=== PATIENT | male | born 1975 | race American Indian/Alaskan Native ===

== ENCOUNTER 2016-09-26 11:31 | Emergency (ER) | payer OTHER, MEDICAID ==
--- NOTE | 2016-09-26 11:40 | EDM.PDOC ---
ED HPI GENERAL MEDICAL PROBLEM - General Chief Complaint: Abdominal Pain Stated Complaint: SICK Time Seen by Provider: 09/26/16 11:40 Source of Information: Reports: Patient History Limitations: Reports: No limitations - History of Present Illness INITIAL COMMENTS - FREE TEXT/NARRATIVE: Pt states that he has had sore throat for the past few weeks and today he woke with dizziness, abdominal pain and vomiting with diarrhea. Onset: today Onset Date: 09/26/16 Duration: Colic Location: Reports: abdomen Quality: Reports: Ache Improves with: Reports: None Worsens with: Reports: None Associated Symptoms: Reports: nausea/vomiting - Related Data Allergies Allergy/AdvReac Type Severity Reaction Status Date / Time ceftriaxone sodium Allergy Vomiting Verified 09/26/16 11:41 [From Rocephin] Home Meds: Home Meds Albuterol [Proventil HFA] 2 puff INH Q4H PRN 06/09/13 [History] Formoterol/Mometasone [Dulera 100-50 MCG] 2 puff IH BID 12/26/14 [History] Past Medical History - Past Health History Medical/Surgical History: Denies Medical/Surgical History HEENT History: Reports: None Cardiovascular History: Reports: None Respiratory History: Reports: Asthma Other Respiratory History: wheezes throughout Gastrointestinal History: Reports: None Genitourinary History: Reports: None Musculoskeletal History: Reports: Arthritis, Fracture Other Musculoskeletal History: R KNEE Neurological History: Reports: None Psychiatric History: Reports: None Endocrine/Metabolic History: Reports: None Hematologic History: Reports: Anemia, Iron deficiency Immunologic History: Reports: None Oncologic (Cancer) History: Reports: None Dermatologic History: Reports: None - Infectious Disease History Infectious Disease History: Reports: None - Past Surgical History Head Surgeries/Procedures: Reports: None HEENT Surgical History: Reports: None Cardiovascular Surgical History: Reports: None Respiratory Surgical History: Reports: None GI Surgical History: Reports: None Musculoskeletal Surgical History: Reports: Arthroscopic knee, Other (see below) Other Musculoskeletal Surgeries/Procedures:: SYNOVECTOMY; MENISCECTOMY Social & Family History - Family History Family Medical History: Noncontributory - Tobacco Use Smoking Status *Q: Never Smoker Second Hand Smoke Exposure: Yes - Caffeine Use Caffeine Use: Reports: Soda - Alcohol Use Days Per Week of Alcohol Use: 0 - Recreational Drug Use Recreational Drug Use: No - Living Situation & Occupation Living situation: Reports: with family [facility] - Review of Systems Review Of Systems: See Below HEENT: Reports: Throat pain GI/Abdominal: Reports: Abdominal pain, Diarrhea, Nausea, Vomiting ED EXAM, GENERAL - Physical Exam Exam: See Below Exam Limited By: No limitations General Appearance: alert, WD/WN, no apparent distress Eye Exam: bilateral eye: PERRL Ears: normal external exam, normal canal, hearing grossly normal, normal TMs Ear Exam: bilateral ear: auricle normal, canal normal, TM normal Nose: normal inspection, normal mucosa, no blood Throat/Mouth: Normal lips, Normal voice, No airway compromise, Other (Enalrged tonsils bilaterally with eythema) Head: atraumatic, normocephalic Respiratory/Chest: no respiratory distress, lungs clear, normal breath sounds, no accessory muscle use, chest non-tender Cardiovascular: normal peripheral pulses, regular rate, rhythm, no edema, no gallop, no JVD, no murmur, no rub GI/Abdominal: normal bowel sounds, soft, no organomegaly, no distention, no abnormal bruit, no mass, guarding Neurological: alert, oriented, CN II-XII intact, normal cognition, normal gait, normal reflexes, no motor/sensory deficits Course - Orders/Labs/Meds Orders: Active Orders 24 hr Category Date Time Status Chest Abdomen Pelvis w Cont [CT] Urgent Exams 09/26/16 11:48 Taken Labs: Laboratory Tests 09/26/16 09/26/16 09/26/16 Range/Units 12:00 12:00 12:00 WBC 18.5 H (5.0-10.0) 10^3/uL RBC 5.75 (4.6-6.2) 10^6/uL Hgb 14.4 (14.0-18.0) g/dL Hct 42.8 (40.0-54.0) % MCV 74.4 L (80-100) fL MCH 25.0 L (27.0-34.0) pg MCHC 33.6 (33.0-35.0) g/dL Plt Count 259 (150-450) 10^3/uL Neut % (Auto) 91.0 H (42.2-75.2) % Lymph % (Auto) 3.2 L (20.5-50.1) % [place] % (Auto) 5.0 (2-8) % Eos % (Auto) 0.7 L (1.0-3.0) % Baso % (Auto) 0.1 (0.0-1.0) % Sodium 134 L (135-145) mmol/L Potassium 3.6 (3.6-5.0) mmol/L Chloride 100 L (101-111) mmol/L Carbon Dioxide 24.0 (21.0-31.0) mmol/L Anion Gap 13.6 BUN 17 (7-18) mg/dL Creatinine 1.0 (0.6-1.3) mg/dL Est Cr Clr Drug Dosing TNP Estimated GFR (MDRD) > 60 BUN/Creatinine Ratio 17.00 Glucose 141 H (74-105) mg/dL Calcium 8.8 (8.4-10.2) mg/dl Total Bilirubin 1.3 H (0.2-1.0) mg/dL AST 33 (10-42) IU/L ALT 45 (10-60) IU/L Alkaline Phosphatase 94 (42-121) IU/L Total Protein 7.5 (6.7-8.2) g/dl Albumin 3.8 (3.2-5.5) g/dl Globulin 3.7 Albumin/Globulin Ratio 1.03 Amylase 38 (28-100) U/L Lipase 18 L (22-51) U/L Urine Color Yellow (YELLOW) Urine Appearance Clear (CLEAR) Urine pH 5.5 (5.0-9.0) Ur Specific [place] 1.020 (1.005-1.030) Urine Protein Negative (NEGATIVE) Urine Glucose (UA) 100 H (NEGATIVE) Urine Ketones Negative (NEGATIVE) Urine Occult Blood Negative (NEGATIVE) Urine Nitrite Negative (NEGATIVE) Urine Bilirubin Negative (NEGATIVE) Urine Urobilinogen 1.0 (0.2-1.0) mg/dL Ur Leukocyte Esterase Negative (NEGATIVE) Urine RBC 0-5 /HPF Urine WBC 0-5 (0-5/HPF) /HPF Ur Epithelial Cells Rare /HPF Urine Opiates Screen (NEGATIVE) Ur Oxycodone Screen (NEGATIVE) Urine Methadone Screen (NEGATIVE) Ur Barbiturates Screen (NEGATIVE) U Tricyclic Antidepress (NEGATIVE) Ur Phencyclidine Scrn (NEGATIVE) Ur Amphetamine Screen (NEGATIVE) U Methamphetamines Scrn (NEGATIVE) Urine MDMA Screen (NEGATIVE) U Benzodiazepines Scrn (NEGATIVE) Urine Cocaine Screen (NEGATIVE) U Marijuana (THC) Screen (NEGATIVE) 09/26/16 Range/Units 12:00 WBC (5.0-10.0) 10^3/uL RBC (4.6-6.2) 10^6/uL Hgb (14.0-18.0) g/dL Hct (40.0-54.0) % MCV (80-100) fL MCH (27.0-34.0) pg MCHC (33.0-35.0) g/dL Plt Count (150-450) 10^3/uL Neut % (Auto) (42.2-75.2) % Lymph % (Auto) (20.5-50.1) % [place] % (Auto) (2-8) % Eos % (Auto) (1.0-3.0) % Baso % (Auto) (0.0-1.0) % Sodium (135-145) mmol/L Potassium (3.6-5.0) mmol/L Chloride (101-111) mmol/L Carbon Dioxide (21.0-31.0) mmol/L Anion Gap BUN (7-18) mg/dL Creatinine (0.6-1.3) mg/dL Est Cr Clr Drug Dosing Estimated GFR (MDRD) BUN/Creatinine Ratio Glucose (74-105) mg/dL Calcium (8.4-10.2) mg/dl Total Bilirubin (0.2-1.0) mg/dL AST (10-42) IU/L ALT (10-60) IU/L Alkaline Phosphatase (42-121) IU/L Total Protein (6.7-8.2) g/dl Albumin (3.2-5.5) g/dl Globulin Albumin/Globulin Ratio Amylase (28-100) U/L Lipase (22-51) U/L Urine Color (YELLOW) Urine Appearance (CLEAR) Urine pH (5.0-9.0) Ur Specific [place] (1.005-1.030) Urine Protein (NEGATIVE) Urine Glucose (UA) (NEGATIVE) Urine Ketones (NEGATIVE) Urine Occult Blood (NEGATIVE) Urine Nitrite (NEGATIVE) Urine Bilirubin (NEGATIVE) Urine Urobilinogen (0.2-1.0) mg/dL Ur Leukocyte Esterase (NEGATIVE) Urine RBC /HPF Urine WBC (0-5/HPF) /HPF Ur Epithelial Cells /HPF Urine Opiates Screen Negative (NEGATIVE) Ur Oxycodone Screen Negative (NEGATIVE) Urine Methadone Screen Negative (NEGATIVE) Ur Barbiturates Screen Negative (NEGATIVE) U Tricyclic Antidepress Negative (NEGATIVE) Ur Phencyclidine Scrn Negative (NEGATIVE) Ur Amphetamine Screen Negative (NEGATIVE) U Methamphetamines Scrn Negative (NEGATIVE) Urine MDMA Screen Negative (NEGATIVE) U Benzodiazepines Scrn Negative (NEGATIVE) Urine Cocaine Screen Negative (NEGATIVE) U Marijuana (THC) Screen Negative (NEGATIVE) Meds: Medications Discontinued Medications Generic Name Dose Route Start Last Admin Trade Name Freq PRN Reason Stop Dose Admin Sodium Chloride 1,000 mls @ 999 mls/hr 09/26/16 12:07 09/26/16 12:30 Normal Saline IV 09/26/16 13:07 999 mls/hr .BOLUS ONE Administration Iopamidol 100 ml 09/26/16 12:22 09/26/16 12:23 Isovue-300 (61%) IVPUSH 09/26/16 12:23 100 ml ONETIME ONE Administration Ketorolac Tromethamine 30 mg 09/26/16 12:30 09/26/16 12:44 Toradol IVPUSH 09/26/16 12:31 30 mg ONETIME ONE Administration Ondansetron HCl 4 mg 09/26/16 12:07 09/26/16 12:18 Zofran IV 09/26/16 12:08 4 mg ONETIME ONE Administration Departure - Departure Time of Disposition: 13:43 Disposition: Home, Self-Care 01 Condition: good Clinical Impression: Strep pharyngitis Pneumonia Qualifiers: Pneumonia type: due to unspecified organism Laterality: left Lung location: lower lobe of lung Qualified Code(s): J18.1 - Lobar pneumonia, unspecified organism Instructions: Strep Throat, Community-Acquired Pneumonia, Adult Forms: ED Department Discharge Additional Instructions: Take the azithromycin 2 times a day for 10 days. you had your first dose here today. take only one more dose tonight. Take Motrin for fever and pain. Follow up in clinic in 5 days for a recheck. Return for any worsening symptoms. - My Orders Last 24 Hours: My Active Orders 09/26/16 11:48 Chest Abdomen Pelvis w Cont [CT] Urgent - Assessment/Plan Last 24 Hours: My Active Orders 09/26/16 11:48 Chest Abdomen Pelvis w Cont [CT] Urgent
[2016-09-26] MEDS ORDERED: Sodium Chloride 0.9% 1,000 ML IV ONE (12:07)
[2016-09-26] MEDS ORDERED: Ondansetron 4 MG/2 ML SDV IV ONE (12:07)
[2016-09-26] MEDS ORDERED: Iopamidol 612 MG/ML 100 ML Bottle IVPUSH ONE (12:22)
[2016-09-26 12:26] LABS: CHLORIDE,CL 100 mmol/L (101-111); SODIUM,NA 134 mmol/L (135-145)
[2016-09-26] MEDS ORDERED: Ketorolac 30 MG/ML SDV IVPUSH ONE (12:30)
--- NOTE | 2016-09-26 13:35 | CT ---
Clinical history: 40-year-old 262 pound male with unexplained abdominal pain, positive strep throat culture, and abnormally elevated white blood cell count (greater than 18,000). Scan technique: Volume acquisition of data chest, abdomen and pelvis obtained without oral contrast but during intravenous ministration 100 cc nonionic Isovue contrast (3 cc/s via injector) while bhupendra ent was lying supine on the Siemens multi slice CT scanner [place], [place]. Note: Patient "uncooperative. Would not stop moving or talking during exam". Interpretation: Abnormal. 1. *Asymmetric large dense focal area of parenchymal lung consolidation involving the left lower lob e, laterally. Pneumonia probable. Pulmonary infarct/mass with infiltrate is a differential considera tion. 2. Normal cardiac silhouette without alveolar edema or dependent effusion. 3. Metallic or medicinal foreign bodies within the stomach/duodenum. Clinical? 4. Normal caliber thoracic and abdominal aorta. Gallbladder, liver, spleen, pancreas and adrenal gla nds anatomically correct. Normal reniform size axis and configuration. No renal cortical mass lesion , nephrolithiasis or signs of obstructive uropathy. Midline prostate gland unremarkable. 5. Bony thorax, dorsal/lumbar spine and pelvis/hips normal. 6. No pelvic or abdominal mass lesion, signs of retroperitoneal lymphadenopathy, inflammatory "dirty " peritoneal fat, mechanical bowel obstruction, ascites or free intraperitoneal air. CONCLUSION: Left lower lobe pneumonia. Foreign bodies stomach (see above).
[2016-09-26] MEDS ORDERED: Azithromycin 250 MG Tab PO ONE (13:36)
[2016-09-26 14:27] VITALS: BP 104/68
== END 2016-09-26 13:53 | disposition home or self-care (01) ==
LOC: DL.ED 11:31
DX: J02.0 Streptococcal pharyngitis (principal); J18.1 Lobar pneumonia, unspecified organism; Z88.8 Allergy status to other drugs, medicaments and biological substances
CPT/HCPCS: 36415; 71260; 74177; 80053; 80305; 81001; 82150; 83690; 85025; 87430; 87804; 96361; 96374; 96375; 99283; A9270; J1885; J2405; J7030; Q9967

== ENCOUNTER 2016-12-03 17:31 | Emergency (ER) | payer MEDICAID, OTHER ==
--- NOTE | 2016-12-03 18:19 | EDM.PDOC ---
<Jose Mary - Last Filed: 12/03/16 18:55> ED HPI GENERAL MEDICAL PROBLEM - General Chief Complaint: Abdominal Pain Stated Complaint: SHARP PAINS IN STOMACH/VOMITING Time Seen by Provider: 12/03/16 19:25 Source of Information: Reports: Patient, RN, RN Notes Reviewed History Limitations: Reports: No Limitations - Related Data Allergies Allergy/AdvReac Type Severity Reaction Status Date / Time ceftriaxone sodium Allergy Vomiting Verified 09/26/16 14:27 [From Rocephin] Home Meds: Home Meds Albuterol [Proventil HFA] 2 puff INH Q4H PRN 06/09/13 [History] Formoterol/Mometasone [Dulera 100-50 MCG] 2 puff IH BID 12/26/14 [History] Past Medical History - Past Health History Medical/Surgical History: Denies Medical/Surgical History HEENT History: Reports: None Cardiovascular History: Reports: None Respiratory History: Reports: Asthma Other Respiratory History: wheezes throughout Gastrointestinal History: Reports: None Genitourinary History: Reports: None Musculoskeletal History: Reports: Arthritis, Fracture Other Musculoskeletal History: R KNEE Neurological History: Reports: None Psychiatric History: Reports: None Endocrine/Metabolic History: Reports: None Hematologic History: Reports: Anemia, Iron Deficiency Immunologic History: Reports: None Oncologic (Cancer) History: Reports: None Dermatologic History: Reports: None - Infectious Disease History Infectious Disease History: Reports: None - Past Surgical History Musculoskeletal Surgical History: Reports: Arthroscopic Knee, Other (See Below) Social & Family History - Family History Family Medical History: Noncontributory - Tobacco Use Smoking Status *Q: Current Status Unknown Second Hand Smoke Exposure: Yes - Caffeine Use Caffeine Use: Reports: Soda - Alcohol Use Days Per Week of Alcohol Use: 0 - Recreational Drug Use Recreational Drug Use: No - Living Situation & Occupation Living situation: Reports: with Family Course - Vital Signs Last Recorded V/S: Last Vital Signs Temp 37.4 C 12/03/16 20:12 Pulse 106 H 12/03/16 20:12 Resp 18 12/03/16 20:12 BP 132/76 12/03/16 20:12 Pulse Ox 92 L 12/03/16 20:12 - Orders/Labs/Meds Orders: Active Orders 24 hr Category Date Time Status Abdomen Pelvis w Cont [CT] Urgent Exams 12/03/16 19:37 Taken CULTURE BLOOD [BC] Stat Lab 12/03/16 19:10 Received CULTURE BLOOD [] Stat Lab 12/03/16 20:06 Received Labs: Laboratory Tests 12/03/16 12/03/16 12/03/16 Range/Units 18:35 18:35 19:10 WBC (5.0-10.0) 10^3/uL RBC (4.6-6.2) 10^6/uL Hgb (14.0-18.0) g/dL Hct (40.0-54.0) % MCV (80-100) fL MCH (27.0-34.0) pg MCHC (33.0-35.0) g/dL Plt Count (150-450) 10^3/uL Neut % (Auto) (42.2-75.2) % Lymph % (Auto) (20.5-50.1) % [place] % (Auto) (2-8) % Eos % (Auto) (1.0-3.0) % Baso % (Auto) (0.0-1.0) % Sodium (135-145) mmol/L Potassium (3.6-5.0) mmol/L Chloride (101-111) mmol/L Carbon Dioxide (21.0-31.0) mmol/L Anion Gap BUN (7-18) mg/dL Creatinine (0.6-1.3) mg/dL Est Cr Clr Drug Dosing Estimated GFR (MDRD) BUN/Creatinine Ratio Glucose (74-105) mg/dL Lactic Acid 0.9 (0.5-2.2) mmol/L Calcium (8.4-10.2) mg/dl Total Bilirubin (0.2-1.0) mg/dL AST (10-42) IU/L ALT (10-60) IU/L Alkaline Phosphatase (42-121) IU/L Total Protein (6.7-8.2) g/dl Albumin (3.2-5.5) g/dl Globulin Albumin/Globulin Ratio Urine Color Dark yellow (YELLOW) Urine Appearance Slightly cloudy (CLEAR) Urine pH 6.0 (5.0-9.0) Ur Specific [place] 1.015 (1.005-1.030) Urine Protein 30 H (NEGATIVE) Urine Glucose (UA) Negative (NEGATIVE) Urine Ketones Negative (NEGATIVE) Urine Occult Blood Negative (NEGATIVE) Urine Nitrite Negative (NEGATIVE) Urine Bilirubin Small H (NEGATIVE) Urine Urobilinogen 1.0 (0.2-1.0) mg/dL Ur Leukocyte Esterase Negative (NEGATIVE) Urine RBC Not seen /HPF Urine WBC 0-5 (0-5/HPF) /HPF Ur Epithelial Cells Rare /HPF Urine Bacteria Not seen (0-FEW/HPF) /HPF Urine Mucus Few H /LPF Urine Opiates Screen Negative (NEGATIVE) Ur Oxycodone Screen Negative (NEGATIVE) Urine Methadone Screen Negative (NEGATIVE) Ur Barbiturates Screen Negative (NEGATIVE) U Tricyclic Antidepress Negative (NEGATIVE) Ur Phencyclidine Scrn Negative (NEGATIVE) Ur Amphetamine Screen Negative (NEGATIVE) U Methamphetamines Scrn Negative (NEGATIVE) Urine MDMA Screen Negative (NEGATIVE) U Benzodiazepines Scrn Negative (NEGATIVE) Urine Cocaine Screen Negative (NEGATIVE) U Marijuana (THC) Screen Negative (NEGATIVE) 12/03/16 12/03/16 Range/Units 19:10 19:10 WBC 14.3 H (5.0-10.0) 10^3/uL RBC 6.01 (4.6-6.2) 10^6/uL Hgb 15.2 (14.0-18.0) g/dL Hct 45.1 (40.0-54.0) % MCV 75.0 L (80-100) fL MCH 25.3 L (27.0-34.0) pg MCHC 33.7 (33.0-35.0) g/dL Plt Count 254 (150-450) 10^3/uL Neut % (Auto) 89.7 H (42.2-75.2) % Lymph % (Auto) 5.1 L (20.5-50.1) % [place] % (Auto) 5.0 (2-8) % Eos % (Auto) 0.1 L (1.0-3.0) % Baso % (Auto) 0.1 (0.0-1.0) % Sodium 134 L (135-145) mmol/L Potassium 3.1 L (3.6-5.0) mmol/L Chloride 101 (101-111) mmol/L Carbon Dioxide 23.0 (21.0-31.0) mmol/L Anion Gap 13.1 BUN 23 H (7-18) mg/dL Creatinine 1.1 (0.6-1.3) mg/dL Est Cr Clr Drug Dosing TNP Estimated GFR (MDRD) > 60 BUN/Creatinine Ratio 20.90 Glucose 114 H (74-105) mg/dL Lactic Acid (0.5-2.2) mmol/L Calcium 8.4 (8.4-10.2) mg/dl Total Bilirubin 1.2 H (0.2-1.0) mg/dL AST 22 (10-42) IU/L ALT 25 (10-60) IU/L Alkaline Phosphatase 86 (42-121) IU/L Total Protein 7.6 (6.7-8.2) g/dl Albumin 3.7 (3.2-5.5) g/dl Globulin 3.9 Albumin/Globulin Ratio 0.95 Urine Color (YELLOW) Urine Appearance (CLEAR) Urine pH (5.0-9.0) Ur Specific [place] (1.005-1.030) Urine Protein (NEGATIVE) Urine Glucose (UA) (NEGATIVE) Urine Ketones (NEGATIVE) Urine Occult Blood (NEGATIVE) Urine Nitrite (NEGATIVE) Urine Bilirubin (NEGATIVE) Urine Urobilinogen (0.2-1.0) mg/dL Ur Leukocyte Esterase (NEGATIVE) Urine RBC /HPF Urine WBC (0-5/HPF) /HPF Ur Epithelial Cells /HPF Urine Bacteria (0-FEW/HPF) /HPF Urine Mucus /LPF Urine Opiates Screen (NEGATIVE) Ur Oxycodone Screen (NEGATIVE) Urine Methadone Screen (NEGATIVE) Ur Barbiturates Screen (NEGATIVE) U Tricyclic Antidepress (NEGATIVE) Ur Phencyclidine Scrn (NEGATIVE) Ur Amphetamine Screen (NEGATIVE) U Methamphetamines Scrn (NEGATIVE) Urine MDMA Screen (NEGATIVE) U Benzodiazepines Scrn (NEGATIVE) Urine Cocaine Screen (NEGATIVE) U Marijuana (THC) Screen (NEGATIVE) Meds: Medications Discontinued Medications Generic Name Dose Route Start Last Admin Trade Name Freq PRN Reason Stop Dose Admin Sodium Chloride 1,000 mls @ 999 mls/hr 12/03/16 18:57 12/03/16 19:17 Normal Saline IV 12/03/16 19:57 999 mls/hr .BOLUS ONE Administration Iopamidol 100 ml 12/03/16 19:37 Isovue-300 (61%) IVPUSH 12/03/16 19:38 ONETIME ONE Ondansetron HCl 4 mg 12/03/16 18:57 12/03/16 19:19 Zofran IV 12/03/16 18:58 4 mg ONETIME ONE Administration Departure - Departure Disposition: Home, Self-Care 01 Clinical Impression: Gastroenteritis - Discharge Information Instructions: Viral Gastroenteritis, Adult, [id number], Nausea and Vomiting, Adult, [id number] Forms: ED Department Discharge Care Plan Goals: The patient was advised of the examination, lab and CT results during the visit in the ED. The patient was given 1 liter of IV fluids and an IV dose of Zofran while in the ED. The patient was discharged with Zofran ODT #2 to take 1 by mouth every 6 hours as needed and a script for Zofran ODT (4 mg) #10 to take 1 by mouth 4 times per day as needed for nausea. If the patient has any additional symptoms or concerns, the patient should follow-up with his primary care facility or return to the emergency department. - My Orders Last 24 Hours: My Active Orders 12/03/16 19:10 CULTURE BLOOD [BC] Stat 12/03/16 19:37 Abdomen Pelvis w Cont [CT] Urgent 12/03/16 20:06 CULTURE BLOOD [BC] Stat - Assessment/Plan Last 24 Hours: My Active Orders 12/03/16 19:10 CULTURE BLOOD [BC] Stat 12/03/16 19:37 Abdomen Pelvis w Cont [CT] Urgent 12/03/16 20:06 CULTURE BLOOD [BC] Stat <Kadeem Mcgovern - Last Filed: 12/03/16 21:09> ED HPI GENERAL MEDICAL PROBLEM - History of Present Illness INITIAL COMMENTS - FREE TEXT/NARRATIVE: This 41 yo male patient reports to the ED with abdominal pain. The patient reports his pain started yesterday after drinking some well water. The patient reports he has been nauseated, vomiting and had diarrhea over the past 24 hours. The patient attempted to get into the Clinic, but there were no appointments available. The patient reports he has been feeling feverish all day. The patient has a previous cardiac surgery for "water on the heart" when he was an . The patient reports no previous abdominal surgeries or issues. Onset: Sudden Onset Date: 12/02/16 Duration: Constant, Getting Worse Location: Reports: Abdomen (diffuse) Quality: Reports: Ache Severity: Severe Improves with: Reports: None Worsens with: Reports: None Associated Symptoms: Reports: Fever/Chills, Loss of Appetite, Nausea/Vomiting, Other (diarrhea) ED ROS GENERAL - Review of Systems Review Of Systems: ROS reveals no pertinent complaints other than HPI. ED EXAM, GI/ABD - Physical Exam Exam: See Below Exam Limited By: No Limitations General Appearance: Alert, WD/WN, Moderate Distress, Obese Eyes: Bilateral: Normal Appearance, EOMI Ears: Normal External Exam, Normal Canal, Hearing Grossly Normal, Normal TMs Nose: Normal Inspection, Normal Mucosa, No Blood Throat/Mouth: Normal Inspection, Normal Lips, Normal Teeth, Normal Gums, Normal Oropharynx, Normal Voice, No Airway Compromise Head: Atraumatic, Normocephalic Neck: Normal Inspection, Supple, Non-Tender, Full Range of Motion Respiratory/Chest: No Respiratory Distress, Lungs Clear, Normal Breath Sounds, No Accessory Muscle Use, Chest Non-Tender Cardiovascular: Normal Peripheral Pulses, Regular Rate, Rhythm, No Edema, No Gallop, No JVD, No Murmur, No Rub GI/Abdominal: Normal Bowel Sounds, No Organomegaly, No Abnormal Bruit, No Mass, Pelvis Stable, Tenderness (diffuse), Distention (Male) Exam: Deferred Rectal (Males) Exam: Deferred Back Exam: Normal Inspection, Full Range of Motion, NT Extremities: Normal Inspection, Normal Range of Motion, Non-Tender, Normal Capillary Refill, No Pedal Edema Neurological: Alert, Oriented, CN II-XII Intact, Normal Cognition, Normal Gait, Normal Reflexes, No Motor/Sensory Deficits Psychiatric: Normal Affect, Normal Mood Skin Exam: Warm, Dry, Intact, Normal Color, No Rash Lymphatic: No Adenopathy Course - Vital Signs Last Recorded V/S: Last Vital Signs Temp 37.4 C 12/03/16 20:12 Pulse 106 H 12/03/16 20:12 Resp 18 12/03/16 20:12 BP 132/76 12/03/16 20:12 Pulse Ox 92 L 12/03/16 20:12 - Orders/Labs/Meds Labs: Laboratory Tests 12/03/16 12/03/16 12/03/16 Range/Units 18:35 18:35 19:10 WBC (5.0-10.0) 10^3/uL RBC (4.6-6.2) 10^6/uL Hgb (14.0-18.0) g/dL Hct (40.0-54.0) % MCV (80-100) fL MCH (27.0-34.0) pg MCHC (33.0-35.0) g/dL Plt Count (150-450) 10^3/uL Neut % (Auto) (42.2-75.2) % Lymph % (Auto) (20.5-50.1) % [place] % (Auto) (2-8) % Eos % (Auto) (1.0-3.0) % Baso % (Auto) (0.0-1.0) % Sodium (135-145) mmol/L Potassium (3.6-5.0) mmol/L Chloride (101-111) mmol/L Carbon Dioxide (21.0-31.0) mmol/L Anion Gap BUN (7-18) mg/dL Creatinine (0.6-1.3) mg/dL Est Cr Clr Drug Dosing Estimated GFR (MDRD) BUN/Creatinine Ratio Glucose (74-105) mg/dL Lactic Acid 0.9 (0.5-2.2) mmol/L Calcium (8.4-10.2) mg/dl Total Bilirubin (0.2-1.0) mg/dL AST (10-42) IU/L ALT (10-60) IU/L Alkaline Phosphatase (42-121) IU/L Total Protein (6.7-8.2) g/dl Albumin (3.2-5.5) g/dl Globulin Albumin/Globulin Ratio Urine Color Dark yellow (YELLOW) Urine Appearance Slightly cloudy (CLEAR) Urine pH 6.0 (5.0-9.0) Ur Specific [place] 1.015 (1.005-1.030) Urine Protein 30 H (NEGATIVE) Urine Glucose (UA) Negative (NEGATIVE) Urine Ketones Negative (NEGATIVE) Urine Occult Blood Negative (NEGATIVE) Urine Nitrite Negative (NEGATIVE) Urine Bilirubin Small H (NEGATIVE) Urine Urobilinogen 1.0 (0.2-1.0) mg/dL Ur Leukocyte Esterase Negative (NEGATIVE) Urine RBC Not seen /HPF Urine WBC 0-5 (0-5/HPF) /HPF Ur Epithelial Cells Rare /HPF Urine Bacteria Not seen (0-FEW/HPF) /HPF Urine Mucus Few H /LPF Urine Opiates Screen Negative (NEGATIVE) Ur Oxycodone Screen Negative (NEGATIVE) Urine Methadone Screen Negative (NEGATIVE) Ur Barbiturates Screen Negative (NEGATIVE) U Tricyclic Antidepress Negative (NEGATIVE) Ur Phencyclidine Scrn Negative (NEGATIVE) Ur Amphetamine Screen Negative (NEGATIVE) U Methamphetamines Scrn Negative (NEGATIVE) Urine MDMA Screen Negative (NEGATIVE) U Benzodiazepines Scrn Negative (NEGATIVE) Urine Cocaine Screen Negative (NEGATIVE) U Marijuana (THC) Screen Negative (NEGATIVE) 12/03/16 12/03/16 Range/Units 19:10 19:10 WBC 14.3 H (5.0-10.0) 10^3/uL RBC 6.01 (4.6-6.2) 10^6/uL Hgb 15.2 (14.0-18.0) g/dL Hct 45.1 (40.0-54.0) % MCV 75.0 L (80-100) fL MCH 25.3 L (27.0-34.0) pg MCHC 33.7 (33.0-35.0) g/dL Plt Count 254 (150-450) 10^3/uL Neut % (Auto) 89.7 H (42.2-75.2) % Lymph % (Auto) 5.1 L (20.5-50.1) % [place] % (Auto) 5.0 (2-8) % Eos % (Auto) 0.1 L (1.0-3.0) % Baso % (Auto) 0.1 (0.0-1.0) % Sodium 134 L (135-145) mmol/L Potassium 3.1 L (3.6-5.0) mmol/L Chloride 101 (101-111) mmol/L Carbon Dioxide 23.0 (21.0-31.0) mmol/L Anion Gap 13.1 BUN 23 H (7-18) mg/dL Creatinine 1.1 (0.6-1.3) mg/dL Est Cr Clr Drug Dosing TNP Estimated GFR (MDRD) > 60 BUN/Creatinine Ratio 20.90 Glucose 114 H (74-105) mg/dL Lactic Acid (0.5-2.2) mmol/L Calcium 8.4 (8.4-10.2) mg/dl Total Bilirubin 1.2 H (0.2-1.0) mg/dL AST 22 (10-42) IU/L ALT 25 (10-60) IU/L Alkaline Phosphatase 86 (42-121) IU/L Total Protein 7.6 (6.7-8.2) g/dl Albumin 3.7 (3.2-5.5) g/dl Globulin 3.9 Albumin/Globulin Ratio 0.95 Urine Color (YELLOW) Urine Appearance (CLEAR) Urine pH (5.0-9.0) Ur Specific [place] (1.005-1.030) Urine Protein (NEGATIVE) Urine Glucose (UA) (NEGATIVE) Urine Ketones (NEGATIVE) Urine Occult Blood (NEGATIVE) Urine Nitrite (NEGATIVE) Urine Bilirubin (NEGATIVE) Urine Urobilinogen (0.2-1.0) mg/dL Ur Leukocyte Esterase (NEGATIVE) Urine RBC /HPF Urine WBC (0-5/HPF) /HPF Ur Epithelial Cells /HPF Urine Bacteria (0-FEW/HPF) /HPF Urine Mucus /LPF Urine Opiates Screen (NEGATIVE) Ur Oxycodone Screen (NEGATIVE) Urine Methadone Screen (NEGATIVE) Ur Barbiturates Screen (NEGATIVE) U Tricyclic Antidepress (NEGATIVE) Ur Phencyclidine Scrn (NEGATIVE) Ur Amphetamine Screen (NEGATIVE) U Methamphetamines Scrn (NEGATIVE) Urine MDMA Screen (NEGATIVE) U Benzodiazepines Scrn (NEGATIVE) Urine Cocaine Screen (NEGATIVE) U Marijuana (THC) Screen (NEGATIVE) Departure - Departure Time of Disposition: 21:06 Condition: fair
[2016-12-03] MEDS ORDERED: Sodium Chloride 0.9% 1,000 ML IV ONE (18:57)
[2016-12-03] MEDS ORDERED: Ondansetron 4 MG/2 ML SDV IV ONE (18:57)
[2016-12-03] MEDS ORDERED: Iopamidol 612 MG/ML 100 ML Bottle IVPUSH ONE (19:37)
[2016-12-03 19:44] LABS: CHLORIDE,CL 101 mmol/L (101-111); SODIUM,NA 134 mmol/L (135-145)
[2016-12-03 20:12] VITALS: BP 132/76
[2016-12-03] MEDS ORDERED: Ondansetron 4 MG Tab.DIS ONE (21:22)
[2016-12-03] MEDS ORDERED: Ondansetron 4 MG Tab.DIS PO ONE (21:22)
== END 2016-12-03 21:28 | disposition home or self-care (01) ==
LOC: DL.ED 17:31
DX: K52.9 Noninfective gastroenteritis and colitis, unspecified (principal); J45.909 Unspecified asthma, uncomplicated; Z88.1 Allergy status to other antibiotic agents; Z98.890 Other specified postprocedural states
CPT/HCPCS: 36415; 74177; 80053; 80305; 81001; 83605; 85025; 87040; 96361; 96374; 99284; A9270; J2405; J7030; Q9967

== ENCOUNTER 2017-06-26 13:12 | Emergency (ER) | payer MEDICAID | END 2017-06-26 14:48 | disposition left against medical advice (07) | LOC: DL.ED 13:12 | DX: Z53.21 Procedure and treatment not carried out due to patient leaving prior to being seen by health care provider (principal) ==

== ENCOUNTER 2017-07-31 10:13 | Emergency (ER) | payer MEDICAID ==
[2017-07-31 10:37] VITALS: BP 153/99
--- NOTE | 2017-07-31 10:45 | EDM.PDOC ---
ED HPI GENERAL MEDICAL PROBLEM - General Chief Complaint: Respiratory Problem Stated Complaint: ASTHMA, STOMACH Time Seen by Provider: 07/31/17 10:44 Source of Information: Reports: Patient, Old Records, RN, RN Notes Reviewed History Limitations: Reports: No Limitations - History of Present Illness INITIAL COMMENTS - FREE TEXT/NARRATIVE: Arrives from home by POV with c/o asthma flare up with wheezing x2 days, getting worse. Denies shortness of breath. Also c/o onset of left sided abdominal pain yesterday with nausea and loose stool. Denies blood or mucus in stool, or any black or melanotic stool. Denies fever, chills, sore throat, myalgias, or radiating abdominal pain. 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: Reports: Breathing Treatments Left Upper Abdomen Pain Score (Numeric/FACES): 8 - Related Data Allergies Allergy/AdvReac Type Severity Reaction Status Date / Time ceftriaxone sodium Allergy Vomiting Verified 07/31/17 10:32 [From Rocephin] Home Meds: Home Meds Albuterol [Proventil HFA] 2 puff INH Q4H PRN 06/09/13 [History] Formoterol/Mometasone [Dulera 100-50 MCG] 2 puff IH BID 12/26/14 [History] Past Medical History HEENT History: Reports: None Cardiovascular History: Reports: None Respiratory History: Reports: Asthma Other Respiratory History: wheezes throughout Gastrointestinal History: Reports: None Genitourinary History: Reports: None Musculoskeletal History: Reports: Arthritis, Fracture Other Musculoskeletal History: R KNEE Neurological History: Reports: None Psychiatric History: Reports: None Endocrine/Metabolic History: Reports: None Hematologic History: Reports: Anemia, Iron Deficiency Immunologic History: Reports: None Oncologic (Cancer) History: Reports: None Dermatologic History: Reports: None - Infectious Disease History Infectious Disease History: Reports: None - Past Surgical History Head Surgeries/Procedures: Reports: None Musculoskeletal Surgical History: Reports: Arthroscopic Knee, Other (See Below) Social & Family History - Family History Family Medical History: Noncontributory - Tobacco Use Smoking Status *Q: Never Smoker Second Hand Smoke Exposure: No - Caffeine Use Caffeine Use: Reports: Soda - Alcohol Use Days Per Week of Alcohol Use: 0 - Recreational Drug Use Recreational Drug Use: No - Living Situation & Occupation Living situation: Reports: with Family Occupation: Employed ED ROS GENERAL - Review of Systems Review Of Systems: ROS reveals no pertinent complaints other than HPI. ED EXAM, GENERAL - Physical Exam Exam: See Below Exam Limited By: No Limitations General Appearance: Alert, WD/WN, No Apparent Distress, Obese Ears: Hearing Grossly Normal Nose: Normal Inspection Throat/Mouth: Normal Inspection, Normal Lips, Normal Teeth, Normal Gums, Normal Oropharynx, Normal Voice, No Airway Compromise Head: Atraumatic, Normocephalic Neck: Normal Inspection, Supple, Non-Tender, Full Range of Motion Respiratory/Chest: No Respiratory Distress, No Accessory Muscle Use, Chest Non- Tender, Wheezing. No: Crackles, Rales, Rhonchi, Stridor, Retractions Cardiovascular: Normal Peripheral Pulses, Regular Rate, Rhythm, No Edema, No Gallop, No JVD, No Murmur, No Rub GI/Abdominal: Normal Bowel Sounds, Soft, No Distention, No Abnormal Bruit, Tender (LUQ, LLQ, no peritoneal signs). No: Guarding, Rigid, Rebound (Male) Exam: Deferred Rectal (Males) Exam: Deferred Back Exam: Normal Inspection, Full Range of Motion. No: CVA Tenderness (L), CVA Tenderness (R) Extremities: Normal Inspection Neurological: Alert, Oriented, CN II-XII Intact, Normal Cognition, Normal Gait, No Motor/Sensory Deficits Psychiatric: Normal Affect, Normal Mood Skin Exam: Warm, Dry, Intact, Normal Color, No Rash Course - Vital Signs Last Recorded V/S: Last Vital Signs Temp 37.2 C 07/31/17 10:34 Pulse 80 07/31/17 10:34 Resp 14 07/31/17 10:34 BP 153/99 H 07/31/17 10:34 Pulse Ox 96 07/31/17 10:34 - Orders/Labs/Meds Orders: Active Orders 24 hr Category Date Time Status Peripheral IV Care [RC] . DIRECTED Care 07/31/17 10:58 Active Sodium Chloride 0.9% [Saline Flush] Med 07/31/17 10:58 Active 10 ml FLUSH ASDIRECTED PRN Peripheral IV Insertion Adult [OM.PC] Stat Oth 07/31/17 10:58 Ordered Medication Orders Sodium Chloride (Saline Flush) 10 ml FLUSH ASDIRECTED PRN PRN Reason: Keep Vein Open Last Admin: 07/31/17 11:10 Dose: 10 ml Labs: Laboratory Tests 07/31/17 07/31/17 07/31/17 Range/Units 11:06 11:06 11:06 WBC 6.4 (5.0-10.0) 10^3/uL RBC 5.58 (4.6-6.2) 10^6/uL Hgb 13.6 L D (14.0-18.0) g/dL Hct 42.2 (40.0-54.0) % MCV 75.6 L (80-100) fL MCH 24.4 L (27.0-34.0) pg MCHC 32.2 L (33.0-35.0) g/dL Plt Count 223 (150-450) 10^3/uL Neut % (Auto) 76.2 H (42.2-75.2) % Lymph % (Auto) 10.4 L (20.5-50.1) % [place] % (Auto) 9.8 H (2-8) % Eos % (Auto) 3.3 H (1.0-3.0) % Baso % (Auto) 0.3 (0.0-1.0) % Sodium 134 L (135-145) mmol/L Potassium 3.4 L (3.6-5.0) mmol/L Chloride 102 (101-111) mmol/L Carbon Dioxide 25.0 (21.0-31.0) mmol/L Anion Gap 10.4 BUN 19 H (7-18) mg/dL Creatinine 0.9 (0.6-1.3) mg/dL Est Cr Clr Drug Dosing 128.12 mL/min Estimated GFR (MDRD) > 60 BUN/Creatinine Ratio 21.11 Glucose 115 H (74-105) mg/dL Calcium 8.5 (8.4-10.2) mg/dl Total Bilirubin 1.3 H (0.2-1.0) mg/dL AST 41 (10-42) IU/L ALT 51 (10-60) IU/L Alkaline Phosphatase 85 (42-121) IU/L C-Reactive Protein 3.0 H (0.0-1.3) mg/dL Total Protein 7.0 (6.7-8.2) g/dl Albumin 3.7 (3.2-5.5) g/dl Globulin 3.3 Albumin/Globulin Ratio 1.12 Amylase 36 (28-100) U/L Lipase 26 (22-51) U/L Urine Color (YELLOW) Urine Appearance (CLEAR) Urine pH (5.0-9.0) Ur Specific [place] (1.005-1.030) Urine Protein (NEGATIVE) Urine Glucose (UA) (NEGATIVE) Urine Ketones (NEGATIVE) Urine Occult Blood (NEGATIVE) Urine Nitrite (NEGATIVE) Urine Bilirubin (NEGATIVE) Urine Urobilinogen (0.2-1.0) mg/dL Ur Leukocyte Esterase (NEGATIVE) Urine RBC /HPF Urine WBC (0-5/HPF) /HPF Ur Epithelial Cells /HPF Urine Bacteria (0-FEW/HPF) /HPF Urine Mucus /LPF Urinalysis Comment 07/31/17 Range/Units 11:07 WBC (5.0-10.0) 10^3/uL RBC (4.6-6.2) 10^6/uL Hgb (14.0-18.0) g/dL Hct (40.0-54.0) % MCV (80-100) fL MCH (27.0-34.0) pg MCHC (33.0-35.0) g/dL Plt Count (150-450) 10^3/uL Neut % (Auto) (42.2-75.2) % Lymph % (Auto) (20.5-50.1) % [place] % (Auto) (2-8) % Eos % (Auto) (1.0-3.0) % Baso % (Auto) (0.0-1.0) % Sodium (135-145) mmol/L Potassium (3.6-5.0) mmol/L Chloride (101-111) mmol/L Carbon Dioxide (21.0-31.0) mmol/L Anion Gap BUN (7-18) mg/dL Creatinine (0.6-1.3) mg/dL Est Cr Clr Drug Dosing mL/min Estimated GFR (MDRD) BUN/Creatinine Ratio Glucose (74-105) mg/dL Calcium (8.4-10.2) mg/dl Total Bilirubin (0.2-1.0) mg/dL AST (10-42) IU/L ALT (10-60) IU/L Alkaline Phosphatase (42-121) IU/L C-Reactive Protein (0.0-1.3) mg/dL Total Protein (6.7-8.2) g/dl Albumin (3.2-5.5) g/dl Globulin Albumin/Globulin Ratio Amylase (28-100) U/L Lipase (22-51) U/L Urine Color Yellow (YELLOW) Urine Appearance Clear (CLEAR) Urine pH 6.5 (5.0-9.0) Ur Specific [place] 1.020 (1.005-1.030) Urine Protein Trace H (NEGATIVE) Urine Glucose (UA) 100 H (NEGATIVE) Urine Ketones Negative (NEGATIVE) Urine Occult Blood Negative (NEGATIVE) Urine Nitrite Negative (NEGATIVE) Urine Bilirubin Negative (NEGATIVE) Urine Urobilinogen >=8.0 H (0.2-1.0) mg/dL Ur Leukocyte Esterase Negative (NEGATIVE) Urine RBC 0-5 /HPF Urine WBC 0-5 (0-5/HPF) /HPF Ur Epithelial Cells Moderate H /HPF Urine Bacteria Moderate H (0-FEW/HPF) /HPF Urine Mucus Many H /LPF Urinalysis Comment Meds: Medications Generic Name Dose Route Start Last Admin Trade Name Freq PRN Reason Stop Dose Admin Sodium Chloride 10 ml 07/31/17 10:58 07/31/17 11:10 Saline Flush FLUSH 10 ml ASDIRECTED PRN Administration Keep Vein Open Discontinued Medications Generic Name Dose Route Start Last Admin Trade Name Freq PRN Reason Stop Dose Admin Methylprednisolone Sodium Succinate 125 mg 07/31/17 10:59 07/31/17 11:10 Solu-Medrol IVPUSH 07/31/17 11:00 125 mg ONETIME ONE Administration Ondansetron HCl 4 mg 07/31/17 10:59 07/31/17 11:10 Zofran IV 07/31/17 11:00 4 mg ONETIME ONE Administration Departure - Departure Time of Disposition: 12:00 Disposition: Home, Self-Care 01 Condition: Good Clinical Impression: Colitis Exacerbation of asthma Qualifiers: Asthma severity: moderate Asthma persistence: unspecified Qualified Code(s): J45.901 - Unspecified asthma with (acute) exacerbation - Discharge Information Instructions: Asthma, Adult Forms: ED Department Discharge Additional Instructions: Rx: Prednisone 20mg *Take with a meal. Rx: Zofran 4mg Rx: Hydrocodone APAP 5mg/325mg *Do not drive or work while under the influence of this medication. Follow up in clinic in the next 1 week for recheck of asthma and abdominal pain. Ask your doctor about a referral for colonoscopy due to multiple episodes of colitis. - My Orders Last 24 Hours: My Active Orders 07/31/17 10:58 Peripheral IV Care [RC] . DIRECTED Sodium Chloride 0.9% [Saline Flush] 10 ml FLUSH ASDIRECTED PRN Peripheral IV Insertion Adult [OM.PC] Stat - Assessment/Plan Last 24 Hours: My Active Orders 07/31/17 10:58 Peripheral IV Care [RC] . DIRECTED Sodium Chloride 0.9% [Saline Flush] 10 ml FLUSH ASDIRECTED PRN Peripheral IV Insertion Adult [OM.PC] Stat
[2017-07-31] MEDS ORDERED: Sodium Chloride 0.9% 10 ML Syringe FLUSH PRN (10:58)
[2017-07-31] MEDS ORDERED: methylPREDNISolone Sodium Succinate 125 MG/2 ML SDV IVPUSH ONE (10:59)
[2017-07-31] MEDS ORDERED: Ondansetron 4 MG/2 ML SDV IV ONE (10:59)
[2017-07-31 11:33] LABS: CHLORIDE,CL 102 mmol/L (101-111); SODIUM,NA 134 mmol/L (135-145)
== END 2017-07-31 12:28 | disposition home or self-care (01) ==
LOC: DL.ED 10:13
DX: J45.901 Unspecified asthma with (acute) exacerbation (principal); K52.9 Noninfective gastroenteritis and colitis, unspecified; Z88.1 Allergy status to other antibiotic agents
CPT/HCPCS: 36415; 80053; 81001; 82150; 83690; 85025; 86140; 96374; 96375; 99284; J2405; J2930; J7050

== ENCOUNTER 2017-08-12 06:30 | Day surgery (SDC) | payer MEDICAID, OTHER ==
[~2017-08-12 06:30] MED LIST: Dextrose 5%-0.45% NaCl 1,000 ML IV SCH; Midazolam 1 MG/ML 2 ML SDV ONE; Sodium Chloride 0.9% 10 ML Syringe FLUSH PRN; fentaNYL 100 MCG/2 ML SDV ONE
[2017-08-12] MEDS ORDERED: Midazolam 1 MG/ML 2 ML SDV IV ONE ×4 (06:31→07:42)
[2017-08-12] MEDS ORDERED: fentaNYL 100 MCG/2 ML SDV IV ONE ×2 (06:31→07:35)
[2017-08-12] MEDS ORDERED: Midazolam 1 MG/ML 2 ML SDV ONE (07:41)
--- NOTE | 2017-08-12 08:33 | OR ---
DATE: 08/12/2017 PROCEDURE: Esophagogastroduodenoscopy and multiple pinch biopsies. INSTRUMENT USED: GIF-H180 Olympus video panendoscope. PREMEDICATIONS: No oral topical anesthesia used. Fentanyl 100 mcg intravenous, Versed 3 mg intravenous. The procedure was done under pulse oximetry, BP recording, and electronic device monitor. INDICATION: The patient with persistent upper abdominal pain, dyspepsia, as well as vomiting unexplained and not responsive to medical measures. Esophagogastroduodenoscopy is performed for detection of any active erosive lesions, Avelar's esophagus and/or malignancy also under consideration, H. pylori status to be determined. Small bowel biopsies to be obtained for any evidence of celiac disease, the patient having iron-deficiency anemia, endoscopic hemostasis therapy if needed. DESCRIPTION OF PROCEDURE: The scope was passed with ease. Adequate visualization of the esophagus was made from proximal to distal areas. No upper esophageal lesions identified. No distal esophageal stricture. No uphill or downhill esophageal varices. No Melba-Linda tear. No evidence of erosive esophagitis by [place] criteria. No esophageal polyp or tumor mass identified. Z-line was seen at around 40 cm distal to the oral verge, configuration consistent with grade 1 by ZAP classification. No proximal gastric varices noted. Gastric fundus examination by retroflexion showed no polypoid lesions. No gastric ulcer, malignant mass noted. Multiple benign- appearing, 5-mm sized polyps were noted in the gastric antrum with erosions. Duodenal bulb showed no ulcer. Visualized second part of the duodenum was unremarkable. Multiple pinch biopsies, 4 in number were taken from different areas of the second part of the duodenum and also tissues were obtained from the duodenal bulb at 9 and 12 o'clock positions and sent for any histopathologic evidence of celiac disease. Multiple pinch biopsies were obtained from the gastric antrum polyps and sent for histopathology. Multiple pinch biopsies were also taken from the gastric antrum and proximal body and sent for PyloriTek test for H. pylori and histopathology. No bleeding was noted from any of the visualized areas at the completion of examination. Photographs were taken of the duodenal bulb, gastric antrum, fundus, and distal esophagus. IMPRESSION: 1. Gastric antral polyps. 2. Gastric antral erosions. The patient tolerated the procedure well. [facility] /[id number]
--- NOTE | 2017-08-12 09:18 | LETTER ---
08/12/2017 Annmarie Gomes NP [facility] [address] [place] [address] RE: MICHAEL SEXTON : 1975 Dear Ms. Gomes: Mr. Michael Sexton had esophagogastroduodenoscopy done this morning and he tolerated the procedure well. I herewith send a copy of the endoscopy note and photographs for your review. He has been recommended to avoid esophageal and gastric irritants, and he is put on omeprazole 20 mg p.o. daily, response to be noted. Thank you Sincerely, [facility] /[id number]
[2017-08-12 09:54] VITALS: BP 125/74
== END 2017-08-12 09:45 | disposition home or self-care (01) ==
LOC: DL.ENDO 06:30
PROVIDERS: ATTEND Internal Medicine Gastroenterology
DX: K29.50 Unspecified chronic gastritis without bleeding (principal); K31.7 Polyp of stomach and duodenum; K31.819 Angiodysplasia of stomach and duodenum without bleeding; I10 Essential (primary) hypertension; E66.9 Obesity, unspecified; Z88.1 Allergy status to other antibiotic agents
CPT/HCPCS: 43239; 87077; J2250; J3010; J7042

== ENCOUNTER 2017-08-18 07:00 | Day surgery (SDC) | payer MEDICAID, OTHER ==
[~2017-08-18 07:00] MED LIST changes: -Sodium Chloride 0.9% 10 ML Syringe FLUSH PRN
[2017-08-18] MEDS ORDERED: fentaNYL 100 MCG/2 ML SDV IV ONE ×5 (07:01→07:51)
[2017-08-18] MEDS ORDERED: Midazolam 1 MG/ML 2 ML SDV IV ONE ×8 (07:01→07:42)
[2017-08-18 09:49] VITALS: BP 137/84
--- NOTE | 2017-08-18 11:23 | OR ---
DATE: 08/18/2017 PROCEDURE: Total colonoscopy. INSTRUMENT USED: CF-H180AL Olympus video colonoscope. PREMEDICATIONS: Fentanyl 150 mcg, Versed 4 mg intravenous. Nasal O2 cannula. The procedure was done under pulse oximetry, BP recording, and cardiac rn. INDICATION: The patient with persistent lower abdominal pain, and microcytosis. Colonoscopic examination is done for detection of any polypoid lesions and removal, endoscopic hemostasis therapy if needed. DESCRIPTION OF PROCEDURE: Initial rectal exam showed marked anal sphincter spasm. Limited rigid anoscopy was normal. The colonoscope was passed with ease up to the ileocecal area, photographs were taken of the cecum. No bleeding was noted from any of the visualized areas at the commencement of the examination. No stricture. No vascular ectasia. No large isolated ulcerations seen. No evidence of diffuse inflammatory bowel disease in the form of friability, contact bleeding, or ulcerations. No polyp or tumor mass identified. Probing the proximal sides of folds and flexures, using adequate distention and clearing up the stool material, withdrawal of the scope was made, cecum to rectum time over 6 minutes. The examination was extremely compromised in all the areas due to the presence of large amount of solid fecal material adherent to the bowel wall that could not be cleared. No bleeding was noted from any of the visualized areas at the completion of examination. IMPRESSION: Normal study. The patient tolerated the procedure well. [facility] /[id number]
--- NOTE | 2017-08-18 14:32 | LETTER ---
08/18/2017 BHANU Beauchamp [facility] [address] [place] [address] RE: MICHAEL SEXTON : 1975 Dear Ms. Gomes: Mr. Michael Sexton had colonoscopic examination done this morning and he tolerated the procedure well. The examination was extremely compromised due to the presence of large amount of solid fecal material that could not be aspirated clear. He has to be rescheduled for repeat colonoscopic examination with 2-day bowel preparation. Thank you. Sincerely, [facility] /[id number]
== END 2017-08-18 10:03 | disposition home or self-care (01) ==
LOC: DL.ENDO 07:00
PROVIDERS: ATTEND Internal Medicine Gastroenterology
DX: R10.30 Lower abdominal pain, unspecified (principal); I10 Essential (primary) hypertension; E66.9 Obesity, unspecified; Z88.1 Allergy status to other antibiotic agents
CPT/HCPCS: 45378; J2250; J3010; J7042

== ENCOUNTER 2017-09-08 07:41 | Day surgery (SDC) | payer MEDICAID ==
[~2017-09-08 07:41] MED LIST changes: +Sodium Chloride 0.9% 10 ML Syringe FLUSH PRN
[2017-09-08] MEDS ORDERED: fentaNYL 100 MCG/2 ML SDV IV ONE ×5 (07:42→08:22)
[2017-09-08] MEDS ORDERED: Midazolam 1 MG/ML 2 ML SDV IV ONE ×7 (07:42→08:18)
[2017-09-08 12:07] VITALS: BP 142/81
--- NOTE | 2017-09-08 12:41 | OR ---
DATE: 09/08/2017 PROCEDURE: Total colonoscopy. INSTRUMENT USED: PCF-H180 AL Olympus video colonoscope. PREMEDICATIONS: Fentanyl 150 mcg intravenous, Versed 4 mg intravenous. Nasal O2 cannula. The procedure was done under pulse oximetry, BP recording, and potline monitor. INDICATION: The patient with persistent lower abdominal pain, unexplained, also found to have microcytosis. Colonoscopic examination is done for detection of any polypoid lesions and removal, endoscopic hemostasis therapy if needed. DESCRIPTION OF PROCEDURE: Initial rectal exam showed anal sphincter spasm. Rigid anoscopy was normal. The colonoscope was passed with ease up to the ileocecal area. Photographs were taken of the normal-appearing cecum, identified by double-bulged ileocecal folds. No bleeding was noted from any of the visualized areas at the commencement of the examination. There was a greenish staining of the fecal material in the entire colon, limiting the visualization. No stricture. No vascular ectasia. No large isolated ulcerations seen. No evidence of diffuse inflammatory bowel disease in the form of friability, contact bleeding, or ulcerations. No polyp or tumor mass identified. Probing the proximal sides of folds and flexures, using adequate distention and clearing up the stool material, withdrawal of the scope was made. [id number] time over 6 minutes. No bleeding was noted from any of the visualized areas at the completion of examination. IMPRESSION: Normal study. The patient tolerated the procedure well. [facility] /[id number]
--- NOTE | 2017-09-08 14:13 | LETTER ---
09/08/2017 Annmarie Gomes NP [facility] [address] [place] [address] RE: MICHAEL SEXTON : 1975 Dear Ms. Gomes: Mr. Michael Sexton had colonoscopic examination done this morning and he tolerated the procedure well. I herewith send a copy of the endoscopy note and photographs for your review. Thank you. Sincerely, [facility] /[id number]
== END 2017-09-08 11:10 | disposition home or self-care (01) ==
LOC: DL.ENDO 07:41
PROVIDERS: ATTEND Internal Medicine Gastroenterology
DX: R10.30 Lower abdominal pain, unspecified (principal); I10 Essential (primary) hypertension; E66.9 Obesity, unspecified; Z88.1 Allergy status to other antibiotic agents
CPT/HCPCS: 45378; J7042; J7050; J2250; J3010

== ENCOUNTER 2017-10-04 11:39 | Emergency (ER) | payer MEDICAID ==
[2017-10-04 12:13] VITALS: BP 157/101
--- NOTE | 2017-10-04 12:54 | CR ---
Clinical history: 41-year-old male complaining of injury right foot, laterally. Interpretation: 1. Atavistic first cuneiform, hallux valgus and bunion with underlying chronic arthritic changes firs t metatarsophalangeal joint. 2. No sign of foreign body or inflammatory periostitis. 3. *Slight pes cavus/hammertoe deformity but... no fracture or dislocation right foot. 4. No heel spurs.
--- NOTE | 2017-10-04 13:18 | EDM.PDOC ---
Scribed by Kaycee Uribe 10/04/17 0658 for Jose Mary MD ED HPI GENERAL MEDICAL PROBLEM - General Chief Complaint: Lower Extremity Injury/Pain Stated Complaint: RT FOOT Time Seen by Provider: 10/04/17 12:15 Source of Information: Reports: Patient, RN, RN Notes Reviewed History Limitations: Reports: No Limitations - History of Present Illness INITIAL COMMENTS - FREE TEXT/NARRATIVE: Patient presents with complaint of right foot pain x3 days sustained when he stepped on a hard toy. Denies any other injury. Patient injured the foot last summer and it has not improved despite ongoing management from [facility]. Onset: Gradual Duration: Getting Worse Location: Reports: Lower Extremity, Right Quality: Reports: Ache Severity: Severe Improves with: Reports: None Worsens with: Reports: None Associated Symptoms: Reports: No Other Symptoms Right Feet Pain Score (Numeric/FACES): 9 - Related Data Allergies Allergy/AdvReac Type Severity Reaction Status Date / Time ceftriaxone sodium Allergy Vomiting Verified 10/04/17 12:09 [From Maury] Home Meds: Home Meds Albuterol [Proventil HFA] 2 puff INH Q4H PRN 06/09/13 [History] Lisinopril 20 mg PO DAILY 08/11/17 [History] Montelukast [Singulair] 10 mg PO DAILY 08/11/17 [History] Ondansetron HCl [Ondansetron] 8 mg PO Q6H PRN 08/11/17 [History] Albuterol/Ipratropium [DuoNeb 3.0-0.5 MG/3 ML] 3 ml .XX Q6H PRN 08/18/17 [ History] Past Medical History - Past Health History Medical/Surgical History: Denies Medical/Surgical History HEENT History: Reports: None Cardiovascular History: Reports: Hypertension Other Cardiovascular History: abnormal LFTs Respiratory History: Reports: Asthma, SOB Gastrointestinal History: Reports: None Genitourinary History: Reports: None Musculoskeletal History: Reports: Arthritis, Fracture, Other (See Below) Other Musculoskeletal History: R KNEE. METACARPAL BONE FX Neurological History: Reports: None Psychiatric History: Reports: None Endocrine/Metabolic History: Reports: Obesity/BMI 30+ Hematologic History: Reports: Anemia, Iron Deficiency Other Hematologic History: microcytosis Immunologic History: Reports: None Oncologic (Cancer) History: Reports: None Dermatologic History: Reports: None - Infectious Disease History Infectious Disease History: Reports: None - Past Surgical History Head Surgeries/Procedures: Reports: None HEENT Surgical History: Reports: None Cardiovascular Surgical History: Reports: Other (See Below) Other Cardiovascular Surgeries/Procedures: midsternal healed incision from when he was an infant but pt. doesn't know what he had done. - PATIENT REPORTS HE HAD FLUID AROUND HIS HEART PER HIS MOTHER Respiratory Surgical History: Reports: None GI Surgical History: Reports: None Male Surgical History: Reports: None Endocrine Surgical History: Reports: None Neurological Surgical History: Reports: None Musculoskeletal Surgical History: Reports: Arthroscopic Knee, Other (See Below) Other Musculoskeletal Surgeries/Procedures:: SYNOVECTOMY; MENISCECTOMY RIGHT Oncologic Surgical History: Reports: None Dermatological Surgical History: Reports: None Social & Family History - Family History Family Medical History: Noncontributory - Tobacco Use Smoking Status *Q: Never Smoker Second Hand Smoke Exposure: No - Caffeine Use Caffeine Use: Reports: Soda Other Caffeine Use: AVERAGE OF 2 12 OZ CANS OF SODA POP DAILY - Alcohol Use Days Per Week of Alcohol Use: 0 - Recreational Drug Use Recreational Drug Use: No Drug Use in Last 12 Months: No - Living Situation & Occupation Living situation: Reports: with Family Occupation: Employed Review of Systems - Review of Systems Review Of Systems: ROS reveals no pertinent complaints other than HPI. ED EXAM, GENERAL - Physical Exam Exam: See Below Exam Limited By: No Limitations General Appearance: Obese Head: Atraumatic, Normocephalic Respiratory/Chest: No Respiratory Distress Back Exam: Normal Inspection, Full Range of Motion, NT Extremities: Other (Right foot with no visible swelling, bruising or deformity. Tender to palpation overlying right 5th M.T.) Neurological: Alert, Oriented, CN II-XII Intact, Normal Cognition, Normal Gait, Normal Reflexes, No Motor/Sensory Deficits Psychiatric: Normal Affect, Normal Mood Skin Exam: Warm, Dry, Intact, Normal Color, No Rash Course - Vital Signs Last Recorded V/S: Last Vital Signs Temp 36.6 C 10/04/17 12:10 Pulse 70 10/04/17 12:10 Resp 18 10/04/17 12:10 BP 157/101 H 10/04/17 12:10 Pulse Ox 99 10/04/17 12:10 - Radiology Interpretation Free Text/Narrative:: Right foot x-ray: Atavistic first cuneiform, hallux valgus and bunion with underlying chronic arthritis changes first metatarophalangeal joint. No sign of foreign body or inflammatory periostitis. Slight pes cavus/heammertoe deformity but no fracture or dislocation right foot. No heel spurs. No rad report. Departure - Departure Time of Disposition: 13:14 Disposition: Home, Self-Care 01 Condition: Good Clinical Impression: Contusion of right foot Qualifiers: Encounter type: initial encounter Qualified Code(s): S90.31XA - Contusion of right foot, initial encounter Osteoarthritis of right foot Qualifiers: Osteoarthritis type: unspecified Qualified Code(s): M19.071 - Primary osteoarthritis, right ankle and foot - Discharge Information Instructions: Foot Contusion, Sxaa-mp-[id number], Joint Pain, [id number]-ih-[id number] Forms: ED Department Discharge Additional Instructions: RX: Naprosyn 500mg. Wear rigid sole splint shoe as needed for comfort. Use crutches for partial weight bearing as needed for comfort. Minimize weight bearing as much as possible by resting and elevating your foot. Follow up in clinic for referal to [facility]. I have read and agree with the documentation that has been completed regarding this visit. By signing this record, I attest that the documentation was completed in my physical presence and is an accurate record of the encounter.
== END 2017-10-04 13:20 | disposition home or self-care (01) ==
LOC: DL.ED 11:39
DX: S90.31XA Contusion of right foot, initial encounter (principal); M19.071 Primary osteoarthritis, right ankle and foot; I10 Essential (primary) hypertension; J45.909 Unspecified asthma, uncomplicated; Z88.1 Allergy status to other antibiotic agents; Z79.899 Other long term (current) drug therapy; W22.8XXA Striking against or struck by other objects, initial encounter
CPT/HCPCS: 73630-RT; 99284

== ENCOUNTER 2018-02-18 18:01 | Emergency (ER) | payer MEDICAID ==
[2018-02-18 18:12] VITALS: BP 164/104
--- NOTE | 2018-02-18 18:31 | EDM.PDOC ---
ED HPI GENERAL MEDICAL PROBLEM - General Chief Complaint: Upper Extremity Injury/Pain Stated Complaint: FINGERS, BACK [id number] Time Seen by Provider: 02/18/18 18:20 Source of Information: Reports: Patient History Limitations: Reports: No Limitations - History of Present Illness INITIAL COMMENTS - FREE TEXT/NARRATIVE: This 42 yo male patient reports to the ED with left 2nd finger pain and swelling. The patient reports he dropped a crate on his hand yesterday and has noticed increased pain and swelling in the area. The patient also reports that he has had intermittent back spasms for the past week. The patient reports most of his back spasms are in the right lower back. The patient reports his pain started when he was moving a tire last week. The patient reports he has been taking ibuprofen for temporary symptom relief. Onset: Other Duration: Day(s): (left hand (2 days)), Week(s): (right lower back (1 week)), Intermittent Location: Reports: Back, Upper Extremity, Left Quality: Reports: Ache, Dull Severity: Moderate Improves with: Reports: None Worsens with: Reports: None Associated Symptoms: Reports: No Other Symptoms Treatments [facility]: Reports: NSAIDS Left Hand Pain Score (Numeric/FACES): 8 - Related Data Allergies Allergy/AdvReac Type Severity Reaction Status Date / Time ceftriaxone sodium Allergy Vomiting Verified 02/18/18 18:10 [From Rocephin] Home Meds: Home Meds Mometasone/Formoterol [Dulera 200-5 MCG] 1 puff INH BID 02/18/18 [History] Past Medical History - Past Health History Medical/Surgical History: Denies Medical/Surgical History HEENT History: Reports: None Cardiovascular History: Reports: Hypertension Other Cardiovascular History: abnormal LFTs Respiratory History: Reports: Asthma, SOB Gastrointestinal History: Reports: None Genitourinary History: Reports: None Musculoskeletal History: Reports: Arthritis, Fracture, Other (See Below) Other Musculoskeletal History: R KNEE. METACARPAL BONE FX Neurological History: Reports: None Psychiatric History: Reports: None Endocrine/Metabolic History: Reports: Obesity/BMI 30+ Hematologic History: Reports: Anemia, Iron Deficiency Other Hematologic History: microcytosis Immunologic History: Reports: None Oncologic (Cancer) History: Reports: None Dermatologic History: Reports: None - Infectious Disease History Infectious Disease History: Reports: None - Past Surgical History Head Surgeries/Procedures: Reports: None HEENT Surgical History: Reports: None Cardiovascular Surgical History: Reports: Other (See Below) Other Cardiovascular Surgeries/Procedures: midsternal healed incision from when he was an but pt. doesn't know what he had done. - PATIENT REPORTS HE HAD FLUID AROUND HIS HEART PER HIS MOTHER Respiratory Surgical History: Reports: None GI Surgical History: Reports: None Male Surgical History: Reports: None Endocrine Surgical History: Reports: None Neurological Surgical History: Reports: None Musculoskeletal Surgical History: Reports: Arthroscopic Knee, Other (See Below) Other Musculoskeletal Surgeries/Procedures:: SYNOVECTOMY; MENISCECTOMY RIGHT Oncologic Surgical History: Reports: None Dermatological Surgical History: Reports: None Social & Family History - Family History Family Medical History: Noncontributory - Tobacco Use Smoking Status *Q: Never Smoker Second Hand Smoke Exposure: No - Caffeine Use Caffeine Use: Reports: Soda Other Caffeine Use: AVERAGE OF 2 12 OZ CANS OF SODA POP DAILY - Recreational Drug Use Recreational Drug Use: No - Living Situation & Occupation Living situation: Reports: with Family Occupation: Employed Review of Systems - Review of Systems Review Of Systems: ROS reveals no pertinent complaints other than HPI. ED EXAM, GENERAL - Physical Exam Exam: See Below Exam Limited By: No Limitations General Appearance: Alert, WD/WN, Moderate Distress Eye Exam: Bilateral Eye: EOMI, Normal Inspection, PERRL Ears: Normal External Exam, Normal Canal, Hearing Grossly Normal, Normal TMs Nose: Normal Inspection, Normal Mucosa, No Blood Throat/Mouth: Normal Inspection, Normal Lips, Normal Teeth, Normal Gums, Normal Oropharynx, Normal Voice, No Airway Compromise Head: Atraumatic, Normocephalic Neck: Normal Inspection, Supple, Non-Tender, Full Range of Motion Respiratory/Chest: No Respiratory Distress, Lungs Clear, Normal Breath Sounds, No Accessory Muscle Use, Chest Non-Tender Cardiovascular: Normal Peripheral Pulses, Regular Rate, Rhythm, No Edema, No Gallop, No JVD, No Murmur, No Rub GI/Abdominal: Normal Bowel Sounds, Soft, Non-Tender, No Organomegaly, No Distention, No Abnormal Bruit, No Mass (Male) Exam: Deferred Rectal (Males) Exam: Deferred Back Exam: Paraspinal Tenderness (right lower back ) Extremities: Other (swelling of the right flexor surface of his 2nd MCP joint. The patient reports he has a BB from a previous injury in that area. ) Neurological: Alert, Oriented, CN II-XII Intact, Normal Cognition, Normal Gait, Normal Reflexes, No Motor/Sensory Deficits Psychiatric: Normal Affect, Normal Mood Skin Exam: Warm, Dry, Intact, Normal Color, No Rash Lymphatic: No Adenopathy Course - Vital Signs Last Recorded V/S: Last Vital Signs Temp 37.2 C 02/18/18 18:10 Pulse 94 02/18/18 18:10 Resp 15 02/18/18 18:10 BP 164/104 H 02/18/18 18:10 Pulse Ox 98 02/18/18 18:10 Departure - Departure Time of Disposition: 19:00 Disposition: Home, Self-Care 01 Condition: Fair Clinical Impression: Low back strain Qualifiers: Encounter type: initial encounter Qualified Code(s): S39.012A - Strain of muscle, fascia and tendon of lower back, initial encounter Contusion of left hand Qualifiers: Encounter type: initial encounter Qualified Code(s): S60.222A - Contusion of left hand, initial encounter - Discharge Information *PRESCRIPTION DRUG MONITORING PROGRAM REVIEWED*: Not Applicable *COPY OF PRESCRIPTION DRUG MONITORING REPORT IN PATIENT JORGE LUIS: Not Applicable Instructions: Hand Contusion, [id number], Low Back Strain Forms: ED Department Discharge Care Plan Goals: The patient was advised of the examination and x-ray results during the visit. The patient was advised to rest, ice and elevate his left hand. The patient was encouraged to continue to take ibuprofen for swelling control. The patient was given a script for Flexeril (10 mg) #20 to take 1 by mouth at bedtime as needed. If the patient has any additional symptoms or concerns, the patient should follow-up with his primary care facility or return to the emergency department.
== END 2018-02-18 19:09 | disposition home or self-care (01) ==
LOC: DL.ED 18:01
DX: S39.012A Strain of muscle, fascia and tendon of lower back, initial encounter (principal); S60.222A Contusion of left hand, initial encounter; I10 Essential (primary) hypertension; E66.9 Obesity, unspecified; Z88.1 Allergy status to other antibiotic agents; W20.8XXA Other cause of strike by thrown, projected or falling object, initial encounter
CPT/HCPCS: 73130-LT; 99283

== ENCOUNTER 2018-07-06 22:17 | Emergency (ER) | payer MEDICAID ==
[2018-07-06 22:24] VITALS: BP 173/103
[2018-07-06] MEDS ORDERED: Sodium Chloride 0.9% 1,000 ML IV ONE (22:38)
[2018-07-06] MEDS ORDERED: Sodium Chloride 0.9% 10 ML Syringe FLUSH PRN (22:38)
[2018-07-06] MEDS ORDERED: methylPREDNISolone Sodium Succinate 125 MG/2 ML SDV IVPUSH ONE (22:38)
--- NOTE | 2018-07-06 22:51 | EDM.PDOC ---
ED HPI GENERAL MEDICAL PROBLEM - General Chief Complaint: Respiratory Problem Stated Complaint: ASTHMA [id number] Time Seen by Provider: 07/06/18 22:50 Source of Information: Reports: Patient, RN, RN Notes Reviewed History Limitations: Reports: No Limitations - History of Present Illness INITIAL COMMENTS - FREE TEXT/NARRATIVE: Pt to ER with c/o exacerbation of asthma. He states he has had a head and chest cold for the past 4 days. Last night he states his breathing became more labored. He states he has increased SOB with any kind of activity today, has had 6 nebulizer treatments today, and has been using his ProAir inhaler frequently. He states he has been having some chest pain when it becomes more difficult to breathe. He denies fever or chills, N/V/D. Onset: Gradual Left Chest Pain Score (Numeric/FACES): 3 - Related Data Allergies Allergy/AdvReac Type Severity Reaction Status Date / Time ceftriaxone sodium Allergy Vomiting Verified 07/06/18 22:30 [From Rocephin] Home Meds: Home Meds Albuterol Sulfate [Proventil Hfa] 2 puff IH BID 03/07/18 [History] Ibuprofen 400 mg PO ASDIRECTED PRN 03/07/18 [History] Past Medical History - Past Health History Medical/Surgical History: Denies Medical/Surgical History HEENT History: Reports: None Cardiovascular History: Reports: Hypertension Other Cardiovascular History: abnormal LFTs Respiratory History: Reports: Asthma, SOB Gastrointestinal History: Reports: None Genitourinary History: Reports: None Musculoskeletal History: Reports: Arthritis, Fracture, Other (See Below) Other Musculoskeletal History: R KNEE. METACARPAL BONE FX Neurological History: Reports: None Psychiatric History: Reports: None Endocrine/Metabolic History: Reports: Obesity/BMI 30+ Hematologic History: Reports: Anemia, Iron Deficiency Other Hematologic History: microcytosis Immunologic History: Reports: None Oncologic (Cancer) History: Reports: None Dermatologic History: Reports: None - Infectious Disease History Infectious Disease History: Reports: None - Past Surgical History Head Surgeries/Procedures: Reports: None HEENT Surgical History: Reports: None Cardiovascular Surgical History: Reports: Other (See Below) Other Cardiovascular Surgeries/Procedures: midsternal healed incision from when he was an infant but pt. doesn't know what he had done. - PATIENT REPORTS HE HAD FLUID AROUND HIS HEART PER HIS MOTHER Respiratory Surgical History: Reports: None GI Surgical History: Reports: None Male Surgical History: Reports: None Endocrine Surgical History: Reports: None Neurological Surgical History: Reports: None Musculoskeletal Surgical History: Reports: Arthroscopic Knee, Other (See Below) Other Musculoskeletal Surgeries/Procedures:: SYNOVECTOMY; MENISCECTOMY RIGHT Oncologic Surgical History: Reports: None Dermatological Surgical History: Reports: None Social & Family History - Family History Family Medical History: Noncontributory - Tobacco Use Smoking Status *Q: Never Smoker - Caffeine Use Caffeine Use: Reports: Soda Other Caffeine Use: AVERAGE OF 2 12 OZ CANS OF SODA POP DAILY - Recreational Drug Use Recreational Drug Use: No - Living Situation & Occupation Living situation: Reports: with Family Occupation: Employed ED ROS GENERAL - Review of Systems Review Of Systems: ROS reveals no pertinent complaints other than HPI. ED EXAM, GENERAL - Physical Exam Exam: See Below Exam Limited By: No Limitations General Appearance: Alert, WD/WN, Mild Distress Eye Exam: Bilateral Eye: EOMI, Normal Inspection Ears: Normal External Exam, Hearing Grossly Normal Nose: Normal Inspection Throat/Mouth: Normal Inspection, Normal Voice, No Airway Compromise Head: Atraumatic, Normocephalic Neck: Normal Inspection, Supple, Non-Tender, Full Range of Motion Respiratory/Chest: Decreased Breath Sounds, Wheezing (Exp), Prolonged Expiration. No: Accessory Muscle Use, Retractions Cardiovascular: Normal Peripheral Pulses, Regular Rate, Rhythm, No Edema, No Gallop, No JVD, No Murmur, No Rub Peripheral Pulses: 2+: Radial (L), Radial (R) GI/Abdominal: Normal Bowel Sounds, Soft, Non-Tender (Male) Exam: Deferred Rectal (Males) Exam: Deferred Back Exam: Normal Inspection, Full Range of Motion Extremities: Normal Inspection, Normal Range of Motion, Non-Tender, Normal Capillary Refill, No Pedal Edema Neurological: Alert, Oriented, CN II-XII Intact, Normal Cognition, Normal Gait, Normal Reflexes, No Motor/Sensory Deficits Psychiatric: Normal Affect, Normal Mood Skin Exam: Warm, Dry, Intact, Normal Color, No Rash Lymphatic: No Adenopathy Course - Vital Signs Last Recorded V/S: Last Vital Signs Temp 96.2 F 07/06/18 22:23 Pulse 85 07/06/18 22:23 Resp 18 07/06/18 22:23 BP 173/103 H 07/06/18 22:23 Pulse Ox 96 07/06/18 22:23 - Orders/Labs/Meds Orders: Active Orders 24 hr Category Date Time Status Peripheral IV Care [RC] . DIRECTED Care 07/06/18 22:38 Active RT Aerosol Therapy [RC] ASDIRECTED Care 07/06/18 23:03 Active Sodium Chloride 0.9% [Normal Saline] 1,000 ml Med 07/06/18 22:38 Active IV .BOLUS Sodium Chloride 0.9% [Saline Flush] Med 07/06/18 22:38 Active 10 ml FLUSH ASDIRECTED PRN Peripheral IV Insertion Adult [OM.PC] Stat Oth 07/06/18 22:38 Ordered Medication Orders Sodium Chloride (Normal Saline) 1,000 mls @ 999 mls/hr IV .BOLUS ONE Stop: 07/06/18 23:38 Last Admin: 07/06/18 22:46 Dose: 999 mls/hr Sodium Chloride (Saline Flush) 10 ml FLUSH ASDIRECTED PRN PRN Reason: Keep Vein Open Last Admin: 07/06/18 22:40 Dose: 10 ml Labs: Laboratory Tests 07/06/18 07/06/18 Range/Units 22:43 22:43 WBC 8.9 (5.0-10.0) 10^3/uL RBC 5.78 (4.6-6.2) 10^6/uL Hgb 14.6 (14.0-18.0) g/dL Hct 44.0 (40.0-54.0) % MCV 76.1 L (80-100) fL MCH 25.3 L (27.0-34.0) pg MCHC 33.2 (33.0-35.0) g/dL Plt Count 252 (150-450) 10^3/uL Neut % (Auto) 66.0 (42.2-75.2) % Lymph % (Auto) 17.0 L (20.5-50.1) % Zavala % (Auto) 8.5 H (2-8) % Eos % (Auto) 8.2 H (1.0-3.0) % Baso % (Auto) 0.3 (0.0-1.0) % Sodium 137 (135-145) mmol/L Potassium 3.7 (3.6-5.0) mmol/L Chloride 100 L (101-111) mmol/L Carbon Dioxide 26.0 (21.0-31.0) mmol/L Anion Gap 14.7 BUN 13 (7-18) mg/dL Creatinine 0.8 (0.6-1.3) mg/dL Est Cr Clr Drug Dosing 142.71 mL/min Estimated GFR (MDRD) > 60 BUN/Creatinine Ratio 16.25 Glucose 185 H (74-105) mg/dL Calcium 8.8 (8.4-10.2) mg/dl Magnesium 1.6 L (1.8-2.5) mg/dL Total Bilirubin 0.8 (0.2-1.0) mg/dL AST 54 H (10-42) IU/L ALT 87 H (10-60) IU/L Alkaline Phosphatase 158 H (42-121) IU/L Total Protein 7.5 (6.7-8.2) g/dl Albumin 3.9 (3.2-5.5) g/dl Globulin 3.6 Albumin/Globulin Ratio 1.08 Meds: Medications Generic Name Dose Route Start Last Admin Trade Name Freq PRN Reason Stop Dose Admin Sodium Chloride 1,000 mls @ 999 mls/hr 07/06/18 22:38 07/06/18 22:46 Normal Saline IV 07/06/18 23:38 999 mls/hr .BOLUS ONE Administration Sodium Chloride 10 ml 07/06/18 22:38 07/06/18 22:40 Saline Flush FLUSH 10 ml ASDIRECTED PRN Administration Keep Vein Open Discontinued Medications Generic Name Dose Route Start Last Admin Trade Name Freq PRN Reason Stop Dose Admin Albuterol 2.5 mg 07/06/18 23:03 07/06/18 23:08 Proventil Neb Soln NEB 07/06/18 23:04 2.5 mg ONETIME ONE Administration Methylprednisolone Sodium Succinate 125 mg 07/06/18 22:38 07/06/18 22:49 Solu-Medrol IVPUSH 07/06/18 22:39 125 mg ONETIME ONE Administration - Radiology Interpretation Free Text/Narrative:: chest xray: FINDINGS: Lungs: Unremarkable. No consolidation. Pleural space: Unremarkable. No pleural effusion. No pneumothorax. Heart/Mediastinum: Stable mildly enlarged cardiac silhouette. Bones/joints: Unremarkable. IMPRESSION: 1. No acute findings. 2. Stable mildly enlarged cardiac silhouette. Thank you for allowing us to participate in the care of your patient. Dictated and Authenticated by: Kai Bliss MD 07/06/2018 11:27 PM Central Time ([place] & [place]) See rad report Departure - Departure Time of Disposition: 23:37 Disposition: Home, Self-Care 01 Condition: Fair Clinical Impression: Exacerbation of asthma Qualifiers: Asthma severity: mild Asthma persistence: intermittent Qualified Code(s): J45.21 - Mild intermittent asthma with (acute) exacerbation - Discharge Information *PRESCRIPTION DRUG MONITORING PROGRAM REVIEWED*: No *COPY OF PRESCRIPTION DRUG MONITORING REPORT IN PATIENT JORGE LUIS: No Instructions: Shortness of Breath, Adult, [id number], Upper Respiratory Infection, Adult, Moqa-ej-[id number], Asthma, Adult, [id number] Forms: ED Department Discharge Additional Instructions: RX: Prednisone Continue using the ProAir inhaler and Duobeb nebulizers as directed Return to the ER if needing to use these things more frequently, or SOB with activity or at rest Follow up with your primary care facility - My Orders Last 24 Hours: My Active Orders 07/06/18 22:38 Peripheral IV Care [RC] . DIRECTED Sodium Chloride 0.9% [Normal Saline] 1,000 ml IV .BOLUS Sodium Chloride 0.9% [Saline Flush] 10 ml FLUSH ASDIRECTED PRN Peripheral IV Insertion Adult [OM.PC] Stat 07/06/18 23:03 RT Aerosol Therapy [RC] ASDIRECTED - Assessment/Plan Last 24 Hours: My Active Orders 07/06/18 22:38 Peripheral IV Care [RC] . DIRECTED Sodium Chloride 0.9% [Normal Saline] 1,000 ml IV .BOLUS Sodium Chloride 0.9% [Saline Flush] 10 ml FLUSH ASDIRECTED PRN Peripheral IV Insertion Adult [OM.PC] Stat 07/06/18 23:03 RT Aerosol Therapy [RC] ASDIRECTED
[2018-07-06] MEDS ORDERED: Albuterol 0.083% 2.5 MG/3 ML Neb Soln NEB ONE (23:03)
[2018-07-06 23:09] LABS: ANION GAP 14.7; CHLORIDE,CL 100 mmol/L (101-111); SODIUM,NA 137 mmol/L (135-145)
== END 2018-07-06 23:45 | disposition home or self-care (01) ==
LOC: DL.ED 22:17
DX: J45.21 Mild intermittent asthma with (acute) exacerbation (principal); I10 Essential (primary) hypertension; E66.9 Obesity, unspecified; Z88.1 Allergy status to other antibiotic agents
CPT/HCPCS: 36415; 71045; 80053; 83735; 85025; 96361; 96374; 99285; J2930; J7030; J7613-GY

== ENCOUNTER 2018-09-23 12:44 | Emergency (ER) | payer MEDICAID ==
[2018-09-23 12:56] VITALS: BP 176/98
--- NOTE | 2018-09-23 13:37 | EDM.PDOC ---
ED HPI GENERAL MEDICAL PROBLEM - General Chief Complaint: Upper Extremity Injury/Pain Stated Complaint: BROKE FINGER [id number] Time Seen by Provider: 09/23/18 13:28 Source of Information: Reports: Patient, RN, RN Notes Reviewed History Limitations: Reports: No Limitations - History of Present Illness INITIAL COMMENTS - FREE TEXT/NARRATIVE: Pt to ER with c/o left hand pain. He states he was helping family move chairs when he got his left hand pinned between heavy chairs. He states the pain is in the 2nd finger, into the hand. Shooting pains radiate up the left arm. Denies numbness or tingling. Onset: Today, Sudden Left Finger-Index Pain Score (Numeric/FACES): 8 - Related Data Allergies Allergy/AdvReac Type Severity Reaction Status Date / Time ceftriaxone sodium Allergy Vomiting Verified 09/23/18 12:53 [From Rocephin] Home Meds: Home Meds Albuterol Sulfate [Proventil Hfa] 2 puff IH BID 03/07/18 [History] Ibuprofen 400 mg PO ASDIRECTED PRN 03/07/18 [History] Lisinopril [Prinivil] 20 mg PO DAILY 07/20/18 [History] Mometasone/Formoterol [Dulera 200 Mcg/5 Mcg Inhaler] 8.8 gm IH BID 07/20/18 [ History] Omeprazole 20 mg PO DAILY 07/20/18 [History] predniSONE [Prednisone] 40 mg PO DAILY 07/20/18 [History] Past Medical History - Past Health History Medical/Surgical History: Denies Medical/Surgical History HEENT History: Reports: None Cardiovascular History: Reports: Hypertension Other Cardiovascular History: abnormal LFTs Respiratory History: Reports: Asthma, SOB Gastrointestinal History: Reports: GERD Genitourinary History: Reports: None Musculoskeletal History: Reports: Arthritis, Fracture, Other (See Below) Other Musculoskeletal History: R KNEE. METACARPAL BONE FX Neurological History: Reports: None Psychiatric History: Reports: None Endocrine/Metabolic History: Reports: Obesity/BMI 30+ Hematologic History: Reports: Anemia, Iron Deficiency Other Hematologic History: microcytosis Immunologic History: Reports: None Oncologic (Cancer) History: Reports: None Dermatologic History: Reports: None - Infectious Disease History Infectious Disease History: Reports: None - Past Surgical History Head Surgeries/Procedures: Reports: None HEENT Surgical History: Reports: None Cardiovascular Surgical History: Reports: Other (See Below) Other Cardiovascular Surgeries/Procedures: midsternal healed incision from when he was an but pt. doesn't know what he had done. - PATIENT REPORTS HE HAD FLUID AROUND HIS HEART PER HIS MOTHER Respiratory Surgical History: Reports: None GI Surgical History: Reports: None Male Surgical History: Reports: None Endocrine Surgical History: Reports: None Neurological Surgical History: Reports: None Musculoskeletal Surgical History: Reports: Arthroscopic Knee, Other (See Below) Other Musculoskeletal Surgeries/Procedures:: SYNOVECTOMY; MENISCECTOMY RIGHT Oncologic Surgical History: Reports: None Dermatological Surgical History: Reports: None Social & Family History - Family History Family Medical History: Noncontributory - Tobacco Use Smoking Status *Q: Never Smoker - Caffeine Use Caffeine Use: Reports: None Other Caffeine Use: AVERAGE OF 2 12 OZ CANS OF SODA POP DAILY - Recreational Drug Use Recreational Drug Use: No - Living Situation & Occupation Living situation: Reports: with Family Occupation: Employed Review of Systems - Review of Systems Review Of Systems: ROS reveals no pertinent complaints other than HPI. ED EXAM, GENERAL - Physical Exam Exam: See Below Exam Limited By: No Limitations General Appearance: Alert, WD/WN, No Apparent Distress Eye Exam: Bilateral Eye: EOMI, Normal Inspection Ears: Normal External Exam, Hearing Grossly Normal Nose: Normal Inspection Throat/Mouth: Normal Inspection, Normal Voice, No Airway Compromise Head: Atraumatic, Normocephalic Neck: Normal Inspection, Supple, Non-Tender, Full Range of Motion Respiratory/Chest: No Respiratory Distress, Lungs Clear, Normal Breath Sounds, No Accessory Muscle Use, Chest Non-Tender Cardiovascular: Normal Peripheral Pulses, Regular Rate, Rhythm, No Edema, No Gallop, No JVD, No Murmur, No Rub Peripheral Pulses: 2+: Radial (L), Radial (R) GI/Abdominal: Normal Bowel Sounds, Soft, Non-Tender (Male) Exam: Deferred Rectal (Males) Exam: Deferred Back Exam: Normal Inspection, Full Range of Motion, NT Extremities: Joint Swelling (left 2nd finger), Arm Pain, Limited Range of Motion (left hand) Neurological: Alert, Oriented, CN II-XII Intact, Normal Cognition, Normal Gait, Normal Reflexes, No Motor/Sensory Deficits Psychiatric: Normal Affect, Normal Mood Skin Exam: Warm, Dry, Intact, Normal Color, No Rash Lymphatic: No Adenopathy ED TRAUMA EXTREMITY PROCEDURES - Splinting Left 2nd Digit Splint Site: left index finger Pre-Procedure NV Status: Normal Post-Procedure NV Status: Normal Splint Material: Aluminum-Foam Splint Design: Volar Applied & Form Fitted By: Nurse Provider Post-Splint Application NV Check: NV Status Normal, Good Position Complications: No Course - Vital Signs Last Recorded V/S: Last Vital Signs Temp 98.0 F 09/23/18 12:53 Pulse 84 09/23/18 12:53 Resp 18 09/23/18 12:53 BP 176/98 H 09/23/18 12:53 Pulse Ox 98 09/23/18 12:53 - Radiology Interpretation Free Text/Narrative:: Left hand xray: Radiopaque BB foreign body in the soft tissues, volar aspect, base of the left index finger unchanged since 18 February 2018 No sign of acute new fracture or dislocation left hand or wrist No other foreign bodies Early arthritic changes involving the interphalangeal/DIP joints See rad report Departure - Departure Time of Disposition: 14:10 Disposition: Home, Self-Care 01 Condition: Good Clinical Impression: Sprain of finger Qualifiers: Encounter type: initial encounter Finger: index finger Sprain of finger site: interphalangeal joint Laterality: left Qualified Code(s): S63.631A - Sprain of interphalangeal joint of left index finger, initial encounter - Discharge Information *PRESCRIPTION DRUG MONITORING PROGRAM REVIEWED*: No *COPY OF PRESCRIPTION DRUG MONITORING REPORT IN PATIENT JORGE LUIS: No Instructions: Finger Sprain, Adult, [id number] Forms: ED Department Discharge Additional Instructions: Keep finger splinted until pain is less Elevate and ice the finger as tolerated May use Tylenol and/or ibuprofen as directed for pain Follow up with your primary care facility if no improvement
--- NOTE | 2018-09-23 13:52 | CR ---
Clinical history: 42-year-old male complaining of pain after trauma of the second (index) finger that "radiates up arm". Interpretation: 1. Radiopaque BB foreign body in the soft tissues, volar aspect, base of the left index finger unchanged since 18 February 2018. 2. *No sign of acute new fracture or dislocation left hand or wrist. 3. No other foreign bodies. 4. Early arthritic changes involving the interphalangeal/DIP joints. CONCLUSION: No new fracture or dislocation left hand.
== END 2018-09-23 14:21 | disposition home or self-care (01) ==
LOC: DL.ED 12:44
DX: S63.631A Sprain of interphalangeal joint of left index finger, initial encounter (principal); I10 Essential (primary) hypertension; K21.9 Gastro-esophageal reflux disease without esophagitis; J45.909 Unspecified asthma, uncomplicated; Z79.899 Other long term (current) drug therapy; Z88.1 Allergy status to other antibiotic agents; W22.8XXA Striking against or struck by other objects, initial encounter
CPT/HCPCS: 29130; 73130-LT; 99283-25

== ENCOUNTER 2018-12-09 18:53 | Emergency (ER) | payer MEDICAID ==
[2018-12-09 19:11] VITALS: BP 163/94; PULSE 97
--- NOTE | 2018-12-09 19:31 | EDM.PDOC ---
"ED HPI GENERAL MEDICAL PROBLEM - General Chief Complaint: Lower Extremity Injury/Pain Stated Complaint: RT KNEE PAIN [id number] Time Seen by Provider: 12/09/18 19:21 Source of Information: Reports: Patient History Limitations: Reports: No Limitations - History of Present Illness INITIAL COMMENTS - FREE TEXT/NARRATIVE: C/O pain to left knee after getting off horse, knee bent backwards, felt popping sensation to outside and back of knee, immediate swelling. Has taken ibuprofen 800mg and iced knee. Denies prior injury to knee. Right Knee Pain Score (Numeric/FACES): 10 - Related Data Allergies Allergy/AdvReac Type Severity Reaction Status Date / Time ceftriaxone sodium Allergy Vomiting Verified 12/09/18 19:40 [From Rocephin] Home Meds: Home Meds Albuterol Sulfate [Proventil Hfa] 2 puff IH BID 03/07/18 [History] Ibuprofen 800 mg PO ASDIRECTED PRN 03/07/18 [History] Lisinopril [Prinivil] 20 mg PO DAILY 07/20/18 [History] Mometasone/Formoterol [Dulera 200 Mcg/5 Mcg Inhaler] 8.8 gm IH BID 07/20/18 [ History] Past Medical History - Past Health History Medical/Surgical History: Denies Medical/Surgical History HEENT History: Reports: None Cardiovascular History: Reports: Hypertension Other Cardiovascular History: abnormal LFTs Respiratory History: Reports: Asthma, SOB Gastrointestinal History: Reports: GERD Genitourinary History: Reports: None Musculoskeletal History: Reports: Arthritis, Fracture, Other (See Below) Other Musculoskeletal History: R KNEE. METACARPAL BONE FX Neurological History: Reports: None Psychiatric History: Reports: None Endocrine/Metabolic History: Reports: Obesity/BMI 30+ Hematologic History: Reports: Anemia, Iron Deficiency Other Hematologic History: microcytosis Immunologic History: Reports: None Oncologic (Cancer) History: Reports: None Dermatologic History: Reports: None - Infectious Disease History Infectious Disease History: Reports: None - Past Surgical History Head Surgeries/Procedures: Reports: None HEENT Surgical History: Reports: None Cardiovascular Surgical History: Reports: Other (See Below) Other Cardiovascular Surgeries/Procedures: midsternal healed incision from when he was an infant but pt. doesn't know what he had done. - PATIENT REPORTS HE HAD FLUID AROUND HIS HEART PER HIS MOTHER Respiratory Surgical History: Reports: None GI Surgical History: Reports: None Male Surgical History: Reports: None Endocrine Surgical History: Reports: None Neurological Surgical History: Reports: None Musculoskeletal Surgical History: Reports: Arthroscopic Knee, Other (See Below) Other Musculoskeletal Surgeries/Procedures:: SYNOVECTOMY; MENISCECTOMY RIGHT Oncologic Surgical History: Reports: None Dermatological Surgical History: Reports: None Social & Family History - Family History Family Medical History: Noncontributory - Tobacco Use Smoking Status *Q: Never Smoker - Caffeine Use Caffeine Use: Reports: None Other Caffeine Use: AVERAGE OF 2 12 OZ CANS OF SODA POP DAILY - Recreational Drug Use Recreational Drug Use: No - Living Situation & Occupation Living situation: Reports: with Family Occupation: Employed Review of Systems - Review of Systems Review Of Systems: ROS reveals no pertinent complaints other than HPI. ED EXAM, GENERAL - Physical Exam Exam: See Below Exam Limited By: No Limitations General Appearance: Alert, Mild Distress Ears: Normal External Exam Nose: Normal Inspection Throat/Mouth: Normal Inspection Head: Atraumatic, Normocephalic Neck: Normal Inspection Respiratory/Chest: No Respiratory Distress, Lungs Clear Cardiovascular: Normal Peripheral Pulses, Regular Rate, Rhythm Extremities: Joint Swelling (left lateral knee), Limited Range of Motion. No: Normal Inspection, Normal Range of Motion, Increased Warmth, Redness Neurological: Alert, Oriented, Normal Cognition Psychiatric: Normal Affect Skin Exam: Warm, Dry, Intact, Normal Color Course - Vital Signs Last Recorded V/S: Last Vital Signs Temp 98.4 F 12/09/18 19:08 Pulse 97 12/09/18 19:08 Resp 18 12/09/18 19:08 BP 163/94 H 12/09/18 19:08 Pulse Ox 99 12/09/18 19:08 - Radiology Interpretation Free Text/Narrative:: [facility] Final Radiology Report Call: [phone] assistance Online chat: [email or web address] Name: HUSSAIN RODRIGUEZ Age: 43Years M Date: 12/09/2018 SSN: -- : [id number] Study: XR KNEE 3 VIEWS RIGHT Requesting Physician: LAURA CHOE Images: 3 Addl Studies: Provided Clinical History: Contrast: Contrast Medium: Contrast Amount: Contrast Method: Page 1 of 2 EXAM: XR Right Knee EXAM DATE/TIME: 12/09/2018 7:13 PM CLINICAL HISTORY: 43 years old, male; Signs and symptoms; Other: Getting off horse, stepped on rock, bent leg back/pain TECHNIQUE: Imaging protocol: XR Right knee. Views: 3 views. COMPARISON: MR Knee wo Cont Rt 01/16/2015 1:15 PM FINDINGS: Bones/joints: Small joint effusion. There are mild degenerative changes of the knee joint, predominantly involving the medial joint compartment. There is no evidence of acute fracture. There is no evidence of joint malalignment or dislocation. Soft tissues: Normal. IMPRESSION: 1. Small joint effusion. 2. There are mild degenerative changes of the knee joint, predominantly involving the medial joint compartment. 3. There is no evidence of acute fracture. Thank you for allowing us to participate in the care of your patient. HUSSAIN RODRIGUEZ | Final Radiology Report Departure - Departure Time of Disposition: 19:31 Disposition: Home, Self-Care 01 Condition: Good Clinical Impression: Left lateral knee pain - Discharge Information *PRESCRIPTION DRUG MONITORING PROGRAM REVIEWED*: Yes *COPY OF PRESCRIPTION DRUG MONITORING REPORT IN PATIENT JORGE LUIS: No Instructions: Knee Sprain, Adult, [id number], Pain Medicine Instructions, [id number] Forms: ED Department Discharge Additional Instructions: ibuprofen 800mg every 8 hours as needed for pain hydrocodone 5/325 one every 6 hours as needded for severe pain #10 non weight bearing left crutches ice to miguelina knee immobilizer on when up except during shower x 48 hours follow up in clinic next week"
== END 2018-12-09 19:38 | disposition home or self-care (01) ==
LOC: DL.ED 18:53
DX: M25.562 Pain in left knee (principal); I10 Essential (primary) hypertension; K21.9 Gastro-esophageal reflux disease without esophagitis; J45.909 Unspecified asthma, uncomplicated; Z79.899 Other long term (current) drug therapy; Z88.1 Allergy status to other antibiotic agents
CPT/HCPCS: 73562-RT; 99283-25

== ENCOUNTER 2019-07-05 13:49 | Emergency (ER) | payer MEDICAID ==
[2019-07-05 14:38] LABS: ANION GAP 11.9; CHLORIDE,CL 105 mmol/L (101-111); SODIUM,NA 138 mmol/L (135-145)
--- NOTE | 2019-07-05 15:02 | CR ---
EXAMINATION: Chest 1V Frontal SEX: Male AGE: 43 years CLINICAL HISTORY: 43-year-old obese male complaining of chest and left arm PAIN. INTERPRETATION: Upright AP portable chest. External classroom monitor leads. 1. Prominence of the cardiac silhouette with a left ventricular configuration unchanged since 06 July 2018 exam. 2. No new evidence pulmonary vascular congestion, cephalization of flow, alveolar edema or dependent pleural effusion. 3. No new lung mass, hilar lymphadenopathy or focal lobar pneumonia. 4. No atelectasis/collapse. 5. No pneumothorax or pneumomediastinum. CONCLUSION: No new evidence heart failure lung mass or lobar pneumonia i.e. unchanged since a June 2018 exam.
[2019-07-05] MEDS ORDERED: Aspirin 81 MG Tab.Chew PO ONE (15:07)
[2019-07-05] MEDS: Nitroglycerin 0.4 MG Tab.SL SL ONE ×2 (15:14→16:10)
[2019-07-05 15:30] VITALS: PULSE 84
[2019-07-05 16:11] VITALS: BP 150/93
--- NOTE | 2019-07-07 11:49 | EDM.PDOC ---
Scribed by Kaycee Uribe 07/05/19 1017 for Nancy Lawrence PA-C ED HPI GENERAL MEDICAL PROBLEM - General Chief Complaint: Chest Pain Stated Complaint: CHEST PAINS/HIGH BLOOD PRESSURE Time Seen by Provider: 07/05/19 14:10 Source of Information: Reports: Patient, RN, RN Notes Reviewed History Limitations: Reports: No Limitations - History of Present Illness INITIAL COMMENTS - FREE TEXT/NARRATIVE: Patient presents to the ER from the clinic. He has chest pain across and down his arms. HE also has right knee pain. No nausea or sweating at times. Blood pressure is high. Pain constant, present since last ginna Onset: Today Duration: Getting Worse Location: Reports: Chest, Lower Extremity, Right Quality: Reports: Ache Severity: Moderate Improves with: Reports: None Worsens with: Reports: None Associated Symptoms: Reports: No Other Symptoms Mid-Sternal Chest Pain Score (Numeric/FACES): 8 Right Knee Pain Score (Numeric/FACES): 8 - Related Data Allergies Allergy/AdvReac Type Severity Reaction Status Date / Time ceftriaxone sodium Allergy Vomiting Verified 07/05/19 15:05 [From Rocephin] Home Meds: Home Meds Albuterol Sulfate [Proventil Hfa] 2 puff IH BID 03/07/18 [History] Ibuprofen 800 mg PO ASDIRECTED PRN 03/07/18 [History] Mometasone/Formoterol [Dulera 200 Mcg/5 Mcg Inhaler] 8.8 gm IH BID 07/20/18 [ History] lisinopriL [Prinivil] 20 mg PO DAILY 07/20/18 [History] Past Medical History - Past Health History Medical/Surgical History: Denies Medical/Surgical History HEENT History: Reports: None Cardiovascular History: Reports: Hypertension Other Cardiovascular History: abnormal LFTs Respiratory History: Reports: Asthma, SOB Gastrointestinal History: Reports: GERD Genitourinary History: Reports: None Musculoskeletal History: Reports: Arthritis, Fracture, Other (See Below) Other Musculoskeletal History: R KNEE. METACARPAL BONE FX Neurological History: Reports: None Psychiatric History: Reports: None Endocrine/Metabolic History: Reports: Obesity/BMI 30+ Hematologic History: Reports: Anemia, Iron Deficiency Other Hematologic History: microcytosis Immunologic History: Reports: None Oncologic (Cancer) History: Reports: None Dermatologic History: Reports: None - Infectious Disease History Infectious Disease History: Reports: None - Past Surgical History Head Surgeries/Procedures: Reports: None HEENT Surgical History: Reports: None Cardiovascular Surgical History: Reports: Other (See Below) Other Cardiovascular Surgeries/Procedures: midsternal healed incision from when he was an but pt. doesn't know what he had done. - PATIENT REPORTS HE HAD FLUID AROUND HIS HEART PER HIS MOTHER Respiratory Surgical History: Reports: None GI Surgical History: Reports: None Male Surgical History: Reports: None Endocrine Surgical History: Reports: None Neurological Surgical History: Reports: None Musculoskeletal Surgical History: Reports: Arthroscopic Knee, Other (See Below) Other Musculoskeletal Surgeries/Procedures:: SYNOVECTOMY; MENISCECTOMY RIGHT Oncologic Surgical History: Reports: None Dermatological Surgical History: Reports: None Social & Family History - Family History Family Medical History: Noncontributory - Tobacco Use Smoking Status *Q: Never Smoker - Caffeine Use Caffeine Use: Reports: Tea Other Caffeine Use: AVERAGE OF 2 12 OZ CANS OF SODA POP DAILY - Recreational Drug Use Recreational Drug Use: No - Living Situation & Occupation Living situation: Reports: with Family Occupation: Employed ED ROS GENERAL - Review of Systems Review Of Systems: Comprehensive ROS is negative, except as noted in HPI. ED EXAM, GENERAL - Physical Exam Exam: See Below Exam Limited By: No Limitations General Appearance: Anxious Eye Exam: Bilateral Eye: EOMI, Normal Inspection, PERRL Ears: Normal External Exam, Normal Canal, Hearing Grossly Normal, Normal TMs Nose: Normal Inspection, Normal Mucosa, No Blood Throat/Mouth: Normal Inspection, Normal Lips, Normal Teeth, Normal Gums, Normal Oropharynx, Normal Voice, No Airway Compromise Head: Atraumatic, Normocephalic Neck: Normal Inspection, Supple, Non-Tender, Full Range of Motion Respiratory/Chest: No Respiratory Distress, Other (chest clear bilaterally,). No: Rales, Rhonchi Cardiovascular: Regular Rate, Rhythm GI/Abdominal: Soft, Non-Tender, Other (mild epigastric tender') (Male) Exam: Deferred Rectal (Males) Exam: Deferred Back Exam: Normal Inspection, Full Range of Motion, NT Extremities: Normal Inspection, Normal Range of Motion, Non-Tender, Normal Capillary Refill, No Pedal Edema Neurological: Alert, Oriented, CN II-XII Intact, Normal Cognition, Normal Gait, Normal Reflexes, No Motor/Sensory Deficits Psychiatric: Normal Affect, Normal Mood Skin Exam: Warm, Dry, Intact, Normal Color, No Rash Lymphatic: No Adenopathy Course - Vital Signs Last Recorded V/S: Last Vital Signs Temp 98.7 F 07/05/19 14:18 Pulse 84 07/05/19 15:29 Resp 17 07/05/19 15:07 BP 150/93 H 07/05/19 16:10 Pulse Ox 100 07/05/19 15:07 - Orders/Labs/Meds Labs: Laboratory Tests 07/05/19 07/05/19 07/05/19 Range/Units 14:12 14:12 17:11 WBC 8.8 (5.0-10.0) 10^3/uL RBC 5.63 (4.6-6.2) 10^6/uL Hgb 14.5 (14.0-18.0) g/dL Hct 43.3 (40.0-54.0) % MCV 76.9 L (80-100) fL MCH 25.8 L (27.0-34.0) pg MCHC 33.5 (33.0-35.0) g/dL Plt Count 256 (150-450) 10^3/uL Sodium 138 (135-145) mmol/L Potassium 3.9 (3.6-5.0) mmol/L Chloride 105 (101-111) mmol/L Carbon Dioxide 25.0 (21.0-31.0) mmol/L Anion Gap 11.9 BUN 16 (7-18) mg/dL Creatinine 0.8 (0.6-1.3) mg/dL Est Cr Clr Drug Dosing 141.28 mL/min Estimated GFR (MDRD) > 60 BUN/Creatinine Ratio 20.00 Glucose 129 H (74-105) mg/dL Calcium 8.6 (8.4-10.2) mg/dl Total Bilirubin 0.8 (0.2-1.0) mg/dL AST 36 (10-42) IU/L ALT 45 (10-60) IU/L Alkaline Phosphatase 95 (42-121) IU/L Troponin I < 0.02 < 0.02 (0.00-0.02) ng/ml Total Protein 7.3 (6.7-8.2) g/dl Albumin 3.7 (3.2-5.5) g/dl Globulin 3.6 Albumin/Globulin Ratio 1.03 Meds: Medications Discontinued Medications Generic Name Dose Route Start Last Admin Trade Name Hazel PRN Reason Stop Dose Admin Aspirin 324 mg 07/05/19 15:07 07/05/19 15:12 Aspirin PO 07/05/19 15:08 324 mg ONETIME ONE Administration Nitroglycerin 0.4 mg 07/05/19 15:08 07/05/19 16:10 Nitrostat SL 07/05/19 15:09 0.4 mg ONETIME ONE Administration Departure - Departure Time of Disposition: 17:29 Disposition: Home, Self-Care 01 Condition: Good Clinical Impression: Indigestion Chest pain Qualifiers: Chest pain type: unspecified Qualified Code(s): R07.9 - Chest pain, unspecified Instructions: Nonspecific Chest Pain Forms: ED Department Discharge Additional Instructions: light activity bland diet, limit spicy foods, alcohol and ibuprofen Urgent follow up worsening chest pain radiation sweating, dizziness take blood pressure medication as prescribed Sepsis Event Note - Evaluation Sepsis Screening Result: No Definite Risk - Focused Exam Date Exam was Performed: 07/07/19 Time Exam was Performed: 11:47 I have read and agree with the documentation that has been completed regarding this visit. By signing this record, I attest that the documentation was completed in my physical presence and is an accurate record of the encounter.
== END 2019-07-05 17:52 | disposition home or self-care (01) ==
LOC: DL.ED 13:49
DX: R07.2 Precordial pain (principal); K30 Functional dyspepsia; M25.561 Pain in right knee; I10 Essential (primary) hypertension; E66.9 Obesity, unspecified; J45.909 Unspecified asthma, uncomplicated; Z79.899 Other long term (current) drug therapy; Z88.1 Allergy status to other antibiotic agents
CPT/HCPCS: 36415; 71045; 80053; 84484; 85027; 93005; 99285; A9270

== ENCOUNTER 2019-09-19 20:49 | Emergency (ER) | payer MEDICAID ==
[2019-09-19 20:58] VITALS: BP 183/108; PULSE 96
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
== END 2019-09-19 22:30 | disposition home or self-care (01) ==
LOC: DL.ED 20:49
DX: S59.911A Unspecified injury of right forearm, initial encounter (principal); S29.9XXA Unspecified injury of thorax, initial encounter; I10 Essential (primary) hypertension; K21.9 Gastro-esophageal reflux disease without esophagitis; E66.9 Obesity, unspecified; Z68.36 Body mass index [BMI] 36.0-36.9, adult; Z79.899 Other long term (current) drug therapy; Z88.1 Allergy status to other antibiotic agents; W20.8XXA Other cause of strike by thrown, projected or falling object, initial encounter
CPT/HCPCS: 73000-RT; 73030-RT; 73060-RT; 73090-RT; 99283-25

== ENCOUNTER 2019-12-29 15:45 | Emergency (ER) | payer MEDICAID ==
[2019-12-29] MEDS ORDERED: Sodium Chloride 0.9% 10 ML Syringe FLUSH PRN (15:50)
[2019-12-29] MEDS ORDERED: Nitroglycerin 0.4 MG Tab.SL SL PRN (15:54)
[2019-12-29] MEDS ORDERED: Aspirin 81 MG Tab.Chew PO ONE (15:54)
[2019-12-29 16:00] VITALS: BP 158/89; PULSE 94
[2019-12-29] MEDS ORDERED: Ondansetron 4 MG/2 ML SDV IV ONE (16:03)
[2019-12-29 16:31] LABS: ANION GAP 12.7 mEq/L (7-13); CHLORIDE,CL 104 mmol/L (98-107); SODIUM,NA 139 mmol/L (136-145)
--- NOTE | 2019-12-29 16:34 | CR ---
PROCEDURE INFORMATION: Exam: XR Chest, 1 View Exam date and time: 12/29/2019 4:13 PM Age: 44 years old Clinical indication: Other: Pain; Additional info: Chest pain TECHNIQUE: Imaging protocol: XR of the chest Views: 1 view. COMPARISON: CR Chest 1V Frontal 07/05/2019 2:31 PM FINDINGS: Lungs: The lungs are normal. Pleural space: There are no pleural effusions present. Heart/Mediastinum: The heart demonstrates moderate diffuse enlargement. The pulmonary arteries are not enlarged. Bones/joints: Unremarkable IMPRESSION: Moderate cardiomegaly.
[2019-12-29] MEDS ORDERED: GI Cocktail Oral Solution 30 ML PO ONE (16:44)
--- NOTE | 2019-12-29 16:45 | EDM.PDOC ---
Scribed by Kaycee Uribe 12/29/19 9859 for Jose Mary MD ED HPI GENERAL MEDICAL PROBLEM - General Chief Complaint: Chest Pain Stated Complaint: CHEST PAINS SINCE 10 A.M. PER PT Time Seen by Provider: 12/29/19 15:51 Source of Information: Reports: Patient, RN, RN Notes Reviewed History Limitations: Reports: No Limitations - History of Present Illness INITIAL COMMENTS - FREE TEXT/NARRATIVE: Patient presents to ED by POV with chest pain that began at 10:00 hours. The pain is constant but waxes and weans. He describes a squeezing sharp sensation in the midline of the lower chest. Denies any cough, wheezing or asthma problems. He has not taken aspirin or nitro. Denies any recent travel or COVID exposure. Onset: Today Duration: Waxing/Waning Location: Reports: Chest Quality: Reports: Ache Severity: Mild Improves with: Reports: None Worsens with: Reports: None Associated Symptoms: Reports: No Other Symptoms Upper Anterior Chest Pain Score (Numeric/FACES): 5 - Related Data Allergies Allergy/AdvReac Type Severity Reaction Status Date / Time ceftriaxone sodium AdvReac Vomiting Verified 12/29/19 15:55 [From Rocephin] Home Meds: Home Meds Albuterol Sulfate [Proventil Hfa] 2 puff IH BID 03/07/18 [History] Ibuprofen 800 mg PO ASDIRECTED PRN 03/07/18 [History] Mometasone/Formoterol [Dulera 200 Mcg/5 Mcg Inhaler] 2 puff IH BID 07/20/18 [History] lisinopriL [Prinivil] 40 mg PO DAILY 07/20/18 [History] Past Medical History - Past Health History Medical/Surgical History: Denies Medical/Surgical History HEENT History: Reports: None Cardiovascular History: Reports: Hypertension Other Cardiovascular History: abnormal LFTs Respiratory History: Reports: Asthma, SOB Gastrointestinal History: Reports: GERD Genitourinary History: Reports: None Musculoskeletal History: Reports: Arthritis, Fracture, Other (See Below) Other Musculoskeletal History: R KNEE. METACARPAL BONE FX Neurological History: Reports: None Psychiatric History: Reports: None Endocrine/Metabolic History: Reports: Obesity/BMI 30+ Hematologic History: Reports: Anemia, Iron Deficiency Other Hematologic History: microcytosis Immunologic History: Reports: None Oncologic (Cancer) History: Reports: None Dermatologic History: Reports: None - Infectious Disease History Infectious Disease History: Reports: None - Past Surgical History Head Surgeries/Procedures: Reports: None HEENT Surgical History: Reports: None Cardiovascular Surgical History: Reports: Other (See Below) Other Cardiovascular Surgeries/Procedures: midsternal healed incision from when he was an infant but pt. doesn't know what he had done. - PATIENT REPORTS HE HAD FLUID AROUND HIS HEART PER HIS MOTHER Respiratory Surgical History: Reports: None GI Surgical History: Reports: None Male Surgical History: Reports: None Endocrine Surgical History: Reports: None Neurological Surgical History: Reports: None Musculoskeletal Surgical History: Reports: Arthroscopic Knee, Other (See Below) Other Musculoskeletal Surgeries/Procedures:: SYNOVECTOMY; MENISCECTOMY RIGHT Oncologic Surgical History: Reports: None Dermatological Surgical History: Reports: None Social & Family History - Family History Family Medical History: Noncontributory - Caffeine Use Caffeine Use: Reports: Tea Other Caffeine Use: AVERAGE OF 2 12 OZ CANS OF SODA POP DAILY - Living Situation & Occupation Living situation: Reports: with Family Occupation: Employed ED ROS GENERAL - Review of Systems Review Of Systems: Comprehensive ROS is negative, except as noted in HPI. ED EXAM, GENERAL - Physical Exam Exam: See Below Exam Limited By: No Limitations General Appearance: Obese Eye Exam: Bilateral Eye: EOMI, Normal Inspection, PERRL Ears: Normal External Exam, Normal Canal, Hearing Grossly Normal, Normal TMs Throat/Mouth: Normal Inspection, Normal Lips, Normal Teeth, Normal Gums, Normal Oropharynx, Normal Voice, No Airway Compromise Head: Atraumatic, Normocephalic Neck: Normal Inspection, Supple, Non-Tender, Full Range of Motion Respiratory/Chest: No Respiratory Distress, Lungs Clear, Normal Breath Sounds, No Accessory Muscle Use, Chest Non-Tender Cardiovascular: Normal Peripheral Pulses, Regular Rate, Rhythm, No Edema, No Gallop, No JVD, No Murmur, No Rub GI/Abdominal: Normal Bowel Sounds, Soft, Non-Tender, No Organomegaly, No Distention, No Abnormal Bruit, No Mass (Male) Exam: Deferred Rectal (Males) Exam: Deferred Back Exam: Normal Inspection, Full Range of Motion, NT Extremities: Normal Inspection, Normal Range of Motion, Non-Tender, Normal Capillary Refill, No Pedal Edema Neurological: Alert, Oriented, CN II-XII Intact, Normal Cognition, Normal Gait, Normal Reflexes, No Motor/Sensory Deficits Psychiatric: Normal Affect, Normal Mood Skin Exam: Warm, Dry, Intact, Normal Color, No Rash EKG INTERPRETATION EKG Date: 12/29/19 Time: 15:56 Rhythm: Other (sinus rhythm) Rate (Beats/Min): 95 [place]: Normal P-Wave: Present QRS: Wide (borderline nonspecific IVCD. LPFB, inferior Q waves) ST-T: Normal QT: Normal Course - Vital Signs Last Recorded V/S: Last Vital Signs Temp 98.3 F 12/29/19 15:58 Pulse 94 12/29/19 15:58 Resp 22 H 12/29/19 15:58 BP 158/89 H 12/29/19 15:58 Pulse Ox 98 12/29/19 15:58 - Orders/Labs/Meds Orders: Active Orders 24 hr Category Date Time Status EKG 12 Lead [EKG Documentation Completion] [] STAT Care 12/29/19 15:50 Active Peripheral IV Care [RC] . DIRECTED Care 12/29/19 15:50 Active GI Cocktail Med 12/29/19 16:44 Once 30 ml PO ONETIME ONE Nitroglycerin [Nitrostat] Med 12/29/19 15:54 Active 0.4 mg SL Q5M PRN Sodium Chloride 0.9% [Saline Flush] Med 12/29/19 15:50 Active 10 ml FLUSH ASDIRECTED PRN Peripheral IV Insertion Adult [OM.PC] Stat Oth 12/29/19 15:50 Ordered Medication Orders Nitroglycerin (Nitrostat) 0.4 mg SL Q5M PRN PRN Reason: Chest Pain Sodium Chloride (Saline Flush) 10 ml FLUSH ASDIRECTED PRN PRN Reason: Keep Vein Open Last Admin: 12/29/19 16:04 Dose: 10 ml Documented by: JACQUELINE Labs: Laboratory Tests 12/29/19 12/29/19 Range/Units 16:00 16:00 WBC 10.7 H (5.0-10.0) 10^3/uL RBC 5.28 (4.6-6.2) 10^6/uL Hgb 13.9 L (14.0-18.0) g/dL Hct 41.8 (40.0-54.0) % MCV 79.2 L (80-100) fL MCH 26.3 L (27.0-34.0) pg MCHC 33.3 (33.0-35.0) g/dL Plt Count 225 (150-450) 10^3/uL Neut % (Auto) 77.0 H (42.2-75.2) % Lymph % (Auto) 11.6 L (20.5-50.1) % [place] % (Auto) 7.7 (2-8) % Eos % (Auto) 3.5 H (1.0-3.0) % Baso % (Auto) 0.2 (0.0-1.0) % Sodium 139 (136-145) mmol/L Potassium 3.7 (3.5-5.1) mmol/L Chloride 104 (98-107) mmol/L Carbon Dioxide 26 (21-32) mmol/L Anion Gap 12.7 (7-13) mEq/L BUN 13 (7-18) mg/dL Creatinine 0.82 (0.70-1.30) mg/dL Est Cr Clr Drug Dosing 136.44 mL/min Estimated GFR (MDRD) > 60 BUN/Creatinine Ratio 15.9 (No establ ref range) Glucose 198 H (74-99) mg/dL Calcium 8.3 L (8.5-10.1) mg/dL Total Bilirubin 0.5 (0.2-1.0) mg/dL AST 68 H (15-37) U/L ALT 112 H (16-63) U/L Alkaline Phosphatase 130 H (46-116) U/L Troponin I < 0.017 (0.000-0.056) ng/mL Total Protein 6.8 (6.4-8.2) g/dL Albumin 3.1 L (3.4-5.0) g/dL Globulin 3.7 Albumin/Globulin Ratio 0.84 Amylase 37 (25-115) U/L Lipase 123 (73-393) U/L Meds: Medications Generic Name Dose Route Start Last Admin Trade Name Freq PRN Reason Stop Dose Admin Nitroglycerin 0.4 mg 12/29/19 15:54 Nitrostat SL Q5M PRN Chest Pain Sodium Chloride 10 ml 12/29/19 15:50 12/29/19 16:04 Saline Flush FLUSH 10 ml ASDIRECTED PRN Administration Keep Vein Open Discontinued Medications Generic Name Dose Route Start Last Admin Trade Name Hazel PRN Reason Stop Dose Admin Aspirin 324 mg 12/29/19 15:54 12/29/19 16:03 Aspirin PO 12/29/19 15:55 324 mg ONETIME ONE Administration Ondansetron HCl 4 mg 12/29/19 16:03 12/29/19 16:10 Zofran IV 12/29/19 16:04 4 mg ONETIME ONE Administration - Radiology Interpretation Free Text/Narrative:: Chest X-ray: moderate cardiomegaly, normal lungs per Rad. report. Departure - Departure Time of Disposition: 16:44 Disposition: Home, Self-Care 01 Condition: Good Clinical Impression: Atypical chest pain Instructions: Nonspecific Chest Pain, Adult Forms: ED Department Discharge Additional Instructions: Rx: Omeprazole 20mg Follow up in clinic next week for recheck. Sepsis Event Note (ED) - Focused Exam Vital Signs: Vital Signs Temp Pulse Resp BP Pulse Ox 12/29/19 15:58 98.3 F 94 22 H 158/89 H 98 - My Orders Last 24 Hours: My Active Orders 12/29/19 15:50 EKG 12 Lead [EKG Documentation Completion] [RC] STAT Peripheral IV Care [RC] . DIRECTED Sodium Chloride 0.9% [Saline Flush] 10 ml FLUSH ASDIRECTED PRN Peripheral IV Insertion Adult [OM.PC] Stat 12/29/19 15:54 Nitroglycerin [Nitrostat] 0.4 mg SL Q5M PRN 12/29/19 16:44 GI Cocktail 30 ml PO ONETIME ONE - Assessment/Plan Last 24 Hours: My Active Orders 12/29/19 15:50 EKG 12 Lead [EKG Documentation Completion] [RC] STAT Peripheral IV Care [RC] . DIRECTED Sodium Chloride 0.9% [Saline Flush] 10 ml FLUSH ASDIRECTED PRN Peripheral IV Insertion Adult [OM.PC] Stat 12/29/19 15:54 Nitroglycerin [Nitrostat] 0.4 mg SL Q5M PRN 12/29/19 16:44 GI Cocktail 30 ml PO ONETIME ONE I have read and agree with the documentation that has been completed regarding this visit. By signing this record, I attest that the documentation was completed in my physical presence and is an accurate record of the encounter.
== END 2019-12-29 16:56 | disposition home or self-care (01) ==
LOC: DL.ED 15:45
DX: R07.89 Other chest pain (principal); I10 Essential (primary) hypertension; J45.909 Unspecified asthma, uncomplicated; E66.9 Obesity, unspecified; Z68.35 Body mass index [BMI] 35.0-35.9, adult; Z88.1 Allergy status to other antibiotic agents
CPT/HCPCS: 36415; 71045; 80053; 82150; 83690; 84484; 85025; 93005; 96374; 99285; A9270; J2405; 93010; 99284

== ENCOUNTER 2020-01-31 15:20 | Inpatient (IN) | payer MEDICAID ==
--- NOTE | 2020-01-31 15:31 | EDM.PDOC ---
ED HPI GENERAL MEDICAL PROBLEM - General Chief Complaint: Cardiovascular Problem Stated Complaint: DIZZY Time Seen by Provider: 01/31/20 15:30 Source of Information: Reports: Patient, Old Records, RN, RN Notes Reviewed History Limitations: Reports: No Limitations - History of Present Illness INITIAL COMMENTS - FREE TEXT/NARRATIVE: Pt presents to ER from home by POV states that he was seen in clinic this morning for dizziness and had a lab test, then later was called by Elizabeth Huertas [employer] and told to go immediately to the ER because something on his lab test was too high. I attempted to contact Antoinette Huertas via phone, but she was not available. The ER nurse was able to find that the only lab the pt had drawn today was a HgbA1c which was 9.7. Pt admits to polydipsia and polyuria during the past several days. The pt goes on to say that he has had recurring dizziness for about 3 to 4 days. He states he gets lightheaded when he first gets up to walk, and also has "room spin" dizziness. Admits to occasional nausea and vomiting in association with the dizzy episodes. Admits to recurring chest pains that happen randomly without any exertion or known triggers. Pt states he just tested negative for COVID yesterday. He denies CAD, OH, angina, diabetes, CVA, cough, shortness of breath, fevers, or chills. Duration: Day(s): (3-4), Intermittent, Recurring Location: Reports: Chest, Generalized Quality: Reports: Pressure Severity: Moderate Improves with: Reports: None Worsens with: Reports: None Associated Symptoms: Reports: No Other Symptoms - Related Data Allergies Allergy/AdvReac Type Severity Reaction Status Date / Time ceftriaxone sodium AdvReac Vomiting Verified 01/31/20 15:36 [From Rocephin] Home Meds: Home Meds Albuterol Sulfate [Proventil Hfa] 2 puff IH BID 03/07/18 [History] Ibuprofen 800 mg PO ASDIRECTED PRN 03/07/18 [History] Mometasone/Formoterol [Dulera 200 Mcg/5 Mcg Inhaler] 2 puff IH BID 07/20/18 [History] lisinopriL [Prinivil] 40 mg PO DAILY 07/20/18 [History] Past Medical History - Past Health History Medical/Surgical History: Denies Medical/Surgical History HEENT History: Reports: None Cardiovascular History: Reports: Hypertension Other Cardiovascular History: abnormal LFTs Respiratory History: Reports: Asthma, SOB Gastrointestinal History: Reports: GERD Genitourinary History: Reports: None Musculoskeletal History: Reports: Arthritis, Fracture, Other (See Below) Other Musculoskeletal History: R KNEE. METACARPAL BONE FX Neurological History: Reports: None Psychiatric History: Reports: None Endocrine/Metabolic History: Reports: Obesity/BMI 30+ Hematologic History: Reports: Anemia, Iron Deficiency Other Hematologic History: microcytosis Immunologic History: Reports: None Oncologic (Cancer) History: Reports: None Dermatologic History: Reports: None - Infectious Disease History Infectious Disease History: Reports: None Other Infectious Disease History: patient states "i'm not sure" - Past Surgical History Head Surgeries/Procedures: Reports: None HEENT Surgical History: Reports: None Cardiovascular Surgical History: Reports: Other (See Below) Other Cardiovascular Surgeries/Procedures: midsternal healed incision from when he was an infant but pt. doesn't know what he had done. - PATIENT REPORTS HE HAD FLUID AROUND HIS HEART PER HIS MOTHER Respiratory Surgical History: Reports: None GI Surgical History: Reports: None Male Surgical History: Reports: None Endocrine Surgical History: Reports: None Neurological Surgical History: Reports: None Musculoskeletal Surgical History: Reports: Arthroscopic Knee, Other (See Below) Other Musculoskeletal Surgeries/Procedures:: SYNOVECTOMY; MENISCECTOMY RIGHT Oncologic Surgical History: Reports: None Dermatological Surgical History: Reports: None Social & Family History - Family History Family Medical History: Noncontributory - Caffeine Use Caffeine Use: Reports: Tea Other Caffeine Use: AVERAGE OF 2 12 OZ CANS OF SODA POP DAILY - Living Situation & Occupation Living situation: Reports: with Family Occupation: Employed ED ROS GENERAL - Review of Systems Review Of Systems: Comprehensive ROS is negative, except as noted in HPI. ED EXAM, GENERAL - Physical Exam Exam: See Below Exam Limited By: No Limitations General Appearance: Alert, WD/WN, No Apparent Distress Eye Exam: Bilateral Eye: EOMI, Nystagmus (lateral gaze L>R), PERRL Ears: Normal External Exam, Normal Canal, Hearing Grossly Normal, Normal TMs Nose: Normal Inspection, Normal Mucosa, No Blood Throat/Mouth: Normal Lips, Normal Voice, No Airway Compromise, Other (Very dry oral membranes.) Head: Atraumatic, Normocephalic Neck: Normal Inspection, Supple, Non-Tender, Full Range of Motion. No: Lymphadenopathy (L), Lymphadenopathy (R) Respiratory/Chest: No Respiratory Distress, Lungs Clear, Normal Breath Sounds, No Accessory Muscle Use, Chest Non-Tender Cardiovascular: Regular Rate, Rhythm, No Edema, Tachycardia, Other (midline sternal scar from heart surgery as an infant) GI/Abdominal: Normal Bowel Sounds, Soft, Non-Tender, No Distention, No Abnormal Bruit. No: Guarding, Rigid, Rebound Back Exam: Normal Inspection Extremities: Normal Range of Motion, Non-Tender, No Pedal Edema, Normal Capillary Refill. No: Joint Swelling Neurological: Alert, Oriented, No Motor/Sensory Deficits Psychiatric: Anxious, Flat Affect Skin Exam: Warm, Dry, Intact, Normal Color, No Rash EKG INTERPRETATION EKG Date: 01/31/20 Time: 15:34 Rhythm: Other (Sinus tach) Rate (Beats/Min): 103 [place]: Normal P-Wave: Present QRS: Other (LPFB, Q waves in lead III, aVF, V1, V3-5) ST-T: Normal QT: Normal Comparison: NA - No Prior EKG Course - Vital Signs Last Recorded V/S: Last Vital Signs Temp 97 F 01/31/20 15:33 Pulse 109 H 01/31/20 16:32 Resp 26 H 01/31/20 16:32 BP 124/61 01/31/20 16:32 Pulse Ox 96 01/31/20 16:32 Orthostatic Blood Pressure [ 102/62 Standing] Orthostatic Blood Pressure [ 113/57 Sitting] Orthostatic Blood Pressure [ 101/58 Supine] - Orders/Labs/Meds Orders: Active Orders 24 hr Category Date Time Status EKG 12 Lead [EKG Documentation Completion] [RC] STAT Care 01/31/20 15:29 Active Orthostatic Vital Signs [RC] ASDIRECTED Care 01/31/20 15:34 Active Peripheral IV Care [RC] . DIRECTED Care 01/31/20 15:36 Active ABG [BLOOD GAS ARTERIAL] [BG] Stat Lab 01/31/20 16:23 Ordered DRUG SCREEN URINE BIORAD [URCHEM] Stat Lab 01/31/20 16:32 Ordered MAGNESIUM [CHEM] Stat Lab 01/31/20 16:30 Ordered TSH ULTRASENSITIVE [CHEM] Stat Lab 01/31/20 16:30 Ordered UA RFX JORGE AND CULT IF INDIC [URIN] Stat Lab 01/31/20 16:32 Ordered Insulin Regular, Human [HumuLIN R] 100 unit Med 01/31/20 16:30 Active Sodium Chloride 0.9% [Normal Saline] 99 ml IV TITRATE Sodium Chloride 0.9% [Normal Saline] 1,000 ml Med 01/31/20 15:47 Active IV .BOLUS Sodium Chloride 0.9% [Normal Saline] 1,000 ml Med 01/31/20 16:30 Active IV .BOLUS Sodium Chloride 0.9% [Saline Flush] Med 01/31/20 15:35 Active 10 ml FLUSH ASDIRECTED PRN Peripheral IV Insertion Adult [OM.PC] Stat Oth 01/31/20 15:35 Ordered Medication Orders Sodium Chloride (Normal Saline) 1,000 mls @ 999 mls/hr IV .BOLUS ONE Stop: 01/31/20 16:47 Last Admin: 01/31/20 15:55 Dose: 999 mls/hr Documented by: ELOY Insulin Human Regular 100 unit (/ Sodium Chloride) 100 mls @ 12.084 mls/hr IV TITRATE ALFRED; Protocol Last Admin: 01/31/20 16:37 Dose: 0.1 units/kg/hr, 12.084 mls/hr Documented by: ELOY Cosigned by: SELAM Sodium Chloride (Normal Saline) 1,000 mls @ 999 mls/hr IV .BOLUS ONE Stop: 01/31/20 17:30 Sodium Chloride (Saline Flush) 10 ml FLUSH ASDIRECTED PRN PRN Reason: Keep Vein Open Last Admin: 01/31/20 15:55 Dose: 10 ml Documented by: ELOY Labs: Laboratory Tests 01/31/20 01/31/20 01/31/20 Range/Units 15:46 15:46 15:46 WBC 10.1 H (5.0-10.0) 10^3/uL RBC 5.88 (4.6-6.2) 10^6/uL Hgb 15.2 (14.0-18.0) g/dL Hct 43.5 (40.0-54.0) % MCV 74.0 L D (80-100) fL MCH 25.9 L (27.0-34.0) pg MCHC 34.9 (33.0-35.0) g/dL Plt Count 269 (150-450) 10^3/uL Neut % (Auto) 78.3 H (42.2-75.2) % Lymph % (Auto) 13.0 L (20.5-50.1) % [place] % (Auto) 6.8 (2-8) % Eos % (Auto) 1.6 (1.0-3.0) % Baso % (Auto) 0.3 (0.0-1.0) % Sodium 123 L D (136-145) mmol/L Potassium 4.9 (3.5-5.1) mmol/L Chloride 87 L D (98-107) mmol/L Carbon Dioxide 25 (21-32) mmol/L Anion Gap 15.9 H (7-13) mEq/L BUN 29 H (7-18) mg/dL Creatinine 2.08 H D (0.70-1.30) mg/dL Est Cr Clr Drug Dosing 50.78 mL/min Estimated GFR (MDRD) 35 BUN/Creatinine Ratio 13.9 (No establ ref range) Glucose 705 H* (74-99) mg/dL Calcium 8.5 (8.5-10.1) mg/dL Total Bilirubin 0.9 (0.2-1.0) mg/dL AST 44 H (15-37) U/L ALT 84 H (16-63) U/L Alkaline Phosphatase 189 H (46-116) U/L Troponin I < 0.017 (0.000-0.056) ng/mL Total Protein 7.5 (6.4-8.2) g/dL Albumin 3.3 L (3.4-5.0) g/dL Globulin 4.2 Albumin/Globulin Ratio 0.79 Lipase 286 (73-393) U/L Ketones Negative Meds: Medications Generic Name Dose Route Start Last Admin Trade Name Freq PRN Reason Stop Dose Admin Sodium Chloride 1,000 mls @ 999 mls/hr 01/31/20 15:47 01/31/20 15:55 Normal Saline IV 01/31/20 16:47 999 mls/hr .BOLUS ONE Administration Insulin Human Regular 100 unit 100 mls @ 12.084 mls/hr 01/31/20 16:30 01/31/20 16:37 / Sodium Chloride IV 0.1 units/kg/hr TITRATE ALFRED 12.084 mls/hr Administration Protocol 0.1 UNITS/KG/HR Sodium Chloride 1,000 mls @ 999 mls/hr 01/31/20 16:30 Normal Saline IV 01/31/20 17:30 .BOLUS ONE Sodium Chloride 10 ml 01/31/20 15:35 01/31/20 15:55 Saline Flush FLUSH 10 ml ASDIRECTED PRN Administration Keep Vein Open Discontinued Medications Generic Name Dose Route Start Last Admin Trade Name Freq PRN Reason Stop Dose Admin Insulin Human Regular 10 unit 01/31/20 16:22 01/31/20 16:36 Humulin R IV 01/31/20 16:23 10 units ONETIME ONE Administration Meclizine HCl 25 mg 01/31/20 15:46 01/31/20 15:55 Antivert PO 01/31/20 15:47 25 mg ONETIME ONE Administration Ondansetron HCl 4 mg 01/31/20 15:46 01/31/20 15:55 Zofran IV 01/31/20 15:47 4 mg ONETIME ONE Administration - Radiology Interpretation Free Text/Narrative:: XR Chest: no acute process, see Rad. report. Departure - Departure Time of Disposition: 16:45 (admitted to Dr. Schultz) Disposition: Admitted As Inpatient 68 Condition: Serious Clinical Impression: Diabetes mellitus, new onset, Hyperglycemia without ketosis, Dizziness - Discharge Information *PRESCRIPTION DRUG MONITORING PROGRAM REVIEWED*: No *COPY OF PRESCRIPTION DRUG MONITORING REPORT IN PATIENT JORGE LUIS: No Forms: ED Department Discharge Sepsis Event Note (ED) - Focused Exam Vital Signs: Vital Signs Temp Pulse Resp BP Pulse Ox 01/31/20 16:32 109 H 26 H 124/61 96 01/31/20 15:33 97 F 106 H 16 102/60 94 L - My Orders Last 24 Hours: My Active Orders 01/31/20 15:29 EKG 12 Lead [EKG Documentation Completion] [RC] STAT 01/31/20 15:34 Orthostatic Vital Signs [RC] ASDIRECTED 01/31/20 15:35 Sodium Chloride 0.9% [Saline Flush] 10 ml FLUSH ASDIRECTED PRN Peripheral IV Insertion Adult [OM.PC] Stat 01/31/20 15:36 Peripheral IV Care [RC] . DIRECTED 01/31/20 15:47 Sodium Chloride 0.9% [Normal Saline] 1,000 ml IV .BOLUS 01/31/20 16:23 ABG [BLOOD GAS ARTERIAL] [BG] Stat 01/31/20 16:30 MAGNESIUM [CHEM] Stat TSH ULTRASENSITIVE [CHEM] Stat Insulin Regular, Human [HumuLIN R] 100 unit Sodium Chloride 0.9% [Normal Saline] 99 ml IV TITRATE Sodium Chloride 0.9% [Normal Saline] 1,000 ml IV .BOLUS 01/31/20 16:32 DRUG SCREEN URINE BIORAD [URCHEM] Stat UA RFX JORGE AND CULT IF INDIC [URIN] Stat - Assessment/Plan Last 24 Hours: My Active Orders 01/31/20 15:29 EKG 12 Lead [EKG Documentation Completion] [RC] STAT 01/31/20 15:34 Orthostatic Vital Signs [RC] ASDIRECTED 01/31/20 15:35 Sodium Chloride 0.9% [Saline Flush] 10 ml FLUSH ASDIRECTED PRN Peripheral IV Insertion Adult [OM.PC] Stat 01/31/20 15:36 Peripheral IV Care [RC] . DIRECTED 01/31/20 15:47 Sodium Chloride 0.9% [Normal Saline] 1,000 ml IV .BOLUS 01/31/20 16:23 ABG [BLOOD GAS ARTERIAL] [BG] Stat 01/31/20 16:30 MAGNESIUM [CHEM] Stat TSH ULTRASENSITIVE [CHEM] Stat Insulin Regular, Human [HumuLIN R] 100 unit Sodium Chloride 0.9% [Normal Saline] 99 ml IV TITRATE Sodium Chloride 0.9% [Normal Saline] 1,000 ml IV .BOLUS 01/31/20 16:32 DRUG SCREEN URINE BIORAD [URCHEM] Stat UA RFX JORGE AND CULT IF INDIC [URIN] Stat
[2020-01-31] MEDS ORDERED: Ondansetron 4 MG/2 ML SDV IV ONE (15:46)
[2020-01-31] MEDS ORDERED: Meclizine 12.5 MG Tab PO ONE (15:46)
[2020-01-31] MEDS ORDERED: Sodium Chloride 0.9% 1,000 ML IV ONE ×2 (15:47→16:30)
[2020-01-31] MEDS: Sodium Chloride 0.9% 10 ML Syringe FLUSH PRN (15:55)
--- NOTE | 2020-01-31 15:59 | CR ---
PROCEDURE INFORMATION: Exam: XR Chest, 1 View Exam date and time: 01/31/2020 3:52 PM Age: 44 years old Clinical indication: Chest pain; Type not specified TECHNIQUE: Imaging protocol: XR of the chest Views: 1 view. COMPARISON: CR Chest 1V Frontal 12/29/2019 4:13 PM FINDINGS: Lungs: Low lung volumes causes crowding of the bronchovascular structures. No acute interstitial or airspace disease is appreciated. Pleural space: Unremarkable. No pleural effusion. No pneumothorax. Heart/Mediastinum: Unremarkable. No cardiomegaly. Bones/joints: No acute abnormality or aggressive osseous lesion. IMPRESSION: Negative for acute thoracic pathology.
[2020-01-31 16:14] LABS: ANION GAP 15.9 mEq/L (7-13); CHLORIDE,CL 87 mmol/L (98-107); SODIUM,NA 123 mmol/L (136-145)
[2020-01-31] MEDS ORDERED: Insulin Regular, Human 100 Units/ML 3 ML Vial IV ONE (16:22)
[2020-01-31 16:56] LABS: BASE EXCESS ARTERIAL -1 mmol/L ((-2)-(+3)); BICARBONATE,ARTERIAL 23.6 mmol/L (22-26); O2 DELIVERY DEVICE ROOM AIR; O2 SATURATION ARTERIAL 93 % (95-100); PCO2 ARTERIAL 43 mmHg (35-45); PO2 ARTERIAL 83 mmHg (70-100)
[2020-01-31 16:59] LABS: ALLEN TEST PERFORMED
[2020-01-31] MEDS ORDERED: NS + KCl 20mEq/L 1,000 ML IV SCH (17:30)
[2020-01-31] MEDS ORDERED: Ondansetron 4 MG Tab.DIS PO PRN (17:34)
[2020-01-31] MEDS ORDERED: Ondansetron 4 MG/2 ML SDV IVPUSH PRN (17:34)
[2020-01-31] MEDS ORDERED: Docusate Sodium 100 MG Cap PO PRN (17:34)
[2020-01-31] MEDS ORDERED: Zolpidem 5 MG Tab PO PRN (17:34)
[2020-01-31] MEDS ORDERED: Albuterol 6.7 GM Inhaler INH PRN (17:39)
--- NOTE | 2020-01-31 18:07 | PCM.HP ---
H&P History of Present Illness - General Date of Service: 01/31/20 Admit Problem/Dx: Admission Diagnosis/Problem Admission Diagnosis/Problem Diabetes mellitus Source of Information: Patient - History of Present Illness Initial Comments - Free Text/Narative: 44-year-old with a history of hypertension, asthma. The patient presented with a few days history of dizziness, lightheadedness, vertigo. He went to the clinic and was noted to have elevated hemoglobin A1c. The patient came to the emergency room Blood sugar was above 700. - Related Data Allergies/Adverse Reactions: Allergies Allergy/AdvReac Type Severity Reaction Status Date / Time ceftriaxone sodium AdvReac Vomiting Verified 01/31/20 15:36 [From Rocephin] Home Medications: Home Meds Albuterol Sulfate [Proventil Hfa] 2 puff IH BID 03/07/18 [History] Ibuprofen 800 mg PO ASDIRECTED PRN 03/07/18 [History] Mometasone/Formoterol [Dulera 200 Mcg/5 Mcg Inhaler] 2 puff IH BID 07/20/18 [History] lisinopriL [Prinivil] 40 mg PO DAILY 07/20/18 [History] Past Medical History - Past Health History Medical/Surgical History: Denies Medical/Surgical History HEENT History: Reports: None Cardiovascular History: Reports: Hypertension Other Cardiovascular History: abnormal LFTs Respiratory History: Reports: Asthma, SOB Gastrointestinal History: Reports: GERD Genitourinary History: Reports: None Musculoskeletal History: Reports: Arthritis, Fracture, Other (See Below) Other Musculoskeletal History: R KNEE. METACARPAL BONE FX Neurological History: Reports: None Psychiatric History: Reports: None Endocrine/Metabolic History: Reports: Obesity/BMI 30+ Hematologic History: Reports: Anemia, Iron Deficiency Other Hematologic History: microcytosis Immunologic History: Reports: None Oncologic (Cancer) History: Reports: None Dermatologic History: Reports: None - Infectious Disease History Infectious Disease History: Reports: None Other Infectious Disease History: patient states "i'm not sure" - Past Surgical History Head Surgeries/Procedures: Reports: None HEENT Surgical History: Reports: None Cardiovascular Surgical History: Reports: Other (See Below) Other Cardiovascular Surgeries/Procedures: midsternal healed incision from when he was an but pt. doesn't know what he had done. - PATIENT REPORTS HE HAD FLUID AROUND HIS HEART PER HIS MOTHER Respiratory Surgical History: Reports: None GI Surgical History: Reports: None Male Surgical History: Reports: None Endocrine Surgical History: Reports: None Neurological Surgical History: Reports: None Musculoskeletal Surgical History: Reports: Arthroscopic Knee, Other (See Below) Other Musculoskeletal Surgeries/Procedures:: SYNOVECTOMY; MENISCECTOMY RIGHT Oncologic Surgical History: Reports: None Dermatological Surgical History: Reports: None Social & Family History - Family History Family Medical History: Noncontributory - Tobacco Use Smoking Status *Q: Never Smoker - Caffeine Use Caffeine Use: Reports: Tea Other Caffeine Use: AVERAGE OF 2 12 OZ CANS OF SODA POP DAILY - Recreational Drug Use Recreational Drug Use: No - Living Situation & Occupation Living situation: Reports: with Family Occupation: Employed H&P Review of Systems - Review of Systems: Review Of Systems: See Below General: Reports: Malaise, Weakness. Denies: Fever HEENT: Reports: Vertigo Pulmonary: Denies: Shortness of Breath Cardiovascular: Denies: Edema Gastrointestinal: Reports: Nausea. Denies: Abdominal Pain Psychiatric: Denies: Confusion Exam - Exam Exam: See Below - Vital Signs Vital Signs: Last Vital Signs Temp 97 F 01/31/20 15:33 Pulse 109 H 01/31/20 16:32 Resp 26 H 01/31/20 16:32 BP 124/61 01/31/20 16:32 Pulse Ox 96 01/31/20 16:32 Orthostatic Blood Pressure [ 102/62 Standing] Orthostatic Blood Pressure [ 113/57 Sitting] Orthostatic Blood Pressure [ 101/58 Supine] Weight: 266 lb 6.4 oz - Exam General: Alert, Oriented Neck: Supple Lungs: Clear to Auscultation, Normal Respiratory Effort Cardiovascular: Regular Rate, Regular Rhythm GI/Abdominal Exam: Normal Bowel Sounds, Soft, Non-Tender Extremities: No Pedal Edema - Patient Data Lab Results Last 24 hrs: Laboratory Results - last 24 hr 01/31/20 01/31/20 01/31/20 Range/Units 15:46 15:46 15:46 WBC 10.1 H (5.0-10.0) 10^3/uL RBC 5.88 (4.6-6.2) 10^6/uL Hgb 15.2 (14.0-18.0) g/dL Hct 43.5 (40.0-54.0) % MCV 74.0 L D (80-100) fL MCH 25.9 L (27.0-34.0) pg MCHC 34.9 (33.0-35.0) g/dL Plt Count 269 (150-450) 10^3/uL Neut % (Auto) 78.3 H (42.2-75.2) % Lymph % (Auto) 13.0 L (20.5-50.1) % Park % (Auto) 6.8 (2-8) % Eos % (Auto) 1.6 (1.0-3.0) % Baso % (Auto) 0.3 (0.0-1.0) % ABG pH (7.35-7.45) ABG pCO2 (35-45) mmHg ABG pO2 (70-100) mmHg ABG HCO3 (22-26) mmol/L ABG O2 Saturation (95-100) % ABG Base Excess ((-2)-(+3)) mmol/L Maxime Test O2 Delivery Device Sodium 123 L D (136-145) mmol/L Potassium 4.9 (3.5-5.1) mmol/L Chloride 87 L D (98-107) mmol/L Carbon Dioxide 25 (21-32) mmol/L Anion Gap 15.9 H (7-13) mEq/L BUN 29 H (7-18) mg/dL Creatinine 2.08 H D (0.70-1.30) mg/dL Est Cr Clr Drug Dosing 50.78 mL/min Estimated GFR (MDRD) 35 BUN/Creatinine Ratio 13.9 (No establ ref range) Glucose 705 H* (74-99) mg/dL POC Glucose (70-105) mg/dl Calcium 8.5 (8.5-10.1) mg/dL Magnesium (1.8-2.4) mg/dL Total Bilirubin 0.9 (0.2-1.0) mg/dL AST 44 H (15-37) U/L ALT 84 H (16-63) U/L Alkaline Phosphatase 189 H (46-116) U/L Troponin I < 0.017 (0.000-0.056) ng/mL Total Protein 7.5 (6.4-8.2) g/dL Albumin 3.3 L (3.4-5.0) g/dL Globulin 4.2 Albumin/Globulin Ratio 0.79 Lipase 286 (73-393) U/L TSH, Ultra Sensitive (0.36-3.74) uIU/mL Urine Color (YELLOW) Urine Appearance (CLEAR) Urine pH (5.0-9.0) Ur Specific [place] (1.005-1.030) Urine Protein (NEGATIVE) Urine Glucose (UA) (NEGATIVE) Urine Ketones (NEGATIVE) Urine Occult Blood (NEGATIVE) Urine Nitrite (NEGATIVE) Urine Bilirubin (NEGATIVE) Urine Urobilinogen (0.2-1.0) mg/dL Ur Leukocyte Esterase (NEGATIVE) Urine Opiates Screen (NEGATIVE) Ur Oxycodone Screen (NEGATIVE) Urine Methadone Screen (NEGATIVE) Ur Barbiturates Screen (NEGATIVE) U Tricyclic Antidepress (NEGATIVE) Ur Phencyclidine Scrn (NEGATIVE) Ur Amphetamine Screen (NEGATIVE) U Methamphetamines Scrn (NEGATIVE) Urine MDMA Screen (NEGATIVE) U Benzodiazepines Scrn (NEGATIVE) Urine Cocaine Screen (NEGATIVE) U Marijuana (THC) Screen (NEGATIVE) Ketones Negative 01/31/20 01/31/20 01/31/20 Range/Units 15:46 16:30 16:50 WBC (5.0-10.0) 10^3/uL RBC (4.6-6.2) 10^6/uL Hgb (14.0-18.0) g/dL Hct (40.0-54.0) % MCV (80-100) fL MCH (27.0-34.0) pg MCHC (33.0-35.0) g/dL Plt Count (150-450) 10^3/uL Neut % (Auto) (42.2-75.2) % Lymph % (Auto) (20.5-50.1) % Park % (Auto) (2-8) % Eos % (Auto) (1.0-3.0) % Baso % (Auto) (0.0-1.0) % ABG pH 7.36 (7.35-7.45) ABG pCO2 43 (35-45) mmHg ABG pO2 83 (70-100) mmHg ABG HCO3 23.6 (22-26) mmol/L ABG O2 Saturation 93 L (95-100) % ABG Base Excess -1 ((-2)-(+3)) mmol/L Maxime Test Performed O2 Delivery Device Room air Sodium (136-145) mmol/L Potassium (3.5-5.1) mmol/L Chloride (98-107) mmol/L Carbon Dioxide (21-32) mmol/L Anion Gap (7-13) mEq/L BUN (7-18) mg/dL Creatinine (0.70-1.30) mg/dL Est Cr Clr Drug Dosing mL/min Estimated GFR (MDRD) BUN/Creatinine Ratio (No establ ref range) Glucose (74-99) mg/dL POC Glucose (70-105) mg/dl Calcium (8.5-10.1) mg/dL Magnesium 2.0 (1.8-2.4) mg/dL Total Bilirubin (0.2-1.0) mg/dL AST (15-37) U/L ALT (16-63) U/L Alkaline Phosphatase (46-116) U/L Troponin I (0.000-0.056) ng/mL Total Protein (6.4-8.2) g/dL Albumin (3.4-5.0) g/dL Globulin Albumin/Globulin Ratio Lipase (73-393) U/L TSH, Ultra Sensitive 1.47 (0.36-3.74) uIU/mL Urine Color Yellow (YELLOW) Urine Appearance Clear (CLEAR) Urine pH 5.5 (5.0-9.0) Ur Specific [place] 1.010 (1.005-1.030) Urine Protein Negative (NEGATIVE) Urine Glucose (UA) 500 H (NEGATIVE) Urine Ketones Negative (NEGATIVE) Urine Occult Blood Negative (NEGATIVE) Urine Nitrite Negative (NEGATIVE) Urine Bilirubin Negative (NEGATIVE) Urine Urobilinogen 1.0 (0.2-1.0) mg/dL Ur Leukocyte Esterase Negative (NEGATIVE) Urine Opiates Screen (NEGATIVE) Ur Oxycodone Screen (NEGATIVE) Urine Methadone Screen (NEGATIVE) Ur Barbiturates Screen (NEGATIVE) U Tricyclic Antidepress (NEGATIVE) Ur Phencyclidine Scrn (NEGATIVE) Ur Amphetamine Screen (NEGATIVE) U Methamphetamines Scrn (NEGATIVE) Urine MDMA Screen (NEGATIVE) U Benzodiazepines Scrn (NEGATIVE) Urine Cocaine Screen (NEGATIVE) U Marijuana (THC) Screen (NEGATIVE) Ketones 01/31/20 01/31/20 Range/Units 16:50 17:36 WBC (5.0-10.0) 10^3/uL RBC (4.6-6.2) 10^6/uL Hgb (14.0-18.0) g/dL Hct (40.0-54.0) % MCV (80-100) fL MCH (27.0-34.0) pg MCHC (33.0-35.0) g/dL Plt Count (150-450) 10^3/uL Neut % (Auto) (42.2-75.2) % Lymph % (Auto) (20.5-50.1) % Park % (Auto) (2-8) % Eos % (Auto) (1.0-3.0) % Baso % (Auto) (0.0-1.0) % ABG pH (7.35-7.45) ABG pCO2 (35-45) mmHg ABG pO2 (70-100) mmHg ABG HCO3 (22-26) mmol/L ABG O2 Saturation (95-100) % ABG Base Excess ((-2)-(+3)) mmol/L Maxime Test O2 Delivery Device Sodium (136-145) mmol/L Potassium (3.5-5.1) mmol/L Chloride (98-107) mmol/L Carbon Dioxide (21-32) mmol/L Anion Gap (7-13) mEq/L BUN (7-18) mg/dL Creatinine (0.70-1.30) mg/dL Est Cr Clr Drug Dosing mL/min Estimated GFR (MDRD) BUN/Creatinine Ratio (No establ ref range) Glucose (74-99) mg/dL POC Glucose 500 H* (70-105) mg/dl Calcium (8.5-10.1) mg/dL Magnesium (1.8-2.4) mg/dL Total Bilirubin (0.2-1.0) mg/dL AST (15-37) U/L ALT (16-63) U/L Alkaline Phosphatase (46-116) U/L Troponin I (0.000-0.056) ng/mL Total Protein (6.4-8.2) g/dL Albumin (3.4-5.0) g/dL Globulin Albumin/Globulin Ratio Lipase (73-393) U/L TSH, Ultra Sensitive (0.36-3.74) uIU/mL Urine Color (YELLOW) Urine Appearance (CLEAR) Urine pH (5.0-9.0) Ur Specific [place] (1.005-1.030) Urine Protein (NEGATIVE) Urine Glucose (UA) (NEGATIVE) Urine Ketones (NEGATIVE) Urine Occult Blood (NEGATIVE) Urine Nitrite (NEGATIVE) Urine Bilirubin (NEGATIVE) Urine Urobilinogen (0.2-1.0) mg/dL Ur Leukocyte Esterase (NEGATIVE) Urine Opiates Screen Negative (NEGATIVE) Ur Oxycodone Screen Negative (NEGATIVE) Urine Methadone Screen Negative (NEGATIVE) Ur Barbiturates Screen Negative (NEGATIVE) U Tricyclic Antidepress Negative (NEGATIVE) Ur Phencyclidine Scrn Negative (NEGATIVE) Ur Amphetamine Screen Negative (NEGATIVE) U Methamphetamines Scrn Negative (NEGATIVE) Urine MDMA Screen Negative (NEGATIVE) U Benzodiazepines Scrn Negative (NEGATIVE) Urine Cocaine Screen Negative (NEGATIVE) U Marijuana (THC) Screen Negative (NEGATIVE) Ketones Result Diagrams: 01/31/20 15:46 01/31/20 15:46 - Problem List (1) HTN (hypertension) SNOMED Code(s): 00904029 ICD Code: I10 - ESSENTIAL (PRIMARY) HYPERTENSION Status: Acute Current Visit: Yes (2) Diabetes SNOMED Code(s): 47513347 ICD Code: E11.9 - TYPE 2 DIABETES MELLITUS WITHOUT COMPLICATIONS Status: Acute Current Visit: Yes (3) Asthma SNOMED Code(s): 470184012 ICD Code: J45.909 - UNSPECIFIED ASTHMA, UNCOMPLICATED Status: Acute Current Visit: No Qualifiers: Asthma severity: moderate persistent Asthma complication type: with acute exacerbation Qualified Code(s): J45.41 - Moderate persistent asthma with (acute) exacerbation Problem List Initiated/Reviewed/Updated: Yes Orders Last 24hrs: Active Orders 24 hr Category Date Time Status Admission Diagnosis [ADT] Routine ADT 01/31/20 16:50 Ordered Admission Status [Patient Status] [ADT] Routine ADT 01/31/20 16:50 Active Antiembolic Devices [RC] PER UNIT ROUTINE Care 01/31/20 17:36 Ordered Communication Order [RC] ROUTINE Care 01/31/20 17:54 Ordered EKG 12 Lead [EKG Documentation Completion] [RC] STAT Care 01/31/20 15:29 Active Orthostatic Vital Signs [RC] ASDIRECTED Care 01/31/20 15:34 Active Oxygen Therapy [RC] PRN Care 01/31/20 17:34 Ordered Peripheral IV Care [RC] . DIRECTED Care 01/31/20 15:36 Active RT Post Treatment Assessment [RC] Click to Edit Care 01/31/20 17:39 Ordered RT Pre-Treatment Assessment [RC] Click to Edit Care 01/31/20 17:39 Ordered Up With Assistance [RC] ASDIRECTED Care 01/31/20 17:34 Ordered VTE/DVT Education [RC] PER UNIT ROUTINE Care 01/31/20 17:34 Ordered Vital Signs [RC] Q4H Care 01/31/20 17:34 Ordered Consistent Carbohydrate Diet [DIET] Diet 01/31/20 Breakfast Ordered BASIC METABOLIC PANEL,BMP [CHEM] AM Lab 02/01/20 05:11 Ordered CBC WITH AUTO DIFF [HEME] AM Lab 02/01/20 05:11 Ordered MAGNESIUM [CHEM] AM Lab 02/01/20 05:11 Ordered PHOSPHORUS [CHEM] AM Lab 02/01/20 05:11 Ordered Acetaminophen [Tylenol] Med 01/31/20 17:34 Ordered 650 mg PO Q4H PRN Albuterol [Proventil HFA] Med 01/31/20 17:39 Ordered 2 puff INH Q4H PRN Docusate Sodium [Colace] Med 01/31/20 17:34 Ordered 100 mg PO BID PRN Heparin Sodium Med 01/31/20 22:00 Ordered 5,000 units SUBCUT Q8HR Insulin Regular, Human [HumuLIN R] 100 unit Med 01/31/20 17:30 Active Sodium Chloride 0.9% [Normal Saline] 99 ml IV TITRATE Mometasone/Formoterol [Dulera 200-5 MCG] Med 01/31/20 21:00 Ordered 2 puff IH BID Ondansetron [Zofran ODT] Med 01/31/20 17:34 Ordered 4 mg PO Q6H PRN Ondansetron [Zofran] Med 01/31/20 17:34 Ordered 4 mg IVPUSH Q4H PRN Sodium Chloride 0.9% [Saline Flush] Med 01/31/20 15:35 Active 10 ml FLUSH ASDIRECTED PRN Sodium Chloride 0.9% with KCl 20 mEq @ 150 mL/Hr (1000 Med 01/31/20 17:30 Ordered mL) NS + KCl 20mEq/L [Normal Saline with 20 mEq KCl] 1,000 ml IV ASDIRECTED Zolpidem [Ambien] Med 01/31/20 17:34 Ordered 5 mg PO BEDTIME PRN lisinopriL [Prinivil] Med 02/01/20 09:00 Ordered 40 mg PO DAILY Antiembolic Hose [OM.PC] Per Unit Routine Oth 01/31/20 17:35 Ordered Peripheral IV Insertion Adult [OM.PC] Stat Oth 01/31/20 15:35 Ordered Resuscitation Status Routine Resus Stat 01/31/20 17:34 Ordered Medication Orders Acetaminophen (Tylenol) 650 mg PO Q4H PRN PRN Reason: Pain (Mild 1-3)/fever Albuterol (Proventil Hfa) 0 gm INH Q4H PRN PRN Reason: sob Docusate Sodium (Colace) 100 mg PO BID PRN PRN Reason: Constipation Heparin Sodium (Porcine) (Heparin Sodium) 5,000 units SUBCUT Q8HR ALFRED Potassium Chloride/Sodium Chloride (Normal Saline With 20 Meq Kcl) 1,000 mls @ 150 mls/hr IV ASDIRECTED ALFRED Insulin Human Regular 100 unit (/ Sodium Chloride) 100 mls @ 5 mls/hr IV TITRATE ALFRED; Protocol Lisinopril (Prinivil) 40 mg PO DAILY ALFRED Mometasone Furoate/Formoterol Fumar (Dulera 200-5 Mcg) 2 puff IH BID ALFRED Ondansetron HCl (Zofran Odt) 4 mg PO Q6H PRN PRN Reason: nausea, able to take PO Ondansetron HCl (Zofran) 4 mg IVPUSH Q4H PRN PRN Reason: Nausea/Vomiting Sodium Chloride (Saline Flush) 10 ml FLUSH ASDIRECTED PRN PRN Reason: Keep Vein Open Last Admin: 01/31/20 15:55 Dose: 10 ml Documented by: ELOY Zolpidem Tartrate (Ambien) 5 mg PO BEDTIME PRN PRN Reason: Sleep Assessment/Plan Comment:: 44-year-old with a history of hypertension, asthma. Presented with the high blood sugars New diagnosis of diabetes Will hydrate the patient Follow electrolytes and replace them as needed Give IV potassium supplement while on significant insulin dose Check magnesium, phosphorus in the morning Start insulin drip Target blood sugar for the next 12 hours will be somewhere between 2-300 Hyponatremia Corrected sodium is normal Will hydrate well Hypertension Resume lisinopril History of asthma No apparent exacerbation DVT prophylaxis with subcutaneous heparin
[2020-01-31] MEDS: Acetaminophen 325 MG Tab PO PRN (18:11)
[2020-01-31] MEDS ORDERED: Insulin Glarg,Human.Rec.Analog 100 Unit/ML SUBCUT ONE (19:29)
[2020-01-31] MEDS ORDERED: Dextrose 5%-0.45% NaCl 1,000 ML IV SCH (19:30)
[2020-01-31] MEDS ORDERED: Formoterol/Mometasone 200-5 MCG 8.8 GM Inhaler IH SCH (21:00)
[2020-01-31] MEDS: Heparin Sodium 5,000 Units/ML Vial SUBCUT SCH (21:36)
[2020-01-31] MEDS ORDERED: FORMOTEROL IH ONE (23:00)
[2020-01-31] MEDS ORDERED: MOMETASONE IH ONE (23:00)
[2020-02-01 00:44] LABS: ANION GAP 10.3 mEq/L (7-13); CHLORIDE,CL 100 mmol/L (98-107); SODIUM,NA 136 mmol/L (136-145)
[2020-02-01] MEDS ORDERED: Insulin Glarg,Human.Rec.Analog 100 Unit/ML SUBCUT ONE (01:08)
[2020-02-01] MEDS ORDERED: Sodium Chloride 0.9% 10 ML Syringe FLUSH PRN (01:16)
[2020-02-01] MEDS: Sodium Chloride 0.9% 10 ML Syringe FLUSH PRN (01:23)
[2020-02-01] MEDS: Heparin Sodium 5,000 Units/ML Vial SUBCUT SCH ×3 (05:59→21:26)
[2020-02-01 07:05] LABS: ANION GAP 12.2 mEq/L (7-13); CHLORIDE,CL 96 mmol/L (98-107); SODIUM,NA 131 mmol/L (136-145)
[2020-02-01] MEDS: Lisinopril 20 MG Tab PO SCH (08:34)
[2020-02-01] MEDS: Insulin Lispro 100 Units/ML 3 ML Vial SUBCUT SCH ×5 (08:34→21:27)
[2020-02-01] MEDS: FORMOTEROL IH SCH ×2 (08:38→21:25)
[2020-02-01] MEDS: MOMETASONE IH SCH ×2 (08:38→21:25)
--- NOTE | 2020-02-01 10:34 | PCM.PN ---
- General Info Date of Service: 02/01/20 Admission Dx/Problem (Free Text): Admission Diagnosis/Problem Admission Diagnosis/Problem Diabetes mellitus Subjective Update: No acute events overnight. Reports that he has been having blurry vision for the past few weeks. Denies chest pain, shortness of breath, fevers, chills, nausea, vomiting, diarrhea, constipation, dysuria, hematuria, edema, or any new symptoms. - Patient Data Vitals - Most Recent: Last Vital Signs Temp 98.0 F 02/01/20 07:54 Pulse 87 02/01/20 07:54 Resp 20 02/01/20 07:54 BP 106/59 L 02/01/20 08:34 Pulse Ox 97 02/01/20 07:54 Orthostatic Blood Pressure [ 102/62 Standing] Orthostatic Blood Pressure [ 113/57 Sitting] Orthostatic Blood Pressure [ 101/58 Supine] Weight - Most Recent: 266 lb 6.4 oz I&O - Last 24 Hours: Intake & Output 01/31/20 02/01/20 02/01/20 22:59 06:59 14:59 Intake Total 374 737 500 Balance 374 737 500 Lab Results Last 24 Hours: Laboratory Results - last 24 hr 01/31/20 01/31/20 01/31/20 Range/Units 15:46 15:46 15:46 WBC 10.1 H (5.0-10.0) 10^3/uL RBC 5.88 (4.6-6.2) 10^6/uL Hgb 15.2 (14.0-18.0) g/dL Hct 43.5 (40.0-54.0) % MCV 74.0 L D (80-100) fL MCH 25.9 L (27.0-34.0) pg MCHC 34.9 (33.0-35.0) g/dL Plt Count 269 (150-450) 10^3/uL Neut % (Auto) 78.3 H (42.2-75.2) % Lymph % (Auto) 13.0 L (20.5-50.1) % [place] % (Auto) 6.8 (2-8) % Eos % (Auto) 1.6 (1.0-3.0) % Baso % (Auto) 0.3 (0.0-1.0) % ABG pH (7.35-7.45) ABG pCO2 (35-45) mmHg ABG pO2 (70-100) mmHg ABG HCO3 (22-26) mmol/L ABG O2 Saturation (95-100) % ABG Base Excess ((-2)-(+3)) mmol/L Maxime Test O2 Delivery Device Sodium 123 L D (136-145) mmol/L Potassium 4.9 (3.5-5.1) mmol/L Chloride 87 L D (98-107) mmol/L Carbon Dioxide 25 (21-32) mmol/L Anion Gap 15.9 H (7-13) mEq/L BUN 29 H (7-18) mg/dL Creatinine 2.08 H D (0.70-1.30) mg/dL Est Cr Clr Drug Dosing 50.78 mL/min Estimated GFR (MDRD) 35 BUN/Creatinine Ratio 13.9 (No establ ref range) Glucose 705 H* (74-99) mg/dL POC Glucose (70-105) mg/dl Calcium 8.5 (8.5-10.1) mg/dL Phosphorus (2.6-4.7) mg/dL Magnesium (1.8-2.4) mg/dL Total Bilirubin 0.9 (0.2-1.0) mg/dL AST 44 H (15-37) U/L ALT 84 H (16-63) U/L Alkaline Phosphatase 189 H (46-116) U/L Troponin I < 0.017 (0.000-0.056) ng/mL Total Protein 7.5 (6.4-8.2) g/dL Albumin 3.3 L (3.4-5.0) g/dL Globulin 4.2 Albumin/Globulin Ratio 0.79 Lipase 286 (73-393) U/L TSH, Ultra Sensitive (0.36-3.74) uIU/mL Urine Color (YELLOW) Urine Appearance (CLEAR) Urine pH (5.0-9.0) Ur Specific [place] (1.005-1.030) Urine Protein (NEGATIVE) Urine Glucose (UA) (NEGATIVE) Urine Ketones (NEGATIVE) Urine Occult Blood (NEGATIVE) Urine Nitrite (NEGATIVE) Urine Bilirubin (NEGATIVE) Urine Urobilinogen (0.2-1.0) mg/dL Ur Leukocyte Esterase (NEGATIVE) Urine Opiates Screen (NEGATIVE) Ur Oxycodone Screen (NEGATIVE) Urine Methadone Screen (NEGATIVE) Ur Barbiturates Screen (NEGATIVE) U Tricyclic Antidepress (NEGATIVE) Ur Phencyclidine Scrn (NEGATIVE) Ur Amphetamine Screen (NEGATIVE) U Methamphetamines Scrn (NEGATIVE) Urine MDMA Screen (NEGATIVE) U Benzodiazepines Scrn (NEGATIVE) Urine Cocaine Screen (NEGATIVE) U Marijuana (THC) Screen (NEGATIVE) Ketones Negative 01/31/20 01/31/20 01/31/20 Range/Units 15:46 16:30 16:50 WBC (5.0-10.0) 10^3/uL RBC (4.6-6.2) 10^6/uL Hgb (14.0-18.0) g/dL Hct (40.0-54.0) % MCV (80-100) fL MCH (27.0-34.0) pg MCHC (33.0-35.0) g/dL Plt Count (150-450) 10^3/uL Neut % (Auto) (42.2-75.2) % Lymph % (Auto) (20.5-50.1) % [place] % (Auto) (2-8) % Eos % (Auto) (1.0-3.0) % Baso % (Auto) (0.0-1.0) % ABG pH 7.36 (7.35-7.45) ABG pCO2 43 (35-45) mmHg ABG pO2 83 (70-100) mmHg ABG HCO3 23.6 (22-26) mmol/L ABG O2 Saturation 93 L (95-100) % ABG Base Excess -1 ((-2)-(+3)) mmol/L Maxime Test Performed O2 Delivery Device Room air Sodium (136-145) mmol/L Potassium (3.5-5.1) mmol/L Chloride (98-107) mmol/L Carbon Dioxide (21-32) mmol/L Anion Gap (7-13) mEq/L BUN (7-18) mg/dL Creatinine (0.70-1.30) mg/dL Est Cr Clr Drug Dosing mL/min Estimated GFR (MDRD) BUN/Creatinine Ratio (No establ ref range) Glucose (74-99) mg/dL POC Glucose (70-105) mg/dl Calcium (8.5-10.1) mg/dL Phosphorus (2.6-4.7) mg/dL Magnesium 2.0 (1.8-2.4) mg/dL Total Bilirubin (0.2-1.0) mg/dL AST (15-37) U/L ALT (16-63) U/L Alkaline Phosphatase (46-116) U/L Troponin I (0.000-0.056) ng/mL Total Protein (6.4-8.2) g/dL Albumin (3.4-5.0) g/dL Globulin Albumin/Globulin Ratio Lipase (73-393) U/L TSH, Ultra Sensitive 1.47 (0.36-3.74) uIU/mL Urine Color Yellow (YELLOW) Urine Appearance Clear (CLEAR) Urine pH 5.5 (5.0-9.0) Ur Specific [place] 1.010 (1.005-1.030) Urine Protein Negative (NEGATIVE) Urine Glucose (UA) 500 H (NEGATIVE) Urine Ketones Negative (NEGATIVE) Urine Occult Blood Negative (NEGATIVE) Urine Nitrite Negative (NEGATIVE) Urine Bilirubin Negative (NEGATIVE) Urine Urobilinogen 1.0 (0.2-1.0) mg/dL Ur Leukocyte Esterase Negative (NEGATIVE) Urine Opiates Screen (NEGATIVE) Ur Oxycodone Screen (NEGATIVE) Urine Methadone Screen (NEGATIVE) Ur Barbiturates Screen (NEGATIVE) U Tricyclic Antidepress (NEGATIVE) Ur Phencyclidine Scrn (NEGATIVE) Ur Amphetamine Screen (NEGATIVE) U Methamphetamines Scrn (NEGATIVE) Urine MDMA Screen (NEGATIVE) U Benzodiazepines Scrn (NEGATIVE) Urine Cocaine Screen (NEGATIVE) U Marijuana (THC) Screen (NEGATIVE) Ketones 01/31/20 01/31/20 01/31/20 Range/Units 16:50 17:36 18:52 WBC (5.0-10.0) 10^3/uL RBC (4.6-6.2) 10^6/uL Hgb (14.0-18.0) g/dL Hct (40.0-54.0) % MCV (80-100) fL MCH (27.0-34.0) pg MCHC (33.0-35.0) g/dL Plt Count (150-450) 10^3/uL Neut % (Auto) (42.2-75.2) % Lymph % (Auto) (20.5-50.1) % [place] % (Auto) (2-8) % Eos % (Auto) (1.0-3.0) % Baso % (Auto) (0.0-1.0) % ABG pH (7.35-7.45) ABG pCO2 (35-45) mmHg ABG pO2 (70-100) mmHg ABG HCO3 (22-26) mmol/L ABG O2 Saturation (95-100) % ABG Base Excess ((-2)-(+3)) mmol/L Maxime Test O2 Delivery Device Sodium (136-145) mmol/L Potassium (3.5-5.1) mmol/L Chloride (98-107) mmol/L Carbon Dioxide (21-32) mmol/L Anion Gap (7-13) mEq/L BUN (7-18) mg/dL Creatinine (0.70-1.30) mg/dL Est Cr Clr Drug Dosing mL/min Estimated GFR (MDRD) BUN/Creatinine Ratio (No establ ref range) Glucose (74-99) mg/dL POC Glucose 500 H* 443 H* (70-105) mg/dl Calcium (8.5-10.1) mg/dL Phosphorus (2.6-4.7) mg/dL Magnesium (1.8-2.4) mg/dL Total Bilirubin (0.2-1.0) mg/dL AST (15-37) U/L ALT (16-63) U/L Alkaline Phosphatase (46-116) U/L Troponin I (0.000-0.056) ng/mL Total Protein (6.4-8.2) g/dL Albumin (3.4-5.0) g/dL Globulin Albumin/Globulin Ratio Lipase (73-393) U/L TSH, Ultra Sensitive (0.36-3.74) uIU/mL Urine Color (YELLOW) Urine Appearance (CLEAR) Urine pH (5.0-9.0) Ur Specific [place] (1.005-1.030) Urine Protein (NEGATIVE) Urine Glucose (UA) (NEGATIVE) Urine Ketones (NEGATIVE) Urine Occult Blood (NEGATIVE) Urine Nitrite (NEGATIVE) Urine Bilirubin (NEGATIVE) Urine Urobilinogen (0.2-1.0) mg/dL Ur Leukocyte Esterase (NEGATIVE) Urine Opiates Screen Negative (NEGATIVE) Ur Oxycodone Screen Negative (NEGATIVE) Urine Methadone Screen Negative (NEGATIVE) Ur Barbiturates Screen Negative (NEGATIVE) U Tricyclic Antidepress Negative (NEGATIVE) Ur Phencyclidine Scrn Negative (NEGATIVE) Ur Amphetamine Screen Negative (NEGATIVE) U Methamphetamines Scrn Negative (NEGATIVE) Urine MDMA Screen Negative (NEGATIVE) U Benzodiazepines Scrn Negative (NEGATIVE) Urine Cocaine Screen Negative (NEGATIVE) U Marijuana (THC) Screen Negative (NEGATIVE) Ketones 01/31/20 01/31/20 01/31/20 Range/Units 20:03 21:13 22:01 WBC (5.0-10.0) 10^3/uL RBC (4.6-6.2) 10^6/uL Hgb (14.0-18.0) g/dL Hct (40.0-54.0) % MCV (80-100) fL MCH (27.0-34.0) pg MCHC (33.0-35.0) g/dL Plt Count (150-450) 10^3/uL Neut % (Auto) (42.2-75.2) % Lymph % (Auto) (20.5-50.1) % [place] % (Auto) (2-8) % Eos % (Auto) (1.0-3.0) % Baso % (Auto) (0.0-1.0) % ABG pH (7.35-7.45) ABG pCO2 (35-45) mmHg ABG pO2 (70-100) mmHg ABG HCO3 (22-26) mmol/L ABG O2 Saturation (95-100) % ABG Base Excess ((-2)-(+3)) mmol/L Maxime Test O2 Delivery Device Sodium (136-145) mmol/L Potassium (3.5-5.1) mmol/L Chloride (98-107) mmol/L Carbon Dioxide (21-32) mmol/L Anion Gap (7-13) mEq/L BUN (7-18) mg/dL Creatinine (0.70-1.30) mg/dL Est Cr Clr Drug Dosing mL/min Estimated GFR (MDRD) BUN/Creatinine Ratio (No establ ref range) Glucose (74-99) mg/dL POC Glucose 307 H 210 H 221 H (70-105) mg/dl Calcium (8.5-10.1) mg/dL Phosphorus (2.6-4.7) mg/dL Magnesium (1.8-2.4) mg/dL Total Bilirubin (0.2-1.0) mg/dL AST (15-37) U/L ALT (16-63) U/L Alkaline Phosphatase (46-116) U/L Troponin I (0.000-0.056) ng/mL Total Protein (6.4-8.2) g/dL Albumin (3.4-5.0) g/dL Globulin Albumin/Globulin Ratio Lipase (73-393) U/L TSH, Ultra Sensitive (0.36-3.74) uIU/mL Urine Color (YELLOW) Urine Appearance (CLEAR) Urine pH (5.0-9.0) Ur Specific [place] (1.005-1.030) Urine Protein (NEGATIVE) Urine Glucose (UA) (NEGATIVE) Urine Ketones (NEGATIVE) Urine Occult Blood (NEGATIVE) Urine Nitrite (NEGATIVE) Urine Bilirubin (NEGATIVE) Urine Urobilinogen (0.2-1.0) mg/dL Ur Leukocyte Esterase (NEGATIVE) Urine Opiates Screen (NEGATIVE) Ur Oxycodone Screen (NEGATIVE) Urine Methadone Screen (NEGATIVE) Ur Barbiturates Screen (NEGATIVE) U Tricyclic Antidepress (NEGATIVE) Ur Phencyclidine Scrn (NEGATIVE) Ur Amphetamine Screen (NEGATIVE) U Methamphetamines Scrn (NEGATIVE) Urine MDMA Screen (NEGATIVE) U Benzodiazepines Scrn (NEGATIVE) Urine Cocaine Screen (NEGATIVE) U Marijuana (THC) Screen (NEGATIVE) Ketones 01/31/20 02/01/20 02/01/20 Range/Units 22:58 00:02 00:20 WBC (5.0-10.0) 10^3/uL RBC (4.6-6.2) 10^6/uL Hgb (14.0-18.0) g/dL Hct (40.0-54.0) % MCV (80-100) fL MCH (27.0-34.0) pg MCHC (33.0-35.0) g/dL Plt Count (150-450) 10^3/uL Neut % (Auto) (42.2-75.2) % Lymph % (Auto) (20.5-50.1) % [place] % (Auto) (2-8) % Eos % (Auto) (1.0-3.0) % Baso % (Auto) (0.0-1.0) % ABG pH (7.35-7.45) ABG pCO2 (35-45) mmHg ABG pO2 (70-100) mmHg ABG HCO3 (22-26) mmol/L ABG O2 Saturation (95-100) % ABG Base Excess ((-2)-(+3)) mmol/L Maxime Test O2 Delivery Device Sodium 136 D (136-145) mmol/L Potassium 3.3 L D (3.5-5.1) mmol/L Chloride 100 D (98-107) mmol/L Carbon Dioxide 29 (21-32) mmol/L Anion Gap 10.3 (7-13) mEq/L BUN 21 H (7-18) mg/dL Creatinine 1.24 (0.70-1.30) mg/dL Est Cr Clr Drug Dosing 90.23 mL/min Estimated GFR (MDRD) > 60 BUN/Creatinine Ratio (No establ ref range) Glucose 133 H (74-99) mg/dL POC Glucose 242 H 175 H (70-105) mg/dl Calcium 8.0 L (8.5-10.1) mg/dL Phosphorus (2.6-4.7) mg/dL Magnesium (1.8-2.4) mg/dL Total Bilirubin (0.2-1.0) mg/dL AST (15-37) U/L ALT (16-63) U/L Alkaline Phosphatase (46-116) U/L Troponin I (0.000-0.056) ng/mL Total Protein (6.4-8.2) g/dL Albumin (3.4-5.0) g/dL Globulin Albumin/Globulin Ratio Lipase (73-393) U/L TSH, Ultra Sensitive (0.36-3.74) uIU/mL Urine Color (YELLOW) Urine Appearance (CLEAR) Urine pH (5.0-9.0) Ur Specific [place] (1.005-1.030) Urine Protein (NEGATIVE) Urine Glucose (UA) (NEGATIVE) Urine Ketones (NEGATIVE) Urine Occult Blood (NEGATIVE) Urine Nitrite (NEGATIVE) Urine Bilirubin (NEGATIVE) Urine Urobilinogen (0.2-1.0) mg/dL Ur Leukocyte Esterase (NEGATIVE) Urine Opiates Screen (NEGATIVE) Ur Oxycodone Screen (NEGATIVE) Urine Methadone Screen (NEGATIVE) Ur Barbiturates Screen (NEGATIVE) U Tricyclic Antidepress (NEGATIVE) Ur Phencyclidine Scrn (NEGATIVE) Ur Amphetamine Screen (NEGATIVE) U Methamphetamines Scrn (NEGATIVE) Urine MDMA Screen (NEGATIVE) U Benzodiazepines Scrn (NEGATIVE) Urine Cocaine Screen (NEGATIVE) U Marijuana (THC) Screen (NEGATIVE) Ketones 02/01/20 02/01/20 02/01/20 Range/Units 01:04 02:02 03:03 WBC (5.0-10.0) 10^3/uL RBC (4.6-6.2) 10^6/uL Hgb (14.0-18.0) g/dL Hct (40.0-54.0) % MCV (80-100) fL MCH (27.0-34.0) pg MCHC (33.0-35.0) g/dL Plt Count (150-450) 10^3/uL Neut % (Auto) (42.2-75.2) % Lymph % (Auto) (20.5-50.1) % [place] % (Auto) (2-8) % Eos % (Auto) (1.0-3.0) % Baso % (Auto) (0.0-1.0) % ABG pH (7.35-7.45) ABG pCO2 (35-45) mmHg ABG pO2 (70-100) mmHg ABG HCO3 (22-26) mmol/L ABG O2 Saturation (95-100) % ABG Base Excess ((-2)-(+3)) mmol/L Maxime Test O2 Delivery Device Sodium (136-145) mmol/L Potassium (3.5-5.1) mmol/L Chloride (98-107) mmol/L Carbon Dioxide (21-32) mmol/L Anion Gap (7-13) mEq/L BUN (7-18) mg/dL Creatinine (0.70-1.30) mg/dL Est Cr Clr Drug Dosing mL/min Estimated GFR (MDRD) BUN/Creatinine Ratio (No establ ref range) Glucose (74-99) mg/dL POC Glucose 96 148 H 242 H (70-105) mg/dl Calcium (8.5-10.1) mg/dL Phosphorus (2.6-4.7) mg/dL Magnesium (1.8-2.4) mg/dL Total Bilirubin (0.2-1.0) mg/dL AST (15-37) U/L ALT (16-63) U/L Alkaline Phosphatase (46-116) U/L Troponin I (0.000-0.056) ng/mL Total Protein (6.4-8.2) g/dL Albumin (3.4-5.0) g/dL Globulin Albumin/Globulin Ratio Lipase (73-393) U/L TSH, Ultra Sensitive (0.36-3.74) uIU/mL Urine Color (YELLOW) Urine Appearance (CLEAR) Urine pH (5.0-9.0) Ur Specific [place] (1.005-1.030) Urine Protein (NEGATIVE) Urine Glucose (UA) (NEGATIVE) Urine Ketones (NEGATIVE) Urine Occult Blood (NEGATIVE) Urine Nitrite (NEGATIVE) Urine Bilirubin (NEGATIVE) Urine Urobilinogen (0.2-1.0) mg/dL Ur Leukocyte Esterase (NEGATIVE) Urine Opiates Screen (NEGATIVE) Ur Oxycodone Screen (NEGATIVE) Urine Methadone Screen (NEGATIVE) Ur Barbiturates Screen (NEGATIVE) U Tricyclic Antidepress (NEGATIVE) Ur Phencyclidine Scrn (NEGATIVE) Ur Amphetamine Screen (NEGATIVE) U Methamphetamines Scrn (NEGATIVE) Urine MDMA Screen (NEGATIVE) U Benzodiazepines Scrn (NEGATIVE) Urine Cocaine Screen (NEGATIVE) U Marijuana (THC) Screen (NEGATIVE) Ketones 02/01/20 02/01/20 02/01/20 Range/Units 06:05 06:05 07:37 WBC 8.5 (5.0-10.0) 10^3/uL RBC 5.67 (4.6-6.2) 10^6/uL Hgb 14.9 (14.0-18.0) g/dL Hct 42.6 (40.0-54.0) % MCV 75.1 L (80-100) fL MCH 26.3 L (27.0-34.0) pg MCHC 35.0 (33.0-35.0) g/dL Plt Count 214 (150-450) 10^3/uL Neut % (Auto) 73.5 (42.2-75.2) % Lymph % (Auto) 17.6 L (20.5-50.1) % [place] % (Auto) 6.1 (2-8) % Eos % (Auto) 2.6 (1.0-3.0) % Baso % (Auto) 0.2 (0.0-1.0) % ABG pH (7.35-7.45) ABG pCO2 (35-45) mmHg ABG pO2 (70-100) mmHg ABG HCO3 (22-26) mmol/L ABG O2 Saturation (95-100) % ABG Base Excess ((-2)-(+3)) mmol/L Maxime Test O2 Delivery Device Sodium 131 L (136-145) mmol/L Potassium 4.2 (3.5-5.1) mmol/L Chloride 96 L (98-107) mmol/L Carbon Dioxide 27 (21-32) mmol/L Anion Gap 12.2 (7-13) mEq/L BUN 20 H (7-18) mg/dL Creatinine 1.06 (0.70-1.30) mg/dL Est Cr Clr Drug Dosing 105.55 mL/min Estimated GFR (MDRD) > 60 BUN/Creatinine Ratio (No establ ref range) Glucose 288 H (74-99) mg/dL POC Glucose 243 H (70-105) mg/dl Calcium 8.0 L (8.5-10.1) mg/dL Phosphorus 3.7 (2.6-4.7) mg/dL Magnesium 1.9 (1.8-2.4) mg/dL Total Bilirubin (0.2-1.0) mg/dL AST (15-37) U/L ALT (16-63) U/L Alkaline Phosphatase (46-116) U/L Troponin I (0.000-0.056) ng/mL Total Protein (6.4-8.2) g/dL Albumin (3.4-5.0) g/dL Globulin Albumin/Globulin Ratio Lipase (73-393) U/L TSH, Ultra Sensitive (0.36-3.74) uIU/mL Urine Color (YELLOW) Urine Appearance (CLEAR) Urine pH (5.0-9.0) Ur Specific [place] (1.005-1.030) Urine Protein (NEGATIVE) Urine Glucose (UA) (NEGATIVE) Urine Ketones (NEGATIVE) Urine Occult Blood (NEGATIVE) Urine Nitrite (NEGATIVE) Urine Bilirubin (NEGATIVE) Urine Urobilinogen (0.2-1.0) mg/dL Ur Leukocyte Esterase (NEGATIVE) Urine Opiates Screen (NEGATIVE) Ur Oxycodone Screen (NEGATIVE) Urine Methadone Screen (NEGATIVE) Ur Barbiturates Screen (NEGATIVE) U Tricyclic Antidepress (NEGATIVE) Ur Phencyclidine Scrn (NEGATIVE) Ur Amphetamine Screen (NEGATIVE) U Methamphetamines Scrn (NEGATIVE) Urine MDMA Screen (NEGATIVE) U Benzodiazepines Scrn (NEGATIVE) Urine Cocaine Screen (NEGATIVE) U Marijuana (THC) Screen (NEGATIVE) Ketones Med Orders - Current: Current Medications Acetaminophen (Tylenol) 650 mg PO Q4H PRN PRN Reason: Pain (Mild 1-3)/fever Last Admin: 01/31/20 18:11 Dose: 650 mg Documented by: Albuterol (Proventil Hfa) 0 gm INH Q4H PRN PRN Reason: sob Docusate Sodium (Colace) 100 mg PO BID PRN PRN Reason: Constipation Heparin Sodium (Porcine) (Heparin Sodium) 5,000 units SUBCUT Q8HR [facility] Last Admin: 02/01/20 05:59 Dose: 5,000 units Documented by: Insulin Human Regular 100 unit (/ Sodium Chloride) 100 mls @ 7 mls/hr IV TITRATE [facility]; Protocol Last Titration: 02/01/20 00:06 Dose: 11.8 unit/hr, 11.8 mls/hr Documented by: Insulin Human Lispro (Humalog) 0 unit SUBCUT WITHMEALSANDBED [facility]; Protocol Last Admin: 02/01/20 08:36 Dose: Not Given Documented by: Lisinopril (Prinivil) 40 mg PO DAILY [facility] Last Admin: 02/01/20 08:34 Dose: 40 mg Documented by: Mometasone Furoate/Formoterol Fumar (Dulera 200-5 Mcg) 2 puff IH BID [facility] Last Admin: 02/01/20 08:38 Dose: 2 puff Documented by: Ondansetron HCl (Zofran Odt) 4 mg PO Q6H PRN PRN Reason: nausea, able to take PO Last Admin: 01/31/20 18:03 Dose: 4 mg Documented by: Ondansetron HCl (Zofran) 4 mg IVPUSH Q4H PRN PRN Reason: Nausea/Vomiting Sodium Chloride (Saline Flush) 10 ml FLUSH ASDIRECTED PRN PRN Reason: Keep Vein Open Last Admin: 02/01/20 01:23 Dose: 10 ml Documented by: Zolpidem Tartrate (Ambien) 5 mg PO BEDTIME PRN PRN Reason: Sleep Discontinued Medications Sodium Chloride (Normal Saline) 1,000 mls @ 999 mls/hr IV .BOLUS ONE Stop: 01/31/20 16:47 Last Admin: 01/31/20 15:55 Dose: 999 mls/hr Documented by: Insulin Human Regular 100 unit (/ Sodium Chloride) 100 mls @ 12.084 mls/hr IV TITRATE [facility]; Protocol Last Titration: 01/31/20 18:26 Dose: 0 units/kg/hr, 0 mls/hr Documented by: Sodium Chloride (Normal Saline) 1,000 mls @ 999 mls/hr IV .BOLUS ONE Stop: 01/31/20 17:30 Last Admin: 01/31/20 16:55 Dose: 999 mls/hr Documented by: Potassium Chloride/Sodium Chloride (Normal Saline With 20 Meq Kcl) 1,000 mls @ 150 mls/hr IV ASDIRECTED [facility] Last Infusion: 02/01/20 00:35 Dose: 150 mls/hr Documented by: Dextrose/Sodium Chloride (Dextrose 5%-1/2 Ns) 1,000 mls @ 100 mls/hr IV ASDIRECTED [facility] Last Admin: 02/01/20 00:36 Dose: 100 mls/hr Documented by: Insulin Glargine (Lantus) 18 unit SUBCUT ONETIME ONE Stop: 01/31/20 19:30 Last Admin: 02/01/20 01:33 Dose: Not Given Documented by: Insulin Glargine (Lantus) 15 unit SUBCUT ONETIME ONE Stop: 02/01/20 01:09 Last Admin: 02/01/20 01:28 Dose: 15 units Documented by: Insulin Human Regular (Humulin R) 10 unit IV ONETIME ONE Stop: 01/31/20 16:23 Last Admin: 01/31/20 16:36 Dose: 10 units Documented by: Meclizine HCl (Antivert) 25 mg PO ONETIME ONE Stop: 01/31/20 15:47 Last Admin: 01/31/20 15:55 Dose: 25 mg Documented by: Mometasone Furoate/Formoterol Fumar (Dulera 200-5 Mcg) 2 puff IH BID [facility] Last Admin: 01/31/20 22:53 Dose: Not Given Documented by: Mometasone Furoate/Formoterol Fumar (Dulera 200-5 Mcg) 2 puff IH ONETIME ONE Stop: 01/31/20 23:01 Last Admin: 01/31/20 22:50 Dose: 2 puff Documented by: Ondansetron HCl (Zofran) 4 mg IV ONETIME ONE Stop: 01/31/20 15:47 Last Admin: 01/31/20 15:55 Dose: 4 mg Documented by: Sodium Chloride (Saline Flush) 10 ml FLUSH ASDIRECTED PRN PRN Reason: Keep Vein Open - Exam General: Alert, Oriented, Cooperative HEENT: Pupils Equal, Pupils Reactive Neck: Supple Lungs: Clear to Auscultation, Normal Respiratory Effort Cardiovascular: Regular Rate, Regular Rhythm GI/Abdominal Exam: Normal Bowel Sounds, Soft, Non-Tender, No Distention Extremities: Normal Inspection, Non-Tender, No Pedal Edema Peripheral Pulses: 2+: Radial (L), Radial (R), Dorsalis Pedis (L), Dorsalis Pedis (R) Skin: Warm, Dry Neurological: No New Focal Deficit Psy/Mental Status: Alert, Normal Affect, Normal Mood Sepsis Event Note - Evaluation Sepsis Screening Result: No Definite Risk - Focused Exam Vital Signs: Vital Signs Temp Pulse Resp BP BP Pulse Ox 02/01/20 08:34 106/59 L 02/01/20 07:54 98.0 F 87 20 106/59 L 97 02/01/20 01:40 97.7 F 90 20 117/77 95 Date Exam was Performed: 02/01/20 Time Exam was Performed: 10:27 - Problem List & Annotations (1) Diabetes SNOMED Code(s): 61828262 Code(s): E11.9 - TYPE 2 DIABETES MELLITUS WITHOUT COMPLICATIONS Status: Acute Current Visit: Yes (2) HTN (hypertension) SNOMED Code(s): 34145236 Code(s): I10 - ESSENTIAL (PRIMARY) HYPERTENSION Status: Acute Current Visit: Yes (3) Diabetes mellitus, new onset SNOMED Code(s): 031863697, 046417317 Code(s): E11.9 - TYPE 2 DIABETES MELLITUS WITHOUT COMPLICATIONS Status: Ac [place] Current Visit: No - Problem List Review Problem List Initiated/Reviewed/Updated: Yes - My Orders Last 24 Hours: My Active Orders 01/31/20 19:33 Communication Order [RC] 02/01/20 01:16 Convert IV to Saline Lock [OM.PC] Routine 02/01/20 01:17 Communication Order [RC] ROUTINE 02/01/20 05:14 Blood Glucose Check, Bedside [RC] QIDACANDBED 02/01/20 07:00 Insulin Lispro [HumaLOG] See Protocol SUBCUT WITHMEALSANDBED - Plan Plan:: #New onset diabetes: Patient completed treatment with insulin drip. Now on subcu insulin. Continue subcu insulin Educated patient extensively about importance of adherence to medications and dietary modifications We will decide on discharge medications based on insulin requirements for the next 24 hours #Acute kidney injury: Presented with creatinine of 2.09 Creatinine is improved to 1.24 Monitor renal function Avoid nephrotoxins #Hyponatremia: Due to hyperglycemia. Sodium now 136. Continue to monitor #Hypertension: Continue lisinopril #History of asthma No acute exacerbation Continue to monitor DVT prophylaxis: Heparin GI prophylaxis: Diabetic diet
[2020-02-01] MEDS: Chlorthalidone 25 MG Tab PO SCH (11:29)
[2020-02-02] MEDS: Heparin Sodium 5,000 Units/ML Vial SUBCUT SCH (06:12)
[2020-02-02 08:25] VITALS: BP 103/66; PULSE 74
[2020-02-02] MEDS: Lisinopril 20 MG Tab PO SCH (08:35)
[2020-02-02] MEDS: MOMETASONE IH SCH (08:35)
[2020-02-02] MEDS: Acetaminophen 325 MG Tab PO PRN (08:35)
[2020-02-02] MEDS: FORMOTEROL IH SCH (08:35)
[2020-02-02] MEDS: Chlorthalidone 25 MG Tab PO SCH (08:35)
[2020-02-02] MEDS: Insulin Lispro 100 Units/ML 3 ML Vial SUBCUT SCH ×2 (08:38→11:48)
--- NOTE | 2020-02-02 10:49 | PCM.DCSUM1 ---
Discharge Summary - Hospital Course Free Text/Narrative:: Patient is a 44-year-old male with medical history significant for hypertension, obesity, and new onset diabetes was admitted for hyperglycemia associated with new onset diabetes with blood glucose of 750. Patient was started on insulin drip. He had an ROSSI with creatinine of 2.09. Electrolytes were monitored and he received IV fluids. His blood glucose improved. He was started on subcu insulin. His creatinine came down to 1.24. Blood glucose this morning was 190. He is being discharged home to follow-up with ophthalmology for blurry vision. He is to continue lisinopril for blood blood pressure management. His chlorthalidone was discontinued and he was started on amlodipine due to risk of hypoglycemia on thiazide diuretics with insulin. He was discharged home to continue 18 units of Lantus at night and 6 units of Humalog with meals. He was counseled to continue taking metformin. He was counseled regarding the importance of lifestyle modifications. He is to follow-up with PCP. HPI Initial Comments: 44-year-old with a history of hypertension, asthma. The patient presented with a few days history of dizziness, lightheadedness, vertigo. He went to the clinic and was noted to have elevated hemoglobin A1c. The patient came to the emergency room Blood sugar was above 700. Diagnosis: Stroke: No - Discharge Data Discharge Date: 02/02/20 Discharge Disposition: Home, Self-Care 01 Condition: Good - Referral to Home Health Primary Care Physician: Eliza Huertas NP - Discharge Diagnosis/Problem(s) (1) Diabetes SNOMED Code(s): 34229130 ICD Code: E11.9 - TYPE 2 DIABETES MELLITUS WITHOUT COMPLICATIONS Status: Acute Current Visit: Yes Qualifiers: Diabetes mellitus type: type 2 (2) HTN (hypertension) SNOMED Code(s): 92112057 ICD Code: I10 - ESSENTIAL (PRIMARY) HYPERTENSION Status: Acute Current Visit: Yes (3) Diabetes mellitus, new onset SNOMED Code(s): 235387446, 578925666 ICD Code: E11.9 - TYPE 2 DIABETES MELLITUS WITHOUT COMPLICATIONS Status: Acute Current Visit: No - Discharge Plan *PRESCRIPTION DRUG MONITORING PROGRAM REVIEWED*: No *COPY OF PRESCRIPTION DRUG MONITORING REPORT IN PATIENT JORGE LUIS: No Prescriptions/Med Rec: Insulin Lispro [HumaLOG] 6 unit SUBCUT TIDAC #1 pen Insulin Glarg,Human.Rec.Analog [Lantus] 18 unit SUBCUT BEDTIME #1 pen amLODIPine [Norvasc] 5 mg PO DAILY #30 tab Home Medications: Home Meds Albuterol Sulfate [Proventil Hfa] 2 puff IH BID 03/07/18 [History] Ibuprofen 800 mg PO ASDIRECTED PRN 03/07/18 [History] Mometasone/Formoterol [Dulera 200-5 MCG] 2 puff IH BID 07/20/18 [History] lisinopriL [Prinivil] 40 mg PO DAILY 07/20/18 [History] metFORMIN [Glucophage] 500 mg PO BIDMEALS 02/01/20 [History] Insulin Glarg,Human.Rec.Analog [Lantus] 18 unit SUBCUT BEDTIME #1 pen 02/02/20 [Rx] Insulin Lispro [HumaLOG] 6 unit SUBCUT TIDAC #1 pen 02/02/20 [Rx] amLODIPine [Norvasc] 5 mg PO DAILY #30 tab 02/02/20 [Rx] Referrals: Eliza Huertas NP [Primary Care Provider] - - Discharge Summary/Plan Comment DC Time >30 min.: Yes - General Info Date of Service: 02/02/20 Admission Dx/Problem (Free Text: Admission Diagnosis/Problem Admission Diagnosis/Problem Diabetes mellitus Subjective Update: No acute events overnight. Reports that he has been having blurry vision for the past few weeks unchanged. Denies chest pain, shortness of breath, fevers, chills, nausea, vomiting, diarrhea, constipation, dysuria, hematuria, edema, or any new symptoms. - Review of Systems General: Reports: No Symptoms HEENT: Reports: Visual Changes (Blurry vision. ) Pulmonary: Reports: No Symptoms Cardiovascular: Reports: No Symptoms Gastrointestinal: Reports: No Symptoms Genitourinary: Reports: No Symptoms Musculoskeletal: Reports: No Symptoms Skin: Reports: No Symptoms Neurological: Reports: No Symptoms Psychiatric: Reports: No Symptoms - Patient Data Vitals - Most Recent: Last Vital Signs Temp 97.7 F 02/02/20 08:25 Pulse 74 02/02/20 08:25 Resp 20 02/02/20 08:25 BP 103/66 02/02/20 08:35 Pulse Ox 98 02/02/20 08:25 Orthostatic Blood Pressure [ 102/62 Standing] Orthostatic Blood Pressure [ 113/57 Sitting] Orthostatic Blood Pressure [ 101/58 Supine] Weight - Most Recent: 266 lb 6.4 oz I&O - Last 24 hours: Intake & Output 02/01/20 02/02/20 02/02/20 22:59 06:59 14:59 Intake Total 700 200 300 Balance 700 200 300 Lab Results - Last 24 hrs: Laboratory Results - last 24 hr 02/01/20 02/01/20 02/01/20 Range/Units 11:32 16:49 21:00 POC Glucose 241 H 247 H 216 H (70-105) mg/dl 02/02/20 Range/Units 08:06 POC Glucose 190 H (70-105) mg/dl Med Orders - Current: Current Medications Acetaminophen (Tylenol) 650 mg PO Q4H PRN PRN Reason: Pain (Mild 1-3)/fever Last Admin: 02/02/20 08:35 Dose: 650 mg Documented by: Albuterol (Proventil Hfa) 0 gm INH Q4H PRN PRN Reason: sob Chlorthalidone (Chlorthalidone) 25 mg PO DAILY [facility] Last Admin: 02/02/20 08:35 Dose: 25 mg Documented by: Docusate Sodium (Colace) 100 mg PO BID PRN PRN Reason: Constipation Heparin Sodium (Porcine) (Heparin Sodium) 5,000 units SUBCUT Q8HR [facility] Last Admin: 02/02/20 06:12 Dose: 5,000 units Documented by: Insulin Human Lispro (Humalog) 0 unit SUBCUT WITHMEALSANDBED [facility]; Protocol Last Admin: 02/02/20 08:38 Dose: 1 units Documented by: Lisinopril (Prinivil) 40 mg PO DAILY [facility] Last Admin: 02/02/20 08:35 Dose: 40 mg Documented by: Mometasone Furoate/Formoterol Fumar (Dulera 200-5 Mcg) 2 puff IH BID [facility] Last Admin: 02/02/20 08:35 Dose: 2 puff Documented by: Ondansetron HCl (Zofran Odt) 4 mg PO Q6H PRN PRN Reason: nausea, able to take PO Last Admin: 01/31/20 18:03 Dose: 4 mg Documented by: Ondansetron HCl (Zofran) 4 mg IVPUSH Q4H PRN PRN Reason: Nausea/Vomiting Sodium Chloride (Saline Flush) 10 ml FLUSH ASDIRECTED PRN PRN Reason: Keep Vein Open Last Admin: 02/01/20 01:23 Dose: 10 ml Documented by: Zolpidem Tartrate (Ambien) 5 mg PO BEDTIME PRN PRN Reason: Sleep Discontinued Medications Sodium Chloride (Normal Saline) 1,000 mls @ 999 mls/hr IV .BOLUS ONE Stop: 01/31/20 16:47 Last Admin: 01/31/20 15:55 Dose: 999 mls/hr Documented by: Insulin Human Regular 100 unit (/ Sodium Chloride) 100 mls @ 12.084 mls/hr IV TITRATE [facility]; Protocol Last Titration: 01/31/20 18:26 Dose: 0 units/kg/hr, 0 mls/hr Documented by: Sodium Chloride (Normal Saline) 1,000 mls @ 999 mls/hr IV .BOLUS ONE Stop: 01/31/20 17:30 Last Admin: 01/31/20 16:55 Dose: 999 mls/hr Documented by: Potassium Chloride/Sodium Chloride (Normal Saline With 20 Meq Kcl) 1,000 mls @ 150 mls/hr IV ASDIRECTED [facility]FR[facility] Last Infusion: 02/01/20 00:35 Dose: 150 mls/hr Documented by: Insulin Human Regular 100 unit (/ Sodium Chloride) 100 mls @ 7 mls/hr IV TITRATE [facility]FR[facility]; Protocol Last Titration: 02/01/20 00:06 Dose: 11.8 unit/hr, 11.8 mls/hr Documented by: Dextrose/Sodium Chloride (Dextrose 5%-1/2 Ns) 1,000 mls @ 100 mls/hr IV ASDIRECTED [facility] Last Admin: 02/01/20 00:36 Dose: 100 mls/hr Documented by: Insulin Glargine (Lantus) 18 unit SUBCUT ONETIME ONE Stop: 01/31/20 19:30 Last Admin: 02/01/20 01:33 Dose: Not Given Documented by: Insulin Glargine (Lantus) 15 unit SUBCUT ONETIME ONE Stop: 02/01/20 01:09 Last Admin: 02/01/20 01:28 Dose: 15 units Documented by: Insulin Human Regular (Humulin R) 10 unit IV ONETIME ONE Stop: 01/31/20 16:23 Last Admin: 01/31/20 16:36 Dose: 10 units Documented by: Meclizine HCl (Antivert) 25 mg PO ONETIME ONE Stop: 01/31/20 15:47 Last Admin: 01/31/20 15:55 Dose: 25 mg Documented by: Mometasone Furoate/Formoterol Fumar (Dulera 200-5 Mcg) 2 puff IH BID [facility] Last Admin: 01/31/20 22:53 Dose: Not Given Documented by: Mometasone Furoate/Formoterol Fumar (Dulera 200-5 Mcg) 2 puff IH ONETIME ONE Stop: 01/31/20 23:01 Last Admin: 01/31/20 22:50 Dose: 2 puff Documented by: Ondansetron HCl (Zofran) 4 mg IV ONETIME ONE Stop: 01/31/20 15:47 Last Admin: 01/31/20 15:55 Dose: 4 mg Documented by: Sodium Chloride (Saline Flush) 10 ml FLUSH ASDIRECTED PRN PRN Reason: Keep Vein Open - Exam General: Reports: Alert, Oriented, Cooperative HEENT: Reports: Pupils Equal, Pupils Reactive, Mucous Membr. Moist/[place] Neck: Reports: Supple Lungs: Reports: Clear to Auscultation, Normal Respiratory Effort Cardiovascular: Reports: Regular Rate, Regular Rhythm GI/Abdominal Exam: Normal Bowel Sounds, Soft, Non-Tender Extremities: Normal Inspection, Normal Range of Motion, Non-Tender Skin: Reports: Warm, Dry, Intact Neurological: Reports: No New Focal Deficit Psy/Mental Status: Reports: Alert, Normal Affect, Normal Mood
== END 2020-02-02 12:05 | disposition home or self-care (01) | DRG 638 ==
LOC: DL.ED 15:20 → DL.MS 16:50
PROVIDERS: ADMIT Internal Medicine; ATTEND Internal Medicine
DX: E11.65 Type 2 diabetes mellitus with hyperglycemia (principal); N17.9 Acute kidney failure, unspecified; E87.1 Hypo-osmolality and hyponatremia; R42 Dizziness and giddiness; I10 Essential (primary) hypertension; J45.909 Unspecified asthma, uncomplicated; Z79.4 Long term (current) use of insulin; K21.9 Gastro-esophageal reflux disease without esophagitis; M19.90 Unspecified osteoarthritis, unspecified site; D50.9 Iron deficiency anemia, unspecified; E66.9 Obesity, unspecified; D64.9 Anemia, unspecified; Z88.1 Allergy status to other antibiotic agents; Z79.899 Other long term (current) drug therapy
CPT/HCPCS: 36415; 36600; 71045; 80053; 82009; 82803; 83690; 83735; 84443; 84484; 85025; 93005; 96361; 96374; 99284; 99285; A9270; J1815 ×2; J2405; J7030; J7050; 80048; 80305-QW; 81003; 82962; 84100; 99221; 99232; 99239; J1644; J3480; J7042

== ENCOUNTER 2020-05-03 15:50 | Emergency (ER) | payer MEDICAID ==
[2020-05-03] MEDS ORDERED: GI Cocktail Oral Solution 30 ML PO ONE (16:28)
[2020-05-03 16:29] VITALS: BP 90/51; PULSE 108
[2020-05-03 16:32] LABS: ANION GAP 14.4 mEq/L (7-13); CHLORIDE,CL 95 mmol/L (98-107); SODIUM,NA 134 mmol/L (136-145)
[2020-05-03 16:43] LABS: PTT,PARTIAL THROMBOPLSTIN TIME 22.3 SEC (22.0-34.0)
--- NOTE | 2020-05-03 16:51 | EDM.PDOC ---
<Hien Del Real - Last Filed: 05/03/20 19:11> ED HPI GENERAL MEDICAL PROBLEM - General Chief Complaint: Chest Pain Stated Complaint: AMBULANCE CHEST PAIN Time Seen by Provider: 05/03/20 16:15 Source of Information: Reports: Patient, EMS, EMS Notes Reviewed, RN, RN Notes Reviewed History Limitations: Reports: No Limitations - History of Present Illness INITIAL COMMENTS - FREE TEXT/NARRATIVE: Patient presents to the ED via EMS for complaints of chest pain. 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 He describes the pain as sharp in nature and notes it remained localized to the chest; it did not radiate. The patient does report dizziness, shortness of breath, and nausea with the chest pain. He denies fever, shaking chills, vomiting, diarrhea, dysuria, hematuria, melena, or hematochezia. - Related Data Allergies Allergy/AdvReac Type Severity Reaction Status Date / Time ceftriaxone sodium AdvReac Vomiting Verified 05/03/20 16:10 [From [facility]] Home Meds: Home Meds Albuterol Sulfate [Proventil Hfa] 2 puff IH BID 03/07/18 [History] Ibuprofen 800 mg PO ASDIRECTED PRN 03/07/18 [History] Mometasone/Formoterol [Dulera 200-5 MCG] 2 puff IH BID 07/20/18 [History] lisinopriL [Prinivil] 40 mg PO DAILY 07/20/18 [History] metFORMIN [Glucophage] 1,000 mg PO BIDMEALS 02/01/20 [History] Chlorthalidone 25 mg PO DAILY 05/03/20 [History] Insulin Glarg,Human.Rec.Analog [Lantus] 22 unit SUBCUT BEDTIME 05/03/20 [Hist ory] Insulin Lispro [HumaLOG] 7 unit SUBCUT TIDAC 05/03/20 [History] Pantoprazole [ProTONIX] 40 mg PO DAILY 05/03/20 [History] amLODIPine [Norvasc] 5 mg PO DAILY 05/03/20 [History] Past Medical History - Past Health History Medical/Surgical History: Denies Medical/Surgical History HEENT History: Reports: None Cardiovascular History: Reports: Hypertension Other Cardiovascular History: abnormal LFTs Respiratory History: Reports: Asthma, SOB Gastrointestinal History: Reports: GERD Genitourinary History: Reports: None Musculoskeletal History: Reports: Arthritis, Fracture, Other (See Below) Other Musculoskeletal History: R KNEE. METACARPAL BONE FX Neurological History: Reports: None Psychiatric History: Reports: None Endocrine/Metabolic History: Reports: Obesity/BMI 30+ Other Endocrine/Metabolic History: New onset 01/31/2020 Hematologic History: Reports: Anemia, Iron Deficiency Other Hematologic History: microcytosis Immunologic History: Reports: None Oncologic (Cancer) History: Reports: None Dermatologic History: Reports: None - Infectious Disease History Infectious Disease History: Reports: None Other Infectious Disease History: patient states "i'm not sure" - Past Surgical History Head Surgeries/Procedures: Reports: None HEENT Surgical History: Reports: None Cardiovascular Surgical History: Reports: Other (See Below) Other Cardiovascular Surgeries/Procedures: midsternal healed incision from when he was an infant but pt. doesn't know what he had done. - PATIENT REPORTS HE HAD FLUID AROUND HIS HEART PER HIS MOTHER Respiratory Surgical History: Reports: None GI Surgical History: Reports: None Male Surgical History: Reports: None Endocrine Surgical History: Reports: None Neurological Surgical History: Reports: None Musculoskeletal Surgical History: Reports: Arthroscopic Knee, Other (See Below) Other Musculoskeletal Surgeries/Procedures:: SYNOVECTOMY; MENISCECTOMY RIGHT Oncologic Surgical History: Reports: None Dermatological Surgical History: Reports: None Social & Family History - Family History Family Medical History: Noncontributory - Caffeine Use Caffeine Use: Reports: Tea Other Caffeine Use: AVERAGE OF 2 12 OZ CANS OF SODA POP DAILY - Living Situation & Occupation Living situation: Reports: with Family Occupation: Employed ED ROS GENERAL - Review of Systems Review Of Systems: Comprehensive ROS is negative, except as noted in HPI. ED EXAM, GENERAL - Physical Exam Exam: See Below Exam Limited By: No Limitations General Appearance: Alert, WD/WN, Moderate Distress Eye Exam: Bilateral Eye: EOMI, Normal Inspection, PERRL Respiratory/Chest: No Respiratory Distress, Lungs Clear, Normal Breath Sounds, No Accessory Muscle Use, Chest Non-Tender Cardiovascular: No Edema, No Gallop, No JVD, No Murmur, No Rub, Tachycardia Peripheral Pulses: 2+: Radial (L), Radial (R), Dorsalis Pedis (L), Dorsalis Pedis (R) GI/Abdominal: Soft, No Distention, No Mass, Tender (RUQ; Midepigastric area - radiates to back) (Male) Exam: Deferred Rectal (Males) Exam: Deferred Back Exam: Normal Inspection, Full Range of Motion. No: CVA Tenderness (L), CVA Tenderness (R) Extremities: Normal Inspection, Normal Range of Motion, Non-Tender, No Pedal Edema, Normal Capillary Refill Neurological: Alert, Oriented, CN II-XII Intact, Normal Cognition, Normal Gait, No Motor/Sensory Deficits Skin Exam: Warm, Dry, Intact, Normal Color, No Rash. No: Ecchymosis, Erythema, Mottled, Pallor, Petechiae, Rash #1 Interpretation EKG Date: 05/03/20 Time: 01:08 Rhythm: Other (Sinus Tach) Rate (Beats/Min): 108 [place]: Normal P-Wave: Present QRS: Normal ST-T: Normal QT: Normal Comparison: No Change (ST; No evidence of acute ischemia) Course - Radiology Interpretation Free Text/Narrative:: [facility] Final Radiology Report Call: [phone] assistance Online chat: [email or web address] Name: HUSSAIN RODRIGUEZ Age: 44Years M Date: 05/03/2020 SSN: -- : [id number] Study: CR CHEST 1V FRONTAL Requesting Physician: Hien Del Real Images: 1 Addl Studies: Provided Clinical History: Chest pain Contrast: Contrast Medium: Contrast Amount: Contrast Method: CONFIDENTIALITY STATEMENT This report is intended only for use by the referring physician, and only in accordance with law. If you received this in error, call [phone]. Page 1 of 1 PROCEDURE INFORMATION: Exam: XR Chest, 1 View Exam date and time: 05/03/2020 4:26 PM Age: 44 years old Clinical indication: Other: Chest pain TECHNIQUE: Imaging protocol: XR of the chest Views: 1 view. COMPARISON: CR Chest 1V Frontal 01/31/2020 3:52 PM FINDINGS: Lungs: Unremarkable. No consolidation. Pleural space: Unremarkable. No pleural effusion. No pneumothorax. Heart/Mediastinum: Unremarkable. No cardiomegaly. Bones/joints: Unremarkable. IMPRESSION: No acute findings. Thank you for allowing us to participate in the care of your patient. Dictated and Authenticated by: Mukesh Son MD 05/03/2020 4:48 PM Central Time ([place] & [place]) [facility] [place] [facility] Final Radiology Report Call: [phone] assistance Online chat: [email or web address] Name: HUSSAIN RODRIGUEZ Age: 44Years M Date: 05/03/2020 SSN: -- : [id number] Study: CT ABDOMEN PELVIS WO CONT Requesting Physician: Hien Del Rela Images: 487 Addl Studies: Provided Clinical History: Midepigastric pain; Elevated WBC; r/o michael Contrast: Without Contrast Medium: Contrast Amount: Contrast Method: Page 1 of 2 PROCEDURE INFORMATION: Exam: CT Abdomen And Pelvis Without Contrast Exam date and time: 05/03/2020 6:21 PM Age: 44 years old Clinical indication: Other: Elevated creatnine; Additional info: Midepigastric pain; Elevated wbc; R/O michael TECHNIQUE: Imaging protocol: Computed tomography of the abdomen and pelvis without contrast. Radiation optimization: All CT scans at this facility use at least one of these dose optimization techniques: automated exposure control; mA and/or kV adjustment per patient size (includes targeted exams where dose is matched to clinical indication); or iterative reconstruction. COMPARISON: CT Abdomen Pelvis w Cont 10/19/2017 9:59 AM FINDINGS: Lungs: Unremarkable.No mass or nodule. Liver: Normal. No mass. Gallbladder and bile ducts: Normal. No calcified stones. No ductal dilation. Pancreas: Normal. No ductal dilation. Spleen: Normal. No splenomegaly. Adrenal glands: Normal. No mass. Kidneys and ureters: Normal. No hydronephrosis. Stomach and bowel: Unremarkable. No obstruction. No mucosal thickening. Appendix: No evidence of appendicitis. Intraperitoneal space: Unremarkable. No free air. No significant fluid collection. Vasculature: Unremarkable. No abdominal aortic aneurysm. Lymph nodes: Unremarkable. No enlarged lymph nodes. HUSSAIN RODRIGUEZ | Final Radiology Report CONFIDENTIALITY STATEMENT This report is intended only for use by the referring physician, and only in ac cordance with law. If you received this in error, call [phone]. Page 2 of 2 Urinary bladder: Unremarkable as visualized. Reproductive: Unremarkable as visualized. Bones/joints: Unremarkable. No acute fracture. Soft tissues: Unremarkable. IMPRESSION: No acute findings. Thank you for allowing us to participate in the care of your patient. Dictated and Authenticated by: Mukesh Son MD 05/03/2020 6:46 PM Central Time ([place] & [place]) - Re-Assessments/Exams Free Text/Narrative Re-Assessment/Exam: 05/03/20 Patient resting comfortably after GI cocktail and Zofran 4mg. Will give 2gm MagSulfate for Mag 1.6. Cardiac workup negative for acute processes. Abd/Pelvis CT ordered based on symptoms of midepigastric pain that radiated into back with WBC of 15, Creatinine of 2.02, and elevated AST/ALT. Discussed observation admission with patient for rehydration for acute kidney injury. Patient refuses admission but states he will stay in the ED while magnesium is replaced and for an additional liter of IVF. Departure - Departure Disposition: Home, Self-Care 01 Condition: Good Clinical Impression: Midepigastric pain, Acute kidney injury, Elevated liver enzymes Chest pain Qualifiers: Chest pain type: unspecified Qualified Code(s): R07.9 - Chest pain, unspecified Instructions: Hyperglycemia, [id number] Forms: ED Department Discharge Additional Instructions: Follow up with primary care provider in the next one to two days. Return to primary care facility or emergency department with any return of chest pain, shortness of breath, inability to void, or flank pain. Drink a lot of fluid to stay hydrated. Monitor blood sugars closely and take all blood sugar medications, as prescribed. Sepsis Event Note (ED) - Evaluation Sepsis Screening Result: No Definite Risk <Kadeem Mcgovern - Last Filed: 05/03/20 20:27> Course - Vital Signs Last Recorded V/S: Last Vital Signs Temp 36.9 C 05/03/20 15:59 Pulse 108 H 05/03/20 15:59 Resp 18 05/03/20 15:59 BP 90/51 L 05/03/20 15:59 Pulse Ox - Orders/Labs/Meds Orders: Active Orders 24 hr Category Date Time Status EKG Documentation Completion [RC] STAT Care 05/03/20 15:53 Active Labs: Laboratory Tests 05/03/20 05/03/20 05/03/20 Range/Units 16:03 16:03 16:03 WBC 15.2 H (5.0-10.0) 10^3/uL RBC 5.67 (4.6-6.2) 10^6/uL Hgb 15.1 (14.0-18.0) g/dL Hct 43.2 (40.0-54.0) % MCV 76.2 L (80-100) fL MCH 26.6 L (27.0-34.0) pg MCHC 35.0 (33.0-35.0) g/dL Plt Count 306 D (150-450) 10^3/uL Neut % (Auto) 75.9 H (42.2-75.2) % Lymph % (Auto) 14.1 L (20.5-50.1) % [place] % (Auto) 8.8 H (2-8) % Eos % (Auto) 0.9 L (1.0-3.0) % Baso % (Auto) 0.3 (0.0-1.0) % PT (9.0-12.0) SEC INR (0.9-1.2) APTT (22.0-34.0) SEC D-Dimer, Quantitative (0-400) ng/mL Sodium 134 L (136-145) mmol/L Potassium 3.4 L (3.5-5.1) mmol/L Chloride 95 L (98-107) mmol/L Carbon Dioxide 28 (21-32) mmol/L Anion Gap 14.4 H (7-13) mEq/L BUN 21 H (7-18) mg/dL Creatinine 2.09 H (0.70-1.30) mg/dL Est Cr Clr Drug Dosing 47.54 mL/min Estimated GFR (MDRD) 35 BUN/Creatinine Ratio 10.0 (No establ ref range) Glucose 172 H (74-99) mg/dL Lactic Acid 1.9 (0.4-2.0) mmol/L Calcium 9.1 (8.5-10.1) mg/dL Phosphorus 4.0 (2.6-4.7) mg/dL Magnesium 1.6 L (1.8-2.4) mg/dL Total Bilirubin 0.9 (0.2-1.0) mg/dL AST 63 H (15-37) U/L ALT 109 H (16-63) U/L Alkaline Phosphatase 145 H (46-116) U/L Troponin I < 0.017 (0.000-0.056) ng/mL Total Protein 7.2 (6.4-8.2) g/dL Albumin 3.5 (3.4-5.0) g/dL Globulin 3.7 Albumin/Globulin Ratio 0.9 Amylase (25-115) U/L Lipase (73-393) U/L Urine Color (YELLOW) Urine Appearance (CLEAR) Urine pH (5.0-9.0) Ur Specific [place] (1.005-1.030) Urine Protein (NEGATIVE) Urine Glucose (UA) (NEGATIVE) Urine Ketones (NEGATIVE) Urine Occult Blood (NEGATIVE) Urine Nitrite (NEGATIVE) Urine Bilirubin (NEGATIVE) Urine Urobilinogen (0.2-1.0) mg/dL Ur Leukocyte Esterase (NEGATIVE) 05/03/20 05/03/20 05/03/20 Range/Units 16:03 16:03 17:26 WBC (5.0-10.0) 10^3/uL RBC (4.6-6.2) 10^6/uL Hgb (14.0-18.0) g/dL Hct (40.0-54.0) % MCV (80-100) fL MCH (27.0-34.0) pg MCHC (33.0-35.0) g/dL Plt Count (150-450) 10^3/uL Neut % (Auto) (42.2-75.2) % Lymph % (Auto) (20.5-50.1) % [place] % (Auto) (2-8) % Eos % (Auto) (1.0-3.0) % Baso % (Auto) (0.0-1.0) % PT 10.2 (9.0-12.0) SEC INR 1.1 (0.9-1.2) APTT 22.3 (22.0-34.0) SEC D-Dimer, Quantitative 305 (0-400) ng/mL Sodium (136-145) mmol/L Potassium (3.5-5.1) mmol/L Chloride (98-107) mmol/L Carbon Dioxide (21-32) mmol/L Anion Gap (7-13) mEq/L BUN (7-18) mg/dL Creatinine (0.70-1.30) mg/dL Est Cr Clr Drug Dosing mL/min Estimated GFR (MDRD) BUN/Creatinine Ratio (No establ ref range) Glucose (74-99) mg/dL Lactic Acid (0.4-2.0) mmol/L Calcium (8.5-10.1) mg/dL Phosphorus (2.6-4.7) mg/dL Magnesium (1.8-2.4) mg/dL Total Bilirubin (0.2-1.0) mg/dL AST (15-37) U/L ALT (16-63) U/L Alkaline Phosphatase (46-116) U/L Troponin I (0.000-0.056) ng/mL Total Protein (6.4-8.2) g/dL Albumin (3.4-5.0) g/dL Globulin Albumin/Globulin Ratio Amylase 41 (25-115) U/L Lipase 120 (73-393) U/L Urine Color Yellow (YELLOW) Urine Appearance Clear (CLEAR) Urine pH 5.5 (5.0-9.0) Ur Specific [place] 1.020 (1.005-1.030) Urine Protein Negative (NEGATIVE) Urine Glucose (UA) 500 H (NEGATIVE) Urine Ketones Negative (NEGATIVE) Urine Occult Blood Negative (NEGATIVE) Urine Nitrite Negative (NEGATIVE) Urine Bilirubin Negative (NEGATIVE) Urine Urobilinogen 0.2 (0.2-1.0) mg/dL Ur Leukocyte Esterase Negative (NEGATIVE) Meds: Medications Discontinued Medications Generic Name Dose Route Start Last Admin Trade Name Freq PRN Reason Stop Dose Admin Al Hydroxide/Mg Hydroxide 30 ml 05/03/20 16:28 05/03/20 16:33 Gi Cocktail PO 05/03/20 16:29 30 ml ONETIME ONE Administration Magnesium Sulfate 2 gm in 50 mls @ 50 mls/hr 05/03/20 17:39 05/03/20 18:02 Magnesium Sulfate In Water Premix IV 05/03/20 18:38 Not Given ONETIME ONE Magnesium Sulfate/Dextrose Confirm 05/03/20 17:48 05/03/20 18:13 Magnesium Sulfate In D5w 100 Premix Administered 05/03/20 17:49 Not Given Dose 2 gm in 200 mls @ as directed .ROUTE .STK-MED ONE Magnesium Sulfate/Dextrose 2 gm in 200 mls @ 100 mls/hr 05/03/20 17:58 05/03/20 18:06 Magnesium Sulfate In D5w 100 Premix IV 05/03/20 19:57 Not Given ONETIME ONE Magnesium Sulfate/Dextrose 1 gm in 100 mls @ 100 mls/hr 05/03/20 18:07 05/03/20 18:11 Magnesium Sulfate In D5w 100 Premix IV 05/03/20 19:06 100 mls/hr ONETIME ONE Administration Magnesium Sulfate/Dextrose 1 gm in 100 mls @ 100 mls/hr 05/03/20 18:09 05/03/20 19:11 Magnesium Sulfate In D5w 100 Premix IV 05/03/20 19:08 100 mls/hr ONETIME ONE Administration Sodium Chloride 1,000 mls @ 999 mls/hr 05/03/20 19:03 05/03/20 19:10 Normal Saline IV 05/03/20 20:03 999 mls/hr .BOLUS ONE Administration Iopamidol 100 ml 05/03/20 17:44 Isovue-300 (61%) IVPUSH 05/03/20 17:45 ONETIME ONE Ondansetron HCl 4 mg 05/03/20 16:52 05/03/20 16:55 Zofran IVPUSH 05/03/20 16:53 4 mg ONETIME ONE Administration Departure - Departure Time of Disposition: 20:27 Sepsis Event Note (ED) - Focused Exam Vital Signs: Vital Signs Temp Pulse Resp BP 05/03/20 15:59 36.9 C 108 H 18 90/51 L
[2020-05-03] MEDS ORDERED: Ondansetron 4 MG/2 ML SDV IVPUSH ONE (16:52)
[2020-05-03] MEDS ORDERED: Magnesium Sulfate/Water 2 GM/50 ML BAG IV ONE (17:39)
[2020-05-03] MEDS ORDERED: Iopamidol 612 MG/ML 100 ML Bottle IVPUSH ONE (17:44)
[2020-05-03] MEDS ORDERED: Magnesium Sulfate/D5W 1 GM/100 ML BAG ONE (17:48)
[2020-05-03] MEDS: Magnesium Sulfate/D5W 2 GM/200 ML BAG IV ONE ×2 (18:02→18:06)
[2020-05-03] MEDS ORDERED: Magnesium Sulfate/D5W 1 GM/100 ML BAG IV ONE ×2 (18:07→18:09)
--- NOTE | 2020-05-03 18:46 | CT ---
PROCEDURE INFORMATION: Exam: CT Abdomen And Pelvis Without Contrast Exam date and time: 05/03/2020 6:21 PM Age: 44 years old Clinical indication: Other: Elevated creatnine; Additional info: Midepigastric pain; Elevated wbc; R/O michael TECHNIQUE: Imaging protocol: Computed tomography of the abdomen and pelvis without contrast. Radiation optimization: All CT scans at this facility use at least one of these dose optimization techniques: automated exposure control; mA and/or kV adjustment per patient size (includes targeted exams where dose is matched to clinical indication); or iterative reconstruction. COMPARISON: CT Abdomen Pelvis w Cont 10/19/2017 9:59 AM FINDINGS: Lungs: Unremarkable.No mass or nodule. Liver: Normal. No mass. Gallbladder and bile ducts: Normal. No calcified stones. No ductal dilation. Pancreas: Normal. No ductal dilation. Spleen: Normal. No splenomegaly. Adrenal glands: Normal. No mass. Kidneys and ureters: Normal. No hydronephrosis. Stomach and bowel: Unremarkable. No obstruction. No mucosal thickening. Appendix: No evidence of appendicitis. Intraperitoneal space: Unremarkable. No free air. No significant fluid collection. Vasculature: Unremarkable. No abdominal aortic aneurysm. Lymph nodes: Unremarkable. No enlarged lymph nodes. Urinary bladder: Unremarkable as visualized. Reproductive: Unremarkable as visualized. Bones/joints: Unremarkable. No acute fracture. Soft tissues: Unremarkable. IMPRESSION: No acute findings.
[2020-05-03] MEDS ORDERED: Sodium Chloride 0.9% 1,000 ML IV ONE (19:03)
== END 2020-05-03 20:32 | disposition home or self-care (01) ==
LOC: DL.ED 15:50
DX: N17.9 Acute kidney failure, unspecified (principal); R10.13 Epigastric pain; R07.9 Chest pain, unspecified; R74.8 Abnormal levels of other serum enzymes; I10 Essential (primary) hypertension; J45.909 Unspecified asthma, uncomplicated; K21.9 Gastro-esophageal reflux disease without esophagitis; E66.9 Obesity, unspecified; Z68.37 Body mass index [BMI] 37.0-37.9, adult; Z79.4 Long term (current) use of insulin; Z79.899 Other long term (current) drug therapy; Z88.1 Allergy status to other antibiotic agents
CPT/HCPCS: 36415; 71045; 74176; 80053; 81003; 82150; 83605; 83690; 83735; 84100; 84484; 85025; 85379; 85610; 85730; 93005; 96365; 96366; 96375; 99285; A9270; J2405; J3475; J7030

== ENCOUNTER 2020-08-08 21:47 | Emergency (ER) | payer MEDICAID ==
[2020-08-08] MEDS ORDERED: Nitroglycerin 0.4 MG Tab.SL SL ONE (21:48)
--- NOTE | 2020-08-08 22:02 | EDM.PDOC ---
ED HPI GENERAL MEDICAL PROBLEM - General Chief Complaint: Chest Pain Stated Complaint: [facility] Time Seen by Provider: 08/08/20 21:57 Source of Information: Reports: Patient, EMS, Old Records, RN, RN Notes Reviewed History Limitations: Reports: No Limitations - History of Present Illness INITIAL COMMENTS - FREE TEXT/NARRATIVE: Patient presents to the ED via EMS with complaints of chest pain. The patient states the chest pain began about 45 minutes ago while he was climbing up the stairs in his home. He characterizes the pain as tight/pressure in nature and reports it is localized to his midsternal chest. He did not take any medications for this pain but was given ASA 325mg and Zofran 4mg en route by EMS. Additionally he reports flushing, palpitations, shortness of breath, nausea, and one bout of emesis with this chest pain. He denies recent illness, fever, shaking chills, vision changes, dyspepsia, abdominal pain, or loose stools. He denies a history of a COVID infection and has not received the COVID vaccine. He denies tobacco or recreational drug use. He does attest to drinking alcohol socially and states his last drink was about four weeks prior. The patient does report of history of cardiac surgery when he was young but is unsure what was performed and why it was done. Chest Pain Score (Numeric/FACES): 6 - Related Data Allergies Allergy/AdvReac Type Severity Reaction Status Date / Time ceftriaxone sodium AdvReac Vomiting Verified 08/08/20 21:52 [From Rocephin] Home Meds: Home Meds Albuterol Sulfate [Proventil Hfa] 2 puff IH BID 03/07/18 [History] Ibuprofen 800 mg PO ASDIRECTED PRN 03/07/18 [History] Mometasone/Formoterol [Dulera 200-5 MCG] 2 puff IH BID 07/20/18 [History] lisinopriL [Prinivil] 40 mg PO DAILY 07/20/18 [History] metFORMIN [Glucophage] 1,000 mg PO BIDMEALS 02/01/20 [History] Chlorthalidone 25 mg PO DAILY 05/03/20 [History] Insulin Glarg,Human.Rec.Analog [Lantus] 22 unit SUBCUT BEDTIME 05/03/20 [History] Insulin Lispro [HumaLOG] 7 unit SUBCUT TIDAC 05/03/20 [History] Pantoprazole [ProTONIX] 40 mg PO DAILY 05/03/20 [History] amLODIPine [Norvasc] 5 mg PO DAILY 05/03/20 [History] Past Medical History - Past Health History Medical/Surgical History: Denies Medical/Surgical History HEENT History: Reports: None Cardiovascular History: Reports: Hypertension Other Cardiovascular History: abnormal LFTs Respiratory History: Reports: Asthma, SOB Gastrointestinal History: Reports: GERD Genitourinary History: Reports: None Musculoskeletal History: Reports: Arthritis, Fracture, Other (See Below) Other Musculoskeletal History: R KNEE. METACARPAL BONE FX Neurological History: Reports: None Psychiatric History: Reports: None Endocrine/Metabolic History: Reports: Diabetes, Type II, Obesity/BMI 30+ Other Endocrine/Metabolic History: New onset 01/31/2020 Hematologic History: Reports: Anemia, Iron Deficiency Other Hematologic History: microcytosis Immunologic History: Reports: None Oncologic (Cancer) History: Reports: None Dermatologic History: Reports: None - Infectious Disease History Infectious Disease History: Reports: None Other Infectious Disease History: patient states "i'm not sure" - Past Surgical History Head Surgeries/Procedures: Reports: None HEENT Surgical History: Reports: None Cardiovascular Surgical History: Reports: Other (See Below) Other Cardiovascular Surgeries/Procedures: midsternal healed incision from when he was an infant but pt. doesn't know what he had done. - PATIENT REPORTS HE HAD FLUID AROUND HIS HEART PER HIS MOTHER Respiratory Surgical History: Reports: None GI Surgical History: Reports: None Male Surgical History: Reports: None Endocrine Surgical History: Reports: None Neurological Surgical History: Reports: None Musculoskeletal Surgical History: Reports: Arthroscopic Knee, Other (See Below) Other Musculoskeletal Surgeries/Procedures:: SYNOVECTOMY; MENISCECTOMY RIGHT Oncologic Surgical History: Reports: None Dermatological Surgical History: Reports: None Social & Family History - Family History Family Medical History: No Pertinent Family History - Tobacco Use Tobacco Use Status *Q: Never Tobacco User Second Hand Smoke Exposure: No - Caffeine Use Caffeine Use: Reports: Tea Other Caffeine Use: AVERAGE OF 2 12 OZ CANS OF SODA POP DAILY - Recreational Drug Use Recreational Drug Use: No - Living Situation & Occupation Living situation: Reports: with Family Occupation: Employed ED ROS GENERAL - Review of Systems Review Of Systems: Comprehensive ROS is negative, except as noted in HPI. ED EXAM, GENERAL - Physical Exam Exam: See Below Exam Limited By: No Limitations General Appearance: Alert, No Apparent Distress, Obese Eye Exam: Bilateral Eye: EOMI, Normal Inspection, PERRL (3mm) Throat/Mouth: Normal Inspection, Normal Voice, No Airway Compromise Head: Atraumatic, Normocephalic Respiratory/Chest: No Respiratory Distress, Lungs Clear, Normal Breath Sounds, No Accessory Muscle Use, Chest Non-Tender Cardiovascular: Normal Peripheral Pulses, Regular Rate, Rhythm, No Edema, No Gallop, No JVD, No Murmur, No Rub Peripheral Pulses: 2+: Radial (L), Radial (R) GI/Abdominal: Normal Bowel Sounds, Soft, Non-Tender, No Distention, No Mass, Pelvis Stable (Male) Exam: Deferred Rectal (Males) Exam: Deferred Back Exam: Normal Inspection, Full Range of Motion Extremities: Normal Inspection, Normal Range of Motion, Non-Tender, Normal Capillary Refill, No Pedal Edema Neurological: Alert, Oriented, CN II-XII Intact, Normal Cognition, Normal Gait, No Motor/Sensory Deficits Psychiatric: Normal Affect, Normal Mood Skin Exam: Warm, Dry, Intact, Normal Color, No Rash. No: Ecchymosis, Erythema, Jaundice, Mottled, Pallor, Petechiae #1 Interpretation EKG Date: 08/08/20 Time: 21:42 Rhythm: NSR Rate (Beats/Min): 97 [place]: Normal P-Wave: Present QRS: Wide ST-T: Elevated (Mild elevation in V1 and V5) QT: Normal Comparison: No Change EKG Interpretation Comments: NSR; Q-wave in III aVR aVF V5 and V6; Borderline 1st Degree AVB; Delayed conduction in V2 and V6; No evidence of acute myocardial ischemia Course - Vital Signs Last Recorded V/S: Last Vital Signs Temp 97.2 F 08/08/20 21:37 Pulse 91 08/09/20 01:21 Resp 16 08/09/20 01:21 BP 119/72 08/09/20 01:21 Pulse Ox 98 08/09/20 01:21 - Orders/Labs/Meds Orders: Active Orders 24 hr Category Date Time Status EKG 12 Lead [EKG Documentation Completion] [RC] STAT Care 08/09/20 02:04 Active EKG Documentation Completion [RC] STAT Care 08/08/20 21:37 Active Dextrose 50% in Water Med 08/08/20 22:32 Active 50 ml IV ASDIRECTED PRN Dextrose 50% in Water Med 08/08/20 22:44 Active 50 ml IV ASDIRECTED PRN Glucagon,Human Recombinant [GlucaGen] Med 08/08/20 22:32 Active 1 mg IM ASDIRECTED PRN Glucagon,Human Recombinant [GlucaGen] Med 08/08/20 22:44 Active 1 mg IM ASDIRECTED PRN Medication Orders Dextrose/Water (Dextrose 50% In Water) 50 ml IV ASDIRECTED PRN PRN Reason: Hypoglycemia Dextrose/Water (Dextrose 50% In Water) 50 ml IV ASDIRECTED PRN PRN Reason: Hypoglycemia Glucagon (Glucagen) 1 mg IM ASDIRECTED PRN PRN Reason: Hypoglycemia Glucagon (Glucagen) 1 mg IM ASDIRECTED PRN PRN Reason: Hypoglycemia Labs: Laboratory Tests 08/08/20 08/08/20 08/08/20 Range/Units 21:47 21:47 21:47 WBC 8.5 (5.0-10.0) 10^3/uL RBC 5.08 (4.6-6.2) 10^6/uL Hgb 13.7 L (14.0-18.0) g/dL Hct 39.8 L (40.0-54.0) % MCV 78.3 L (80-100) fL MCH 27.0 (27.0-34.0) pg MCHC 34.4 (33.0-35.0) g/dL Plt Count 280 (150-450) 10^3/uL Neut % (Auto) 76.0 H (42.2-75.2) % Lymph % (Auto) 15.4 L (20.5-50.1) % [place] % (Auto) 5.9 (2-8) % Eos % (Auto) 2.5 (1.0-3.0) % Baso % (Auto) 0.2 (0.0-1.0) % Sodium 125 L (136-145) mmol/L Potassium 4.4 (3.5-5.1) mmol/L Chloride 88 L (98-107) mmol/L Carbon Dioxide 28 (21-32) mmol/L Anion Gap 13.4 H (7-13) mEq/L BUN 17 (7-18) mg/dL Creatinine 1.40 H (0.70-1.30) mg/dL Est Cr Clr Drug Dosing 79.92 mL/min Estimated GFR (MDRD) 56 BUN/Creatinine Ratio 12.1 (No establ ref range) Glucose 578 H* (74-99) mg/dL POC Glucose (70-105) mg/dl Lactic Acid 3.4 H* (0.4-2.0) mmol/L Calcium 8.5 (8.5-10.1) mg/dL Magnesium 2.1 (1.8-2.4) mg/dL Total Bilirubin 0.5 (0.2-1.0) mg/dL AST 32 (15-37) U/L ALT 55 (16-63) U/L Alkaline Phosphatase 202 H (46-116) U/L Troponin I < 0.017 (0.000-0.056) ng/mL C-Reactive Protein 2.1 H (0.0-0.9) mg/dL Total Protein 7.2 (6.4-8.2) g/dL Albumin 3.4 (3.4-5.0) g/dL Globulin 3.8 Albumin/Globulin Ratio 0.9 Amylase 33 (25-115) U/L Lipase 168 (73-393) U/L Urine Color (YELLOW) Urine Appearance (CLEAR) Urine pH (5.0-9.0) Ur Specific Nettie (1.005-1.030) Urine Protein (NEGATIVE) Urine Glucose (UA) (NEGATIVE) Urine Ketones (NEGATIVE) Urine Occult Blood (NEGATIVE) Urine Nitrite (NEGATIVE) Urine Bilirubin (NEGATIVE) Urine Urobilinogen (0.2-1.0) mg/dL Ur Leukocyte Esterase (NEGATIVE) Urine Opiates Screen (NEGATIVE) Ur Oxycodone Screen (NEGATIVE) Urine Methadone Screen (NEGATIVE) Ur Barbiturates Screen (NEGATIVE) U Tricyclic Antidepress (NEGATIVE) Ur Phencyclidine Scrn (NEGATIVE) Ur Amphetamine Screen (NEGATIVE) U Methamphetamines Scrn (NEGATIVE) Urine MDMA Screen (NEGATIVE) U Benzodiazepines Scrn (NEGATIVE) Urine Cocaine Screen (NEGATIVE) U Marijuana (THC) Screen (NEGATIVE) Ethyl Alcohol < 3 (0) mg/dL Ketones 08/08/20 08/08/20 08/08/20 Range/Units 21:47 21:58 21:58 WBC (5.0-10.0) 10^3/uL RBC (4.6-6.2) 10^6/uL Hgb (14.0-18.0) g/dL Hct (40.0-54.0) % MCV (80-100) fL MCH (27.0-34.0) pg MCHC (33.0-35.0) g/dL Plt Count (150-450) 10^3/uL Neut % (Auto) (42.2-75.2) % Lymph % (Auto) (20.5-50.1) % [place] % (Auto) (2-8) % Eos % (Auto) (1.0-3.0) % Baso % (Auto) (0.0-1.0) % Sodium (136-145) mmol/L Potassium (3.5-5.1) mmol/L Chloride (98-107) mmol/L Carbon Dioxide (21-32) mmol/L Anion Gap (7-13) mEq/L BUN (7-18) mg/dL Creatinine (0.70-1.30) mg/dL Est Cr Clr Drug Dosing mL/min Estimated GFR (MDRD) BUN/Creatinine Ratio (No establ ref range) Glucose (74-99) mg/dL POC Glucose (70-105) mg/dl Lactic Acid (0.4-2.0) mmol/L Calcium (8.5-10.1) mg/dL Magnesium (1.8-2.4) mg/dL Total Bilirubin (0.2-1.0) mg/dL AST (15-37) U/L ALT (16-63) U/L Alkaline Phosphatase (46-116) U/L Troponin I (0.000-0.056) ng/mL C-Reactive Protein (0.0-0.9) mg/dL Total Protein (6.4-8.2) g/dL Albumin (3.4-5.0) g/dL Globulin Albumin/Globulin Ratio Amylase (25-115) U/L Lipase (73-393) U/L Urine Color Yellow (YELLOW) Urine Appearance Clear (CLEAR) Urine pH 7.0 (5.0-9.0) Ur Specific Nettie 1.020 (1.005-1.030) Urine Protein Negative (NEGATIVE) Urine Glucose (UA) 500 H (NEGATIVE) Urine Ketones Negative (NEGATIVE) Urine Occult Blood Negative (NEGATIVE) Urine Nitrite Negative (NEGATIVE) Urine Bilirubin Negative (NEGATIVE) Urine Urobilinogen 1.0 (0.2-1.0) mg/dL Ur Leukocyte Esterase Negative (NEGATIVE) Urine Opiates Screen Negative (NEGATIVE) Ur Oxycodone Screen Negative (NEGATIVE) Urine Methadone Screen Negative (NEGATIVE) Ur Barbiturates Screen Negative (NEGATIVE) U Tricyclic Antidepress Negative (NEGATIVE) Ur Phencyclidine Scrn Negative (NEGATIVE) Ur Amphetamine Screen Negative (NEGATIVE) U Methamphetamines Scrn Negative (NEGATIVE) Urine MDMA Screen Negative (NEGATIVE) U Benzodiazepines Scrn Negative (NEGATIVE) Urine Cocaine Screen Negative (NEGATIVE) U Marijuana (THC) Screen Negative (NEGATIVE) Ethyl Alcohol (0) mg/dL Ketones Negative 08/08/20 08/09/20 08/09/20 Range/Units 23:40 01:04 01:56 WBC (5.0-10.0) 10^3/uL RBC (4.6-6.2) 10^6/uL Hgb (14.0-18.0) g/dL Hct (40.0-54.0) % MCV (80-100) fL MCH (27.0-34.0) pg MCHC (33.0-35.0) g/dL Plt Count (150-450) 10^3/uL Neut % (Auto) (42.2-75.2) % Lymph % (Auto) (20.5-50.1) % [place] % (Auto) (2-8) % Eos % (Auto) (1.0-3.0) % Baso % (Auto) (0.0-1.0) % Sodium 129 L (136-145) mmol/L Potassium 3.7 (3.5-5.1) mmol/L Chloride 92 L (98-107) mmol/L Carbon Dioxide 29 (21-32) mmol/L Anion Gap 11.7 (7-13) mEq/L BUN 16 (7-18) mg/dL Creatinine 0.99 (0.70-1.30) mg/dL Est Cr Clr Drug Dosing 113.01 mL/min Estimated GFR (MDRD) > 60 BUN/Creatinine Ratio (No establ ref range) Glucose 362 H (74-99) mg/dL POC Glucose 373 H 383 H (70-105) mg/dl Lactic Acid (0.4-2.0) mmol/L Calcium 8.4 L (8.5-10.1) mg/dL Magnesium (1.8-2.4) mg/dL Total Bilirubin (0.2-1.0) mg/dL AST (15-37) U/L ALT (16-63) U/L Alkaline Phosphatase (46-116) U/L Troponin I < 0.017 (0.000-0.056) ng/mL C-Reactive Protein (0.0-0.9) mg/dL Total Protein (6.4-8.2) g/dL Albumin (3.4-5.0) g/dL Globulin Albumin/Globulin Ratio Amylase (25-115) U/L Lipase (73-393) U/L Urine Color (YELLOW) Urine Appearance (CLEAR) Urine pH (5.0-9.0) Ur Specific Nettie (1.005-1.030) Urine Protein (NEGATIVE) Urine Glucose (UA) (NEGATIVE) Urine Ketones (NEGATIVE) Urine Occult Blood (NEGATIVE) Urine Nitrite (NEGATIVE) Urine Bilirubin (NEGATIVE) Urine Urobilinogen (0.2-1.0) mg/dL Ur Leukocyte Esterase (NEGATIVE) Urine Opiates Screen (NEGATIVE) Ur Oxycodone Screen (NEGATIVE) Urine Methadone Screen (NEGATIVE) Ur Barbiturates Screen (NEGATIVE) U Tricyclic Antidepress (NEGATIVE) Ur Phencyclidine Scrn (NEGATIVE) Ur Amphetamine Screen (NEGATIVE) U Methamphetamines Scrn (NEGATIVE) Urine MDMA Screen (NEGATIVE) U Benzodiazepines Scrn (NEGATIVE) Urine Cocaine Screen (NEGATIVE) U Marijuana (THC) Screen (NEGATIVE) Ethyl Alcohol (0) mg/dL Ketones 08/09/20 Range/Units 01:56 WBC (5.0-10.0) 10^3/uL RBC (4.6-6.2) 10^6/uL Hgb (14.0-18.0) g/dL Hct (40.0-54.0) % MCV (80-100) fL MCH (27.0-34.0) pg MCHC (33.0-35.0) g/dL Plt Count (150-450) 10^3/uL Neut % (Auto) (42.2-75.2) % Lymph % (Auto) (20.5-50.1) % [place] % (Auto) (2-8) % Eos % (Auto) (1.0-3.0) % Baso % (Auto) (0.0-1.0) % Sodium (136-145) mmol/L Potassium (3.5-5.1) mmol/L Chloride (98-107) mmol/L Carbon Dioxide (21-32) mmol/L Anion Gap (7-13) mEq/L BUN (7-18) mg/dL Creatinine (0.70-1.30) mg/dL Est Cr Clr Drug Dosing mL/min Estimated GFR (MDRD) BUN/Creatinine Ratio (No establ ref range) Glucose (74-99) mg/dL POC Glucose (70-105) mg/dl Lactic Acid 0.9 (0.4-2.0) mmol/L Calcium (8.5-10.1) mg/dL Magnesium (1.8-2.4) mg/dL Total Bilirubin (0.2-1.0) mg/dL AST (15-37) U/L ALT (16-63) U/L Alkaline Phosphatase (46-116) U/L Troponin I (0.000-0.056) ng/mL C-Reactive Protein (0.0-0.9) mg/dL Total Protein (6.4-8.2) g/dL Albumin (3.4-5.0) g/dL Globulin Albumin/Globulin Ratio Amylase (25-115) U/L Lipase (73-393) U/L Urine Color (YELLOW) Urine Appearance (CLEAR) Urine pH (5.0-9.0) Ur Specific Nettie (1.005-1.030) Urine Protein (NEGATIVE) Urine Glucose (UA) (NEGATIVE) Urine Ketones (NEGATIVE) Urine Occult Blood (NEGATIVE) Urine Nitrite (NEGATIVE) Urine Bilirubin (NEGATIVE) Urine Urobilinogen (0.2-1.0) mg/dL Ur Leukocyte Esterase (NEGATIVE) Urine Opiates Screen (NEGATIVE) Ur Oxycodone Screen (NEGATIVE) Urine Methadone Screen (NEGATIVE) Ur Barbiturates Screen (NEGATIVE) U Tricyclic Antidepress (NEGATIVE) Ur Phencyclidine Scrn (NEGATIVE) Ur Amphetamine Screen (NEGATIVE) U Methamphetamines Scrn (NEGATIVE) Urine MDMA Screen (NEGATIVE) U Benzodiazepines Scrn (NEGATIVE) Urine Cocaine Screen (NEGATIVE) U Marijuana (THC) Screen (NEGATIVE) Ethyl Alcohol (0) mg/dL Ketones Meds: Medications Generic Name Dose Route Start Last Admin Trade Name Freq PRN Reason Stop Dose Admin Dextrose/Water 50 ml 08/08/20 22:32 Dextrose 50% In Water IV ASDIRECTED PRN Hypoglycemia Dextrose/Water 50 ml 08/08/20 22:44 Dextrose 50% In Water IV ASDIRECTED PRN Hypoglycemia Glucagon 1 mg 08/08/20 22:32 Glucagen IM ASDIRECTED PRN Hypoglycemia Glucagon 1 mg 08/08/20 22:44 Glucagen IM ASDIRECTED PRN Hypoglycemia Discontinued Medications Generic Name Dose Route Start Last Admin Trade Name Freq PRN Reason Stop Dose Admin Sodium Chloride 1,000 mls @ 999 mls/hr 08/08/20 22:32 08/08/20 22:41 Normal Saline IV 08/08/20 23:32 999 mls/hr .BOLUS ONE Administration Insulin Human Regular 10 unit 08/08/20 22:44 08/08/20 22:44 Humulin R IV 08/08/20 22:45 10 unit ONETIME ONE Administration Nitroglycerin 0.4 mg 08/08/20 21:48 08/08/20 22:01 Nitrostat SL 08/08/20 21:49 0.4 mg ONETIME ONE Administration - Re-Assessments/Exams Free Text/Narrative Re-Assessment/Exam: 08/08/20 Patient notes improvement in chest pain following Nitro 0.4mg SL. EKG remarkable for Q-waves in III aVR aVF V5 and V5, as well as slight ST elevation in V1 and V5; this appears unchanged from previous EKG. No signs of acute myocardial ischemia noted. Given short length of time since patient's presentation of pain and Troponin draw, cannot exclude cardiac cause for chest pain. Will repeat Troponin in four hours to reassess level; discussed this plan with patient who agreed to stay in extended stay ED. Patients blood glucose noted to be 578; Patient states he did take his prescribed dose of Novolog 25units prior to calling EMS. Will treat current hyperglycemia with 10units Humalog, and reassess BS while in extended stay. Sodium 125, Creatinine 1.4 (BUN and GFR appropriate at 17 and 56, respectively), Anion Gap slightly open at 13.4, CRP 2.1, and Lactic acid 3.4 Dehydration and hyperlactatemia likely due to elevated BS; will treat with NS 1L bolus. No ketones present in the blood. Mild microcytic normochromic anemia noted, given Hgb 13.7. Could be due to chronic disease, but cannot exclude iron deficiency at this time. Will instruct patient to follow up with his primary care provider for further investigation. 02:51 Patient continues to deny chest pain, shortness of breath, or palpitations. Repeat Troponin remained WNL. EKG unchanged from earlier. Given the lack of chest pain in the presence of these findings patient has ruled himself out for acute myocardial ischemia. Patients blood sugar improving; counseled to take long-acting insulin when he gets home. Lactic acid and Creatinine WNL following bolus. Patient educated to keep blood sugars within normal range as this will prevent his sodium from dropping d/t polydipsia. Red flag signs and symptoms which would warrant reevaluation discussed. Patient verbalized understanding and agreement with the plan of care. Departure - Departure Time of Disposition: 02:47 Disposition: Home, Self-Care 01 Condition: Good Clinical Impression: Hyperglycemia, Elevated lactic acid level, Atypical chest pain, Dehydration, Hyponatremia Instructions: Dehydration, Adult, [id number], Nonspecific Chest Pain, Adult, [id number] Forms: ED Department Discharge Additional Instructions: 1.) Take your long-acting insulin when you get home; continue to monitor your blood sugars closely, as previously prescribed 2.) Follow up with your primary care provider by the end of the week regarding today's visit. 3.) Eat a heart and diabetic-healthy diet. Sepsis Event Note (ED) - Evaluation Sepsis Screening Result: No Definite Risk - Focused Exam Vital Signs: Vital Signs Temp Pulse Resp BP BP Pulse Ox 08/09/20 01:21 91 16 119/72 98 08/08/20 23:18 96 16 113/74 98 08/08/20 22:01 123/71 08/08/20 21:37 97.2 F 95 18 135/73 - My Orders Last 24 Hours: My Active Orders 08/08/20 21:37 EKG Documentation Completion [RC] STAT 08/08/20 22:32 Dextrose 50% in Water 50 ml IV ASDIRECTED PRN Glucagon,Human Recombinant [GlucaGen] 1 mg IM ASDIRECTED PRN 08/08/20 22:44 Dextrose 50% in Water 50 ml IV ASDIRECTED PRN Glucagon,Human Recombinant [GlucaGen] 1 mg IM ASDIRECTED PRN 08/09/20 02:04 EKG 12 Lead [EKG Documentation Completion] [RC] STAT - Assessment/Plan Last 24 Hours: My Active Orders 08/08/20 21:37 EKG Documentation Completion [RC] STAT 08/08/20 22:32 Dextrose 50% in Water 50 ml IV ASDIRECTED PRN Glucagon,Human Recombinant [GlucaGen] 1 mg IM ASDIRECTED PRN 08/08/20 22:44 Dextrose 50% in Water 50 ml IV ASDIRECTED PRN Glucagon,Human Recombinant [GlucaGen] 1 mg IM ASDIRECTED PRN 08/09/20 02:04 EKG 12 Lead [EKG Documentation Completion] [RC] STAT
[2020-08-08 22:28] LABS: ANION GAP 13.4 mEq/L (7-13); CHLORIDE,CL 88 mmol/L (98-107); SODIUM,NA 125 mmol/L (136-145)
[2020-08-08] MEDS ORDERED: Glucagon,Human Recombinant 1 MG Vial IM PRN ×2 (22:32→22:44)
[2020-08-08] MEDS ORDERED: Insulin Lispro 100 Units/ML 3 ML Vial SUBCUT ONE (22:32)
[2020-08-08] MEDS ORDERED: 50% Dextrose in Water 50 ML Syringe IV PRN ×2 (22:32→22:44)
[2020-08-08] MEDS ORDERED: Sodium Chloride 0.9% 1,000 ML IV ONE (22:32)
[2020-08-08] MEDS ORDERED: Insulin Regular, Human 100 Units/ML 3 ML Vial IV ONE (22:44)
[2020-08-09 01:21] VITALS: PULSE 91
[2020-08-09 02:25] LABS: ANION GAP 11.7 mEq/L (7-13); CHLORIDE,CL 92 mmol/L (98-107); SODIUM,NA 129 mmol/L (136-145)
[2020-08-09 03:34] VITALS: BP 115/70
== END 2020-08-09 03:23 | disposition home or self-care (01) ==
LOC: DL.ED 21:47
DX: E11.65 Type 2 diabetes mellitus with hyperglycemia (principal); E87.1 Hypo-osmolality and hyponatremia; E86.0 Dehydration; I10 Essential (primary) hypertension; R74.02 Elevation of levels of lactic acid dehydrogenase [LDH]; R07.89 Other chest pain; J45.909 Unspecified asthma, uncomplicated; K21.9 Gastro-esophageal reflux disease without esophagitis; E66.9 Obesity, unspecified; Z68.39 Body mass index [BMI] 39.0-39.9, adult; Z88.1 Allergy status to other antibiotic agents; Z79.4 Long term (current) use of insulin; Z79.899 Other long term (current) drug therapy
CPT/HCPCS: 36415; 80048; 80053; 80305; 80307; 81003; 82009; 82150; 82962; 83605; 83690; 83735; 84484; 85025; 86140; 93005; 99285; A9270; J7030; 93010; 99284; J1815-GY

== ENCOUNTER 2020-09-03 06:59 | Day surgery (SDC) | payer MEDICAID ==
[~2020-09-03 06:59] MED LIST changes: -Sodium Chloride 0.9% 10 ML Syringe FLUSH PRN
[2020-09-03] MEDS ORDERED: Midazolam 1 MG/ML 2 ML SDV IV ONE ×4 (07:00→07:32)
[2020-09-03] MEDS ORDERED: fentaNYL 100 MCG/2 ML SDV IV ONE ×3 (07:00→07:24)
[2020-09-03] MEDS ORDERED: Midazolam 1 MG/ML 2 ML SDV ONE (07:53)
--- NOTE | 2020-09-03 08:52 | OR ---
DATE: 09/03/2020 PROCEDURES: Esophagogastroduodenoscopy and multiple pinch biopsies. INSTRUMENT USED: [id number] Olympus video panendoscope. PREMEDICATIONS: No oral or topical anesthesia used. Fentanyl 100 mcg intravenous, Versed 2.5 mg intravenous. The procedure was done under pulse oximetry, BP recording, and cardiac exercise specialist. INDICATION: The patient with persistent heartburn and regurgitation and iron deficiency, known diabetic, on multiple medications including PPI. Esophagogastroduodenoscopy is performed for detection of any active erosive lesions, Avelar esophagus and/or malignancy also under consideration, H pylori status to be determined. Small bowel biopsies to be obtained for celiac disease if indicated, endoscopic hemostasis therapy if needed. PROCEDURE IN DETAIL: The scope was passed with ease. Adequate visualization of the esophagus was made from proximal to distal areas. No upper esophageal lesions identified. No distal esophageal stricture. No uphill or downhill esophageal varices. No Melba-Linda tear. No evidence of erosive esophagitis by Oliver criteria. No esophageal polyp or tumor mass identified. Z-line was seen at around 39 cm distal to the oral verge. No esophageal polyp or tumor mass identified. The examination of gastric mucosa was extremely compromised due to the presence of large amount of food material that could not be aspirated clear. Gastric fundus examination within limitations did not show any polyp or lesions. No gastric ulcer, malignant mass, or vascular ectasia identified. Prominent benign-appearing multiple gastric antral polypoid folds were noted, multiple pinch biopsies were obtained and sent for histopathology. Multiple pinch biopsies were also taken from the distal and proximal gastric mucosa and sent for PyloriTek test for H pylori and histopathology. Duodenal bulb showed no ulcer. Visualized second part of the duodenum was unremarkable. Multiple pinch biopsies, 4 in number, were taken from different areas of the second part of the duodenum and tissues were also obtained from the duodenal bulb at 9 and 12 o'clock positions and sent for any histopathologic evidence of celiac disease. No bleeding was noted from any of the visualized areas at the completion of examination. Photographs were taken of the duodenal bulb, gastric antrum, fundus, and distal esophagus. IMPRESSION: 1. Gastroparesis diabeticorum. 2. Gastric antral polyps. The patient tolerated the procedure well. [facility] /[id number]
[2020-09-03 09:24] VITALS: BP 128/87; PULSE 93
== END 2020-09-03 10:15 | disposition home or self-care (01) ==
LOC: DL.ENDO 06:59
PROVIDERS: ATTEND Internal Medicine Gastroenterology
DX: K29.50 Unspecified chronic gastritis without bleeding (principal); K31.89 Other diseases of stomach and duodenum; E11.43 Type 2 diabetes mellitus with diabetic autonomic (poly)neuropathy; K31.84 Gastroparesis; K21.9 Gastro-esophageal reflux disease without esophagitis; K31.7 Polyp of stomach and duodenum; B96.81 Helicobacter pylori [H. pylori] as the cause of diseases classified elsewhere; E66.09 Other obesity due to excess calories; I10 Essential (primary) hypertension; Z88.8 Allergy status to other drugs, medicaments and biological substances; Z98.890 Other specified postprocedural states; Z68.33 Body mass index [BMI] 33.0-33.9, adult
CPT/HCPCS: 43239; 87077; J2250; J3010; J7042

== ENCOUNTER 2020-09-03 09:07 | Emergency (ER) | payer MEDICAID ==
--- NOTE | 2020-09-03 09:10 | EDM.PDOC ---
ED HPI GENERAL MEDICAL PROBLEM - General Chief Complaint: Chest Pain Stated Complaint: CAME FROM SDS Time Seen by Provider: 09/03/20 09:10 Source of Information: Reports: Patient, Old Records, Provider (Dr. Gould), RN, RN Notes Reviewed History Limitations: Reports: No Limitations - History of Present Illness INITIAL COMMENTS - FREE TEXT/NARRATIVE: Pt sent from Same Day Surgery by Dr. Gould with report that pt just under went an uncomplicated EGD for chronic acid reflux with chronic epigastric and chest pain. Following the procedure the pt c/o of chest pain, so he was sent to the ER. Pt has Hx of chest pain for several years which has been attributed to acid reflux, but Dr. Gould felt the pt should be evaluated in the emergency room today to ensure that the pt did not have acute cardiac ischemia. Duration: Chronic, Recurring Location: Reports: Chest Quality: Reports: Ache, Burning Severity: Severe Improves with: Reports: None Worsens with: Reports: None Associated Symptoms: Reports: No Other Symptoms Left Mid-Sternal Pain Score (Numeric/FACES): 7 - Related Data Allergies Allergy/AdvReac Type Severity Reaction Status Date / Time ceftriaxone sodium AdvReac Vomiting Verified 09/03/20 09:12 [From Rocephin] Home Meds: Home Meds Albuterol Sulfate [Proventil Hfa] 2 puff IH BID 03/07/18 [History] Mometasone/Formoterol [Dulera 200-5 MCG] 2 puff IH BID 07/20/18 [History] lisinopriL [Prinivil] 40 mg PO DAILY 07/20/18 [History] metFORMIN [Glucophage] 1,000 mg PO BIDMEALS 02/01/20 [History] Chlorthalidone 25 mg PO DAILY 05/03/20 [History] Insulin Glarg,Human.Rec.Analog [Lantus] 27 unit SUBCUT BEDTIME 05/03/20 [History] Insulin Lispro [HumaLOG] 7 unit SUBCUT TIDAC 05/03/20 [History] Pantoprazole [ProTONIX] 40 mg PO DAILY 05/03/20 [History] amLODIPine [Norvasc] 5 mg PO DAILY 05/03/20 [History] Bacitracin [Bacitracin Ophth Oint] 1 applic TOP ASDIRECTED 08/31/20 [History] Diclofenac Sodium [Voltaren 1% Gel] 1 applic TOP ASDIRECTED PRN 08/31/20 [History] Empagliflozin [Jardiance] 10 mg PO DAILY 08/31/20 [History] Indomethacin 50 mg PO BIDMEALS 08/31/20 [History] Ondansetron [Zofran Odt] 8 mg SL Q12H PRN 08/31/20 [History] Past Medical History - Past Health History Medical/Surgical History: Denies Medical/Surgical History HEENT History: Reports: None Cardiovascular History: Reports: Hypertension Other Cardiovascular History: abnormal LFTs Respiratory History: Reports: Asthma, SOB Gastrointestinal History: Reports: GERD Genitourinary History: Reports: None Musculoskeletal History: Reports: Arthritis, Fracture, Other (See Below) Other Musculoskeletal History: R KNEE. METACARPAL BONE FX Neurological History: Reports: None Psychiatric History: Reports: None Endocrine/Metabolic History: Reports: Diabetes, Type II, IDDM, Obesity/BMI 30+ Other Endocrine/Metabolic History: New onset 01/31/2020 Hematologic History: Reports: Anemia, Iron Deficiency Other Hematologic History: microcytosis Immunologic History: Reports: None Oncologic (Cancer) History: Reports: None Dermatologic History: Reports: None - Infectious Disease History Infectious Disease History: Reports: None Other Infectious Disease History: patient states "i'm not sure" - Past Surgical History Head Surgeries/Procedures: Reports: None HEENT Surgical History: Reports: None Cardiovascular Surgical History: Reports: Other (See Below) Other Cardiovascular Surgeries/Procedures: midsternal healed incision from when he was an but pt. doesn't know what he had done. - PATIENT REPORTS HE HAD FLUID AROUND HIS HEART PER HIS MOTHER Respiratory Surgical History: Reports: None GI Surgical History: Reports: Colonoscopy, EGD Male Surgical History: Reports: None Endocrine Surgical History: Reports: None Neurological Surgical History: Reports: None Musculoskeletal Surgical History: Reports: Arthroscopic Knee, Other (See Below) Other Musculoskeletal Surgeries/Procedures:: SYNOVECTOMY; MENISCECTOMY RIGHT Oncologic Surgical History: Reports: None Dermatological Surgical History: Reports: None Social & Family History - Family History Family Medical History: No Pertinent Family History - Caffeine Use Caffeine Use: Reports: Tea Other Caffeine Use: AVERAGE OF 2 12 OZ CANS OF SODA POP DAILY - QUIT - Living Situation & Occupation Living situation: Reports: with Family Occupation: Employed ED ROS GENERAL - Review of Systems Review Of Systems: Comprehensive ROS is negative, except as noted in HPI. ED EXAM, GENERAL - Physical Exam Exam: See Below Exam Limited By: No Limitations General Appearance: Alert, WD/WN, No Apparent Distress Eye Exam: Bilateral Eye: Normal Inspection Nose: Normal Inspection Throat/Mouth: Normal Lips, Normal Voice, No Airway Compromise Head: Atraumatic, Normocephalic Neck: Normal Inspection, Non-Tender, Full Range of Motion Respiratory/Chest: No Respiratory Distress, Lungs Clear, Normal Breath Sounds, No Accessory Muscle Use, Chest Non-Tender Cardiovascular: Normal Peripheral Pulses, Regular Rate, Rhythm GI/Abdominal: Normal Bowel Sounds, Soft Back Exam: Normal Inspection Extremities: Normal Inspection, No Pedal Edema Neurological: Alert, Oriented, No Motor/Sensory Deficits Psychiatric: Normal Mood Skin Exam: Warm, Dry, Intact, Normal Color, No Rash #1 Interpretation EKG Date: 09/03/20 Time: 09:15 Rhythm: Other (SR) Rate (Beats/Min): 93 [place]: Normal P-Wave: Present QRS: Other (LPFB, old inferior and anterior Q waves) ST-T: Normal QT: Normal Comparison: No Change Course - Vital Signs Last Recorded V/S: Last Vital Signs Temp 97.6 F 09/03/20 09:20 Pulse 93 09/03/20 09:20 Resp 18 09/03/20 09:20 BP 128/81 09/03/20 09:20 Pulse Ox 96 09/03/20 09:20 - Orders/Labs/Meds Orders: Active Orders 24 hr Category Date Time Status EKG 12 Lead [EKG Documentation Completion] [RC] STAT Care 09/03/20 09:11 Active Labs: Laboratory Tests 09/03/20 09/03/20 Range/Units 09:21 09:21 WBC 8.9 (5.0-10.0) 10^3/uL RBC 5.06 (4.6-6.2) 10^6/uL Hgb 13.7 L (14.0-18.0) g/dL Hct 39.7 L (40.0-54.0) % MCV 78.5 L (80-100) fL MCH 27.1 (27.0-34.0) pg MCHC 34.5 (33.0-35.0) g/dL Plt Count 274 (150-450) 10^3/uL Neut % (Auto) 72.2 (42.2-75.2) % Lymph % (Auto) 16.6 L (20.5-50.1) % [place] % (Auto) 7.3 (2-8) % Eos % (Auto) 3.5 H (1.0-3.0) % Baso % (Auto) 0.4 (0.0-1.0) % Sodium 135 L (136-145) mmol/L Potassium 3.6 (3.5-5.1) mmol/L Chloride 98 (98-107) mmol/L Carbon Dioxide 27 (21-32) mmol/L Anion Gap 13.6 H (7-13) mEq/L BUN 17 (7-18) mg/dL Creatinine 1.00 (0.70-1.30) mg/dL Est Cr Clr Drug Dosing 111.88 mL/min Estimated GFR (MDRD) > 60 BUN/Creatinine Ratio 17.0 (No establ ref range) Glucose 240 H (74-99) mg/dL Calcium 8.3 L (8.5-10.1) mg/dL Total Bilirubin 0.6 (0.2-1.0) mg/dL AST 18 (15-37) U/L ALT 36 (16-63) U/L Alkaline Phosphatase 140 H (46-116) U/L Troponin I < 0.017 (0.000-0.056) ng/mL Total Protein 7.1 (6.4-8.2) g/dL Albumin 3.1 L (3.4-5.0) g/dL Globulin 4.0 Albumin/Globulin Ratio 0.78 Amylase 34 (25-115) U/L - Radiology Interpretation Free Text/Narrative:: [facility] Final Radiology Report Call: [phone] assistance Online chat: [email or web address] Name: HUSSAIN RODRIGUEZ Age: 44Years M Date: 09/03/2020 SSN: -- : [id number] Study: CR CHEST 1V FRONTAL Requesting Physician: JUAN CURTIS Images: 1 Addl Studies: Provided Clinical History: chest pain Contrast: Contrast Medium: Contrast Amount: Contrast Method: Page 1 of 2 PROCEDURE INFORMATION: Exam: XR Chest Exam date and time: 09/03/2020 9:32 AM Age: 44 years old Clinical indication: Chest pain TECHNIQUE: Imaging protocol: XR of the chest Views: 1 view. COMPARISON: 1. CR Chest 1V Frontal 05/03/2020 4:[address] Abdomen Pelvis wo Cont 05/03/2020 6:21:51 PM FINDINGS: Lungs: Lung volumes are slightly decreased. There may be minimal left basilar atelectasis versus pneumonia, and hazy opacity in the left perihilar region. Pleural spaces: Unremarkable. No pleural effusion. No pneumothorax. Heart/Mediastinum: Heart size is enlarged. Aorta is tortuous and ectatic. Bones/joints: No acute osseous abnormality. IMPRESSION: 1. Questionable minimal left basilar atelectasis versus pneumonia and hazy opacity in the left perihilar region. 2. Cardiomegaly and tortuous ectatic aorta. 3. Slightly decreased lung volumes. Thank you for allowing us to participate in the care of your patient. Dictated and Authenticated by: Margy Blanchard MD [facility], [facility] | Final Radiology Report CONFIDENTIALITY STATEMENT This report is intended only for use by the referring physician, and only in accordance with law. If you received this in error, call [phone]. Page 2 of 2 09/03/2020 9:46 AM Central Time ([place] & [place]) Departure - Departure Time of Disposition: 10:01 Disposition: Home, Self-Care 01 Condition: Good Clinical Impression: Atypical chest pain Instructions: Nonspecific Chest Pain, Adult Forms: ED Department Discharge Additional Instructions: Follow Dr. Gould's discharge instructions. Follow up in clinic this week with your primary doctor for recheck and consideration of a cardiac stress test. Sepsis Event Note (ED) - Focused Exam Vital Signs: Vital Signs Temp Pulse Resp BP Pulse Ox 09/03/20 09:20 97.6 F 93 18 128/81 96 - My Orders Last 24 Hours: My Active Orders 09/03/20 09:11 EKG 12 Lead [EKG Documentation Completion] [RC] STAT - Assessment/Plan Last 24 Hours: My Active Orders 09/03/20 09:11 EKG 12 Lead [EKG Documentation Completion] [RC] STAT
[2020-09-03 09:26] VITALS: BP 128/81; PULSE 93
--- NOTE | 2020-09-03 09:47 | CR ---
PROCEDURE INFORMATION: Exam: XR Chest Exam date and time: 09/03/2020 9:32 AM Age: 44 years old Clinical indication: Chest pain TECHNIQUE: Imaging protocol: XR of the chest Views: 1 view. COMPARISON: 1. CR Chest 1V Frontal 05/03/2020 4:[address] Abdomen Pelvis wo Cont 05/03/2020 6:21:51 PM FINDINGS: Lungs: Lung volumes are slightly decreased. There may be minimal left basilar atelectasis versus pneumonia, and hazy opacity in the left perihilar region. Pleural spaces: Unremarkable. No pleural effusion. No pneumothorax. Heart/Mediastinum: Heart size is enlarged. Aorta is tortuous and ectatic. Bones/joints: No acute osseous abnormality. IMPRESSION: 1. Questionable minimal left basilar atelectasis versus pneumonia and hazy opacity in the left perihilar region. 2. Cardiomegaly and tortuous ectatic aorta. 3. Slightly decreased lung volumes.
[2020-09-03 09:52] LABS: ANION GAP 13.6 mEq/L (7-13); CHLORIDE,CL 98 mmol/L (98-107); SODIUM,NA 135 mmol/L (136-145)
== END 2020-09-03 10:15 | disposition home or self-care (01) ==
LOC: DL.ED 09:07
DX: R07.89 Other chest pain (principal); I10 Essential (primary) hypertension; J45.909 Unspecified asthma, uncomplicated; K21.9 Gastro-esophageal reflux disease without esophagitis; E11.9 Type 2 diabetes mellitus without complications; E66.9 Obesity, unspecified; Z68.33 Body mass index [BMI] 33.0-33.9, adult; Z88.1 Allergy status to other antibiotic agents; Z79.899 Other long term (current) drug therapy; Z79.4 Long term (current) use of insulin
CPT/HCPCS: 36415; 71045; 80053; 82150; 84484; 85025; 93010; 99283; 99285-25

== ENCOUNTER 2020-10-03 13:48 | Emergency (ER) | payer MEDICAID ==
[2020-10-03] MEDS ORDERED: Aspirin 81 MG Tab.Chew PO ONE (14:13)
--- NOTE | 2020-10-03 14:13 | EDM.PDOC ---
<Jose Mary - Last Filed: 10/03/20 18:45> ED HPI GENERAL MEDICAL PROBLEM - General Chief Complaint: Chest Pain Stated Complaint: CHEST PAIN FOR 1 HOUR Time Seen by Provider: 10/03/20 14:13 Source of Information: Reports: Patient, Old Records, RN, RN Notes Reviewed History Limitations: Reports: No Limitations - History of Present Illness INITIAL COMMENTS - FREE TEXT/NARRATIVE: Pt presents to ER from home by POV with c/o chest pain. The pain started suddenly at 1300HRS while he was sitting at a computer. Pt states his left arm is numb. He also states he has nausea, and vomited x 4. He rates the pain 6/10. Pt took nothing for the pain prior to coming to the ER. He admits to feeling short of breath. Onset: Today, Sudden Onset Date: 10/03/20 Onset Time: 13:00 Duration: Constant Location: Reports: Chest Quality: Reports: Ache, Pressure Severity: Moderate Improves with: Reports: None Worsens with: Reports: None Associated Symptoms: Reports: No Other Symptoms Left Chest Pain Score (Numeric/FACES): 6 - Related Data Allergies Allergy/AdvReac Type Severity Reaction Status Date / Time ceftriaxone sodium AdvReac Vomiting Verified 10/03/20 14:13 [From Rocephin] Home Meds: Home Meds Albuterol Sulfate [Proventil Hfa] 2 puff IH BID 03/07/18 [History] Mometasone/Formoterol [Dulera 200-5 MCG] 2 puff IH BID 07/20/18 [History] lisinopriL [Prinivil] 40 mg PO DAILY 07/20/18 [History] metFORMIN [Glucophage] 1,000 mg PO BIDMEALS 02/01/20 [History] Chlorthalidone 25 mg PO DAILY 05/03/20 [History] Insulin Glarg,Human.Rec.Analog [Lantus] 60 unit SUBCUT BEDTIME 05/03/20 [History] Insulin Lispro [HumaLOG] 25 unit SUBCUT TIDAC 05/03/20 [History] Pantoprazole [ProTONIX] 40 mg PO DAILY 05/03/20 [History] amLODIPine [Norvasc] 5 mg PO DAILY 05/03/20 [History] Bacitracin [Bacitracin Ophth Oint] 1 applic TOP ASDIRECTED 08/31/20 [History] Diclofenac Sodium [Voltaren 1% Gel] 1 applic TOP ASDIRECTED PRN 08/31/20 [History] Empagliflozin [Jardiance] 10 mg PO DAILY 08/31/20 [History] Indomethacin 50 mg PO BIDMEALS 08/31/20 [History] Ondansetron [Zofran Odt] 8 mg SL Q12H PRN 08/31/20 [History] Past Medical History - Past Health History Medical/Surgical History: Denies Medical/Surgical History HEENT History: Reports: None Cardiovascular History: Reports: Hypertension Other Cardiovascular History: abnormal LFTs Respiratory History: Reports: Asthma, SOB Gastrointestinal History: Reports: GERD, Other (See Below) Other Gastrointestinal History: Elevated LFTs Genitourinary History: Reports: None Musculoskeletal History: Reports: Arthritis, Fracture, Other (See Below) Other Musculoskeletal History: R KNEE. METACARPAL BONE FX Neurological History: Reports: None Psychiatric History: Reports: None Endocrine/Metabolic History: Reports: Diabetes, Type II, IDDM, Obesity/BMI 30+ Other Endocrine/Metabolic History: New onset 01/31/2020 Hematologic History: Reports: Anemia, Iron Deficiency Other Hematologic History: microcytosis Immunologic History: Reports: None Oncologic (Cancer) History: Reports: None Dermatologic History: Reports: None - Infectious Disease History Infectious Disease History: Reports: None Other Infectious Disease History: patient states "i'm not sure" - Past Surgical History Head Surgeries/Procedures: Reports: None HEENT Surgical History: Reports: None Cardiovascular Surgical History: Reports: Other (See Below) Other Cardiovascular Surgeries/Procedures: midsternal healed incision from when he was an but pt. doesn't know what he had done. - PATIENT REPORTS HE HAD FLUID AROUND HIS HEART PER HIS MOTHER Respiratory Surgical History: Reports: None GI Surgical History: Reports: Colonoscopy, EGD Male Surgical History: Reports: None Endocrine Surgical History: Reports: None Neurological Surgical History: Reports: None Musculoskeletal Surgical History: Reports: Arthroscopic Knee, Other (See Below) Other Musculoskeletal Surgeries/Procedures:: SYNOVECTOMY; MENISCECTOMY RIGHT Oncologic Surgical History: Reports: None Dermatological Surgical History: Reports: None Social & Family History - Family History Family Medical History: No Pertinent Family History - Caffeine Use Caffeine Use: Reports: None Other Caffeine Use: AVERAGE OF 2 12 OZ CANS OF SODA POP DAILY - QUIT - Living Situation & Occupation Living situation: Reports: with Family Occupation: Employed ED ROS GENERAL - Review of Systems Review Of Systems: Comprehensive ROS is negative, except as noted in HPI. ED EXAM, GENERAL - Physical Exam Exam: See Below Exam Limited By: No Limitations General Appearance: Alert, WD/WN, No Apparent Distress, Anxious, Obese Eye Exam: Bilateral Eye: Normal Inspection (No scleral icterus) Ears: Hearing Grossly Normal Nose: Normal Inspection, Normal Mucosa, No Blood Throat/Mouth: Normal Inspection, Normal Lips, Normal Teeth, Normal Gums, Normal Oropharynx, Normal Voice, No Airway Compromise Head: Atraumatic, Normocephalic Neck: Normal Inspection, Supple, Non-Tender, Full Range of Motion Respiratory/Chest: No Respiratory Distress, Lungs Clear, Normal Breath Sounds, No Accessory Muscle Use, Chest Non-Tender Cardiovascular: Normal Peripheral Pulses, Regular Rate, Rhythm, No Edema, No Murmur, Tachycardia GI/Abdominal: Normal Bowel Sounds, Soft, No Organomegaly, No Distention, No Abnormal Bruit, No Mass, Tender (Mild epigastric tenderness) Back Exam: Normal Inspection Extremities: Normal Inspection, Normal Range of Motion, Non-Tender, Normal Capillary Refill, No Pedal Edema Neurological: Alert, Oriented, CN II-XII Intact, Normal Cognition, Normal Gait, No Motor/Sensory Deficits Psychiatric: Normal Affect, Anxious Skin Exam: Warm, Dry, Intact, Normal Color, No Rash #1 Interpretation EKG Date: 10/03/20 Time: 14:18 Rhythm: Other (sinus tachycardia) Rate (Beats/Min): 101 [place]: Normal (left posterior fascicular block) P-Wave: Present QRS: Other (LPFB) ST-T: Other (borderline T wave abnormalities) QT: Normal Comparison: No Change #2 Interpretation EKG Date: 10/03/20 Time: 18:24 Rhythm: Other (SR) Rate (Beats/Min): 88 [place]: Normal P-Wave: Present QRS: Other (LPFB) ST-T: Normal QT: Normal Comparison: No Change Course - Radiology Interpretation Free Text/Narrative:: XR Chest: no acute process per Rad. report. - Re-Assessments/Exams Free Text/Narrative Re-Assessment/Exam: 10/03/20 16:14 Pt will be placed to extended stay ER with repeat EKG and Troponin for chest pain rule out. Departure - Departure Disposition: Home, Self-Care 01 Clinical Impression: Atypical chest pain Instructions: Chest Wall Pain, [id number], Nonspecific Chest Pain, Adult, [id number] Forms: ED Department Discharge Additional Instructions: Follow up with your primary care facility Avoid foods that will cause indigestion Return to ER with any further problems Sepsis Event Note (ED) - Evaluation Sepsis Screening Result: No Definite Risk <Darby Doss - Last Filed: 10/03/20 20:58> Course - Vital Signs Last Recorded V/S: Last Vital Signs Temp 97.9 F 10/03/20 18:40 Pulse 84 10/03/20 18:40 Resp 16 10/03/20 18:40 BP 125/74 10/03/20 18:40 Pulse Ox 97 10/03/20 18:40 - Orders/Labs/Meds Orders: Active Orders 24 hr Category Date Time Status EKG 12 Lead [EKG Documentation Completion] [RC] STAT Care 10/03/20 14:14 Active EKG 12 Lead [EKG Documentation Completion] [RC] STAT Care 10/03/20 19:00 Active Peripheral IV Care [RC] . DIRECTED Care 10/03/20 14:15 Active Nitroglycerin [Nitrostat] Med 10/03/20 14:13 Active 0.4 mg SL Q5M PRN Sodium Chloride 0.9% [Saline Flush] Med 10/03/20 14:14 Active 10 ml FLUSH ASDIRECTED PRN Peripheral IV Insertion Adult [OM.PC] Stat Oth 10/03/20 14:15 Ordered Medication Orders Nitroglycerin (Nitroglycerin 0.4 Mg Tab.Sl) 0.4 mg SL Q5M PRN PRN Reason: Chest Pain Last Admin: 10/03/20 15:10 Dose: 0.4 mg Documented by: Admin: 10/03/20 15:00 Dose: 0.4 mg Documented by: NILE Sodium Chloride (Sodium Chloride 0.9% 10 Ml Syringe) 10 ml FLUSH ASDIRECTED PRN PRN Reason: Keep Vein Open Last Admin: 10/03/20 15:22 Dose: 10 ml Documented by: Admin: 10/03/20 15:11 Dose: 10 ml Documented by: NILE Labs: Laboratory Tests 10/03/20 10/03/20 10/03/20 Range/Units 14:13 14:13 14:13 WBC 6.0 (5.0-10.0) 10^3/uL RBC 5.71 (4.6-6.2) 10^6/uL Hgb 14.8 (14.0-18.0) g/dL Hct 45.3 (40.0-54.0) % MCV 79.3 L (80-100) fL MCH 25.9 L (27.0-34.0) pg MCHC 32.7 L (33.0-35.0) g/dL Plt Count 248 (150-450) 10^3/uL Neut % (Auto) 75.9 H (42.2-75.2) % Lymph % (Auto) 14.5 L (20.5-50.1) % [place] % (Auto) 7.8 (2-8) % Eos % (Auto) 1.0 (1.0-3.0) % Baso % (Auto) 0.8 (0.0-1.0) % PT (9.0-12.0) SEC INR (0.9-1.2) APTT (22.0-34.0) SEC D-Dimer, Quantitative 132 (0-400) ng/mL Sodium 138 (136-145) mmol/L Potassium 3.8 (3.5-5.1) mmol/L Chloride 101 (98-107) mmol/L Carbon Dioxide 26 (21-32) mmol/L Anion Gap 14.8 H (7-13) mEq/L BUN 18 (7-18) mg/dL Creatinine 0.98 (0.70-1.30) mg/dL Est Cr Clr Drug Dosing 114.17 mL/min Estimated GFR (MDRD) > 60 BUN/Creatinine Ratio 18.4 (No establ ref range) Glucose 117 H (70-99) mg/dL Calcium 8.0 L (8.5-10.1) mg/dL Total Bilirubin 0.6 (0.2-1.0) mg/dL AST 99 H (15-37) U/L ALT 82 H (16-63) U/L Alkaline Phosphatase 95 (46-116) U/L Troponin I < 0.017 (0.000-0.056) ng/mL Total Protein 7.1 (6.4-8.2) g/dL Albumin 3.2 L (3.4-5.0) g/dL Globulin 3.9 Albumin/Globulin Ratio 0.82 Amylase 33 (25-115) U/L Lipase 80 (73-393) U/L 10/03/20 10/03/20 Range/Units 14:13 19:30 WBC (5.0-10.0) 10^3/uL RBC (4.6-6.2) 10^6/uL Hgb (14.0-18.0) g/dL Hct (40.0-54.0) % MCV (80-100) fL MCH (27.0-34.0) pg MCHC (33.0-35.0) g/dL Plt Count (150-450) 10^3/uL Neut % (Auto) (42.2-75.2) % Lymph % (Auto) (20.5-50.1) % [place] % (Auto) (2-8) % Eos % (Auto) (1.0-3.0) % Baso % (Auto) (0.0-1.0) % PT 10.2 (9.0-12.0) SEC INR 1.0 (0.9-1.2) APTT 26.1 (22.0-34.0) SEC D-Dimer, Quantitative (0-400) ng/mL Sodium (136-145) mmol/L Potassium (3.5-5.1) mmol/L Chloride (98-107) mmol/L Carbon Dioxide (21-32) mmol/L Anion Gap (7-13) mEq/L BUN (7-18) mg/dL Creatinine (0.70-1.30) mg/dL Est Cr Clr Drug Dosing mL/min Estimated GFR (MDRD) BUN/Creatinine Ratio (No establ ref range) Glucose (70-99) mg/dL Calcium (8.5-10.1) mg/dL Total Bilirubin (0.2-1.0) mg/dL AST (15-37) U/L ALT (16-63) U/L Alkaline Phosphatase (46-116) U/L Troponin I < 0.017 (0.000-0.056) ng/mL Total Protein (6.4-8.2) g/dL Albumin (3.4-5.0) g/dL Globulin Albumin/Globulin Ratio Amylase (25-115) U/L Lipase (73-393) U/L Meds: Medications Generic Name Dose Route Start Last Admin Trade Name Justinq PRN Reason Stop Dose Admin Nitroglycerin 0.4 mg 10/03/20 14:13 10/03/20 15:10 Nitroglycerin 0.4 Mg Tab.Sl SL 0.4 mg Q5M PRN Administration Chest Pain Sodium Chloride 10 ml 10/03/20 14:14 10/03/20 15:22 Sodium Chloride 0.9% 10 Ml Syringe FLUSH 10 ml ASDIRECTED PRN Administration Keep Vein Open Discontinued Medications Generic Name Dose Route Start Last Admin Trade Name Justinq PRN Reason Stop Dose Admin Al Hydroxide/Mg Hydroxide 30 ml 10/03/20 15:24 10/03/20 15:29 Gi Cocktail Oral Solution 30 Ml PO 10/03/20 15:25 30 ml ONETIME ONE Administration Al Hydroxide/Mg Hydroxide 30 ml 10/03/20 15:30 10/03/20 16:10 Gi Cocktail Oral Solution 30 Ml PO 10/03/20 15:31 Not Given ONETIME ONE Aspirin 324 mg 10/03/20 14:13 10/03/20 14:46 Aspirin 81 Mg Tab.Chew PO 10/03/20 14:14 324 mg ONETIME ONE Administration Morphine Sulfate Confirm 10/03/20 15:18 10/03/20 15:27 Morphine 2 Mg/Ml Syringe Administered 10/03/20 15:19 Not Given Dose 2 mg .ROUTE .STK-MED ONE Morphine Sulfate 2 mg 10/03/20 15:25 10/03/20 15:20 Morphine 2 Mg/Ml Syringe IVPUSH 10/03/20 15:26 2 mg ONETIME ONE Administration Morphine Sulfate 2 mg 10/03/20 15:31 10/03/20 16:10 Morphine 2 Mg/Ml Syringe IVPUSH 10/03/20 15:32 Not Given ONETIME ONE Ondansetron HCl 4 mg 10/03/20 14:26 10/03/20 14:46 Ondansetron 4 Mg/2 Ml Sdv IV 10/03/20 14:27 4 mg ONETIME ONE Administration Departure - Departure Time of Disposition: 20:32 Reason for Transfer *Q: Other Condition: Good Sepsis Event Note (ED) - Focused Exam Vital Signs: Vital Signs Temp Pulse Resp BP BP BP Pulse Ox 10/03/20 18:40 97.9 F 84 16 125/74 97 10/03/20 17:30 78 159/102 H 98 10/03/20 17:00 72 128/65 98 10/03/20 16:30 124 H 97/48 L 96 10/03/20 16:06 98 F 92 18 128/83 93 L 10/03/20 15:10 130/100 H 10/03/20 15:00 128/81 10/03/20 14:04 98.9 F 105 H 16 136/87 98
[2020-10-03] MEDS ORDERED: Ondansetron 4 MG/2 ML SDV IV ONE (14:26)
[2020-10-03 14:52] LABS: PTT,PARTIAL THROMBOPLSTIN TIME 26.1 SEC (22.0-34.0)
[2020-10-03 14:56] LABS: ANION GAP 14.8 mEq/L (7-13); CHLORIDE,CL 101 mmol/L (98-107); SODIUM,NA 138 mmol/L (136-145)
[2020-10-03] MEDS: Nitroglycerin 0.4 MG Tab.SL SL PRN ×2 (15:00→15:10)
--- NOTE | 2020-10-03 15:03 | CR ---
EXAMINATION: Chest 1V Frontal SEX: Male AGE: 44 years CLINICAL HISTORY: 44-year-old obese male with chest pain. Comparison exams 03 September 2020 and 03 May 2020. INTERPRETATION: No change except for technique. 1. Prominence of cardiac silhouette accentuated by AP magnification and poor inspiration, unchanged. 2. Chronic mild shaggy accentuation bronchovascular markings but no new alveolar edema or dependent pleural fluid. 3. No new lung mass or hilar lymphadenopathy. Midline tracheal airway. (Chronic fullness right hilum and patchy right middle lobe atelectasis/fibrosis) 4. No alveolar consolidation, atelectasis/collapse, or peripheral "groundglass" interstitial lung densities. 5. No pneumothorax or pneumomediastinum.
[2020-10-03] MEDS: Sodium Chloride 0.9% 10 ML Syringe FLUSH PRN ×2 (15:11→15:22)
[2020-10-03] MEDS ORDERED: Morphine 2 MG/ML SYRINGE ONE (15:18)
[2020-10-03] MEDS ORDERED: GI Cocktail Oral Solution 30 ML PO ONE ×2 (15:24→15:30)
[2020-10-03] MEDS ORDERED: Morphine 2 MG/ML SYRINGE IVPUSH ONE ×2 (15:25→15:31)
[2020-10-03 18:41] VITALS: BP 125/74; PULSE 84
== END 2020-10-03 20:50 | disposition home or self-care (01) ==
LOC: DL.ED 13:48
DX: R07.89 Other chest pain (principal); I10 Essential (primary) hypertension; J45.909 Unspecified asthma, uncomplicated; K21.9 Gastro-esophageal reflux disease without esophagitis; E11.9 Type 2 diabetes mellitus without complications; E66.9 Obesity, unspecified; Z68.34 Body mass index [BMI] 34.0-34.9, adult; Z88.1 Allergy status to other antibiotic agents; Z79.4 Long term (current) use of insulin
CPT/HCPCS: 36415; 71045; 80053; 82150; 83690; 84484; 85025; 85379; 85610; 85730; 93005; 93010; 96374; 96375; 99284; 99285; A9270; J2270; J2405

== ENCOUNTER 2020-10-08 11:59 | Emergency (ER) | payer MEDICAID ==
[2020-10-08] MEDS ORDERED: Metoclopramide 10 MG/2 ML SDV IVPUSH ONE (12:01)
[2020-10-08] MEDS ORDERED: Sodium Chloride 0.9% 1,000 ML IV ONE ×2 (12:01→13:36)
--- NOTE | 2020-10-08 12:01 | EDM.PDOC ---
ED HPI GENERAL MEDICAL PROBLEM - General Chief Complaint: Gastrointestinal Problem Stated Complaint: AMBULANCE Time Seen by Provider: 10/08/20 12:00 Source of Information: Reports: Patient, Old Records, RN, RN Notes Reviewed History Limitations: Reports: No Limitations - History of Present Illness INITIAL COMMENTS - FREE TEXT/NARRATIVE: Pt arrives to ER by ambulance with c/o 3 days duration of nausea, vomiting, and upper abdominal pain. Pt states he vomits shortly after he tries to eat or drink anything. Denies fever, chills, dysuria, or constipation. He admits to some mild diarrhea the first day of symptoms, but not since then. Pt reports a long Hx of upper abdominal pain with no obvious source ever found. He had an upper endoscopy a couple of months ago, but isn't sure what the results showed. Onset: Gradual Duration: Day(s): (3), Constant Location: Reports: Abdomen Quality: Reports: Ache, Same as Previous Episode Severity: Moderate Improves with: Reports: None Worsens with: Reports: Eating Associated Symptoms: Reports: No Other Symptoms Abdominal Pain Score (Numeric/FACES): 9 - Related Data Allergies Allergy/AdvReac Type Severity Reaction Status Date / Time ceftriaxone sodium AdvReac Vomiting Verified 10/08/20 11:59 [From Rocephin] Home Meds: Home Meds Albuterol Sulfate [Proventil Hfa] 2 puff IH BID 03/07/18 [History] Mometasone/Formoterol [Dulera 200-5 MCG] 2 puff IH BID 07/20/18 [History] lisinopriL [Prinivil] 40 mg PO DAILY 07/20/18 [History] metFORMIN [Glucophage] 1,000 mg PO BIDMEALS 02/01/20 [History] Chlorthalidone 25 mg PO DAILY 05/03/20 [History] Insulin Glarg,Human.Rec.Analog [Lantus] 60 unit SUBCUT BEDTIME 05/03/20 [History] Insulin Lispro [HumaLOG] 25 unit SUBCUT TIDAC 05/03/20 [History] Pantoprazole [ProTONIX] 40 mg PO DAILY 05/03/20 [History] amLODIPine [Norvasc] 5 mg PO DAILY 05/03/20 [History] Bacitracin [Bacitracin Ophth Oint] 1 applic TOP ASDIRECTED 08/31/20 [History] Diclofenac Sodium [Voltaren 1% Gel] 1 applic TOP ASDIRECTED PRN 08/31/20 [History] Empagliflozin [Jardiance] 10 mg PO DAILY 08/31/20 [History] Indomethacin 50 mg PO BIDMEALS 08/31/20 [History] Ondansetron [Zofran Odt] 8 mg SL Q12H PRN 08/31/20 [History] Past Medical History - Past Health History Medical/Surgical History: Denies Medical/Surgical History HEENT History: Reports: None Cardiovascular History: Reports: Hypertension Other Cardiovascular History: abnormal LFTs Respiratory History: Reports: Asthma, SOB Gastrointestinal History: Reports: GERD, Other (See Below) Other Gastrointestinal History: Elevated LFTs Genitourinary History: Reports: None Musculoskeletal History: Reports: Arthritis, Fracture, Other (See Below) Other Musculoskeletal History: R KNEE. METACARPAL BONE FX Neurological History: Reports: None Psychiatric History: Reports: None Endocrine/Metabolic History: Reports: Diabetes, Type II, IDDM, Obesity/BMI 30+ Other Endocrine/Metabolic History: New onset 01/31/2020 Hematologic History: Reports: Anemia, Iron Deficiency Other Hematologic History: microcytosis Immunologic History: Reports: None Oncologic (Cancer) History: Reports: None Dermatologic History: Reports: None - Infectious Disease History Infectious Disease History: Reports: None Other Infectious Disease History: patient states "i'm not sure" - Past Surgical History Head Surgeries/Procedures: Reports: None HEENT Surgical History: Reports: None Cardiovascular Surgical History: Reports: Other (See Below) Other Cardiovascular Surgeries/Procedures: midsternal healed incision from when he was an infant but pt. doesn't know what he had done. - PATIENT REPORTS HE HAD FLUID AROUND HIS HEART PER HIS MOTHER Respiratory Surgical History: Reports: None GI Surgical History: Reports: Colonoscopy, EGD Male Surgical History: Reports: None Endocrine Surgical History: Reports: None Neurological Surgical History: Reports: None Musculoskeletal Surgical History: Reports: Arthroscopic Knee, Other (See Below) Other Musculoskeletal Surgeries/Procedures:: SYNOVECTOMY; MENISCECTOMY RIGHT Oncologic Surgical History: Reports: None Dermatological Surgical History: Reports: None Social & Family History - Family History Family Medical History: No Pertinent Family History - Caffeine Use Caffeine Use: Reports: None Other Caffeine Use: AVERAGE OF 2 12 OZ CANS OF SODA POP DAILY - QUIT - Living Situation & Occupation Living situation: Reports: with Family Occupation: Employed ED ROS GENERAL - Review of Systems Review Of Systems: Comprehensive ROS is negative, except as noted in HPI. ED EXAM, GI/ABD - Physical Exam Exam: See Below Exam Limited By: No Limitations General Appearance: Alert, No Apparent Distress, Anxious, Obese, Active Emesis Eyes: Bilateral: Normal Appearance (No scleral icterus) Nose: Normal Inspection, Normal Mucosa, No Blood Throat/Mouth: Normal Inspection, Normal Lips, Normal Teeth, Normal Gums, Normal Oropharynx, Normal Voice, No Airway Compromise Head: Atraumatic, Normocephalic Neck: Normal Inspection, Supple, Non-Tender, Full Range of Motion Respiratory/Chest: No Respiratory Distress, Lungs Clear, Normal Breath Sounds, No Accessory Muscle Use, Chest Non-Tender Cardiovascular: Normal Peripheral Pulses, Regular Rate, Rhythm, No Edema, No Gallop, No JVD, No Murmur, No Rub GI/Abdominal Exam: Soft, No Distention, No Abnormal Bruit, No Mass, Pelvis Stable, Tender (RUQ, LUQ), Abnormal Bowel Sounds (Slightly hyperactive bowel sounds). No: Guarding, Rigid, Rebound Back Exam: Normal Inspection, Full Range of Motion Extremities: Normal Inspection Neurological: Alert, Oriented, CN II-XII Intact, Normal Cognition, No Motor/Sensory Deficits Psychiatric: Anxious Skin Exam: Warm, Dry, Intact, Normal Color, No Rash. No: Ecchymosis, Jaundice, Pallor, Petechiae #1 Interpretation EKG Date: 10/08/20 Time: 12:33 Rhythm: Other (SR) Rate (Beats/Min): 78 [place]: Normal P-Wave: Present QRS: Other (LPFB, late transition (abnormal R-wave progression V5/V6)) ST-T: Normal QT: Normal Comparison: No Change Course - Vital Signs Last Recorded V/S: Last Vital Signs Temp 98.2 F 10/08/20 11:59 Pulse 86 10/08/20 11:59 Resp 18 10/08/20 11:59 BP 109/59 L 10/08/20 11:59 Pulse Ox 94 L 10/08/20 11:59 - Orders/Labs/Meds Orders: Active Orders 24 hr Category Date Time Status EKG 12 Lead [EKG Documentation Completion] [RC] STAT Care 10/08/20 12:03 Active Peripheral IV Care [RC] . DIRECTED Care 10/08/20 12:04 Active Abdomen Ltd [US] Stat Exams 10/08/20 13:47 Taken DRUG SCREEN URINE BIORAD [URCHEM] Stat Lab 10/08/20 12:04 Ordered UA RFX JORGE AND CULT IF INDIC [URIN] Stat Lab 10/08/20 12:04 Ordered Sodium Chloride 0.9% [Saline Flush] Med 10/08/20 12:03 Active 10 ml FLUSH ASDIRECTED PRN Peripheral IV Insertion Adult [OM.PC] Stat Oth 10/08/20 12:03 Ordered Medication Orders Sodium Chloride (Sodium Chloride 0.9% 10 Ml Syringe) 10 ml FLUSH ASDIRECTED PRN PRN Reason: Keep Vein Open Last Admin: 10/08/20 12:17 Dose: 10 ml Documented by: DEBBIE Labs: Laboratory Tests 10/08/20 10/08/20 Range/Units 12:19 12:19 WBC 4.5 L (5.0-10.0) 10^3/uL RBC 5.72 (4.6-6.2) 10^6/uL Hgb 14.8 (14.0-18.0) g/dL Hct 43.4 (40.0-54.0) % MCV 75.9 L D (80-100) fL MCH 25.9 L (27.0-34.0) pg MCHC 34.1 (33.0-35.0) g/dL Plt Count 224 (150-450) 10^3/uL Neut % (Auto) 73.2 (42.2-75.2) % Lymph % (Auto) 15.1 L (20.5-50.1) % [place] % (Auto) 11.5 H (2-8) % Eos % (Auto) 0.0 L (1.0-3.0) % Baso % (Auto) 0.2 (0.0-1.0) % Sodium 131 L (136-145) mmol/L Potassium 3.0 L (3.5-5.1) mmol/L Chloride 94 L (98-107) mmol/L Carbon Dioxide 26 (21-32) mmol/L Anion Gap 14.0 H (7-13) mEq/L BUN 16 (7-18) mg/dL Creatinine 1.46 H (0.70-1.30) mg/dL Est Cr Clr Drug Dosing 76.63 mL/min Estimated GFR (MDRD) 53 BUN/Creatinine Ratio 11.0 (No establ ref range) Glucose 84 (70-99) mg/dL Calcium 7.5 L (8.5-10.1) mg/dL Total Bilirubin 0.9 (0.2-1.0) mg/dL AST 105 H (15-37) U/L ALT 127 H (16-63) U/L Alkaline Phosphatase 59 (46-116) U/L Troponin I < 0.017 (0.000-0.056) ng/mL Total Protein 7.1 (6.4-8.2) g/dL Albumin 2.7 L (3.4-5.0) g/dL Globulin 4.4 Albumin/Globulin Ratio 0.61 Amylase 39 (25-115) U/L Lipase 107 (73-393) U/L Meds: Medications Generic Name Dose Route Start Last Admin Trade Name Hazel PRN Reason Stop Dose Admin Sodium Chloride 10 ml 10/08/20 12:03 10/08/20 12:17 Sodium Chloride 0.9% 10 Ml Syringe FLUSH 10 ml ASDIRECTED PRN Administration Keep Vein Open Discontinued Medications Generic Name Dose Route Start Last Admin Trade Name Hazel PRN Reason Stop Dose Admin Diphenhydramine HCl 25 mg 10/08/20 12:02 10/08/20 12:15 Diphenhydramine 50 Mg/Ml Sdv IVPUSH 10/08/20 12:03 25 mg ONETIME ONE Administration Sodium Chloride 1,000 mls @ 999 mls/hr 10/08/20 12:01 10/08/20 12:15 Normal Saline IV 10/08/20 13:01 999 mls/hr .BOLUS ONE Administration Sodium Chloride 1,000 mls @ 999 mls/hr 10/08/20 13:36 10/08/20 13:55 Normal Saline IV 10/08/20 14:36 999 mls/hr .BOLUS ONE Administration Potassium Chloride 10 meq/ 100 mls @ 100 mls/hr 10/08/20 13:36 10/08/20 14:06 Premix IV 10/08/20 14:35 100 mls/hr ONETIME ONE Administration Lidocaine HCl 1 ml 10/08/20 13:45 10/08/20 14:07 Lidocaine 1% 30 Ml Sdv INJECT 10/08/20 13:46 1 ml ONETIME ONE Administration Lorazepam 2 mg 10/08/20 12:02 10/08/20 12:15 Lorazepam 2 Mg/Ml Sdv IVPUSH 10/08/20 12:03 2 mg ONETIME ONE Administration Metoclopramide HCl 10 mg 10/08/20 12:01 10/08/20 12:15 Metoclopramide 10 Mg/2 Ml Sdv IVPUSH 10/08/20 12:02 10 mg ONETIME ONE Administration - Radiology Interpretation Free Text/Narrative:: US Abd. LTD: no evidence of gallbladder disease. See Rad. report. - Re-Assessments/Exams Free Text/Narrative Re-Assessment/Exam: 10/08/20 14:59 Review of GI notes and endoscopy from Jul 2020 reveals the pt has been diagnosed with diabetic gastroparesis. The pt seems to be unaware of the diagnosis, or the symptoms that go with gastroparesis. Departure - Departure Time of Disposition: 15:01 Disposition: Home, Self-Care 01 Condition: Good Clinical Impression: Diabetic gastroparesis associated with type 2 diabetes mellitus - Discharge Information *PRESCRIPTION DRUG MONITORING PROGRAM REVIEWED*: Not Applicable *COPY OF PRESCRIPTION DRUG MONITORING REPORT IN PATIENT JORGE LUIS: Not Applicable Instructions: Gastroparesis Forms: ED Department Discharge Additional Instructions: Rx: Reglan (Metoclopramide) 10mg Follow up in clinic for recheck and referral to GI specialist if needed. Sepsis Event Note (ED) - Focused Exam Vital Signs: Vital Signs Temp Pulse Resp BP Pulse Ox 10/08/20 11:59 98.2 F 86 18 109/59 L 94 L - My Orders Last 24 Hours: My Active Orders 10/08/20 12:03 EKG 12 Lead [EKG Documentation Completion] [RC] STAT Sodium Chloride 0.9% [Saline Flush] 10 ml FLUSH ASDIRECTED PRN Peripheral IV Insertion Adult [OM.PC] Stat 10/08/20 12:04 Peripheral IV Care [RC] . DIRECTED DRUG SCREEN URINE BIORAD [URCHEM] Stat UA RFX JORGE AND CULT IF INDIC [URIN] Stat 10/08/20 13:47 Abdomen Ltd [US] Stat - Assessment/Plan Last 24 Hours: My Active Orders 10/08/20 12:03 EKG 12 Lead [EKG Documentation Completion] [RC] STAT Sodium Chloride 0.9% [Saline Flush] 10 ml FLUSH ASDIRECTED PRN Peripheral IV Insertion Adult [OM.PC] Stat 10/08/20 12:04 Peripheral IV Care [RC] . DIRECTED DRUG SCREEN URINE BIORAD [URCHEM] Stat UA RFX JORGE AND CULT IF INDIC [URIN] Stat 10/08/20 13:47 Abdomen Ltd [US] Stat
[2020-10-08 12:02] VITALS: BP 109/59; PULSE 86
[2020-10-08] MEDS ORDERED: diphenhydrAMINE 50 MG/ML SDV IVPUSH ONE (12:02)
[2020-10-08] MEDS ORDERED: LORazepam 2 MG/ML SDV IVPUSH ONE (12:02)
[2020-10-08] MEDS ORDERED: Sodium Chloride 0.9% 10 ML Syringe FLUSH PRN (12:03)
[2020-10-08 12:45] LABS: CHLORIDE,CL 94 mmol/L (98-107); SODIUM,NA 131 mmol/L (136-145)
[2020-10-08] MEDS ORDERED: Potassium Chloride 10 MEQ in Premix Bag 1 BAG IV ONE (13:36)
[2020-10-08] MEDS ORDERED: Lidocaine 1% 30 ML SDV INJECT ONE (13:45)
--- NOTE | 2020-10-08 15:10 | US ---
EXAMINATION: Abdomen Ltd SEX: Male AGE: 44 years CLINICAL HISTORY: 44-year-old male with nausea, vomiting and abnormally elevated LFTs. Patient reported to have "no acute findings" (normal gallbladder and bile duct) on CT exam 03 May 2020. Interpretation: 1. Mildly echogenic liver suggesting possible fatty infiltration. No discrete intrahepatic cystic or solid mass lesion. 2. No abnormal dilatation of intra/extrahepatic biliary ducts and the pancreas sonographically normal. No pancreatic mass, calcifications, pseudocyst or major ductal dilatation. No ascites. 3. Gallbladder clearly demonstrated in the right upper quadrant is normal size and anatomic configuration with uniformly thin wall. No sign of pericystic fluid, mucosal wall mass, or mobile dependent intraluminal "shadowing" gallstones. 4. No pleural effusions. Normal right kidney. CONCLUSION: Sonographically normal gallbladder, liver and pancreas. (Subtle fatty infiltration of the liver)
== END 2020-10-08 15:46 | disposition home or self-care (01) ==
LOC: DL.ED 11:59
DX: E11.43 Type 2 diabetes mellitus with diabetic autonomic (poly)neuropathy (principal); K31.84 Gastroparesis; I10 Essential (primary) hypertension; J45.909 Unspecified asthma, uncomplicated; K21.9 Gastro-esophageal reflux disease without esophagitis; E66.9 Obesity, unspecified; Z68.33 Body mass index [BMI] 33.0-33.9, adult; Z88.1 Allergy status to other antibiotic agents; Z79.4 Long term (current) use of insulin; Z79.899 Other long term (current) drug therapy
CPT/HCPCS: 36415; 76705; 80053; 80305-QW; 81001; 82150; 83690; 84484; 85025; 93005; 93010; 96365; 96375; 99283; 99285-25; J1200; J2060; J2765; J3480; J7030

== ENCOUNTER 2020-12-14 13:25 | Emergency (ER) | payer MEDICAID ==
[2020-12-14 13:47] VITALS: BP 146/85; PULSE 92
--- NOTE | 2020-12-14 13:52 | EDM.PDOC ---
ED HPI GENERAL MEDICAL PROBLEM - General Chief Complaint: Chest Pain Stated Complaint: AMBULANCE Time Seen by Provider: 12/14/20 13:40 Source of Information: Reports: Patient History Limitations: Reports: No Limitations - History of Present Illness INITIAL COMMENTS - FREE TEXT/NARRATIVE: This 45 yo male patient reports to the ED with new onset of chest pain with shortness of breath. The patient reports [facility] he started to feel tightness in his chest and like he "couldn't catch his breath." The patient reports a similar episode a couple of months ago. The patient does have a history of Asthma. The patient was given Aspirin and nitro x2 by EMS with some pain relief. The patient reports he has continued to have chest pain and difficulties catching his breath at this time. Onset: Today Duration: Minutes: Location: Reports: Chest Quality: Reports: Ache, Dull Severity: Moderate Improves with: Reports: None Worsens with: Reports: None Context: Reports: Other Associated Symptoms: Reports: Chest Pain, Shortness of Breath Treatments BACK TENDER CYLINDER: Reports: Aspirin, Nitroglycerin Mid-Sternal Chest Pain Score (Numeric/FACES): 8 - Related Data Allergies Allergy/AdvReac Type Severity Reaction Status Date / Time morphine AdvReac Mild Nausea Verified 12/14/20 14:33 ceftriaxone sodium AdvReac Vomiting Verified 12/14/20 13:43 [From Rocephin] Home Meds: Home Meds Albuterol Sulfate [Proventil Hfa] 2 puff IH BID 03/07/18 [History] Mometasone/Formoterol [Dulera 200-5 MCG] 2 puff IH BID 07/20/18 [History] lisinopriL [Prinivil] 40 mg PO DAILY 07/20/18 [History] metFORMIN [Glucophage] 1,000 mg PO BIDMEALS 02/01/20 [History] Chlorthalidone 25 mg PO DAILY 05/03/20 [History] Insulin Glarg,Human.Rec.Analog [Lantus] 60 unit SUBCUT BEDTIME 05/03/20 [History] Insulin Lispro [HumaLOG] 25 unit SUBCUT TIDAC 05/03/20 [History] Pantoprazole [ProTONIX] 40 mg PO DAILY 05/03/20 [History] amLODIPine [Norvasc] 5 mg PO DAILY 05/03/20 [History] Bacitracin [Bacitracin Ophth Oint] 1 applic TOP ASDIRECTED 08/31/20 [History] Diclofenac Sodium [Voltaren 1% Gel] 1 applic TOP ASDIRECTED PRN 08/31/20 [History] Empagliflozin [Jardiance] 10 mg PO DAILY 08/31/20 [History] Indomethacin 50 mg PO BIDMEALS 08/31/20 [History] Ondansetron [Zofran Odt] 8 mg SL Q12H PRN 08/31/20 [History] Past Medical History - Past Health History Medical/Surgical History: Denies Medical/Surgical History HEENT History: Reports: None Cardiovascular History: Reports: Hypertension Other Cardiovascular History: abnormal LFTs Respiratory History: Reports: Asthma, SOB Gastrointestinal History: Reports: GERD, Other (See Below) Other Gastrointestinal History: Elevated LFTs Genitourinary History: Reports: None Musculoskeletal History: Reports: Arthritis, Fracture, Other (See Below) Other Musculoskeletal History: R KNEE. METACARPAL BONE FX Neurological History: Reports: None Psychiatric History: Reports: None Endocrine/Metabolic History: Reports: Diabetes, Type II, IDDM, Obesity/BMI 30+ Other Endocrine/Metabolic History: New onset 01/31/2020 Hematologic History: Reports: Anemia, Iron Deficiency Other Hematologic History: microcytosis Immunologic History: Reports: None Oncologic (Cancer) History: Reports: None Dermatologic History: Reports: None - Infectious Disease History Infectious Disease History: Reports: None Other Infectious Disease History: patient states "i'm not sure" - Past Surgical History Head Surgeries/Procedures: Reports: None HEENT Surgical History: Reports: None Cardiovascular Surgical History: Reports: Other (See Below) Other Cardiovascular Surgeries/Procedures: midsternal healed incision from when he was an infant but pt. doesn't know what he had done. - PATIENT REPORTS HE HAD FLUID AROUND HIS HEART PER HIS MOTHER Respiratory Surgical History: Reports: None GI Surgical History: Reports: Colonoscopy, EGD Male Surgical History: Reports: None Endocrine Surgical History: Reports: None Neurological Surgical History: Reports: None Musculoskeletal Surgical History: Reports: Arthroscopic Knee, Other (See Below) Other Musculoskeletal Surgeries/Procedures:: SYNOVECTOMY; MENISCECTOMY RIGHT Oncologic Surgical History: Reports: None Dermatological Surgical History: Reports: None Social & Family History - Family History Family Medical History: No Pertinent Family History - Caffeine Use Caffeine Use: Reports: None Other Caffeine Use: AVERAGE OF 2 12 OZ CANS OF SODA POP DAILY - QUIT - Living Situation & Occupation Living situation: Reports: with Family Occupation: Employed ED ROS GENERAL - Review of Systems Review Of Systems: Comprehensive ROS is negative, except as noted in HPI. ED EXAM, GENERAL - Physical Exam Exam: See Below Exam Limited By: No Limitations General Appearance: Alert, WD/WN, Moderate Distress Eye Exam: Bilateral Eye: EOMI, Normal Inspection, PERRL Ears: Normal External Exam, Normal Canal, Hearing Grossly Normal, Normal TMs Nose: Normal Inspection, Normal Mucosa, No Blood Throat/Mouth: Normal Inspection, Normal Lips, Normal Teeth, Normal Gums, Normal Oropharynx, Normal Voice, No Airway Compromise Head: Atraumatic, Normocephalic Neck: Normal Inspection, Supple, Non-Tender, Full Range of Motion Respiratory/Chest: No Respiratory Distress, Lungs Clear, Normal Breath Sounds, No Accessory Muscle Use, Chest Non-Tender Cardiovascular: Normal Peripheral Pulses, Regular Rate, Rhythm, No Edema, No Gallop, No JVD, No Murmur, No Rub GI/Abdominal: Normal Bowel Sounds, Soft, Non-Tender, No Organomegaly, No Distention, No Abnormal Bruit, No Mass (Male) Exam: Deferred Rectal (Males) Exam: Deferred Back Exam: Normal Inspection, Full Range of Motion, NT Extremities: Normal Inspection, Normal Range of Motion, Non-Tender, Normal Capillary Refill, No Pedal Edema Neurological: Alert, Oriented, CN II-XII Intact, Normal Cognition, Normal Gait, Normal Reflexes, No Motor/Sensory Deficits Psychiatric: Normal Affect, Normal Mood Skin Exam: Warm, Dry, Intact, Normal Color, No Rash Lymphatic: No Adenopathy #1 Interpretation EKG Date: 12/14/20 Time: 13:36 Rhythm: NSR Rate (Beats/Min): 90 [place]: Normal P-Wave: Present QRS: Normal ST-T: Normal QT: Normal Comparison: No Change Course - Vital Signs Last Recorded V/S: Last Vital Signs Temp 98.5 F 12/14/20 13:43 Pulse 92 12/14/20 13:43 Resp 18 12/14/20 13:43 BP 146/85 H 12/14/20 13:43 Pulse Ox 95 12/14/20 13:43 - Orders/Labs/Meds Orders: Active Orders 24 hr Category Date Time Status EKG Documentation Completion [RC] STAT Care 12/14/20 13:46 Active Labs: Laboratory Tests 12/14/20 12/14/20 12/14/20 Range/Units 13:38 13:38 13:38 WBC 9.8 (5.0-10.0) 10^3/uL RBC 5.54 (4.6-6.2) 10^6/uL Hgb 14.4 (14.0-18.0) g/dL Hct 43.3 (40.0-54.0) % MCV 78.2 L (80-100) fL MCH 26.0 L (27.0-34.0) pg MCHC 33.3 (33.0-35.0) g/dL Plt Count 307 D (150-450) 10^3/uL Neut % (Auto) 71.2 (42.2-75.2) % Lymph % (Auto) 17.5 L (20.5-50.1) % [place] % (Auto) 7.9 (2-8) % Eos % (Auto) 3.0 (1.0-3.0) % Baso % (Auto) 0.4 (0.0-1.0) % PT 10.2 (9.0-12.0) SEC INR 1.0 (0.9-1.2) D-Dimer, Quantitative < 100 (0-400) ng/mL Sodium 140 (136-145) mmol/L Potassium 3.5 (3.5-5.1) mmol/L Chloride 103 (98-107) mmol/L Carbon Dioxide 28 (21-32) mmol/L Anion Gap 12.5 (7-13) mEq/L BUN 15 (7-18) mg/dL Creatinine 0.90 (0.70-1.30) mg/dL Est Cr Clr Drug Dosing TNP Estimated GFR (MDRD) > 60 BUN/Creatinine Ratio 16.7 (No establ ref range) Glucose 176 H (70-99) mg/dL Lactic Acid (0.4-2.0) mmol/L Calcium 8.2 L (8.5-10.1) mg/dL Total Bilirubin 0.8 (0.2-1.0) mg/dL AST 66 H (15-37) U/L ALT 114 H (16-63) U/L Alkaline Phosphatase 114 (46-116) U/L Troponin I High Sens 9 (<=76) pg/mL Total Protein 7.2 (6.4-8.2) g/dL Albumin 3.3 L (3.4-5.0) g/dL Globulin 3.9 Albumin/Globulin Ratio 0.85 1821 /18/ Range/Units 13:38 15:38 WBC (5.0-10.0) 10^3/uL RBC (4.6-6.2) 10^6/uL Hgb (14.0-18.0) g/dL Hct (40.0-54.0) % MCV (80-100) fL MCH (27.0-34.0) pg MCHC (33.0-35.0) g/dL Plt Count (150-450) 10^3/uL Neut % (Auto) (42.2-75.2) % Lymph % (Auto) (20.5-50.1) % [place] % (Auto) (2-8) % Eos % (Auto) (1.0-3.0) % Baso % (Auto) (0.0-1.0) % PT (9.0-12.0) SEC INR (0.9-1.2) D-Dimer, Quantitative (0-400) ng/mL Sodium (136-145) mmol/L Potassium (3.5-5.1) mmol/L Chloride (98-107) mmol/L Carbon Dioxide (21-32) mmol/L Anion Gap (7-13) mEq/L BUN (7-18) mg/dL Creatinine (0.70-1.30) mg/dL Est Cr Clr Drug Dosing Estimated GFR (MDRD) BUN/Creatinine Ratio (No establ ref range) Glucose (70-99) mg/dL Lactic Acid 1.3 (0.4-2.0) mmol/L Calcium (8.5-10.1) mg/dL Total Bilirubin (0.2-1.0) mg/dL AST (15-37) U/L ALT (16-63) U/L Alkaline Phosphatase (46-116) U/L Troponin I High Sens 11 (<=76) pg/mL Total Protein (6.4-8.2) g/dL Albumin (3.4-5.0) g/dL Globulin Albumin/Globulin Ratio Meds: Medications Discontinued Medications Generic Name Dose Route Start Last Admin Trade Name Hazel PRN Reason Stop Dose Admin Morphine Sulfate 2 mg 12/14/20 13:46 12/14/20 14:12 Morphine 2 Mg/Ml Syringe IVPUSH 12/14/20 13:47 2 mg ONETIME ONE Administration Ondansetron HCl 4 mg 12/14/20 14:16 12/14/20 14:20 Ondansetron 4 Mg/2 Ml Sdv IVPUSH 12/14/20 14:17 4 mg ONETIME ONE Administration Departure - Departure Time of Disposition: 16:32 Disposition: Home, Self-Care 01 Condition: Fair Clinical Impression: Nonspecific chest pain Instructions: Nonspecific Chest Pain, Adult, [id number] Forms: ED Department Discharge Care Plan Goals: The patient was advised of the examination, lab, chest x-ray and EKG results during the visit. The patient was encouraged to continue to monitor for any additional symptoms. The patient should follow-up with his primary care facility next week for continued evaluation and management. If the patient has any additional symptoms or concerns, the patient should either return to the emergency department or visit his primary care facility. Sepsis Event Note (ED) - Evaluation Sepsis Screening Result: No Definite Risk - Focused Exam Vital Signs: Vital Signs Temp Pulse Resp BP Pulse Ox 12/14/20 13:43 98.5 F 92 18 146/85 H 95 - My Orders Last 24 Hours: My Active Orders 12/14/20 13:46 EKG Documentation Completion [RC] STAT - Assessment/Plan Last 24 Hours: My Active Orders 12/14/20 13:46 EKG Documentation Completion [RC] STAT
--- NOTE | 2020-12-14 14:07 | CR ---
EXAMINATION: Chest 1V Frontal SEX: Male AGE: 45 years CLINICAL HISTORY: 45-year-old male with chest pain. INTERPRETATION: No acute new cardiopulmonary abnormality since comparison exam 03 October 2020. 1. Chronic prominence cardiac silhouette but normal configuration and size unchanged since 03 October 2020. 2. No new evidence pulmonary vascular congestion, cephalization of flow, alveolar edema or dependent pleural fluid accumulation (effusions). 3. No new lung mass, hilar lymphadenopathy or alveolar infiltrate. No peripheral "groundglass" interstitial lung densities. 4. AP bony thorax unremarkable. External registered nurse cardiac telemetry leads. Normal midline tracheal airway. 5. No pneumothorax or pneumomediastinum.
[2020-12-14] MEDS: Morphine 2 MG/ML SYRINGE IVPUSH ONE (14:12)
[2020-12-14 14:13] LABS: ANION GAP 12.5 mEq/L (7-13); CHLORIDE,CL 103 mmol/L (98-107); SODIUM,NA 140 mmol/L (136-145)
[2020-12-14] MEDS: Ondansetron 4 MG/2 ML SDV IVPUSH ONE (14:20)
== END 2020-12-14 16:34 | disposition home or self-care (01) ==
LOC: DL.ED 13:25
DX: R07.9 Chest pain, unspecified (principal); I10 Essential (primary) hypertension; J45.909 Unspecified asthma, uncomplicated; K21.9 Gastro-esophageal reflux disease without esophagitis; E11.9 Type 2 diabetes mellitus without complications; E66.9 Obesity, unspecified; Z88.5 Allergy status to narcotic agent; Z88.1 Allergy status to other antibiotic agents; Z79.4 Long term (current) use of insulin; Z79.899 Other long term (current) drug therapy
CPT/HCPCS: 36415; 71045; 80053; 83605; 84484; 85025; 85379; 85610; 93010; 96374; 96375; 99284; 99285; J2270; J2405

== ENCOUNTER 2021-01-11 05:18 | Day surgery (SDC) | payer MEDICAID ==
[~2021-01-11 05:18] MED LIST changes: -Dextrose 5%-0.45% NaCl 1,000 ML IV SCH
[2021-01-11] MEDS ORDERED: Midazolam 1 MG/ML 2 ML SDV IV ONE ×3 (05:19→06:45)
[2021-01-11] MEDS ORDERED: fentaNYL 100 MCG/2 ML SDV IV ONE ×3 (05:19→06:45)
[2021-01-11] MEDS ORDERED: Dextrose 5%-0.45% NaCl 1,000 ML IV SCH (06:00)
[2021-01-11] MEDS ORDERED: Sodium Chloride 0.9% 10 ML Syringe FLUSH PRN (06:00)
[2021-01-11 06:58] VITALS: BP 138/96; PULSE 97
--- NOTE | 2021-01-11 12:58 | OR ---
DATE: 01/11/2021 PROCEDURES: Esophagogastroduodenoscopy and multiple pinch biopsies. INSTRUMENT USED: [id number]-HQ190 Olympus video panendoscope. PREMEDICATIONS: No oral or topical anesthesia used. Fentanyl 100 mcg intravenous, Versed 2 mg intravenous, nasal O2 cannula. The procedure was done under pulse oximetry, BP recording, and equipment monitor phototypesetting. INDICATION: Diabetic with continuing difficulties of abdominal pain and vomiting. Had limitation of previous EGD due to presence of large amount of food material. EGD is repeated that the patient having food and fluid restrictions for a couple of days. Esophagogastroduodenoscopy is performed for detection of any active erosive lesions, malignancy also under consideration, the scope was passed with ease. No upper esophageal lesions identified. Adequate visualization of the esophagus was made from proximal to distal areas. No distal esophageal stricture. No uphill or downhill esophageal varices. No Melba-Linda tear. No evidence of erosive esophagitis by Comanche criteria. No esophageal polyp or tumor mass identified. Z-line was seen at around 40 cm distal to the oral verge. No proximal gastric varices noted. Gastric fundus examination by retroflexion showed no polypoid lesions. No gastric ulcer, malignant mass, or vascular ectasia identified. Multiple diminutive benign- appearing gastric antral polyps were noted, NBI views were obtained, photographs were taken, multiple pinch biopsies were obtained and sent for histopathology. Duodenal bulb showed no ulcer. Visualized second part of the duodenum was unremarkable. No bleeding was noted from any of the visualized areas at the completion of examination. IMPRESSION: Gastric antral polyps. The patient tolerated the procedure well. [facility] /[id number]
== END 2021-01-11 09:05 | disposition home or self-care (01) ==
LOC: DL.ENDO 05:18
PROVIDERS: ATTEND Internal Medicine Gastroenterology
DX: K31.7 Polyp of stomach and duodenum (principal); K29.50 Unspecified chronic gastritis without bleeding; B96.81 Helicobacter pylori [H. pylori] as the cause of diseases classified elsewhere; E11.43 Type 2 diabetes mellitus with diabetic autonomic (poly)neuropathy; K31.84 Gastroparesis; E66.09 Other obesity due to excess calories; I10 Essential (primary) hypertension; K21.9 Gastro-esophageal reflux disease without esophagitis; Z68.34 Body mass index [BMI] 34.0-34.9, adult
CPT/HCPCS: 43239; 82947; J2250; J3010; J7042

== ENCOUNTER 2021-08-20 17:24 | Emergency (ER) | payer MEDICAID ==
[2021-08-20 17:59] VITALS: BP 144/95; PULSE 98
== END 2021-08-20 19:10 | disposition left against medical advice (07) ==
LOC: DL.ED 17:24
DX: Z53.21 Procedure and treatment not carried out due to patient leaving prior to being seen by health care provider (principal)
CPT/HCPCS: 73030-LT

== ENCOUNTER 2021-09-11 14:07 | Emergency (ER) | payer BC, MEDICAID ==
[2021-09-11 14:35] VITALS: BP 137/95; PULSE 89
[2021-09-11] MEDS: Ondansetron 4 MG/2 ML SDV IVPUSH ONE (14:44)
[2021-09-11] MEDS: Morphine 2 MG/ML SYRINGE IVPUSH ONE (14:46)
[2021-09-11 15:11] LABS: ANION GAP 11.8 mEq/L (7-13); CHLORIDE,CL 99 mmol/L (98-107); ESTIMATED GFR > 60; SODIUM,NA 132 mmol/L (136-145)
== END 2021-09-11 17:20 | disposition left against medical advice (07) ==
LOC: DL.ED 14:07
DX: R07.9 Chest pain, unspecified (principal); I10 Essential (primary) hypertension; E11.9 Type 2 diabetes mellitus without complications; K21.9 Gastro-esophageal reflux disease without esophagitis; E66.9 Obesity, unspecified; Z68.33 Body mass index [BMI] 33.0-33.9, adult; Z79.899 Other long term (current) drug therapy; Z88.1 Allergy status to other antibiotic agents
CPT/HCPCS: 36415; 71045; 80053; 82009; 83605; 84484; 85025; 85379; 93005; 96374; 96375; 99285; J2270; J2405; 93010; 99283

== ENCOUNTER 2021-09-18 15:40 | Emergency (ER) | payer MEDICAID ==
[2021-09-18 16:10] VITALS: BP 140/96; PULSE 107
[2021-09-18] MEDS ORDERED: Sodium Chloride 0.9% 10 ML Syringe FLUSH PRN (16:16)
[2021-09-18] MEDS ORDERED: Sodium Chloride 0.9% 1,000 ML IV ONE ×3 (16:18→17:42)
[2021-09-18 16:55] LABS: ANION GAP 13.9 mEq/L (7-13); CHLORIDE,CL 93 mmol/L (98-107); SODIUM,NA 130 mmol/L (136-145)
[2021-09-18] MEDS ORDERED: Insulin Regular, Human 100 Units/ML 3 ML Vial IV ONE (17:04)
[2021-09-18] MEDS ORDERED: 50% Dextrose in Water 50 ML Syringe IVPUSH PRN (17:04)
[2021-09-18] MEDS ORDERED: Glucagon,Human Recombinant 1 MG Vial IM PRN (17:04)
[2021-09-18] MEDS ORDERED: Ondansetron 4 MG/2 ML SDV IVPUSH ONE (17:52)
[2021-09-18 18:19] LABS: AMPHETAMINES,URINE NEGATIVE (NEGATIVE); BARBITURATES,URINE NEGATIVE (NEGATIVE); BENZODIAZEPINE,URINE NEGATIVE (NEGATIVE); MDMA (ECSTASY), URINE NEGATIVE (NEGATIVE); METHADONE,URINE NEGATIVE (NEGATIVE); METHAMPHETAMINES,URINE NEGATIVE (NEGATIVE); OPIATES,URINE NEGATIVE (NEGATIVE); OXYCODONE,URINE NEGATIVE (NEGATIVE); PHENCYCLIDINE,URINE NEGATIVE (NEGATIVE); TCA,URINE NEGATIVE (NEGATIVE)
== END 2021-09-18 18:44 | disposition home or self-care (01) ==
LOC: DL.ED 15:40
DX: E11.65 Type 2 diabetes mellitus with hyperglycemia (principal); I10 Essential (primary) hypertension; K21.9 Gastro-esophageal reflux disease without esophagitis; Z79.4 Long term (current) use of insulin; Z88.1 Allergy status to other antibiotic agents
CPT/HCPCS: 36415; 80053; 80305-QW; 80307; 81001; 82947; 85025; 85610; 96374; 99283-25; 99284; J1815-GY; J2405; J3490; J7030

== ENCOUNTER 2022-06-04 12:21 | Emergency (ER) | payer BC, MEDICAID ==
[2022-06-04] MEDS ORDERED: Sodium Chloride 0.9% 10 ML Syringe FLUSH PRN (12:23)
[2022-06-04] MEDS ORDERED: Sodium Chloride 0.9% 1,000 ML IV ONE (12:34)
[2022-06-04 12:41] VITALS: BP 143/97; PULSE 86
[2022-06-04 13:05] LABS: ANION GAP 11.5 mEq/L (7-13); CHLORIDE,CL 98 mmol/L (98-107); SODIUM,NA 134 mmol/L (136-145)
[2022-06-04 13:06] LABS: ESTIMATED GFR 98 mL/min (>=60)
[2022-06-04] MEDS ORDERED: Glucagon,Human Recombinant 1 MG Vial IM PRN (13:14)
[2022-06-04] MEDS ORDERED: 50% Dextrose in Water 50 ML Syringe IVPUSH PRN (13:14)
[2022-06-04] MEDS ORDERED: Insulin Regular, Human 100 Units/ML 3 ML Vial IV ONE (13:14)
[2022-06-04 13:39] LABS: CORONAVIRUS COVID-19 NAA POSITIVE (NEGATIVE)
== END 2022-06-04 14:11 | disposition home or self-care (01) ==
LOC: DL.ED 12:21
DX: U07.1 COVID-19 (principal); I10 Essential (primary) hypertension; E11.9 Type 2 diabetes mellitus without complications; K21.9 Gastro-esophageal reflux disease without esophagitis; E66.9 Obesity, unspecified; Z68.28 Body mass index [BMI] 28.0-28.9, adult; Z88.1 Allergy status to other antibiotic agents; Z79.4 Long term (current) use of insulin
CPT/HCPCS: 0240U; 36415; 71045; 80053; 80307; 82947; 83605; 83735; 83880; 84484; 85025; 85610; 86140; 93005; 96360; 99285; J1815; J3490; J7030

== ENCOUNTER 2022-07-30 14:10 | Emergency (ER) | payer BC, MEDICAID ==
[2022-07-30] MEDS ORDERED: Sodium Chloride 0.9% 10 ML Syringe FLUSH PRN (14:14)
[2022-07-30] MEDS ORDERED: Nitroglycerin 2% Oint 1 GM UD Packet TOP ONE (14:21)
[2022-07-30 14:23] VITALS: BP 150/114; PULSE 112
[2022-07-30 14:53] LABS: ANION GAP 13.2 mEq/L (7-13)
[2022-07-30 15:00] LABS: PTT,PARTIAL THROMBOPLSTIN TIME 26.1 SEC (22.0-34.0)
[2022-07-30] MEDS ORDERED: Ondansetron 4 MG/2 ML SDV IV ONE (15:12)
[2022-07-30] MEDS ORDERED: Sodium Chloride 0.9% 1,000 ML IV ONE (15:12)
[2022-07-30] MEDS ORDERED: Famotidine 20 MG/2 ML SDV IVPUSH ONE (15:13)
[2022-07-30] MEDS ORDERED: HYDROmorphone 1 MG/ML Syringe IVPUSH ONE (15:15)
[2022-07-30 15:20] LABS: MDMA (ECSTASY), URINE NEGATIVE (NEGATIVE); METHADONE,URINE NEGATIVE (NEGATIVE); METHAMPHETAMINES,URINE NEGATIVE (NEGATIVE); OPIATES,URINE NEGATIVE (NEGATIVE)
[2022-07-30 15:21] LABS: AMPHETAMINES,URINE NEGATIVE (NEGATIVE); BARBITURATES,URINE NEGATIVE (NEGATIVE); BENZODIAZEPINE,URINE NEGATIVE (NEGATIVE); OXYCODONE,URINE NEGATIVE (NEGATIVE); PHENCYCLIDINE,URINE NEGATIVE (NEGATIVE); TCA,URINE NEGATIVE (NEGATIVE)
[2022-07-30] MEDS ORDERED: Insulin Regular, Human 100 Units/ML 3 ML Vial SUBCUT ONE (15:43)
[2022-07-30] MEDS ORDERED: hydrALAZINE 20 MG/ML SDV IVPUSH ONE (15:45)
== END 2022-07-30 17:10 | disposition home or self-care (01) ==
LOC: DL.ED 14:10
DX: R07.89 Other chest pain (principal); K22.4 Dyskinesia of esophagus; E11.65 Type 2 diabetes mellitus with hyperglycemia; I10 Essential (primary) hypertension; J45.909 Unspecified asthma, uncomplicated; E66.9 Obesity, unspecified; Z68.30 Body mass index [BMI] 30.0-30.9, adult; Z88.1 Allergy status to other antibiotic agents; Z79.4 Long term (current) use of insulin
CPT/HCPCS: 36415; 71045; 80053; 80305-QW; 81003; 82150; 82947; 83690; 84484; 85025; 85379; 85610; 85730; 93005; 93010; 96361; 96374; 96375; 99284; 99285-25; A9270-GY; J0360; J1170; J1815-GY; J2405; J3490; J7030

== ENCOUNTER 2022-08-05 04:00 | Emergency (ER) | payer BC, MEDICAID ==
[2022-08-05 04:15] VITALS: BP 166/128; PULSE 105
[2022-08-05] MEDS ORDERED: Clindamycin HCl 150 MG Cap PO ONE (04:27)
== END 2022-08-05 05:01 | disposition home or self-care (01) ==
LOC: DL.ED 04:00
DX: K04.7 Periapical abscess without sinus (principal); K02.9 Dental caries, unspecified; I10 Essential (primary) hypertension; E11.9 Type 2 diabetes mellitus without complications; E78.5 Hyperlipidemia, unspecified; K21.9 Gastro-esophageal reflux disease without esophagitis; E66.9 Obesity, unspecified; Z68.26 Body mass index [BMI] 26.0-26.9, adult; Z79.4 Long term (current) use of insulin; Z88.1 Allergy status to other antibiotic agents; Z79.899 Other long term (current) drug therapy
CPT/HCPCS: 99283; A9270-GY

== ENCOUNTER → 2022-08-15 | Day surgery (SDC) | payer BC, MEDICAID ==
[~2022-08-15] MED LIST changes: +Dextrose 5%-0.45% NaCl 1,000 ML IV SCH; +Midazolam 1 MG/ML 2 ML SDV IV ONE; +Sodium Chloride 0.9% 10 ML Syringe FLUSH PRN; +Sodium Chloride 0.9% 10 ML Syringe FLUSH SCH; +fentaNYL 100 MCG/2 ML SDV IV ONE
[2022-08-15 08:46] VITALS: BP 125/91; PULSE 87
== END ==
LOC: DL.ENDO 05:32
PROVIDERS: ATTEND Internal Medicine Gastroenterology
DX: Z12.11 Encounter for screening for malignant neoplasm of colon (principal); K62.1 Rectal polyp; E66.09 Other obesity due to excess calories; I10 Essential (primary) hypertension; K21.9 Gastro-esophageal reflux disease without esophagitis; E11.43 Type 2 diabetes mellitus with diabetic autonomic (poly)neuropathy; K31.84 Gastroparesis; Z88.1 Allergy status to other antibiotic agents
CPT/HCPCS: J2250; J3010; J7042

== ENCOUNTER 2022-11-10 21:34 | Emergency (ER) | payer BC, MEDICAID ==
[2022-11-10] MEDS ORDERED: Sodium Chloride 0.9% 10 ML Syringe FLUSH PRN (21:36)
[2022-11-10 21:51] LABS: BASOPHILS PERCENT AUTO 0.3 % (0.0-1.0); EOSINOPHILS PERCENT AUTO 2.1 % (1.0-3.0); HEMATOCRIT 45.9 % (40.0-54.0); LYMPHOCYTES PERCENT AUTO 24.8 % (20.5-50.1); MEAN CORPUSCULAR HGB CONC 34.9 g/dL (33.0-35.0); MEAN CORPUSCULAR VOLUME 77.4 fL (80-100); MONOCYTES PERCENT AUTO 11.3 % (2-8); NEUTROPHILS PERCENT AUTO 61.5 % (42.2-75.2); PLATELET COUNT,PLT 280 10^3/uL (150-450); RED BLOOD CELL COUNT 5.93 10^6/uL (4.6-6.2); WHITE BLOOD CELL COUNT,WBC 6.6 10^3/uL (5.0-10.0)
[2022-11-10 22:11] LABS: PROTHROMBIN TIME 9.9 SEC (9.0-12.0); PTT,PARTIAL THROMBOPLSTIN TIME 26.4 SEC (22.0-34.0)
[2022-11-10 22:12] LABS: ALANINE AMINOTRANSFERASE,ALT 68 U/L (16-63); ALBUMIN 3.7 g/dL (3.4-5.0); ALKALINE PHOSPHATASE 149 U/L (46-116); ANION GAP 13.7 mEq/L (7-13); ASPARTATE AMNIOTRANSFERASE,AST 42 U/L (15-37); BILIRUBIN TOTAL 0.6 mg/dL (0.2-1.0); BLOOD UREA NITROGEN,BUN 8 mg/dL (7-18); BUN/CREATININE RATIO 10.8 (No establ ref range); CALCIUM 8.6 mg/dL (8.5-10.1); CARBON DIOXIDE,CO2 28 mmol/L (21-32); CHLORIDE,CL 102 mmol/L (98-107); CREATININE 0.74 mg/dL (0.70-1.30); EST CRCL DRUG DOSING (CG) 146.57 mL/min; GLUCOSE RANDOM 139 mg/dL (70-99); MAGNESIUM 1.5 mg/dL (1.8-2.4); POTASSIUM,K 3.7 mmol/L (3.5-5.1); PROTEIN TOTAL,TP 7.5 g/dL (6.4-8.2); SODIUM,NA 140 mmol/L (136-145)
[2022-11-10 22:13] LABS: C-REACTIVE PROTEIN < 0.2 mg/dL (0.0-0.9); ESTIMATED GFR 114 mL/min (>=60); ETHANOL BLOOD MEDICAL < 3 mg/dL (0); LACTIC ACID 0.7 mmol/L (0.4-2.0)
[2022-11-10 22:27] LABS: D-DIMER QUANTITATIVE < 100 ng/mL (0-400)
[2022-11-10 22:50] LABS: APPEARANCE,URINE CLEAR (CLEAR); BILIRUBIN,URINE NEGATIVE (NEGATIVE); COLOR,URINE YELLOW (YELLOW); GLUCOSE,URINE 500 (NEGATIVE); KETONES,URINE NEGATIVE (NEGATIVE); LEUKOCYTE ESTERASE,URINE NEGATIVE (NEGATIVE); NITRITE,URINE NEGATIVE (NEGATIVE); OCCULT BLOOD,URINE NEGATIVE (NEGATIVE); PH,URINE 7.5 (5.0-9.0); PROTEIN,URINE NEGATIVE (NEGATIVE)
[2022-11-10] MEDS ORDERED: Metoclopramide 10 MG/2 ML SDV IVPUSH ONE (22:52)
[2022-11-10] MEDS ORDERED: GI Cocktail Oral Solution 30 ML PO ONE (22:52)
[2022-11-10 22:55] LABS: AMPHETAMINES,URINE NEGATIVE (NEGATIVE); BARBITURATES,URINE NEGATIVE (NEGATIVE); BENZODIAZEPINE,URINE NEGATIVE (NEGATIVE); MDMA (ECSTASY), URINE NEGATIVE (NEGATIVE); METHADONE,URINE NEGATIVE (NEGATIVE); METHAMPHETAMINES,URINE NEGATIVE (NEGATIVE); OPIATES,URINE NEGATIVE (NEGATIVE); OXYCODONE,URINE NEGATIVE (NEGATIVE); PHENCYCLIDINE,URINE NEGATIVE (NEGATIVE); TCA,URINE NEGATIVE (NEGATIVE)
[2022-11-10 23:41] VITALS: BP 145/104; PULSE 103
== END 2022-11-10 23:34 | disposition home or self-care (01) ==
LOC: DL.ED 21:34
DX: K21.9 Gastro-esophageal reflux disease without esophagitis (principal); I10 Essential (primary) hypertension; J45.909 Unspecified asthma, uncomplicated; E66.9 Obesity, unspecified; Z68.26 Body mass index [BMI] 26.0-26.9, adult; Z88.1 Allergy status to other antibiotic agents; Z79.4 Long term (current) use of insulin; Z79.899 Other long term (current) drug therapy
CPT/HCPCS: 36415; 71045; 80053; 80305; 80307; 81003; 83605; 83735; 84145; 84484; 85025; 85379; 85610; 85730; 86140; 93005; 96374; 99285; A9270; J2765; J3490

== ENCOUNTER 2023-01-21 16:30 | Emergency (ER) | payer BC, MEDICAID ==
[2023-01-21 16:41] VITALS: BP 172/115; PULSE 105
== END 2023-01-21 17:15 | disposition home or self-care (01) ==
LOC: DL.ED 16:30
DX: M54.2 Cervicalgia (principal); E11.9 Type 2 diabetes mellitus without complications; I10 Essential (primary) hypertension; J45.909 Unspecified asthma, uncomplicated; E66.9 Obesity, unspecified; Z68.28 Body mass index [BMI] 28.0-28.9, adult; Z88.1 Allergy status to other antibiotic agents; Z79.4 Long term (current) use of insulin; Z79.899 Other long term (current) drug therapy; W01.198A Fall on same level from slipping, tripping and stumbling with subsequent striking against other object, initial encounter
CPT/HCPCS: 70450; 72125; 99283; 99284

== ENCOUNTER 2023-04-06 19:02 | Emergency (ER) | payer BC, MEDICAID ==
[2023-04-06 18:58] LABS: BASOPHILS PERCENT AUTO 0.5 % (0.0-1.0); HEMATOCRIT 46.2 % (40.0-54.0); HEMOGLOBIN 16.4 g/dL (14.0-18.0); LYMPHOCYTES PERCENT AUTO 9.6 % (20.5-50.1); MEAN CORPUSCULAR HEMOGLOBIN 28.6 pg (27.0-34.0); MEAN CORPUSCULAR HGB CONC 35.5 g/dL (33.0-35.0); MEAN CORPUSCULAR VOLUME 80.5 fL (80-100); MONOCYTES PERCENT AUTO 6.9 % (2-8); PLATELET COUNT,PLT 220 10^3/uL (150-450); RED BLOOD CELL COUNT 5.74 10^6/uL (4.6-6.2); WHITE BLOOD CELL COUNT,WBC 5.6 10^3/uL (5.0-10.0)
[~2023-04-06 19:02] MED LIST changes: -Dextrose 5%-0.45% NaCl 1,000 ML IV SCH; -Midazolam 1 MG/ML 2 ML SDV IV ONE; -Midazolam 1 MG/ML 2 ML SDV ONE; -Sodium Chloride 0.9% 10 ML Syringe FLUSH SCH; -fentaNYL 100 MCG/2 ML SDV IV ONE; -fentaNYL 100 MCG/2 ML SDV ONE
[2023-04-06 19:06] VITALS: PULSE 120
[2023-04-06 19:16] LABS: INR 1.1 (0.9-1.2); PROTHROMBIN TIME 10.8 SEC (9.0-12.0); PTT,PARTIAL THROMBOPLSTIN TIME 24.1 SEC (22.0-34.0)
[2023-04-06 19:21] LABS: A/G RATIO 0.9; ALANINE AMINOTRANSFERASE,ALT 161 U/L (16-63); ALBUMIN 3.9 g/dL (3.4-5.0); ALKALINE PHOSPHATASE 87 U/L (46-116); ANION GAP 17.2 mEq/L (7-13); ASPARTATE AMNIOTRANSFERASE,AST 207 U/L (15-37); BLOOD UREA NITROGEN,BUN 14 mg/dL (7-18); BUN/CREATININE RATIO 17.1 (No establ ref range); CALCIUM 9.6 mg/dL (8.5-10.1); CARBON DIOXIDE,CO2 28 mmol/L (21-32); CHLORIDE,CL 98 mmol/L (98-107); CREATININE 0.82 mg/dL (0.70-1.30); GLUCOSE RANDOM 150 mg/dL (70-99); MAGNESIUM 1.2 mg/dL (1.8-2.4); POTASSIUM,K 3.2 mmol/L (3.5-5.1); PROTEIN TOTAL,TP 8.2 g/dL (6.4-8.2); SODIUM,NA 140 mmol/L (136-145)
[2023-04-06 19:24] LABS: ESTIMATED GFR 110 mL/min (>=60)
[2023-04-06] MEDS ORDERED: Magnesium Sulfate/Water 2 GM in Premix Bag 1 BAG IV ONE (19:27)
[2023-04-06] MEDS ORDERED: Potassium Chloride 10 MEQ Tab.ER PO ONE (19:28)
[2023-04-06 19:32] LABS: LACTIC ACID 2.6 mmol/L (0.4-2.0)
[2023-04-06 19:34] LABS: B-TYPE NATRIURETIC PEPTIDE,BNP 38 pg/ml (0-100)
[2023-04-06] MEDS ORDERED: Lactated Ringers 1,000 ML IV SCH (19:45)
[2023-04-06 20:00] LABS: AMPHETAMINES,URINE NEGATIVE (NEGATIVE); BARBITURATES,URINE NEGATIVE (NEGATIVE); BENZODIAZEPINE,URINE NEGATIVE (NEGATIVE); MDMA (ECSTASY), URINE NEGATIVE (NEGATIVE); METHADONE,URINE NEGATIVE (NEGATIVE); METHAMPHETAMINES,URINE NEGATIVE (NEGATIVE); OPIATES,URINE NEGATIVE (NEGATIVE); OXYCODONE,URINE NEGATIVE (NEGATIVE); PHENCYCLIDINE,URINE NEGATIVE (NEGATIVE); TCA,URINE NEGATIVE (NEGATIVE)
[2023-04-06 20:02] LABS: APPEARANCE,URINE CLEAR (CLEAR); BILIRUBIN,URINE MODERATE (NEGATIVE); COLOR,URINE DARK YELLOW (YELLOW); GLUCOSE,URINE 100 (NEGATIVE); KETONES,URINE >=160 (NEGATIVE); LEUKOCYTE ESTERASE,URINE NEGATIVE (NEGATIVE); NITRITE,URINE NEGATIVE (NEGATIVE); OCCULT BLOOD,URINE NEGATIVE (NEGATIVE); PROTEIN,URINE 100 (NEGATIVE); UROBILINOGEN,URINE >=8.0 mg/dL (0.2-1.0)
[2023-04-06 20:15] LABS: BACTERIA,URINE FEW /HPF (0-FEW/HPF); EPITHELIAL CELLS,URINE FEW /HPF (NOT SEEN); MUCUS,URINE MANY /LPF (NOT SEEN); RBC,URINE 0-5 /HPF (0-5)
[2023-04-06] MEDS ORDERED: Sodium Chloride 0.9% 10 ML Syringe FLUSH PRN (20:18)
[2023-04-06] MEDS ORDERED: Glucagon,Human Recombinant 1 MG Vial IM PRN (20:23)
[2023-04-06] MEDS ORDERED: 50% Dextrose in Water 50 ML Syringe IVPUSH PRN (20:23)
[2023-04-06] MEDS ORDERED: Sodium Chloride 0.9% 1,000 ML IV SCH (20:30)
[2023-04-06 20:44] LABS: HEMOGLOBIN A1C 6.9 % (<5.7)
[2023-04-06 21:21] LABS: ANION GAP 16.6 mEq/L (7-13); CALCIUM 9.5 mg/dL (8.5-10.1); CREATININE 0.71 mg/dL (0.70-1.30); EST CRCL DRUG DOSING (CG) 152.76 mL/min; POTASSIUM,K 3.6 mmol/L (3.5-5.1)
[2023-04-06] MEDS ORDERED: Lisinopril 20 MG Tab PO ONE (22:52)
[2023-04-06 23:05] VITALS: BP 158/121
== END 2023-04-06 23:10 | disposition home or self-care (01) ==
LOC: DL.ED 19:02
DX: I16.0 Hypertensive urgency (principal); I10 Essential (primary) hypertension; R07.89 Other chest pain; E83.42 Hypomagnesemia; E87.6 Hypokalemia; E87.20 Acidosis, unspecified; E11.9 Type 2 diabetes mellitus without complications; Z91.199 Patient's noncompliance with other medical treatment and regimen due to unspecified reason; Z86.16 Personal history of COVID-19; Z88.1 Allergy status to other antibiotic agents; Z79.4 Long term (current) use of insulin; Z79.899 Other long term (current) drug therapy
CPT/HCPCS: 36415; 80048; 80053; 80305-QW; 81001; 82947; 83036; 83605; 83735; 83880; 84484; 85025; 85379; 85610; 85730; 87040; 93005; 93010; 96365; 96366; 99284; 99285-25; A9270-GY; J3475; J3490; J7030; J7120

== ENCOUNTER 2023-05-22 15:21 | Emergency (ER) | payer BC, MEDICAID | END 2023-05-22 16:36 | disposition left against medical advice (07) | LOC: DL.ED 15:21 | DX: Z53.21 Procedure and treatment not carried out due to patient leaving prior to being seen by health care provider (principal) ==

== ENCOUNTER 2023-10-11 14:05 | Emergency (ER) | payer BC, MEDICAID ==
[2023-10-11 14:23] VITALS: BP 126/98; PULSE 109
[2023-10-11 14:32] LABS: APPEARANCE,URINE SLIGHTLY CLOUDY (CLEAR); BILIRUBIN,URINE SMALL (NEGATIVE); COLOR,URINE DARK YELLOW (YELLOW); GLUCOSE,URINE 500 (NEGATIVE); KETONES,URINE 40 (NEGATIVE); LEUKOCYTE ESTERASE,URINE TRACE (NEGATIVE); NITRITE,URINE NEGATIVE (NEGATIVE); OCCULT BLOOD,URINE TRACE-LYSED (NEGATIVE); PROTEIN,URINE 30 (NEGATIVE); UROBILINOGEN,URINE >=8.0 mg/dL (0.2-1.0)
[2023-10-11 14:43] LABS: BACTERIA,URINE MODERATE /HPF (0-FEW/HPF); EPITHELIAL CELLS,URINE FEW /HPF (NOT SEEN); WBC,URINE 50-75 /HPF (0-5/HPF)
[2023-10-11] MEDS: Ketorolac 30 MG/ML SDV IM ONE (14:45)
[2023-10-11] MEDS: Ondansetron 4 MG Tab.DIS PO ONE (14:45)
[2023-10-11] MEDS: Acetaminophen/HYDROcodone 325-10 MG Tab PO ONE (14:59)
[2023-10-11] MEDS: Take Home: Acetaminophen/HYDROcodone 325-5 MG, 5 Tab Pack PO ONE (16:41)
[2023-10-11] MEDS: Take Home: Sulfamethoxazole/Trimethoprim 800-160 MG Tab, 6 Tab Pack PO ONE (16:41)
== END 2023-10-11 16:43 | disposition home or self-care (01) ==
LOC: DL.ED 14:05
DX: N20.0 Calculus of kidney (principal); I10 Essential (primary) hypertension; J45.909 Unspecified asthma, uncomplicated; E11.9 Type 2 diabetes mellitus without complications; Z86.16 Personal history of COVID-19; Z79.4 Long term (current) use of insulin; Z79.51 Long term (current) use of inhaled steroids; Z88.1 Allergy status to other antibiotic agents; Z79.899 Other long term (current) drug therapy
CPT/HCPCS: 74176; 81001; 82947; 87086; 96372; 99284; A9270; J1885; 87088; 87186

== ENCOUNTER 2023-10-18 19:03 | Emergency (ER) | payer BC ==
[2023-10-18] MEDS: Ketorolac 30 MG/ML SDV IVPUSH ONE (15:55)
[2023-10-18] MEDS: Sodium Chloride 0.9% 10 ML Syringe FLUSH PRN (15:56)
[2023-10-18 16:01] LABS: BASOPHILS PERCENT AUTO 0.3 % (0.0-1.0); EOSINOPHILS PERCENT AUTO 1.1 % (1.0-3.0); HEMATOCRIT 41.9 % (40.0-54.0); HEMOGLOBIN 14.7 g/dL (14.0-18.0); MEAN CORPUSCULAR HGB CONC 35.1 g/dL (33.0-35.0); MEAN CORPUSCULAR VOLUME 76.9 fL (80-100); MONOCYTES PERCENT AUTO 8.9 % (2-8); NEUTROPHILS PERCENT AUTO 80.7 % (42.2-75.2); PLATELET COUNT,PLT 412 10^3/uL (150-450); RED BLOOD CELL COUNT 5.45 10^6/uL (4.6-6.2); WHITE BLOOD CELL COUNT,WBC 11.8 10^3/uL (5.0-10.0)
[2023-10-18 16:02] LABS: APPEARANCE,URINE SLIGHTLY CLOUDY (CLEAR); BILIRUBIN,URINE NEGATIVE (NEGATIVE); COLOR,URINE YELLOW (YELLOW); GLUCOSE,URINE 500 (NEGATIVE); KETONES,URINE NEGATIVE (NEGATIVE); LEUKOCYTE ESTERASE,URINE SMALL (NEGATIVE); NITRITE,URINE NEGATIVE (NEGATIVE); OCCULT BLOOD,URINE TRACE-INTACT (NEGATIVE); PROTEIN,URINE NEGATIVE (NEGATIVE)
[2023-10-18 16:10] LABS: EPITHELIAL CELLS,URINE FEW /HPF (NOT SEEN); WBC,URINE 40-50 /HPF (0-5/HPF)
[2023-10-18 16:11] LABS: BACTERIA,URINE RARE /HPF (0-FEW/HPF); RBC,URINE 0-5 /HPF (0-5)
[2023-10-18] MEDS: HYDROmorphone 1 MG/ML Syringe IVPUSH ONE ×2 (16:26→18:23)
[2023-10-18] MEDS: Oxybutynin 5 MG Tab.ER PO ONE (18:23)
[2023-10-18] MEDS: Tamsulosin 0.4 MG Cap.ER PO ONE (18:23)
[2023-10-18 20:21] VITALS: BP 136/87; PULSE 98
== END 2023-10-18 20:22 | disposition home or self-care (01) ==
LOC: DL.ED 19:03
DX: N13.2 Hydronephrosis with renal and ureteral calculous obstruction (principal); R33.9 Retention of urine, unspecified; N13.4 Hydroureter; I10 Essential (primary) hypertension; J45.909 Unspecified asthma, uncomplicated; E11.9 Type 2 diabetes mellitus without complications; Z88.8 Allergy status to other drugs, medicaments and biological substances; Z79.4 Long term (current) use of insulin; Z79.899 Other long term (current) drug therapy; Z86.16 Personal history of COVID-19
CPT/HCPCS: 36415; 51702; 71045; 74176; 81001; 84484; 85025; 87086; 87088; 87186; 96374; 96375; 96376; 99285; A9270; J1170; J1885; J3490

== ENCOUNTER 2023-10-21 16:17 | Emergency (ER) | payer BC ==
[2023-10-21] MEDS: Sodium Chloride 0.9% 1,000 ML IV SCH (16:54)
[2023-10-21] MEDS: HYDROmorphone 1 MG/ML Syringe IVPUSH ONE (16:54)
[2023-10-21 16:56] LABS: BASOPHILS PERCENT AUTO 0.3 % (0.0-1.0); EOSINOPHILS PERCENT AUTO 1.1 % (1.0-3.0); HEMATOCRIT 41.7 % (40.0-54.0); HEMOGLOBIN 14.5 g/dL (14.0-18.0); LYMPHOCYTES PERCENT AUTO 9.3 % (20.5-50.1); MEAN CORPUSCULAR HGB CONC 34.8 g/dL (33.0-35.0); MEAN CORPUSCULAR VOLUME 77.7 fL (80-100); MONOCYTES PERCENT AUTO 5.9 % (2-8); NEUTROPHILS PERCENT AUTO 83.4 % (42.2-75.2); PLATELET COUNT,PLT 402 10^3/uL (150-450); RED BLOOD CELL COUNT 5.37 10^6/uL (4.6-6.2); WHITE BLOOD CELL COUNT,WBC 14.4 10^3/uL (5.0-10.0)
[2023-10-21 16:56] LABS: APPEARANCE,URINE SLIGHTLY CLOUDY (CLEAR); BILIRUBIN,URINE NEGATIVE (NEGATIVE); COLOR,URINE YELLOW (YELLOW); GLUCOSE,URINE 500 (NEGATIVE); KETONES,URINE NEGATIVE (NEGATIVE); LEUKOCYTE ESTERASE,URINE TRACE (NEGATIVE); NITRITE,URINE NEGATIVE (NEGATIVE); OCCULT BLOOD,URINE LARGE (NEGATIVE); PROTEIN,URINE NEGATIVE (NEGATIVE); UROBILINOGEN,URINE >=8.0 mg/dL (0.2-1.0)
[2023-10-21 17:05] LABS: WBC,URINE 40-50 /HPF (0-5/HPF)
[2023-10-21 17:06] LABS: BACTERIA,URINE FEW /HPF (0-FEW/HPF); EPITHELIAL CELLS,URINE FEW /HPF (NOT SEEN); MUCUS,URINE RARE /LPF (NOT SEEN); RBC,URINE 50-75 /HPF (0-5)
[2023-10-21] MEDS: Penicillin V Potassium 250 MG Tab PO ONE (17:13)
[2023-10-21 17:15] LABS: ALBUMIN 2.8 g/dL (3.4-5.0); ANION GAP 12.8 mEq/L (7-13); BILIRUBIN TOTAL 0.7 mg/dL (0.2-1.0); BUN/CREATININE RATIO 11.6 (No establ ref range); CALCIUM 8.6 mg/dL (8.5-10.1); CREATININE 0.86 mg/dL (0.70-1.30); EST CRCL DRUG DOSING (CG) 126.11 mL/min; POTASSIUM,K 3.8 mmol/L (3.5-5.1); PROTEIN TOTAL,TP 7.8 g/dL (6.4-8.2)
[2023-10-21 17:16] LABS: A/G RATIO 0.56
[2023-10-21 17:39] VITALS: BP 144/97; PULSE 109
[2023-10-21] MEDS: Oxybutynin 5 MG Tab.ER PO ONE (17:59)
[2023-10-21] MEDS: HYDROmorphone 0.5 MG/0.5 ML Syringe IVPUSH ONE (18:04)
== END 2023-10-21 18:26 | disposition home or self-care (01) ==
LOC: DL.ED 16:17
DX: N39.0 Urinary tract infection, site not specified (principal); I10 Essential (primary) hypertension; E11.9 Type 2 diabetes mellitus without complications; J45.909 Unspecified asthma, uncomplicated; Z88.1 Allergy status to other antibiotic agents; Z79.51 Long term (current) use of inhaled steroids; Z79.899 Other long term (current) drug therapy; Z79.4 Long term (current) use of insulin
CPT/HCPCS: 36415; 51702; 80053; 81001; 85025; 87086; 96361; 96374; 96376; 99283; A9270; J1170; J7030; 87088; 87186

== ENCOUNTER 2023-10-28 12:13 | Emergency (ER) | payer BC ==
[2023-10-28 12:29] VITALS: BP 144/103; PULSE 101
[2023-10-28 12:38] LABS: APPEARANCE,URINE TURBID (CLEAR); BILIRUBIN,URINE NEGATIVE (NEGATIVE); COLOR,URINE YELLOW (YELLOW); GLUCOSE,URINE 500 (NEGATIVE); KETONES,URINE NEGATIVE (NEGATIVE); LEUKOCYTE ESTERASE,URINE SMALL (NEGATIVE); NITRITE,URINE NEGATIVE (NEGATIVE); OCCULT BLOOD,URINE MODERATE (NEGATIVE); PH,URINE 6.5 (5.0-9.0); PROTEIN,URINE TRACE (NEGATIVE); UROBILINOGEN,URINE >=8.0 mg/dL (0.2-1.0)
[2023-10-28 12:49] LABS: EPITHELIAL CELLS,URINE RARE /HPF (NOT SEEN); WBC,URINE PACKED /HPF (0-5/HPF)
[2023-10-28 12:50] LABS: BACTERIA,URINE FEW /HPF (0-FEW/HPF)
== END 2023-10-28 12:48 | disposition home or self-care (01) ==
LOC: DL.ED 12:13
DX: N30.01 Acute cystitis with hematuria (principal); I10 Essential (primary) hypertension; J45.909 Unspecified asthma, uncomplicated; E11.9 Type 2 diabetes mellitus without complications; Z88.8 Allergy status to other drugs, medicaments and biological substances; Z79.51 Long term (current) use of inhaled steroids; Z79.4 Long term (current) use of insulin; Z79.899 Other long term (current) drug therapy; Z86.16 Personal history of COVID-19
CPT/HCPCS: 81001; 87086; 87088; 87186; 99284

== ENCOUNTER 2023-11-03 10:02 | Inpatient (IN) | payer BC, OTHER ==
[2023-11-03] MEDS: Sodium Chloride 0.9% 1,000 ML IV ONE (10:35)
[2023-11-03] MEDS: Sodium Chloride 0.9% 10 ML Syringe FLUSH PRN (10:35)
[2023-11-03 10:41] LABS: HEMATOCRIT 41.6 % (40.0-54.0); HEMOGLOBIN 14.6 g/dL (14.0-18.0); MEAN CORPUSCULAR HEMOGLOBIN 26.6 pg (27.0-34.0); MEAN CORPUSCULAR HGB CONC 35.1 g/dL (33.0-35.0); MEAN CORPUSCULAR VOLUME 75.9 fL (80-100); PLATELET COUNT,PLT 442 10^3/uL (150-450); RED BLOOD CELL COUNT 5.48 10^6/uL (4.6-6.2); WHITE BLOOD CELL COUNT,WBC 20.5 10^3/uL (5.0-10.0)
[2023-11-03 10:46] LABS: BASOPHILS PERCENT AUTO 0.2 % (0.0-1.0); EOSINOPHILS PERCENT AUTO 0.6 % (1.0-3.0); LYMPHOCYTES PERCENT AUTO 5.4 % (20.5-50.1); MONOCYTES PERCENT AUTO 7.8 % (2-8)
[2023-11-03 10:49] LABS: APPEARANCE,URINE CLOUDY (CLEAR); BILIRUBIN,URINE SMALL (NEGATIVE); COLOR,URINE DARK YELLOW (YELLOW); GLUCOSE,URINE 100 (NEGATIVE); KETONES,URINE 15 (NEGATIVE); LEUKOCYTE ESTERASE,URINE LARGE (NEGATIVE); NITRITE,URINE POSITIVE (NEGATIVE); OCCULT BLOOD,URINE MODERATE (NEGATIVE); PH,URINE 6.5 (5.0-9.0); PROTEIN,URINE 100 (NEGATIVE); UROBILINOGEN,URINE >=8.0 mg/dL (0.2-1.0)
[2023-11-03 10:51] LABS: AMPHETAMINES,URINE NEGATIVE (NEGATIVE); BARBITURATES,URINE NEGATIVE (NEGATIVE); BENZODIAZEPINE,URINE NEGATIVE (NEGATIVE); MDMA (ECSTASY), URINE NEGATIVE (NEGATIVE); METHADONE,URINE NEGATIVE (NEGATIVE); METHAMPHETAMINES,URINE NEGATIVE (NEGATIVE); OPIATES,URINE NEGATIVE (NEGATIVE); OXYCODONE,URINE NEGATIVE (NEGATIVE); PHENCYCLIDINE,URINE NEGATIVE (NEGATIVE); TCA,URINE NEGATIVE (NEGATIVE)
[2023-11-03] MEDS: cefTRIAXone 2 GM Vial IVPUSH ONE (10:55)
[2023-11-03] MEDS: Ondansetron 4 MG/2 ML SDV IVPUSH ONE (10:55)
[2023-11-03 11:02] LABS: ALANINE AMINOTRANSFERASE,ALT 25 U/L (16-63); ALBUMIN 2.6 g/dL (3.4-5.0); ALKALINE PHOSPHATASE 117 U/L (46-116); ANION GAP 15.7 mEq/L (7-13); ASPARTATE AMNIOTRANSFERASE,AST 26 U/L (15-37); BAND PERCENT MAN 1 %; BILIRUBIN TOTAL 1.8 mg/dL (0.2-1.0); BLOOD UREA NITROGEN,BUN 16 mg/dL (7-18); BUN/CREATININE RATIO 16.2 (No establ ref range); C-REACTIVE PROTEIN 16.07 ng/dL (<=0.50); CARBON DIOXIDE,CO2 27 mmol/L (21-32); CHLORIDE,CL 91 mmol/L (98-107); CREATININE 0.99 mg/dL (0.70-1.30); EST CRCL DRUG DOSING (CG) 109.55 mL/min; GLUCOSE RANDOM 241 mg/dL (70-99); LYMPHOCYTES PERCENT MAN 5 % (20-50); MAGNESIUM 1.5 mg/dL (1.8-2.4); MONOCYTES PERCENT MAN 6 % (2-8); POTASSIUM,K 3.7 mmol/L (3.5-5.1); PROTEIN TOTAL,TP 8.9 g/dL (6.4-8.2); SEG NEUTROPHILS PERCENT MAN 87 % (42-75); SODIUM,NA 130 mmol/L (136-145)
[2023-11-03 11:02] LABS: AMORPHOUS SEDIMENT,URINE MODERATE /HPF (NOT SEEN); BACTERIA,URINE MANY /HPF (0-FEW/HPF); EPITHELIAL CELLS,URINE RARE /HPF (NOT SEEN); WBC,URINE PACKED /HPF (0-5/HPF)
[2023-11-03 11:03] LABS: EOSINOPHILS PERCENT MAN 1 % (1-3)
[2023-11-03 11:04] LABS: MUCUS,URINE FEW /LPF (NOT SEEN); RBC,URINE 40-50 /HPF (0-5)
[2023-11-03 11:10] LABS: A/G RATIO 0.41; ESTIMATED GFR 96 mL/min (>=60); ETHANOL BLOOD MEDICAL < 3 mg/dL (0)
[2023-11-03] MEDS ORDERED: Docusate Sodium 100 MG Cap PO PRN (13:55)
[2023-11-03] MEDS ORDERED: Bisacodyl 5 MG Tab PO PRN (13:55)
[2023-11-03] MEDS: Acetaminophen 325 MG Tab PO PRN (14:25)
[2023-11-03] MEDS: Sodium Chloride 0.9% 1,000 ML IV SCH (16:00)
[2023-11-03] MEDS: Ondansetron 4 MG/2 ML SDV IVPUSH PRN (17:05)
[2023-11-03] MEDS: Insulin Lispro 100 Units/ML 3 ML Vial SUBCUT SCH (17:05)
[2023-11-03] MEDS: Formoterol/Mometasone 200-5 MCG 8.8 GM Inhaler IH SCH (20:05)
[2023-11-03] MEDS: Insulin Glarg,Human.Rec.Analog 100 Unit/ML 10 ML Vial SUBCUT SCH (20:11)
[2023-11-04 06:17] LABS: BASOPHILS PERCENT AUTO 0.2 % (0.0-1.0); EOSINOPHILS PERCENT AUTO 0.5 % (1.0-3.0); HEMATOCRIT 37.4 % (40.0-54.0); HEMOGLOBIN 12.8 g/dL (14.0-18.0); LYMPHOCYTES PERCENT AUTO 6.4 % (20.5-50.1); MEAN CORPUSCULAR HEMOGLOBIN 26.4 pg (27.0-34.0); MEAN CORPUSCULAR HGB CONC 34.2 g/dL (33.0-35.0); MEAN CORPUSCULAR VOLUME 77.1 fL (80-100); MONOCYTES PERCENT AUTO 9.1 % (2-8); NEUTROPHILS PERCENT AUTO 83.8 % (42.2-75.2); PLATELET COUNT,PLT 398 10^3/uL (150-450); RED BLOOD CELL COUNT 4.85 10^6/uL (4.6-6.2); WHITE BLOOD CELL COUNT,WBC 18.6 10^3/uL (5.0-10.0)
[2023-11-04] MEDS: cefTRIAXone 2 GM Vial IVPUSH SCH (06:20)
[2023-11-04 06:34] LABS: CALCIUM 8.1 mg/dL (8.5-10.1); CREATININE 0.99 mg/dL (0.70-1.30); EST CRCL DRUG DOSING (CG) 109.55 mL/min
[2023-11-04] MEDS: Potassium Chloride 10 MEQ Tab.ER PO ONE (07:55)
[2023-11-04] MEDS: Tamsulosin 0.4 MG Cap.ER PO SCH (07:59)
[2023-11-04] MEDS: Enoxaparin 40 MG/0.4 ML Syringe SUBCUT SCH (07:59)
[2023-11-04] MEDS: DULoxetine 30 MG Cap PO SCH (07:59)
[2023-11-04] MEDS: atorvaSTATin 20 MG Tab PO SCH (07:59)
[2023-11-04] MEDS: Pregabalin 75 MG Cap PO SCH (08:00)
[2023-11-04] MEDS: Pantoprazole 40 MG Tab.CR PO SCH (08:00)
[2023-11-04] MEDS: Empagliflozin 25 MG Tab PO SCH (08:00)
[2023-11-04] MEDS: Acetaminophen/HYDROcodone 325-5 MG Tab PO PRN (09:49)
[2023-11-04] MEDS: Albuterol 6.7 GM Inhaler INH PRN (11:36)
[2023-11-04] MEDS: Melatonin 3 MG Tab PO PRN (21:00)
[2023-11-04] MEDS: Sodium Chloride 0.9% 1,000 ML IV SCH (21:00)
[2023-11-05 06:33] LABS: BASOPHILS PERCENT AUTO 0.2 % (0.0-1.0); EOSINOPHILS PERCENT AUTO 2.4 % (1.0-3.0); HEMATOCRIT 35.5 % (40.0-54.0); LYMPHOCYTES PERCENT AUTO 7.1 % (20.5-50.1); MEAN CORPUSCULAR HEMOGLOBIN 26.3 pg (27.0-34.0); MEAN CORPUSCULAR HGB CONC 33.8 g/dL (33.0-35.0); MEAN CORPUSCULAR VOLUME 77.7 fL (80-100); MONOCYTES PERCENT AUTO 10.1 % (2-8); NEUTROPHILS PERCENT AUTO 80.2 % (42.2-75.2); PLATELET COUNT,PLT 377 10^3/uL (150-450); RED BLOOD CELL COUNT 4.57 10^6/uL (4.6-6.2)
[2023-11-05 07:43] LABS: ANION GAP 12.1 mEq/L (7-13); CREATININE 0.92 mg/dL (0.70-1.30); EST CRCL DRUG DOSING (CG) 117.89 mL/min; POTASSIUM,K 3.1 mmol/L (3.5-5.1)
[2023-11-05] MEDS: Potassium Chloride 10 MEQ Tab.ER PO ONE (09:14)
[2023-11-05] MEDS ORDERED: Glucagon,Human Recombinant 1 MG Vial IM PRN (21:56)
[2023-11-05] MEDS ORDERED: 50% Dextrose in Water 50 ML Syringe IVPUSH PRN (21:56)
[2023-11-05] MEDS: Insulin Lispro 100 Units/ML 3 ML Vial SUBCUT SCH (23:10)
[2023-11-06 06:43] LABS: BASOPHILS PERCENT AUTO 0.2 % (0.0-1.0); EOSINOPHILS PERCENT AUTO 3.4 % (1.0-3.0); HEMATOCRIT 37.2 % (40.0-54.0); HEMOGLOBIN 12.3 g/dL (14.0-18.0); LYMPHOCYTES PERCENT AUTO 7.9 % (20.5-50.1); MEAN CORPUSCULAR HEMOGLOBIN 26.1 pg (27.0-34.0); MEAN CORPUSCULAR HGB CONC 33.1 g/dL (33.0-35.0); MONOCYTES PERCENT AUTO 8.4 % (2-8); NEUTROPHILS PERCENT AUTO 80.1 % (42.2-75.2); PLATELET COUNT,PLT 415 10^3/uL (150-450); RED BLOOD CELL COUNT 4.71 10^6/uL (4.6-6.2); WHITE BLOOD CELL COUNT,WBC 13.6 10^3/uL (5.0-10.0)
[2023-11-06 06:45] LABS: ANION GAP 15.6 mEq/L (7-13); CALCIUM 8.3 mg/dL (8.5-10.1); CREATININE 0.92 mg/dL (0.70-1.30); EST CRCL DRUG DOSING (CG) 116.65 mL/min; POTASSIUM,K 3.6 mmol/L (3.5-5.1)
[2023-11-06 08:04] VITALS: BP 119/71; PULSE 96
== END 2023-11-06 10:35 | disposition home or self-care (01) | DRG 720 ==
LOC: DL.ED 10:02 → DL.MS 11:36
PROVIDERS: ADMIT Internal Medicine; ATTEND Internal Medicine
PROC: 3E03329 Introduction of Other Anti-infective into Peripheral Vein, Percutaneous Approach (ICD-10-PCS; principal; 2023-11-03)
PROC: 0T9B70Z Drainage of Bladder with Drainage Device, Via Natural or Artificial Opening (ICD-10-PCS; 2023-11-04)
DX: A41.2 Sepsis due to unspecified staphylococcus (principal); N39.0 Urinary tract infection, site not specified; E11.40 Type 2 diabetes mellitus with diabetic neuropathy, unspecified; I10 Essential (primary) hypertension; K59.00 Constipation, unspecified; J45.909 Unspecified asthma, uncomplicated; M19.90 Unspecified osteoarthritis, unspecified site; R26.9 Unspecified abnormalities of gait and mobility; Z88.1 Allergy status to other antibiotic agents; Z79.51 Long term (current) use of inhaled steroids; Z79.4 Long term (current) use of insulin; Z79.899 Other long term (current) drug therapy; Z87.81 Personal history of (healed) traumatic fracture; Z86.16 Personal history of COVID-19
CPT/HCPCS: 36415; 51702; 51798; 76770; 80048; 80053; 80305-QW; 80307; 81001; 82550; 82947; 83605; 83735; 84100; 85025; 86140; 87040; 87077; 87086; 87088; 87186; 94664; 96361; 96374; 96375; 97161-GP; 97165-GO; 99223; 99233; 99239; 99285; 99285-25; A9270-GY; J0696; J1650; J1815-GY; J2405; J3490; J7030

== ENCOUNTER 2023-12-02 08:59 | Emergency (ER) | payer BC ==
[2023-12-02 09:41] LABS: BASOPHILS PERCENT AUTO 0.2 % (0.0-1.0); HEMATOCRIT 40.1 % (40.0-54.0); HEMOGLOBIN 13.4 g/dL (14.0-18.0); LYMPHOCYTES PERCENT AUTO 14.9 % (20.5-50.1); MEAN CORPUSCULAR HEMOGLOBIN 26.2 pg (27.0-34.0); MEAN CORPUSCULAR HGB CONC 33.4 g/dL (33.0-35.0); MEAN CORPUSCULAR VOLUME 78.3 fL (80-100); MONOCYTES PERCENT AUTO 6.9 % (2-8); PLATELET COUNT,PLT 438 10^3/uL (150-450); RED BLOOD CELL COUNT 5.12 10^6/uL (4.6-6.2); WHITE BLOOD CELL COUNT,WBC 11.3 10^3/uL (5.0-10.0)
[2023-12-02 09:41] LABS: APPEARANCE,URINE SLIGHTLY CLOUDY (CLEAR); BILIRUBIN,URINE NEGATIVE (NEGATIVE); COLOR,URINE YELLOW (YELLOW); GLUCOSE,URINE 500 (NEGATIVE); KETONES,URINE NEGATIVE (NEGATIVE); LEUKOCYTE ESTERASE,URINE SMALL (NEGATIVE); NITRITE,URINE NEGATIVE (NEGATIVE); OCCULT BLOOD,URINE SMALL (NEGATIVE); PH,URINE 6.5 (5.0-9.0); PROTEIN,URINE 30 (NEGATIVE)
[2023-12-02 09:57] LABS: ANION GAP 12.5 mEq/L (7-13); C-REACTIVE PROTEIN 2.81 ng/dL (<=0.50); CALCIUM 8.9 mg/dL (8.5-10.1); CREATININE 0.9 mg/dL (0.70-1.30); EST CRCL DRUG DOSING (CG) 119.24 mL/min; POTASSIUM,K 3.5 mmol/L (3.5-5.1)
[2023-12-02 10:02] LABS: BACTERIA,URINE MODERATE /HPF (0-FEW/HPF); EPITHELIAL CELLS,URINE FEW /HPF (NOT SEEN); RBC,URINE 0-5 /HPF (0-5); WBC,URINE 75-100 /HPF (0-5/HPF)
[2023-12-02] MEDS: diphenhydrAMINE 50 MG/ML SDV IVPUSH ONE (10:05)
[2023-12-02] MEDS: Ketorolac 30 MG/ML SDV IVPUSH ONE (10:05)
[2023-12-02] MEDS: Sodium Chloride 0.9% 10 ML Syringe FLUSH PRN (10:05)
[2023-12-02] MEDS: Sodium Chloride 0.9% 1,000 ML IV ONE (10:09)
[2023-12-02 12:01] VITALS: BP 152/109; PULSE 102
== END 2023-12-02 12:16 | disposition home or self-care (01) ==
LOC: DL.ED 08:59
DX: M54.6 Pain in thoracic spine (principal); M54.50 Low back pain, unspecified; N30.01 Acute cystitis with hematuria; N40.0 Benign prostatic hyperplasia without lower urinary tract symptoms; M89.9 Disorder of bone, unspecified; K62.89 Other specified diseases of anus and rectum; E11.40 Type 2 diabetes mellitus with diabetic neuropathy, unspecified; Z86.16 Personal history of COVID-19; Z87.891 Personal history of nicotine dependence; Z79.4 Long term (current) use of insulin; Z79.899 Other long term (current) drug therapy; Z79.2 Long term (current) use of antibiotics; Z88.1 Allergy status to other antibiotic agents
CPT/HCPCS: 10060; 36415; 72128; 72131; 74176; 80048; 81001; 85025; 86140; 87070; 87086; 96365; 96375; 99285; J1200; J1885; J3370; J7030; J7050; 87077; 87088; 87186; 99284; J3490

== ENCOUNTER 2023-12-07 07:50 | Emergency (ER) | payer BC ==
[2023-12-07] MEDS: Sodium Chloride 0.9% 1,000 ML IV ONE (08:12)
[2023-12-07] MEDS: Ondansetron 4 MG/2 ML SDV IV ONE (08:12)
[2023-12-07 08:29] LABS: BASOPHILS PERCENT AUTO 0.2 % (0.0-1.0); EOSINOPHILS PERCENT AUTO 1.3 % (1.0-3.0); HEMATOCRIT 37.4 % (40.0-54.0); HEMOGLOBIN 12.8 g/dL (14.0-18.0); LYMPHOCYTES PERCENT AUTO 11.3 % (20.5-50.1); MEAN CORPUSCULAR HEMOGLOBIN 26.4 pg (27.0-34.0); MEAN CORPUSCULAR HGB CONC 34.2 g/dL (33.0-35.0); MEAN CORPUSCULAR VOLUME 77.1 fL (80-100); MONOCYTES PERCENT AUTO 7.7 % (2-8); NEUTROPHILS PERCENT AUTO 79.5 % (42.2-75.2); PLATELET COUNT,PLT 417 10^3/uL (150-450); RED BLOOD CELL COUNT 4.85 10^6/uL (4.6-6.2); WHITE BLOOD CELL COUNT,WBC 12.2 10^3/uL (5.0-10.0)
[2023-12-07 08:46] VITALS: BP 148/101; PULSE 103
[2023-12-07 08:52] LABS: ALBUMIN 2.6 g/dL (3.4-5.0); ANION GAP 14.8 mEq/L (7-13); BUN/CREATININE RATIO 17.5 (No establ ref range); CALCIUM 8.9 mg/dL (8.5-10.1); CREATININE 0.8 mg/dL (0.70-1.30); EST CRCL DRUG DOSING (CG) 134.15 mL/min; POTASSIUM,K 3.8 mmol/L (3.5-5.1)
[2023-12-07 08:55] LABS: A/G RATIO 0.48; LACTIC ACID 0.8 mmol/L (0.4-2.0)
[2023-12-07] MEDS: Iopamidol 612 MG/ML 100 ML Bottle IVPUSH ONE (09:53)
[2023-12-07 11:26] LABS: APPEARANCE,URINE CLOUDY (CLEAR); BILIRUBIN,URINE NEGATIVE (NEGATIVE); COLOR,URINE YELLOW (YELLOW); GLUCOSE,URINE 500 (NEGATIVE); KETONES,URINE NEGATIVE (NEGATIVE); LEUKOCYTE ESTERASE,URINE MODERATE (NEGATIVE); NITRITE,URINE NEGATIVE (NEGATIVE); OCCULT BLOOD,URINE SMALL (NEGATIVE); PROTEIN,URINE 100 (NEGATIVE)
[2023-12-07 11:43] LABS: BACTERIA,URINE FEW /HPF (0-FEW/HPF); EPITHELIAL CELLS,URINE FEW /HPF (NOT SEEN); RBC,URINE 0-5 /HPF (0-5); WBC,URINE >100 /HPF (0-5/HPF)
[2023-12-07] MEDS: Lactulose Soln 10 GM/15 ML 30 ML UD Cup PO ONE (11:55)
[2023-12-07] MEDS: Ampicillin 2 GM Vial IVPUSH ONE (11:55)
[2023-12-07] MEDS: Simethicone 80 MG Tab.Chew PO ONE (11:55)
== END 2023-12-07 12:29 | disposition home or self-care (01) ==
LOC: DL.ED 07:50
DX: N12 Tubulo-interstitial nephritis, not specified as acute or chronic (principal); K59.00 Constipation, unspecified; M54.6 Pain in thoracic spine; I10 Essential (primary) hypertension; J45.909 Unspecified asthma, uncomplicated; E11.9 Type 2 diabetes mellitus without complications; Z88.1 Allergy status to other antibiotic agents; Z79.51 Long term (current) use of inhaled steroids; Z79.899 Other long term (current) drug therapy; Z79.4 Long term (current) use of insulin
CPT/HCPCS: 36415; 74177; 80053; 81001; 83605; 83690; 85025; 86140; 87040; 87086; 87088; 87186; 96361; 96374; 96375; 99284; A9270; J0290; J2405; J7030; Q9967

== ENCOUNTER 2023-12-08 12:32 | Emergency (ER) | payer BC ==
[2023-12-08] MEDS: Iopamidol 612 MG/ML 100 ML Bottle IVPUSH ONE (13:00)
[2023-12-08] MEDS: Sodium Chloride 0.9% 1,000 ML IV ONE (13:12)
[2023-12-08] MEDS: Acetaminophen 325 MG Tab ONE (13:13)
[2023-12-08 13:16] LABS: BASOPHILS PERCENT AUTO 0.3 % (0.0-1.0); HEMATOCRIT 37.7 % (40.0-54.0); HEMOGLOBIN 12.6 g/dL (14.0-18.0); LYMPHOCYTES PERCENT AUTO 14.4 % (20.5-50.1); MEAN CORPUSCULAR HEMOGLOBIN 25.9 pg (27.0-34.0); MEAN CORPUSCULAR HGB CONC 33.4 g/dL (33.0-35.0); MEAN CORPUSCULAR VOLUME 77.4 fL (80-100); MONOCYTES PERCENT AUTO 5.8 % (2-8); NEUTROPHILS PERCENT AUTO 78.5 % (42.2-75.2); PLATELET COUNT,PLT 427 10^3/uL (150-450); RED BLOOD CELL COUNT 4.87 10^6/uL (4.6-6.2); WHITE BLOOD CELL COUNT,WBC 10.5 10^3/uL (5.0-10.0)
[2023-12-08] MEDS: Acetaminophen 500 MG Tab PO ONE ×2 (13:21→13:22)
[2023-12-08 13:37] LABS: APPEARANCE,URINE CLOUDY (CLEAR); BILIRUBIN,URINE NEGATIVE (NEGATIVE); COLOR,URINE YELLOW (YELLOW); GLUCOSE,URINE 100 (NEGATIVE); KETONES,URINE NEGATIVE (NEGATIVE); LEUKOCYTE ESTERASE,URINE MODERATE (NEGATIVE); NITRITE,URINE NEGATIVE (NEGATIVE); OCCULT BLOOD,URINE TRACE-INTACT (NEGATIVE); PROTEIN,URINE 30 (NEGATIVE)
[2023-12-08 13:41] LABS: ALBUMIN 2.6 g/dL (3.4-5.0); BILIRUBIN TOTAL 0.8 mg/dL (0.2-1.0); BUN/CREATININE RATIO 12.5 (No establ ref range); C-REACTIVE PROTEIN 11.22 ng/dL (<=0.50); CALCIUM 8.9 mg/dL (8.5-10.1); CREATININE 0.88 mg/dL (0.70-1.30); EST CRCL DRUG DOSING (CG) 115.13 mL/min; MAGNESIUM 1.5 mg/dL (1.8-2.4); PROTEIN TOTAL,TP 8.3 g/dL (6.4-8.2)
[2023-12-08 13:42] LABS: A/G RATIO 0.46; LACTIC ACID 1.1 mmol/L (0.4-2.0)
[2023-12-08 13:46] LABS: AMORPHOUS SEDIMENT,URINE RARE /HPF (NOT SEEN); BACTERIA,URINE FEW /HPF (0-FEW/HPF); EPITHELIAL CELLS,URINE FEW /HPF (NOT SEEN); MUCUS,URINE RARE /LPF (NOT SEEN); RBC,URINE 0-5 /HPF (0-5); WBC,URINE 75-100 /HPF (0-5/HPF)
[2023-12-08] MEDS: Magnesium Sulfate/Water 2 GM in Premix Bag 1 BAG IV ONE (14:21)
[2023-12-08 14:29] VITALS: BP 150/100; PULSE 98
[2023-12-08] MEDS ORDERED: Naloxone 2 MG/2 ML Syringe IVPUSH PRN (14:34)
[2023-12-08] MEDS: Ondansetron 4 MG/2 ML SDV IVPUSH ONE (15:12)
[2023-12-08] MEDS: cefTRIAXone 1 GM Vial IVPUSH ONE (15:12)
[2023-12-08] MEDS: Morphine 2 MG/ML SYRINGE IVPUSH ONE (15:13)
== END 2023-12-08 15:47 | disposition other institution (70) ==
LOC: DL.ED 12:32
DX: N10 Acute pyelonephritis (principal); N39.0 Urinary tract infection, site not specified; E86.0 Dehydration; E83.42 Hypomagnesemia; I10 Essential (primary) hypertension; E11.40 Type 2 diabetes mellitus with diabetic neuropathy, unspecified; K21.9 Gastro-esophageal reflux disease without esophagitis; Z79.2 Long term (current) use of antibiotics; Z79.899 Other long term (current) drug therapy; Z88.1 Allergy status to other antibiotic agents
CPT/HCPCS: 36415; 71045; 74177; 80053; 81001; 82550; 83605; 83690; 83735; 84484; 85025; 86140; 93005; 96361; 96365; 96375; 99285; A9270; J0696; J2270; J2405; J3475; J7030; Q9967; 87086

== ENCOUNTER 2023-12-30 16:54 | Emergency (ER) | payer BC ==
[2023-12-30] MEDS ORDERED: amLODIPine 5 MG Tab PO ONE (16:55)
[2023-12-30] MEDS ORDERED: Meclizine 12.5 MG Tab PO ONE (16:55)
[2023-12-30 17:10] LABS: BASOPHILS PERCENT AUTO 0.8 % (0.0-1.0); EOSINOPHILS PERCENT AUTO 4.2 % (1.0-3.0); HEMATOCRIT 42.9 % (40.0-54.0); HEMOGLOBIN 14.8 g/dL (14.0-18.0); LYMPHOCYTES PERCENT AUTO 25.2 % (20.5-50.1); MEAN CORPUSCULAR HGB CONC 34.5 g/dL (33.0-35.0); MEAN CORPUSCULAR VOLUME 75.3 fL (80-100); MONOCYTES PERCENT AUTO 6.2 % (2-8); NEUTROPHILS PERCENT AUTO 63.6 % (42.2-75.2); PLATELET COUNT,PLT 312 10^3/uL (150-450); WHITE BLOOD CELL COUNT,WBC 7.9 10^3/uL (5.0-10.0)
[2023-12-30] MEDS: Meclizine 12.5 MG Tab PO ONE (17:28)
[2023-12-30] MEDS: hydrALAZINE 20 MG/ML SDV IVPUSH ONE ×2 (17:28→19:13)
[2023-12-30] MEDS: Sodium Chloride 0.9% 1,000 ML IV ONE (17:29)
[2023-12-30] MEDS: Sodium Chloride 0.9% 10 ML Syringe FLUSH PRN (17:29)
[2023-12-30] MEDS: Ondansetron 4 MG/2 ML SDV IV ONE (17:29)
[2023-12-30 17:30] LABS: A/G RATIO 0.7; ALANINE AMINOTRANSFERASE,ALT 44 U/L (16-63); ALBUMIN 3.4 g/dL (3.4-5.0); ALKALINE PHOSPHATASE 159 U/L (46-116); ASPARTATE AMNIOTRANSFERASE,AST 28 U/L (15-37); BLOOD UREA NITROGEN,BUN 8 mg/dL (7-18); BUN/CREATININE RATIO 9.3 (No establ ref range); CALCIUM 9.4 mg/dL (8.5-10.1); CARBON DIOXIDE,CO2 27 mmol/L (21-32); CHLORIDE,CL 95 mmol/L (98-107); CREATININE 0.86 mg/dL (0.70-1.30); EST CRCL DRUG DOSING (CG) 124.79 mL/min; GLUCOSE RANDOM 386 mg/dL (70-99); LIPASE 82 U/L (16-77); MAGNESIUM 1.8 mg/dL (1.8-2.4); PROTEIN TOTAL,TP 8.4 g/dL (6.4-8.2); SODIUM,NA 132 mmol/L (136-145)
[2023-12-30] MEDS: Insulin Regular, Human 100 Units/ML 3 ML Vial SUBCUT ONE (17:33)
[2023-12-30 17:34] LABS: APPEARANCE,URINE SLIGHTLY CLOUDY (CLEAR); BILIRUBIN,URINE NEGATIVE (NEGATIVE); COLOR,URINE YELLOW (YELLOW); GLUCOSE,URINE 500 (NEGATIVE); KETONES,URINE NEGATIVE (NEGATIVE); LEUKOCYTE ESTERASE,URINE TRACE (NEGATIVE); NITRITE,URINE NEGATIVE (NEGATIVE); OCCULT BLOOD,URINE TRACE-LYSED (NEGATIVE); PROTEIN,URINE NEGATIVE (NEGATIVE); UROBILINOGEN,URINE 0.2 mg/dL (0.2-1.0)
[2023-12-30 17:37] LABS: ESTIMATED GFR 108 mL/min (>=60)
[2023-12-30 17:38] LABS: BACTERIA,URINE FEW /HPF (0-FEW/HPF); EPITHELIAL CELLS,URINE OCCASIONAL /HPF (NOT SEEN); MUCUS,URINE OCCASIONAL /LPF (NOT SEEN); RBC,URINE 0-5 /HPF (0-5); WBC,URINE 40-50 /HPF (0-5/HPF)
[2023-12-30 17:40] VITALS: PULSE 106
[2023-12-30 17:43] LABS: KETONES,BLOOD NEGATIVE
[2023-12-30] MEDS ORDERED: Meclizine 12.5 MG Tab ONE (18:54)
[2023-12-30] MEDS ORDERED: amLODIPine 5 MG Tab ONE (19:13)
[2023-12-30] MEDS: amLODIPine 5 MG Tab PO ONE (19:15)
[2023-12-30 19:21] VITALS: BP 148/108
== END 2023-12-30 19:20 | disposition home or self-care (01) ==
LOC: DL.ED 16:54
DX: R42 Dizziness and giddiness (principal); I10 Essential (primary) hypertension; E11.65 Type 2 diabetes mellitus with hyperglycemia; J45.909 Unspecified asthma, uncomplicated; Z88.8 Allergy status to other drugs, medicaments and biological substances; Z79.4 Long term (current) use of insulin; Z79.899 Other long term (current) drug therapy
CPT/HCPCS: 36415; 70450; 80053; 81001; 82009; 82947; 83690; 83735; 85025; 96361; 96374; 96375; 96376; 99285; A9270; J0360; J1815; J2405; J7030; 87086; J3490

== ENCOUNTER 2024-02-08 14:58 | Inpatient (IN) | payer BC ==
[2024-02-08] MEDS: Sodium Chloride 0.9% 10 ML Syringe FLUSH PRN (15:12)
[2024-02-08] MEDS: Sodium Chloride 0.9% 1,000 ML IV ONE (15:13)
[2024-02-08 15:25] LABS: BASOPHILS PERCENT AUTO 0.3 % (0.0-1.0); EOSINOPHILS PERCENT AUTO 0.7 % (1.0-3.0); HEMATOCRIT 42.4 % (40.0-54.0); HEMOGLOBIN 14.3 g/dL (14.0-18.0); LYMPHOCYTES PERCENT AUTO 7.6 % (20.5-50.1); MEAN CORPUSCULAR HEMOGLOBIN 25.6 pg (27.0-34.0); MEAN CORPUSCULAR HGB CONC 33.7 g/dL (33.0-35.0); MEAN CORPUSCULAR VOLUME 75.8 fL (80-100); MONOCYTES PERCENT AUTO 9.3 % (2-8); NEUTROPHILS PERCENT AUTO 82.1 % (42.2-75.2); PLATELET COUNT,PLT 346 10^3/uL (150-450); RED BLOOD CELL COUNT 5.59 10^6/uL (4.6-6.2); WHITE BLOOD CELL COUNT,WBC 11.1 10^3/uL (5.0-10.0)
[2024-02-08 15:41] LABS: PROTHROMBIN TIME 10.5 SEC (9.0-12.0); PTT,PARTIAL THROMBOPLSTIN TIME 29.9 SEC (22.0-34.0)
[2024-02-08 15:44] LABS: ALANINE AMINOTRANSFERASE,ALT 35 U/L (16-63); ALKALINE PHOSPHATASE 106 U/L (46-116); ANION GAP 12.4 mEq/L (7-13); ASPARTATE AMNIOTRANSFERASE,AST 28 U/L (15-37); BILIRUBIN TOTAL 1.1 mg/dL (0.2-1.0); BLOOD UREA NITROGEN,BUN 9 mg/dL (7-18); BUN/CREATININE RATIO 10.8 (No establ ref range); C-REACTIVE PROTEIN 14.72 ng/dL (<=0.50); CALCIUM 9.1 mg/dL (8.5-10.1); CARBON DIOXIDE,CO2 30 mmol/L (21-32); CHLORIDE,CL 98 mmol/L (98-107); CREATININE 0.83 mg/dL (0.70-1.30); EST CRCL DRUG DOSING (CG) 122.06 mL/min; GLUCOSE RANDOM 274 mg/dL (70-99); POTASSIUM,K 3.4 mmol/L (3.5-5.1); PROTEIN TOTAL,TP 8.2 g/dL (6.4-8.2); SODIUM,NA 137 mmol/L (136-145)
[2024-02-08 15:46] LABS: A/G RATIO 0.58; ESTIMATED GFR 109 mL/min (>=60); ETHANOL BLOOD MEDICAL < 3 mg/dL (0)
[2024-02-08 15:49] LABS: LACTIC ACID 1.3 mmol/L (0.4-2.0)
[2024-02-08] MEDS: Ondansetron 4 MG/2 ML SDV IVPUSH ONE ×2 (15:58→18:08)
[2024-02-08] MEDS: HYDROmorphone 1 MG/ML Syringe IVPUSH ONE (15:59)
[2024-02-08] MEDS: Albuterol/Ipratropium 3.0-0.5 MG/3 ML Neb Soln NEB ONE (15:59)
[2024-02-08] MEDS: Iopamidol 612 MG/ML 100 ML Bottle IVPUSH ONE (16:21)
[2024-02-08] MEDS: Lisinopril 10 MG Tab PO ONE (17:40)
[2024-02-08 19:19] LABS: HEMOGLOBIN A1C 12.5 % (<5.7)
[2024-02-08] MEDS ORDERED: Metoprolol Tartrate 5 MG/5 ML SDV IVPUSH PRN (19:29)
[2024-02-08] MEDS ORDERED: Acetaminophen 325 MG Tab PO PRN (19:33)
[2024-02-08] MEDS ORDERED: Temazepam 15 MG Cap PO PRN (19:33)
[2024-02-08] MEDS ORDERED: HYDROmorphone 0.5 MG/0.5 ML Syringe IVPUSH PRN (19:33)
[2024-02-08] MEDS ORDERED: Magnesium Hydroxide 400 MG/5 ML Susp 30 ML Cup PO PRN (19:33)
[2024-02-08] MEDS ORDERED: Albuterol/Ipratropium 3.0-0.5 MG/3 ML Neb Soln NEB PRN (19:33)
[2024-02-08] MEDS ORDERED: Sennosides/Docusate Sodium 50-8.6 MG Tab PO PRN (19:33)
[2024-02-08] MEDS ORDERED: Polyethylene Glycol 3350 Powder 17 GM Packet PO PRN (19:33)
[2024-02-08] MEDS ORDERED: Naloxone 2 MG/2 ML Syringe IVPUSH PRN (19:33)
[2024-02-08] MEDS ORDERED: 50% Dextrose in Water 50 ML Syringe IVPUSH PRN (19:42)
[2024-02-08] MEDS ORDERED: Glucagon,Human Recombinant 1 MG Vial IM PRN (19:42)
[2024-02-08] MEDS: Promethazine 25 MG/ML SDV IM PRN (20:01)
[2024-02-08] MEDS: hydrALAZINE 20 MG/ML SDV IVPUSH PRN (20:03)
[2024-02-08] MEDS: Cefepime 1 GM Vial IVPUSH SCH (20:19)
[2024-02-08] MEDS: Sodium Chloride 0.9% 1,000 ML IV SCH (20:28)
[2024-02-08] MEDS: Acetaminophen/oxyCODONE 325-5 MG Tab PO PRN (20:30)
[2024-02-08] MEDS: cloNIDine 0.1 MG Tab PO ONE (20:30)
[2024-02-08] MEDS: Bacitracin/Neomycin/Polymyxin B Oint 28.4 GM Tube TOP SCH (20:49)
[2024-02-09] MEDS: Formoterol/Mometasone 200-5 MCG 8.8 GM Inhaler IH SCH (00:05)
[2024-02-09] MEDS: HYDROmorphone 2 MG/ML Syringe IVPUSH PRN (00:56)
[2024-02-09 06:48] LABS: BASOPHILS PERCENT AUTO 0.2 % (0.0-1.0); HEMATOCRIT 38.9 % (40.0-54.0); HEMOGLOBIN 12.9 g/dL (14.0-18.0); LYMPHOCYTES PERCENT AUTO 9.1 % (20.5-50.1); MEAN CORPUSCULAR HEMOGLOBIN 25.5 pg (27.0-34.0); MEAN CORPUSCULAR HGB CONC 33.2 g/dL (33.0-35.0); NEUTROPHILS PERCENT AUTO 77.7 % (42.2-75.2); PLATELET COUNT,PLT 320 10^3/uL (150-450); RED BLOOD CELL COUNT 5.05 10^6/uL (4.6-6.2)
[2024-02-09 07:14] LABS: ALBUMIN 2.2 g/dL (3.4-5.0); BILIRUBIN TOTAL 1.4 mg/dL (0.2-1.0); BUN/CREATININE RATIO 11.6 (No establ ref range); C-REACTIVE PROTEIN 19.12 ng/dL (<=0.50); CALCIUM 8.2 mg/dL (8.5-10.1); CREATININE 0.69 mg/dL (0.70-1.30); EST CRCL DRUG DOSING (CG) 155.53 mL/min; PROTEIN TOTAL,TP 6.9 g/dL (6.4-8.2); VANCOMYCIN RANDOM 2.8 ug/mL (No Normal Range)
[2024-02-09 07:16] LABS: A/G RATIO 0.47
[2024-02-09] MEDS: Insulin Lispro 100 Units/ML 3 ML Vial SUBCUT SCH (08:04)
[2024-02-09] MEDS: Magnesium Oxide 400 MG Tab PO SCH (08:05)
[2024-02-09] MEDS: amLODIPine 5 MG Tab PO SCH (08:05)
[2024-02-09] MEDS: Potassium Chloride 10 MEQ Tab.ER PO SCH (08:06)
[2024-02-09] MEDS: Enoxaparin 40 MG/0.4 ML Syringe SUBCUT SCH (08:07)
[2024-02-09] MEDS: Vancomycin 2 GM in Sodium Chloride 0.9% 500 ML IV SCH (20:13)
[2024-02-10 06:23] LABS: BASOPHILS PERCENT AUTO 0.3 % (0.0-1.0); EOSINOPHILS PERCENT AUTO 2.4 % (1.0-3.0); LYMPHOCYTES PERCENT AUTO 13.5 % (20.5-50.1); MEAN CORPUSCULAR HEMOGLOBIN 25.4 pg (27.0-34.0); MEAN CORPUSCULAR HGB CONC 33.3 g/dL (33.0-35.0); MEAN CORPUSCULAR VOLUME 76.3 fL (80-100); MONOCYTES PERCENT AUTO 10.8 % (2-8); PLATELET COUNT,PLT 339 10^3/uL (150-450); RED BLOOD CELL COUNT 5.11 10^6/uL (4.6-6.2); WHITE BLOOD CELL COUNT,WBC 7.2 10^3/uL (5.0-10.0)
[2024-02-10 06:42] LABS: A/G RATIO 0.46; ALBUMIN 2.1 g/dL (3.4-5.0); ANION GAP 10.2 mEq/L (7-13); BUN/CREATININE RATIO 9.1 (No establ ref range); C-REACTIVE PROTEIN 16.61 ng/dL (<=0.50); CALCIUM 8.3 mg/dL (8.5-10.1); CREATININE 0.66 mg/dL (0.70-1.30); EST CRCL DRUG DOSING (CG) 162.6 mL/min; POTASSIUM,K 3.2 mmol/L (3.5-5.1); PROTEIN TOTAL,TP 6.7 g/dL (6.4-8.2)
[2024-02-10] MEDS: Sodium Chloride 0.9% 500 ML IV SCH (10:43)
[2024-02-10] MEDS: Lisinopril 20 MG Tab PO SCH (10:46)
[2024-02-10] MEDS: Non-Formulary Medication 1 Each (Duloxetine [Cymbalta] 60 MG Cap) PO SCH (12:10)
[2024-02-10] MEDS: Pantoprazole 40 MG Tab.CR PO SCH (12:10)
[2024-02-10] MEDS: Empagliflozin 10 MG Tab PO SCH (12:11)
[2024-02-10] MEDS: Pregabalin 75 MG Cap PO SCH ×2 (12:11→20:46)
[2024-02-10] MEDS: atorvaSTATin 20 MG Tab PO SCH (12:11)
[2024-02-10] MEDS: Iopamidol 755 Mg/ML 100 ML Bottle IVPUSH ONE (15:04)
[2024-02-10] MEDS: Sodium Chloride 0.9% 1,000 ML IV SCH (15:10)
[2024-02-10] MEDS: Potassium Chloride 10 MEQ Tab.ER PO SCH (17:19)
[2024-02-10] MEDS: Formoterol/Mometasone 200-5 MCG 8.8 GM Inhaler IH SCH (18:06)
[2024-02-10] MEDS: atorvaSTATin 10 MG Tab PO SCH (20:47)
[2024-02-11 06:25] LABS: BASOPHILS PERCENT AUTO 0.3 % (0.0-1.0); EOSINOPHILS PERCENT AUTO 3.5 % (1.0-3.0); HEMATOCRIT 40.8 % (40.0-54.0); HEMOGLOBIN 13.6 g/dL (14.0-18.0); LYMPHOCYTES PERCENT AUTO 19.7 % (20.5-50.1); MEAN CORPUSCULAR HEMOGLOBIN 25.4 pg (27.0-34.0); MEAN CORPUSCULAR HGB CONC 33.3 g/dL (33.0-35.0); MEAN CORPUSCULAR VOLUME 76.1 fL (80-100); MONOCYTES PERCENT AUTO 10.1 % (2-8); NEUTROPHILS PERCENT AUTO 66.4 % (42.2-75.2); PLATELET COUNT,PLT 395 10^3/uL (150-450); RED BLOOD CELL COUNT 5.36 10^6/uL (4.6-6.2); WHITE BLOOD CELL COUNT,WBC 6.3 10^3/uL (5.0-10.0)
[2024-02-11 06:43] LABS: ALBUMIN 2.4 g/dL (3.4-5.0); ANION GAP 10.9 mEq/L (7-13); BILIRUBIN TOTAL 0.9 mg/dL (0.2-1.0); C-REACTIVE PROTEIN 9.66 ng/dL (<=0.50); CALCIUM 8.9 mg/dL (8.5-10.1); CREATININE 0.67 mg/dL (0.70-1.30); EST CRCL DRUG DOSING (CG) 160.17 mL/min; POTASSIUM,K 3.9 mmol/L (3.5-5.1); PROTEIN TOTAL,TP 7.6 g/dL (6.4-8.2)
[2024-02-11 06:51] LABS: A/G RATIO 0.46
[2024-02-11] MEDS: DULoxetine 30 MG Cap PO SCH (08:01)
[2024-02-11] MEDS ORDERED: Empagliflozin 10 MG Tab PO SCH (09:00)
[2024-02-11] MEDS: Ondansetron 4 MG/2 ML SDV IVPUSH PRN (12:26)
[2024-02-12 06:35] LABS: BASOPHILS PERCENT AUTO 0.4 % (0.0-1.0); EOSINOPHILS PERCENT AUTO 5.7 % (1.0-3.0); HEMATOCRIT 41.1 % (40.0-54.0); HEMOGLOBIN 13.9 g/dL (14.0-18.0); LYMPHOCYTES PERCENT AUTO 22.3 % (20.5-50.1); MEAN CORPUSCULAR HEMOGLOBIN 25.6 pg (27.0-34.0); MEAN CORPUSCULAR HGB CONC 33.8 g/dL (33.0-35.0); MEAN CORPUSCULAR VOLUME 75.6 fL (80-100); MONOCYTES PERCENT AUTO 10.7 % (2-8); NEUTROPHILS PERCENT AUTO 60.9 % (42.2-75.2); PLATELET COUNT,PLT 420 10^3/uL (150-450); RED BLOOD CELL COUNT 5.44 10^6/uL (4.6-6.2); WHITE BLOOD CELL COUNT,WBC 4.8 10^3/uL (5.0-10.0)
[2024-02-12 07:03] LABS: A/G RATIO 0.47; ALBUMIN 2.5 g/dL (3.4-5.0); BILIRUBIN TOTAL 0.6 mg/dL (0.2-1.0); BUN/CREATININE RATIO 5.6 (No establ ref range); C-REACTIVE PROTEIN 4.94 ng/dL (<=0.50); CREATININE 0.71 mg/dL (0.70-1.30); EST CRCL DRUG DOSING (CG) 151.15 mL/min; PROTEIN TOTAL,TP 7.8 g/dL (6.4-8.2)
[2024-02-12] MEDS ORDERED: Lisinopril 20 MG Tab PO SCH ×2 (09:00)
[2024-02-13] MEDS: Lisinopril 20 MG Tab PO SCH (09:49)
[2024-02-13] MEDS: Empagliflozin 10 MG Tab PO SCH (09:50)
[2024-02-13] MEDS: Water For Injection, Sterile 40 ML ONE (10:02)
[2024-02-13] MEDS: Vancomycin 1 GM SDV ONE (10:02)
[2024-02-13] MEDS ORDERED: Glucagon,Human Recombinant 1 MG Vial IM PRN (16:07)
[2024-02-13] MEDS ORDERED: 50% Dextrose in Water 50 ML Syringe IVPUSH PRN (16:07)
[2024-02-13] MEDS: Insulin Glarg,Human.Rec.Analog 100 Unit/ML 10 ML Vial SUBCUT SCH (21:02)
[2024-02-14] MEDS: Vancomycin 1 GM SDV ONE ×3 (10:18→10:20)
[2024-02-14] MEDS: Water For Injection, Sterile 40 ML ONE (10:18)
[2024-02-14] MEDS: Sodium Chloride 0.9% 500 ML ONE (10:19)
[2024-02-14] MEDS: Sodium Chloride 0.9% 250 ML ONE (10:39)
[2024-02-14 12:58] LABS: ANION GAP 9.8 mEq/L (7-13); CALCIUM 9.5 mg/dL (8.5-10.1); CREATININE 0.85 mg/dL (0.70-1.30); EST CRCL DRUG DOSING (CG) 126.25 mL/min; POTASSIUM,K 4.8 mmol/L (3.5-5.1)
[2024-02-15 11:18] VITALS: BP 110/76; PULSE 77
== END 2024-02-15 13:20 | disposition home health service (06) | DRG 380 ==
LOC: DL.ED 14:58 → DL.MS 18:12 → UNDOADMIN 18:12
PROVIDERS: ADMIT Internal Medicine; ATTEND Internal Medicine
DX: E11.628 Type 2 diabetes mellitus with other skin complications (principal); L03.116 Cellulitis of left lower limb; E87.1 Hypo-osmolality and hyponatremia; L97.929 Non-pressure chronic ulcer of unspecified part of left lower leg with unspecified severity; L97.919 Non-pressure chronic ulcer of unspecified part of right lower leg with unspecified severity; I10 Essential (primary) hypertension; E78.5 Hyperlipidemia, unspecified; E11.65 Type 2 diabetes mellitus with hyperglycemia; K21.9 Gastro-esophageal reflux disease without esophagitis; J45.909 Unspecified asthma, uncomplicated; G89.29 Other chronic pain; M54.50 Low back pain, unspecified; E11.42 Type 2 diabetes mellitus with diabetic polyneuropathy; E66.9 Obesity, unspecified; N40.0 Benign prostatic hyperplasia without lower urinary tract symptoms; Z68.27 Body mass index [BMI] 27.0-27.9, adult; E11.622 Type 2 diabetes mellitus with other skin ulcer; M19.90 Unspecified osteoarthritis, unspecified site; D50.9 Iron deficiency anemia, unspecified; E87.6 Hypokalemia; E88.09 Other disorders of plasma-protein metabolism, not elsewhere classified; Z74.09 Other reduced mobility; B96.89 Other specified bacterial agents as the cause of diseases classified elsewhere; D72.829 Elevated white blood cell count, unspecified; Z88.1 Allergy status to other antibiotic agents; Z79.4 Long term (current) use of insulin; Z87.440 Personal history of urinary (tract) infections; Z86.16 Personal history of COVID-19; Z79.52 Long term (current) use of systemic steroids; Z98.890 Other specified postprocedural states
CPT/HCPCS: 36415; 71045; 73701-50; 75635; 80048; 80053; 80202; 80307; 82947; 83036; 83605; 84145; 84484; 85025; 85610; 85730; 86140; 87040; 87070; 87077; 87186; 93005; 94010; 94640; 99223; 99232; 99233; 99239; A9270-GY; J0360; J0692; J1170; J1650; J1815-GY; J2405; J2550; J3370; J3490; J7030; J7040; J7050; J7620-GY; Q9967

== ENCOUNTER 2024-04-21 03:53 | Emergency (ER) | payer BC ==
[2024-04-21 07:42] VITALS: BP 150/101; PULSE 96
== END 2024-04-21 07:26 | disposition home or self-care (01) ==
LOC: DL.ED 03:53
DX: S20.211A Contusion of right front wall of thorax, initial encounter (principal); I10 Essential (primary) hypertension; E11.40 Type 2 diabetes mellitus with diabetic neuropathy, unspecified; Z88.1 Allergy status to other antibiotic agents; W19.XXXA Unspecified fall, initial encounter
CPT/HCPCS: 71101-RT; 99284

== ENCOUNTER 2024-05-24 10:19 | Emergency (ER) | payer BC ==
[2024-05-24] MEDS: Sodium Chloride 0.9% 1,000 ML IV ONE ×2 (10:30→11:14)
[2024-05-24 10:33] LABS: BASOPHILS PERCENT AUTO 0.7 % (0.0-1.0); EOSINOPHILS PERCENT AUTO 0.2 % (1.0-3.0); HEMATOCRIT 44.9 % (40.0-54.0); HEMOGLOBIN 15.2 g/dL (14.0-18.0); LYMPHOCYTES PERCENT AUTO 10.6 % (20.5-50.1); MEAN CORPUSCULAR HEMOGLOBIN 26.7 pg (27.0-34.0); MEAN CORPUSCULAR HGB CONC 33.9 g/dL (33.0-35.0); MEAN CORPUSCULAR VOLUME 78.9 fL (80-100); MONOCYTES PERCENT AUTO 6.3 % (2-8); NEUTROPHILS PERCENT AUTO 82.2 % (42.2-75.2); PLATELET COUNT,PLT 309 10^3/uL (150-450); RED BLOOD CELL COUNT 5.69 10^6/uL (4.6-6.2); WHITE BLOOD CELL COUNT,WBC 8.5 10^3/uL (5.0-10.0)
[2024-05-24 10:55] LABS: A/G RATIO 0.8; ALANINE AMINOTRANSFERASE,ALT 120 U/L (16-63); ALBUMIN 3.8 g/dL (3.4-5.0); ALKALINE PHOSPHATASE 142 U/L (46-116); ANION GAP 14.8 mEq/L (7-13); ASPARTATE AMNIOTRANSFERASE,AST 76 U/L (15-37); BLOOD UREA NITROGEN,BUN 14 mg/dL (7-18); BUN/CREATININE RATIO 15.4 (No establ ref range); CALCIUM 9.1 mg/dL (8.5-10.1); CARBON DIOXIDE,CO2 31 mmol/L (21-32); CHLORIDE,CL 99 mmol/L (98-107); CREATININE 0.91 mg/dL (0.70-1.30); GLUCOSE RANDOM 199 mg/dL (70-99); LIPASE 45 U/L (16-77); MAGNESIUM 1.5 mg/dL (1.8-2.4); POTASSIUM,K 3.8 mmol/L (3.5-5.1); PROTEIN TOTAL,TP 8.5 g/dL (6.4-8.2); SODIUM,NA 141 mmol/L (136-145)
[2024-05-24 10:56] LABS: ESTIMATED GFR 105 mL/min (>=60); LACTIC ACID 1.9 mmol/L (0.4-2.0)
[2024-05-24] MEDS: Magnesium Sulfate/Water Premix 2 GM in Premix Bag 1 BAG IV ONE (11:14)
[2024-05-24] MEDS: Famotidine 20 MG/2 ML SDV IVPUSH ONE (11:14)
[2024-05-24] MEDS: Metoclopramide 10 MG/2 ML SDV IVPUSH ONE (11:58)
[2024-05-24 12:00] LABS: APPEARANCE,URINE CLEAR (CLEAR); BILIRUBIN,URINE NEGATIVE (NEGATIVE); COLOR,URINE YELLOW (YELLOW); GLUCOSE,URINE 500 (NEGATIVE); KETONES,URINE 15 (NEGATIVE); LEUKOCYTE ESTERASE,URINE NEGATIVE (NEGATIVE); NITRITE,URINE NEGATIVE (NEGATIVE); OCCULT BLOOD,URINE NEGATIVE (NEGATIVE); PH,URINE 8.5 (5.0-9.0); PROTEIN,URINE 100 (NEGATIVE)
[2024-05-24 12:04] LABS: AMPHETAMINES,URINE NEGATIVE (NEGATIVE); BARBITURATES,URINE NEGATIVE (NEGATIVE); BENZODIAZEPINE,URINE NEGATIVE (NEGATIVE); MDMA (ECSTASY), URINE NEGATIVE (NEGATIVE); METHADONE,URINE NEGATIVE (NEGATIVE); METHAMPHETAMINES,URINE NEGATIVE (NEGATIVE); OPIATES,URINE NEGATIVE (NEGATIVE); OXYCODONE,URINE NEGATIVE (NEGATIVE); PHENCYCLIDINE,URINE NEGATIVE (NEGATIVE); TCA,URINE POSITIVE (NEGATIVE)
[2024-05-24 12:25] LABS: BACTERIA,URINE RARE /HPF (0-FEW/HPF); EPITHELIAL CELLS,URINE RARE /HPF (NOT SEEN); MUCUS,URINE MODERATE /LPF (NOT SEEN); RBC,URINE 0-5 /HPF (0-5); WBC,URINE 0-5 /HPF (0-5/HPF)
[2024-05-24 12:34] VITALS: BP 152/95; PULSE 99
== END 2024-05-24 12:35 | disposition home or self-care (01) ==
LOC: DL.ED 10:19
DX: R07.89 Other chest pain (principal); R10.13 Epigastric pain; R11.2 Nausea with vomiting, unspecified; R10.32 Left lower quadrant pain; I10 Essential (primary) hypertension; E11.9 Type 2 diabetes mellitus without complications; Z86.16 Personal history of COVID-19; Z88.8 Allergy status to other drugs, medicaments and biological substances
CPT/HCPCS: 36415; 71045; 80053; 80305-QW; 80307; 81001; 83605; 83690; 83735; 84484; 85025; 93005; 93010; 96361; 96365; 96375; 99284; 99285-25; J2765; J3475; J3490; J7030

== ENCOUNTER 2024-06-16 07:01 | Day surgery (SDC) | payer BC ==
[~2024-06-16 07:01] MED LIST changes: +Midazolam 1 MG/ML 2 ML SDV IV ONE; +Midazolam 1 MG/ML 2 ML SDV ONE; -Sodium Chloride 0.9% 10 ML Syringe FLUSH PRN; +fentaNYL 100 MCG/2 ML SDV IV ONE; +fentaNYL 100 MCG/2 ML SDV ONE
[2024-06-16] MEDS: Dextrose 5%-0.45% NaCl 1,000 ML IV SCH (07:31)
[2024-06-16] MEDS: fentaNYL 100 MCG/2 ML SDV IV ONE ×2 (08:21→08:22)
[2024-06-16] MEDS: Midazolam 1 MG/ML 2 ML SDV IV ONE ×2 (08:22→08:23)
[2024-06-16 09:58] VITALS: BP 125/100; PULSE 102
== END 2024-06-16 10:39 | disposition other institution (70) ==
LOC: DL.ENDO 07:01
PROVIDERS: ATTEND Internal Medicine Gastroenterology
DX: K29.50 Unspecified chronic gastritis without bleeding (principal); K21.9 Gastro-esophageal reflux disease without esophagitis; E11.43 Type 2 diabetes mellitus with diabetic autonomic (poly)neuropathy; K31.84 Gastroparesis; I10 Essential (primary) hypertension; J45.909 Unspecified asthma, uncomplicated
CPT/HCPCS: 43239; J2250; J3010; J7799

== ENCOUNTER 2024-06-16 10:24 | Emergency (ER) | payer BC ==
[2024-06-16 11:20] VITALS: BP 141/94; PULSE 105
== END 2024-06-16 11:21 | disposition home or self-care (01) ==
LOC: DL.ED 10:24
DX: Z02.89 Encounter for other administrative examinations (principal); Z87.2 Personal history of diseases of the skin and subcutaneous tissue; I10 Essential (primary) hypertension; J45.909 Unspecified asthma, uncomplicated; K21.9 Gastro-esophageal reflux disease without esophagitis; E11.42 Type 2 diabetes mellitus with diabetic polyneuropathy; Z86.16 Personal history of COVID-19; Z88.8 Allergy status to other drugs, medicaments and biological substances; Z79.4 Long term (current) use of insulin; Z79.899 Other long term (current) drug therapy
CPT/HCPCS: 99282

== ENCOUNTER 2024-08-26 23:25 | Emergency (ER) | payer BC, OTHER ==
[2024-08-27 00:52] LABS: BASOPHILS PERCENT AUTO 0.7 % (0.0-1.0); EOSINOPHILS PERCENT AUTO 2.3 % (1.0-3.0); HEMATOCRIT 43.3 % (40.0-54.0); HEMOGLOBIN 14.3 g/dL (14.0-18.0); LYMPHOCYTES PERCENT AUTO 28.4 % (20.5-50.1); MEAN CORPUSCULAR HEMOGLOBIN 26.9 pg (27.0-34.0); MEAN CORPUSCULAR VOLUME 81.4 fL (80-100); MONOCYTES PERCENT AUTO 6.7 % (2-8); NEUTROPHILS PERCENT AUTO 61.9 % (42.2-75.2); PLATELET COUNT,PLT 303 10^3/uL (150-450); RED BLOOD CELL COUNT 5.32 10^6/uL (4.6-6.2); WHITE BLOOD CELL COUNT,WBC 7.4 10^3/uL (5.0-10.0)
[2024-08-27 01:10] LABS: A/G RATIO 0.7; ALANINE AMINOTRANSFERASE,ALT 181 U/L (16-63); ALBUMIN 3.4 g/dL (3.4-5.0); ALKALINE PHOSPHATASE 155 U/L (46-116); ANION GAP 12.5 mEq/L (7-13); ASPARTATE AMNIOTRANSFERASE,AST 167 U/L (15-37); BILIRUBIN TOTAL 0.6 mg/dL (0.2-1.0); BLOOD UREA NITROGEN,BUN 12 mg/dL (7-18); CALCIUM 8.5 mg/dL (8.5-10.1); CARBON DIOXIDE,CO2 27 mmol/L (21-32); CHLORIDE,CL 103 mmol/L (98-107); CREATININE 0.86 mg/dL (0.70-1.30); GLUCOSE RANDOM 163 mg/dL (70-99); POTASSIUM,K 3.5 mmol/L (3.5-5.1); PROTEIN TOTAL,TP 8.4 g/dL (6.4-8.2); SODIUM,NA 139 mmol/L (136-145)
[2024-08-27 01:23] LABS: ESTIMATED GFR 108 mL/min (>=60)
[2024-08-27] MEDS: Insulin Glarg,Human.Rec.Analog 100 Unit/ML 10 ML Vial SUBCUT ONE (01:36)
[2024-08-27 02:43] VITALS: BP 147/115; PULSE 78
== END 2024-08-27 02:15 ==
LOC: DL.ED 23:25
DX: L97.821 Non-pressure chronic ulcer of other part of left lower leg limited to breakdown of skin (principal); E11.9 Type 2 diabetes mellitus without complications; Z79.4 Long term (current) use of insulin; I10 Essential (primary) hypertension; I25.10 Atherosclerotic heart disease of native coronary artery without angina pectoris; J45.909 Unspecified asthma, uncomplicated; K21.9 Gastro-esophageal reflux disease without esophagitis; Z86.16 Personal history of COVID-19; Z79.899 Other long term (current) drug therapy; Z87.891 Personal history of nicotine dependence; Z88.8 Allergy status to other drugs, medicaments and biological substances
CPT/HCPCS: 36415; 80053; 82947; 85025; 99283; J1815-GY

== ENCOUNTER 2024-09-07 14:25 | Emergency (ER) | payer BC, OTHER ==
[2024-09-07 15:36] LABS: BASOPHILS PERCENT AUTO 0.6 % (0.0-1.0); EOSINOPHILS PERCENT AUTO 2.1 % (1.0-3.0); HEMATOCRIT 42.1 % (40.0-54.0); HEMOGLOBIN 14.4 g/dL (14.0-18.0); LYMPHOCYTES PERCENT AUTO 12.7 % (20.5-50.1); MEAN CORPUSCULAR HEMOGLOBIN 27.7 pg (27.0-34.0); MEAN CORPUSCULAR HGB CONC 34.2 g/dL (33.0-35.0); MEAN CORPUSCULAR VOLUME 81.1 fL (80-100); MONOCYTES PERCENT AUTO 6.6 % (2-8); PLATELET COUNT,PLT 277 10^3/uL (150-450); RED BLOOD CELL COUNT 5.19 10^6/uL (4.6-6.2)
[2024-09-07 15:57] LABS: ANION GAP 12.9 mEq/L (7-13); BUN/CREATININE RATIO 14.9 (No establ ref range); CALCIUM 8.5 mg/dL (8.5-10.1); CREATININE 1.01 mg/dL (0.70-1.30); EST CRCL DRUG DOSING (CG) 106.25 mL/min; POTASSIUM,K 3.9 mmol/L (3.5-5.1); PROTEIN TOTAL,TP 7.7 g/dL (6.4-8.2)
[2024-09-07 15:58] LABS: LACTIC ACID 1.8 mmol/L (0.4-2.0)
[2024-09-07 16:00] LABS: A/G RATIO 0.64
[2024-09-07 17:01] VITALS: PULSE 89
[2024-09-07 17:05] VITALS: BP 137/65
== END 2024-09-07 16:55 | disposition home or self-care (01) ==
LOC: DL.ED 14:25
DX: R10.9 Unspecified abdominal pain (principal); I10 Essential (primary) hypertension; I25.10 Atherosclerotic heart disease of native coronary artery without angina pectoris; J45.909 Unspecified asthma, uncomplicated; K21.9 Gastro-esophageal reflux disease without esophagitis; E11.42 Type 2 diabetes mellitus with diabetic polyneuropathy; Z86.16 Personal history of COVID-19; Z88.8 Allergy status to other drugs, medicaments and biological substances; Z79.4 Long term (current) use of insulin; Z79.899 Other long term (current) drug therapy
CPT/HCPCS: 36415; 80053; 83605; 85025; 99283; 99284

== ENCOUNTER 2024-09-19 13:15 | Emergency (ER) | payer BC, OTHER ==
[2024-09-19] MEDS ORDERED: Sodium Chloride 0.9% 10 ML Syringe FLUSH PRN (13:27)
[2024-09-19 13:31] VITALS: BP 174/124; PULSE 109
[2024-09-19] MEDS: Sodium Chloride 0.9% 1,000 ML IV ONE (13:37)
[2024-09-19 13:38] LABS: BASOPHILS PERCENT AUTO 0.5 % (0.0-1.0); EOSINOPHILS PERCENT AUTO 0.3 % (1.0-3.0); HEMATOCRIT 45.7 % (40.0-54.0); HEMOGLOBIN 15.7 g/dL (14.0-18.0); LYMPHOCYTES PERCENT AUTO 15.1 % (20.5-50.1); MEAN CORPUSCULAR HEMOGLOBIN 26.9 pg (27.0-34.0); MEAN CORPUSCULAR HGB CONC 34.4 g/dL (33.0-35.0); MEAN CORPUSCULAR VOLUME 78.4 fL (80-100); MONOCYTES PERCENT AUTO 7.6 % (2-8); NEUTROPHILS PERCENT AUTO 76.5 % (42.2-75.2); PLATELET COUNT,PLT 266 10^3/uL (150-450); RED BLOOD CELL COUNT 5.83 10^6/uL (4.6-6.2); WHITE BLOOD CELL COUNT,WBC 6.4 10^3/uL (5.0-10.0)
[2024-09-19] MEDS: Ondansetron 4 MG/2 ML SDV IVPUSH ONE ×2 (13:38→14:10)
[2024-09-19 13:41] LABS: APPEARANCE,URINE CLEAR (CLEAR); BILIRUBIN,URINE SMALL (NEGATIVE); COLOR,URINE AMBER (YELLOW); GLUCOSE,URINE 100 (NEGATIVE); KETONES,URINE 15 (NEGATIVE); LEUKOCYTE ESTERASE,URINE NEGATIVE (NEGATIVE); NITRITE,URINE NEGATIVE (NEGATIVE); OCCULT BLOOD,URINE MODERATE (NEGATIVE); PH,URINE 8.5 (5.0-9.0); PROTEIN,URINE 100 (NEGATIVE); UROBILINOGEN,URINE >=8.0 mg/dL (0.2-1.0)
[2024-09-19 13:52] LABS: A/G RATIO 0.6; ALBUMIN 3.2 g/dL (3.4-5.0); ANION GAP 14.7 mEq/L (7-13); BILIRUBIN TOTAL 1.3 mg/dL (0.2-1.0); BUN/CREATININE RATIO 12.9 (No establ ref range); C-REACTIVE PROTEIN 1.01 ng/dL (<=0.50); CALCIUM 8.7 mg/dL (8.5-10.1); CREATININE 0.93 mg/dL (0.70-1.30); EST CRCL DRUG DOSING (CG) 108.94 mL/min; MAGNESIUM 1.4 mg/dL (1.8-2.4); POTASSIUM,K 3.7 mmol/L (3.5-5.1); PROTEIN TOTAL,TP 8.5 g/dL (6.4-8.2)
[2024-09-19 13:55] LABS: LACTIC ACID 1.2 mmol/L (0.4-2.0)
[2024-09-19 13:56] LABS: WBC,URINE 0-5 /HPF (0-5/HPF)
[2024-09-19 13:57] LABS: BACTERIA,URINE FEW /HPF (0-FEW/HPF); EPITHELIAL CELLS,URINE FEW /HPF (NOT SEEN); MUCUS,URINE MODERATE /LPF (NOT SEEN); RBC,URINE 50-75 /HPF (0-5)
[2024-09-19] MEDS: Iopamidol 612 MG/ML 100 ML Bottle IVPUSH ONE (13:58)
[2024-09-19] MEDS: Magnesium Sulf/Wat 2 GM/50 mL 2 GM in Premix Bag 1 BAG IV ONE (14:11)
[2024-09-19] MEDS: Lactulose Soln 10 GM/15 ML 30 ML UD Cup PO ONE (15:39)
== END 2024-09-19 15:47 | disposition home or self-care (01) ==
LOC: DL.ED 13:15
DX: K59.00 Constipation, unspecified (principal); I25.10 Atherosclerotic heart disease of native coronary artery without angina pectoris; I10 Essential (primary) hypertension; J45.909 Unspecified asthma, uncomplicated; K21.9 Gastro-esophageal reflux disease without esophagitis; E11.9 Type 2 diabetes mellitus without complications; Z88.8 Allergy status to other drugs, medicaments and biological substances; Z79.899 Other long term (current) drug therapy; Z79.4 Long term (current) use of insulin; Z86.16 Personal history of COVID-19
CPT/HCPCS: 36415; 74178; 80053; 81001; 83605; 83690; 83735; 85025; 86140; 96361; 96365; 96375; 96376; 99284; A9270; J2405; J3475; J7030; Q9967

== ENCOUNTER 2024-09-26 07:38 | Emergency (ER) | payer BC, OTHER ==
[2024-09-26 07:38] VITALS: BP 126/91; PULSE 98
[2024-09-26] MEDS: Ketorolac 30 MG/ML SDV IM ONE (07:59)
[2024-09-26] MEDS: Ondansetron 4 MG Tab.DIS PO ONE (07:59)
== END 2024-09-26 09:25 | disposition home or self-care (01) ==
LOC: DL.ED 07:38
DX: S70.02XA Contusion of left hip, initial encounter (principal); I10 Essential (primary) hypertension; K21.9 Gastro-esophageal reflux disease without esophagitis; E11.9 Type 2 diabetes mellitus without complications; Z88.8 Allergy status to other drugs, medicaments and biological substances; Z79.4 Long term (current) use of insulin; Z79.899 Other long term (current) drug therapy; Z86.16 Personal history of COVID-19; W01.0XXA Fall on same level from slipping, tripping and stumbling without subsequent striking against object, initial encounter
CPT/HCPCS: 73502; 96372; 99283; A9270; J1885

== ENCOUNTER 2024-09-28 11:25 | Emergency (ER) | payer BC, OTHER ==
[2024-09-28 13:11] VITALS: BP 117/69; PULSE 107
== END 2024-09-28 13:49 | disposition home or self-care (01) ==
LOC: DL.ED 11:25
DX: S76.012A Strain of muscle, fascia and tendon of left hip, initial encounter (principal); I10 Essential (primary) hypertension; I25.10 Atherosclerotic heart disease of native coronary artery without angina pectoris; E11.40 Type 2 diabetes mellitus with diabetic neuropathy, unspecified; M19.90 Unspecified osteoarthritis, unspecified site; Z88.1 Allergy status to other antibiotic agents; Z79.899 Other long term (current) drug therapy; Z79.4 Long term (current) use of insulin; Z79.02 Long term (current) use of antithrombotics/antiplatelets; Z86.16 Personal history of COVID-19; W01.0XXA Fall on same level from slipping, tripping and stumbling without subsequent striking against object, initial encounter
CPT/HCPCS: 72192; 99283; 99284